=== PATIENT | male | born 1955 | race Caucasian/White ===

== ENCOUNTER 2016-08-11 01:31 | Emergency (ER) | payer BC, OTHER ==
[~2016-08-11] VITALS: Ht 180.3 cm; Wt 57.6 kg
[2016-08-11] VITALS (10 sets, daily range): BP systolic 150–185; BP diastolic 86–117; PULSE 84–112; RESP 14–24; TEMP 97.8–98.5; O2SAT 84–100
[~2016-08-11 01:31] MED LIST: CYCL1TAB29 PO; FERR325T PO; FURO1TAB60 PO; LEVO100T5 PO; LISI10TA3 PO; NEUR600T PO; TRAM50TA PO
--- NOTE | 2016-08-11 02:27 | PD ---
HPI Chief Complaint: Injury Time Seen by Provider: 01:56 Travel History International Travel<30 days: No Contact w/Intl Traveler<30days: No Traveled to known affect area: No History of Present Illness HPI 60-year-old male presents to the emergency department for complaint of 2 hours of left shoulder pain. Patient reportedly has been taking Tylenol and ibuprofen without relief. Patient denies injury. No recent fever. Patient states range of motion of the left arm is limited to less than 90 abduction. No numbness tingling weakness pallor erythema or swelling of the left upper extremity. No prior injury or complaint of left shoulder pain patient has been diagnosed with rotator cuff injury and AC separation of the right shoulder. Patient has history of hypertension COPD hypothyroidism chronic pain syndrome fibromyalgia with narcotic abuse and 33 surgeries. Patient has been in the care of pain management doctor in the past. Patient denies any chest pain or shortness of breath. Patient does smoke cigarettes and has supplemental home oxygen. PFSH Past Medical History Narrative Medical Arthritis COPD tobaccoism hypertension peripheral vascular disease diabetes chronic pain syndrome right shoulder rotator cuff injury right shoulder AC separation cholecystectomy endoscopy, Jessie-en-Y, gastric bypass revision, partial pancreatectomy, partial splenectomy, ventral herniorrhaphy, multiple orthopedic surgeries after fall from 3 stories; nursing notes reviewed Hx Anticoagulant Therapy: No Arthritis: Yes Asthma: No Autoimmune Disease: No Anxiety: No Depression: No Heart Rhythm Problems: No Cancer: No Cardiovascular Problems: Yes (HTN) High Cholesterol: No Chest Pain: No Congestive Heart Failure: No COPD: Yes Diabetes: Yes Diminished Hearing: No Endocrine: Yes Gastrointestinal Disorders: Yes GERD: Yes Genitourinary: No Hiatal Hernia: No Hypertension: Yes Immune Disorder: No Implanted Vascular Access Dvce: Yes Musculoskeletal: Yes Neurologic: No Psychiatric: No Reproductive: No Respiratory: Yes Immunizations Current: Yes Sleep Apnea: No Thyroid Disease: Yes Ulcer: No Past Surgical History Abdominal Surgery: Yes (GASTRIC BYPASS) AICD: No Arteriovenous Shunt: No Cardiac Surgery: No Cholecystectomy: Yes Ear Surgery: No Endocrine Surgery: No Eye Surgery: No Genitourinary Surgery: Yes Gynecologic Surgery: No Insulin Pump: No Joint Replacement: Yes (LEFT KNEE) Neurologic Surgery: No Oral Surgery: No Pacemaker: No Thoracic Surgery: No Other Surgery: Yes (33 SURGERIES) Social History Alcohol Use: No Tobacco Use: Yes (2ppd) Substance Use: No Allergies-Medications (Allergen,Severity, Reaction): Coded Allergies: No Known Allergies (Unverified , 08/11/16) Reported Meds & Prescriptions Reported Meds & Active Scripts Active Clindamycin (Clindamycin HCl) 150 Mg Cap 300 Mg PO Q6H 7 Days Lisinopril 10 Mg Tab 10 Mg PO DAILY Robaxin (Methocarbamol) 750 Mg Tab 750 Mg PO Q6HR Reported Lisinopril 10 Mg Tab 10 Mg PO DAILY Levothyroxine (Levothyroxine Sodium) 100 Mcg Tab 100 Mcg PO DAILY Review of Systems Except as stated in HPI: all other systems reviewed are Neg Physical Exam Narrative GENERAL: Thin disheveled male in no acute distress no respiratory distress SKIN: Warm and dry. HEAD: Normocephalic. EYES: No scleral icterus. No injection or drainage. NECK: Supple, trachea midline. No JVD or lymphadenopathy. CARDIOVASCULAR: Increased Regular rate and rhythm without murmurs, gallops, or rubs. RESPIRATORY: Breath sounds equal bilaterally. No accessory muscle use. GASTROINTESTINAL: Abdomen soft, non-tender, nondistended. MUSCULOSKELETAL: No cyanosis, or edema. Decreased range of motion of the left upper extremity at the shoulder with less than 90 abduction intact internal/ external rotation distally extremity is neurovascular tendon intact no joint deformity. Radial pulses 2+ bilaterally to palpation. BACK: Nontender without obvious deformity. No CVA tenderness. Data Data Last Documented VS Vital Signs Date Time Temp Pulse Resp B/P Pulse Ox O2 Delivery O2 Flow Rate FiO2 08/11/16 07:02 98.5 105 16 154/89 98 Orders Shoulder, Complete (>2vws) (08/11/16 ) Electrocardiogram (08/11/16 ) ^ Saline Lock (08/11/16 02:11) Basic Metabolic Panel (Bmp) (08/11/16 02:11) Complete Blood Count With Diff (08/11/16 02:11) Magnesium (Mg) (08/11/16 02:11) Troponin I (08/11/16 02:11) Lactic Acid (08/11/16 02:11) Blood Culture (08/11/16 02:11) Chest, Single Ap (08/11/16 ) Sodium Chlorid 0.9% 500 Ml Inj (Ns 500 M (08/11/16 03:15) Insulin Human Regular Inj (Novolin R Inj (08/11/16 03:15) Ketorolac Inj (Toradol Inj) (08/11/16 03:15) Urinalysis - C+S If Indicated (08/11/16 03:09) Protein Corrected Calcium(Pcc) (08/11/16 02:25) Ondansetron Inj (Zofran Inj) (08/11/16 04:30) Morphine Inj (Morphine Inj) (08/11/16 04:30) Splint Or Brace Apply/Monitor (08/11/16 04:30) Sling Cradle Arm (08/11/16 ) Ct Abd/Pel W Iv Contrast(Rout) (08/11/16 ) Wound Culture And Gram Stain (08/11/16 05:04) Oral Contrast - Adult (08/11/16 05:07) Diatrizoate Liq ( Gastroview Liq) (08/11/16 05:14) Iohexol 350 Inj (Omnipaque 350 Inj) (08/11/16 06:46) Clindamycin Inj (Cleocin Inj) (08/11/16 07:30) Labs Laboratory Tests Test 08/11/16 08/11/16 02:25 03:40 White Blood Count 12.7 TH/MM3 Red Blood Count 3.54 MIL/MM3 Hemoglobin 10.6 GM/DL Hematocrit 33.3 % Mean Corpuscular Volume 94.2 FL Mean Corpuscular Hemoglobin 30.0 PG Mean Corpuscular Hemoglobin 31.9 % Concent Red Cell Distribution Width 13.2 % Platelet Count 681 TH/MM3 Mean Platelet Volume 7.9 FL Neutrophils (%) (Auto) 72.1 % Lymphocytes (%) (Auto) 16.1 % Monocytes (%) (Auto) 9.5 % Eosinophils (%) (Auto) 1.6 % Basophils (%) (Auto) 0.7 % Neutrophils # (Auto) 9.2 TH/MM3 Lymphocytes # (Auto) 2.0 TH/MM3 Monocytes # (Auto) 1.2 TH/MM3 Eosinophils # (Auto) 0.2 TH/MM3 Basophils # (Auto) 0.1 TH/MM3 CBC Comment DIFF FINAL Differential Comment Sodium Level 136 MEQ/L Potassium Level 4.3 MEQ/L Chloride Level 103 MEQ/L Carbon Dioxide Level 22.7 MEQ/L Anion Gap 10 MEQ/L Blood Urea Nitrogen 27 MG/DL Creatinine 1.00 MG/DL Estimat Glomerular Filtration 76 ML/MIN Rate Random Glucose 390 MG/DL Lactic Acid Level 1.4 mmol/L Calcium Level 8.0 MG/DL Protein Corrected Calcium 8.5 MG/DL Magnesium Level 1.9 MG/DL Troponin I LESS THAN 0.02 NG/ML Total Protein 6.3 GM/DL Urine Color YELLOW Urine Turbidity CLEAR Urine pH 5.5 Urine Specific [place] 1.021 Urine Protein 30 mg/dL Urine Glucose (UA) 1000 OR GREATER mg/dL Urine Ketones NEG mg/dL Urine Occult Blood NEG Urine Nitrite NEG Urine Bilirubin NEG Urine Leukocyte Esterase NEG Urine RBC 0-2 /hpf Urine WBC 0-2 /hpf Urine Squamous Epithelial 0-5 /hpf Cells Urine Bacteria NONE /hpf Microscopic Urinalysis Comment CULT NOT INDICATED MDM Medical Decision Making Medical Screen Exam Complete: Yes Emergency Medical Condition: Yes Medical Record Reviewed: Yes Interpretation(s) EKG: Normal sinus rhythm rate 85 left axis deviation right bundle branch block with left anterior fascicular block no acute ST elevation or injury pattern change noted QS inferiorly age-indeterminate.; this is essentially unchanged from previous study review of medical records. CBC & BMP Diagram 08/11/16 02:25 Last Impressions Shoulder X-Ray 08/11/16 0000 Signed Impressions: Service Date/Time: Thursday, August 11, 2016 02:46 - CONCLUSION: No acute left shoulder abnormality is identified. There are stable findings consistent with calcific tendinosis and osteoarthritis of the acromioclavicular joint. Levar Aguayo MD Chest X-Ray 08/11/16 0000 Signed Impressions: Service Date/Time: Thursday, August 11, 2016 02:20 - CONCLUSION: No acute cardiopulmonary abnormality is identified. Levar Aguayo MD troponin I: less than 0.02, not elevated lactic acid: 1.4, not elevated ua: glucosuria Differential Diagnosis Bursitis rotator cuff injury AC separation lytic lesion atypical chest pain ACS myocardial infarction pneumothorax PE sirs sepsis; no exam findings for septic arthritis Narrative Course Patient presents with complaint of left shoulder pain for 2 hours prior to arrival to the emergency department with no known injury and some decreased range of motion without redness swelling point tenderness bruising or deformity. As such patient will receive x-ray of the left shoulder to evaluate for bony etiology for pain we'll also obtain chest x-ray to evaluate for rib etiology for pain and pneumothorax EKG performed to assess for possible cardiac etiology of pain and as patient meets SIRS criteria by heart rate and respiratory we'll obtain lactic and blood cultures along with basic labs to assess for possible serves/infectious related etiology versus inflammatory changes associated with Musculoskeletal pain. Also in view of patient's history of ongoing tobacco use hypertension dyslipidemia age of 59 while taking EKG. Patient has prior history of right bundle branch block with left anterior fascicular block left axis deviation and prior age-indeterminate inferior infarct. Cardiac enzymes will be obtained. Lab values remarkable for total white cell count 12,700 with mild left shift however there is a normal lactic acid 1.4; patient also identified to have renal insufficiency as well as elevated serum glucose. Patient administered normal saline bolus as well as regular insulin administered subcutaneously patient also given Toradol 30 mg IV for pain management. No obvious source of infection and patient appears nontoxic. Patient denies any shortness of breath or chest pain. Pain is isolated to the left shoulder. Patient has limited range of motion of the left shoulder. EKG reveals no acute injury pattern changed no ST elevation and cardiac enzymes are found to be in normal range. Most likely this is musculoskeletal pain as opposed to primary vascular PE or cardiac ACS etiology. Also no evidence for pneumothorax. Urinalysis also ordered. Patient with continued complaint of left shoulder pain with range of motion; administered zofran 4 mg iv and morphine sulfate 4mg iv; BG rechecked at 1 hour after SQ insulin and decreased to 113; patient given Peanut butter crackers and OJ. @ time of discharge while sling being applied patient now reports that he has had some drainage from a previous peg tube insertion site and overlying prior gastric bypass surgical site that was last used and tube removed 2 years ago. Patient also notes some purulent drainage from the site x 2 days. Patient denies any pain, bleeding redness, fever, nausea or vomiting. Wound dehiscence, abscess, cellulitis, stoma fistula CT abd/pel w contrast ordered and wound c&s obtained. Patient does meet sirs criteria by hr,rr, and wcc @7:[address] abdomen and pelvis with IV and oral contrast read per reading radiologist identifies no obvious fistulous tract from anterior abdominal wall to intra-abdominal cavity or bowel. Patient with multiple surgical clips but no evidence of abdominal wall abscess or induration. Area where abdominal wall showed possible previous peg tube insertion shows some granulation tissue no obvious tract identified. Discussed at 7:35 AM discussed in detail with patient with significant other at bedside general surgery recommendations and exam findings. Offered for patient to be admitted as observation for ongoing monitoring of abdominal wall site and for IV antibiotics and wound care. Patient is adamant that he does not want to be admitted to the hospital states the area has no tenderness has had no pain and he's had no fever or chills. Patient is willing to take antibiotic and is willing to follow-up Gen. surgery but states he will not be admitted to the hospital. In view of Gen. surgery's recommendation for daily cleansing of the site and outpatient follow-up in the surgical office patient will be given outpatient trial but is encouraged to monitor temperature every 4 hours and to return immediately for fever or any change in condition. Sepsis Criteria SIRS Criteria (2 or more): Heart rate over 90, RR > 20 or PaCO2 < 32, WBC > 11608, < 4000 or > 10% bands Criteria Outcome: Meets SIRS criteria Physician Communication Physician Communication case discussed with Gen Surgery DR Hauser will see in the office not admission--- recommends dilute soap cleanse daily Diagnosis Primary Impression: Left shoulder tendinitis Additional Impressions: Hyperglycemia due to type 2 diabetes mellitus Qualified Code: E11.65 - Type 2 diabetes mellitus with hyperglycemia, without long-term current use of insulin Dehydration HTN (hypertension) Qualified Code: I10 - Essential hypertension Medication refill Chronic pain Qualified Code: G89.4 - Chronic pain syndrome Draining cutaneous sinus tract Referrals: General Surgeon 3 days family consumer scientist surgeon Dr Ace Orthopedist call for appointment Pain Management call for appointment Primary Care Physician call for appointment Patient Instructions: General Instructions Additional Instructions: Increase fluid hydration Take [id number] ibuprofen 600 mg as often as every 6-8 hours as needed for pain associated with inflammation May take Robaxin as prescribed as needed for muscle spasm Follow-up with your primary care physician; follow-up with orthopedic surgeon; follow up with pain management physician Apply moist heat to shoulder Wear sling Return to the emergency department for any concerns or change in condition Monitor blood sugars daily Continue your lisinopril as prescribed daily Monitor temperature every 4 hours with thermometer take acetaminophen/Tylenol every 4 hours as needed for fever 100.4F or greater or ibuprofen/Advil/Motrin 400-600 mg as often as every 6-8 hours as needed for fever 100.4F or greater Cleanse wound site daily with dilute warm soapy water and apply dry dressing Follow-up with general surgeon on Sunday or Sunday call office today to schedule follow-up appointment Med/Other Pt SpecificInfo: Prescription(s) given Scripts Clindamycin 150 Mg [id number] Mg PO Q6H 7 Days Ref 0 Prov:Karie Yost MD 08/11/16 Lisinopril 10 Mg Tab10 Mg PO DAILY #30 TAB Ref 0 Prov:Karie Yost MD 08/11/16 Methocarbamol (Robaxin)750 Mg [id number] Mg PO Q6HR #7 TAB Ref 0 Prov:Karie Yost MD 08/11/16 Disposition: 01 DISCHARGE HOME Condition: Stable Karie Yost MD Aug 11, 2016 02:27
[2016-08-11 02:38] LABS: AUTOMATED NEUTROPHIL # 9.2 TH/MM3 (1.8-7.7); BASOPHIL # 0.1 TH/MM3 (0-0.2); BASOPHIL % 0.7 % (0.0-2.0); EOSINOPHIL # 0.2 TH/MM3 (0-0.4); EOSINOPHIL % 1.6 % (0.0-4.0); HEMATOCRIT 33.3 % (39.0-51.0); HEMO FLAGS DIFF FINAL; LYMPH % 16.1 % (9.0-44.0); MEAN CELL VOLUME 94.2 FL (80.0-100.0); MEAN CORPUSCULAR HGB CONC 31.9 % (32.0-36.0); MONO % 9.5 % (0.0-8.0); NEUT % 72.1 % (16.0-70.0); PLATELET COUNT 681 TH/MM3 (150-450); RED BLOOD COUNT 3.54 MIL/MM3 (4.50-5.90); RED CELL DISTRIBUTION WIDTH 13.2 % (11.6-17.2); WHITE BLOOD COUNT 12.7 TH/MM3 (4.0-11.0)
[2016-08-11 02:46] LABS: CHLORIDE 103 MEQ/L (98-107); POTASSIUM 4.3 MEQ/L (3.5-5.1); SODIUM (NA) 136 MEQ/L (136-145)
[2016-08-11 02:49] LABS: ANION GAP 10 MEQ/L (5-15); BICARBONATE 22.7 MEQ/L (21.0-32.0); BLOOD UREA NITROGEN 27 MG/DL (7-18); MAGNESIUM 1.9 MG/DL (1.5-2.5)
[2016-08-11 02:52] LABS: GLOMERULAR FILTRATION RATE 76 ML/MIN (>89)
--- NOTE | 2016-08-11 03:08 | RADHPO ---
EXAM DATE/TIME: 08/11/2016 02:20 [facility] COMPARISON: CHEST SINGLE AP, June 24, 2016, 23:56. INDICATIONS : Patient states chest pain. MEDICAL HISTORY : Hypertension. Chronic obstructive pulmonary disease. Diabetes mellitus type II. GERD, Thyroid dis ease SURGICAL HISTORY : Splenectomy. Cholecystectomy. Gastric bypass. Bilateral knee surgery, partial pancreas removal ENCOUNTER: Initial ACUITY: 1 day PAIN SCORE: 6/10 LOCATION: Bilateral chest FINDINGS: Single frontal view of the chest demonstrates a normal-sized cardiac silhouette. No effusion, consoli dation, or pneumothorax is visualized. Lungs remain hyperinflated. The bones and soft tissues demonst rate no acute abnormality. CONCLUSION: No acute cardiopulmonary abnormality is identified. Levar Aguayo MD on August 11, 2016 at 3:06 Board Certified Radiologist. This report was verified electronically.
--- NOTE | 2016-08-11 03:13 | RADHPO ---
EXAM DATE/TIME: 08/11/2016 02:46 [facility] COMPARISON: SHOULDER LEFT COMPLETE (>2VWS), June 18, 2016, 1:25. INDICATIONS : Patient states left shoulder pain x2 hrs. MEDICAL HISTORY : None. SURGICAL HISTORY : None. ENCOUNTER: Initial ACUITY: 1 day PAIN SCORE: 9/10 LOCATION: Left Shoulder FINDINGS: 5 views of the left shoulder demonstrate no fracture or dislocation. There is mineralization adjacent to the greater tuberosity. The acromioclavicular joint is intact with mild osteoarthritis change. No soft tissue abnormality is identified. Visualized left chest demonstrates no acute finding. CONCLUSION: No acute left shoulder abnormality is identified. There are stable findings consistent with calcific tendinosis and osteoarthritis of the acromioclavicular joint. Levar Aguayo MD on August 11, 2016 at 3:10 Board Certified Radiologist. This report was verified electronically.
[2016-08-11] MEDS ORDERED: SODIUM CHLORID 0.9% 500 ML INJ 500 ML IV ONE (03:15)
[2016-08-11] MEDS ORDERED: KETOROLAC TROMETHAMINE 30 MG/ML (IVP) VIAL IV PUSH ONE (03:15)
[2016-08-11] MEDS ORDERED: INSULIN HUMAN REGULAR 1,000 UNITS/10 ML VIAL SQ ONE (03:15)
[2016-08-11 03:26] LABS: CALCIUM-PROTEIN CORRECTED 8.5 MG/DL (8.5-10.1)
[2016-08-11 03:47] LABS: BLOOD, URINE NEG (NEG); KETONE, URINE NEG (NEG); NITRITE,URINE NEG (NEG); PH, URINE 5.5 (5.0-8.5)
[2016-08-11 03:50] LABS: GLUCOSE,URINE 1000 OR GREATER mg/dL (NEG); URINE COLOR YELLOW (YELLW/STRAW)
[2016-08-11 03:51] LABS: COMMENT (UR) CULT NOT INDICATED; CULTURE IF INDICATED CULT NOT INDICATED; RBC, URINE 0-2 /hpf (0-3); SQUAMOUS EPITHELIAL CELL URINE 0-5 /hpf (0-5); WBC, URINE 0-2 /hpf (0-5)
[2016-08-11] MEDS ORDERED: ONDANSETRON HCL 4 MG/2 ML VIAL IV PUSH ONE (04:30)
[2016-08-11] MEDS ORDERED: LISI10TA3 PO (04:30)
[2016-08-11] MEDS ORDERED: MORPHINE SULFATE 4 MG/ML INJ IV PUSH ONE ×2 (04:30→07:45)
[2016-08-11] MEDS ORDERED: ROBA750T PO (04:30)
[2016-08-11] MEDS ORDERED: DIATRIZOATE MEGLUM/DIATRIZOATE SOD 9 ML CUP ONE (05:14)
[2016-08-11] MEDS ORDERED: IOHEXOL 350 MG/ML 10 ML VIAL (for RAD DIAG) IV ONE (06:46)
--- NOTE | 2016-08-11 06:59 | RADHPO ---
EXAM DATE/TIME: 08/11/2016 06:34 [facility] COMPARISON: CT ABDOMEN & PELVIS W CONTRAST, April 15, 2015, 17:14. INDICATIONS : Drainage prior surgical site for peg tube. IV CONTRAST: 100 cc Omnipaque 350 (iohexol) IV ORAL CONTRAST: Prescribed oral contrast ingested. RADIATION DOSE: 5.51 CTDIvol (mGy) MEDICAL HISTORY : Diabetes mellitus type 2. Chronic obstructive pulmonary disease. Hypertension.GERD. SURGICAL HISTORY : Gastric bypass. Cholecystectomy. ENCOUNTER: Initial ACUITY: 3 days PAIN SCALE: 3/10 LOCATION: Umbilical TECHNIQUE: Volumetric scanning of the abdomen and pelvis was performed. Using automated exposure control and ad justment of the mA and/or kV according to patient size, radiation dose was kept as low as reasonably achievable to obtain optimal diagnostic quality images. FINDINGS: LOWER LUNGS: The visualized lower lungs are clear. LIVER: Homogeneous density without lesion. There is stable mild intra-and extrahepatic bile duct dilatation in this patient post cholecystectomy. There are innumerable clips in the gallbladder fossa region. D istal common bile duct measures approximately 11 mm. SPLEEN: Normal size without lesion. PANCREAS: Within normal limits. KIDNEYS: Normal in size and shape. There is no mass or hydronephrosis. There are 3 low-density lesions in the right kidney measuring between 6 mm and 14 mm. These are stable from the prior study and have imagin g appearance suggesting cysts. There is a stable 5 mm nonobstructing left renal stone. ADRENAL GLANDS: Within normal limits. VASCULAR: There is no aortic aneurysm. There is moderate atherosclerotic disease. BOWEL/MESENTERY: There is circumferential wall thickening of the distal esophagus similar to the prior study. Postsurg ical changes are present at the stomach indicating prior gastric bypass surgery. Bowel is adjacent to the anterior abdominal wall. There are no findings to indicate obstruction. No free air or free flui d is present. ABDOMINAL WALL: There multiple clips on the anterior abdominal wall. No abdominal wall fluid collection is visualized . RETROPERITONEUM: There is no lymphadenopathy. BLADDER: No wall thickening or mass. REPRODUCTIVE: Within normal limits. INGUINAL: There is no lymphadenopathy or hernia. There is fluid within the inguinal canals bilaterally. MUSCULOSKELETAL: There are degenerative changes of the lumbar spine. Right proximal femur hardware is present. CONCLUSION: 1. There are multiple surgical clips on the anterior abdominal wall. There is adjacent bowel. No abdo luis carlos wall fluid collection or abscess is seen. No clear fistula is identified. 2. Nonacute findings include moderate atherosclerotic disease, postsurgical changes indicating prior gastric bypass surgery, stable circumferential wall thickening in the distal esophagus, and stable no nobstructing left renal stone. Levar Aguayo MD on August 11, 2016 at 6:50 Board Certified Radiologist. This report was verified electronically.
[2016-08-11] MEDS ORDERED: CLIN1CAP5 PO (07:27)
[2016-08-11] MEDS ORDERED: CLINDAMYCIN INJ 900 MG in SODIUM CHLORIDE 0.9% INJ 100 ML IV ONE (07:30)
--- NOTE | 2016-08-11 13:42 | EKG ---
Date Performed: 08/11/2016 Time Performed: 02:16:54 PTAGE: 60 years EKG: Sinus rhythm Left axis deviation RBBB with left anterior fascicular block Possible inferior infarct - age undeter mined Abnormal ECG PREVIOUS TRACING : 06/25/2016 15.16 Since previous tracing, no significant change noted DOCTOR: Dariana Fuentes Interpretating Date/Time 08/11/2016 13:35:31
== END 2016-08-11 08:53 | disposition home or self-care (01) ==
LOC: PHED 01:31
DX: M75.80 Other shoulder lesions, unspecified shoulder (principal); E11.65 Type 2 diabetes mellitus with hyperglycemia; E86.0 Dehydration; I10 Essential (primary) hypertension; G89.29 Other chronic pain; B95.61 Methicillin susceptible Staphylococcus aureus infection as the cause of diseases classified elsewhere; F17.210 Nicotine dependence, cigarettes, uncomplicated; R94.31 Abnormal electrocardiogram [ECG] [EKG]; Z76.0 Encounter for issue of repeat prescription
CPT/HCPCS: 71010; 73030; 74177; 80048; 81001; 83605; 83735; 84155; 84484; 85025; 87040; 87070; 93005; 96361; 96365; 96372; 96375; 96376; 99284; J1815; J1885; J2270; J2405; J7040; Q9963; Q9967

== ENCOUNTER 2016-08-27 09:56 | Inpatient (IN) | payer BC, OTHER ==
[2016-08-27] VITALS (8 sets, daily range): BP systolic 116–176; BP diastolic 61–105; PULSE 82–118; RESP 16–20; TEMP 97.9–100.6; O2SAT 95–100
[~2016-08-27] VITALS: Ht 180.3 cm; Wt 57.2 kg
[~2016-08-27 09:56] MED LIST changes: +CLIN1CAP5 PO; -CYCL1TAB29 PO; -FERR325T PO; -FURO1TAB60 PO; -NEUR600T PO; +ROBA750T PO; -TRAM50TA PO
[2016-08-27] MEDS ORDERED: SODIUM CHLOR 0.9% 1000 ML INJ 1,000 ML IV SCH (10:02)
--- NOTE | 2016-08-27 10:05 | PD ---
HPI Chief Complaint: Abdominal Pain Time Seen by Provider: 09:58 Travel History International Travel<30 days: No Contact w/Intl Traveler<30days: No Traveled to known affect area: No History of Present Illness HPI 60-year-old male brought in by ambulance from home for evaluation of abdominal pain. The patient reports mid abdominal pain described as a throbbing, severe, constant, no modifying factors. Symptoms started at around 3:00 AM. He had a normal bowel movement this morning. No nausea or vomiting. No fevers or chills. History of partial gastrectomy in 1983. No other abdominal surgeries. PFSH Past Medical History Hx Anticoagulant Therapy: No Arthritis: Yes Asthma: No Autoimmune Disease: No Anxiety: No Depression: No Heart Rhythm Problems: No Cancer: No Cardiovascular Problems: Yes (HTN) High Cholesterol: No Chest Pain: No Congestive Heart Failure: No COPD: Yes Diabetes: Yes (NO MEDS) Diminished Hearing: No Endocrine: Yes Gastrointestinal Disorders: Yes GERD: Yes Genitourinary: No Hiatal Hernia: No Hypertension: Yes Immune Disorder: No Implanted Vascular Access Dvce: Yes Musculoskeletal: Yes Neurologic: No Psychiatric: No Reproductive: No Respiratory: Yes (COPD) Immunizations Current: Yes Sleep Apnea: No Thyroid Disease: Yes Ulcer: No Past Surgical History Abdominal Surgery: Yes (GASTRIC BYPASS) AICD: No Arteriovenous Shunt: No Cardiac Surgery: No Cholecystectomy: Yes Ear Surgery: No Endocrine Surgery: No Eye Surgery: No Genitourinary Surgery: Yes Gynecologic Surgery: No Insulin Pump: No Joint Replacement: Yes (LEFT KNEE) Neurologic Surgery: No Oral Surgery: No Pacemaker: No Thoracic Surgery: No Other Surgery: Yes (33 SURGERIES) Social History Alcohol Use: No Tobacco Use: Yes (2ppd) Substance Use: No Allergies-Medications (Allergen,Severity, Reaction): Coded Allergies: No Known Allergies (Unverified , 08/11/16) Reported Meds & Prescriptions Reported Meds & Active Scripts Active Clindamycin (Clindamycin HCl) 150 Mg Cap 300 Mg PO Q6H 7 Days Lisinopril 10 Mg Tab 10 Mg PO DAILY Robaxin (Methocarbamol) 750 Mg Tab 750 Mg PO Q6HR Reported Lisinopril 10 Mg Tab 10 Mg PO DAILY Levothyroxine (Levothyroxine Sodium) 100 Mcg Tab 100 Mcg PO DAILY Review of Systems Except as stated in HPI: all other systems reviewed are Neg Physical Exam Narrative GENERAL: Well-developed, thin, comfortable, no acute distress. SKIN: Warm and dry. Midline vertical abdominal incisional scar with small area of ulceration at the superior aspect with dry packing in place, no purulence, no warmth or erythema. HEAD: Atraumatic. Normocephalic. EYES: Pupils equal and round. No scleral icterus. No injection or drainage. ENT: Mucous membranes pink and moist. NECK: Trachea midline. No JVD. CARDIOVASCULAR: Regular rate and rhythm. RESPIRATORY: No accessory muscle use. Clear to auscultation. Breath sounds equal bilaterally. GASTROINTESTINAL: Abdomen soft, nondistended. Moderate diffuse tenderness with rigidity, no rebound. Normal bowel sounds. MUSCULOSKELETAL: No obvious deformities. No clubbing. No cyanosis. No edema. NEUROLOGICAL: Awake and alert. No obvious cranial nerve deficits. Motor grossly within normal limits. Normal speech. PSYCHIATRIC: Appropriate mood and affect; insight and judgment normal. Data Data Last Documented VS Vital Signs Date Time Temp Pulse Resp B/P Pulse Ox O2 Delivery O2 Flow Rate FiO2 08/27/16 12:10 94 16 121/93 97 Room Air 08/27/16 09:58 97.9 Orders Complete Blood Count With Diff (08/27/16 10:02) Comprehensive Metabolic Panel (08/27/16 10:02) Lipase (08/27/16 10:02) Lactic Acid (08/27/16 10:02) Prothrombin Time / Inr (Pt) (08/27/16 10:02) Act Partial Throm Time (Ptt) (08/27/16 10:02) Ct Abd/Pel W Iv Contrast(Rout) (08/27/16 10:02) Iv Access Insert/Monitor (08/27/16 10:02) Ecg Monitoring (08/27/16 10:02) Oximetry (08/27/16 10:02) Morphine Inj (Morphine Inj) (08/27/16 10:15) Ondansetron Inj (Zofran Inj) (08/27/16 10:15) Sodium Chlor 0.9% 1000 Ml Inj (Ns 1000 M (08/27/16 10:02) Sodium Chloride 0.9% Flush (Ns Flush) (08/27/16 10:15) Electrocardiogram (08/27/16 10:02) Ckmb (Isoenzyme) Profile (08/27/16 10:02) Troponin I (08/27/16 10:02) Iohexol 350 Inj (Omnipaque 350 Inj) (08/27/16 11:36) Piperacil-Tazo 3.375 Gm Premix (Zosyn 3. (08/27/16 12:30) Azithromycin Inj (Zithromax Inj) (08/27/16 12:45) Blood Culture (08/27/16 12:31) Diet 1800 Ada Cons Carb (08/27/16 Lunch) Labs Laboratory Tests Test 08/27/16 10:20 White Blood Count 20.6 TH/MM3 Red Blood Count 3.60 MIL/MM3 Hemoglobin 11.0 GM/DL Hematocrit 33.8 % Mean Corpuscular Volume 93.9 FL Mean Corpuscular Hemoglobin 30.6 PG Mean Corpuscular Hemoglobin 32.5 % Concent Red Cell Distribution Width 13.9 % Platelet Count 563 TH/MM3 Mean Platelet Volume 8.3 FL Neutrophils (%) (Auto) 87.3 % Lymphocytes (%) (Auto) 7.3 % Monocytes (%) (Auto) 4.1 % Eosinophils (%) (Auto) 0.3 % Basophils (%) (Auto) 1.0 % Neutrophils # (Auto) 18.0 TH/MM3 Lymphocytes # (Auto) 1.5 TH/MM3 Monocytes # (Auto) 0.8 TH/MM3 Eosinophils # (Auto) 0.1 TH/MM3 Basophils # (Auto) 0.2 TH/MM3 CBC Comment DIFF FINAL Differential Comment Prothrombin Time 10.4 SEC Prothromb Time International 0.9 RATIO Ratio Activated Partial 25.4 SEC Thromboplast Time Sodium Level 138 MEQ/L Potassium Level 4.7 MEQ/L Chloride Level 103 MEQ/L Carbon Dioxide Level 25.7 MEQ/L Anion Gap 9 MEQ/L Blood Urea Nitrogen 23 MG/DL Creatinine 0.98 MG/DL Estimat Glomerular Filtration 78 ML/MIN Rate Random Glucose 352 MG/DL Lactic Acid Level 1.5 mmol/L Calcium Level 8.8 MG/DL Total Bilirubin 0.2 MG/DL Aspartate Amino Transf 7 U/L (AST/SGOT) Alanine Aminotransferase 18 U/L (ALT/SGPT) Alkaline Phosphatase 130 U/L Total Creatine Kinase 22 U/L Troponin I LESS THAN 0.02 NG/ML Total Protein 6.3 GM/DL Albumin 2.4 GM/DL Lipase 363 U/L [facility] Medical Decision Making Medical Screen Exam Complete: Yes Emergency Medical Condition: Yes Medical Record Reviewed: Yes Differential Diagnosis Gastritis, pancreatitis, peptic ulcer disease, hepatobiliary disease, appendicitis, colitis, intra-abdominal infection Narrative Course Initial vital signs show heart rate 108, blood pressure 152/80, pulse ox 99% on room air, oral temp of 97.9F. CBC shows WBCs 20.6, hemoglobin 11, hematocrit 33.8, platelets 563, neutrophils 87%. CMP is remarkable for random glucose 352, otherwise unremarkable. Lipase is 363. Lactic acid is 1.5. Cardiac enzymes are negative. CT abdomen pelvis: CONCLUSION: 1. Soft tissue defect/ ulceration or possible wound dehiscence in the midline anterior abdominal wall in the area of previous hernia repair surgery. No organized drainable fluid collection. No herniation of intra-abdominal contents identified. 2. No other significant interval change. 3. Scarring or atelectasis at the right lung base. Minimal patchy opacity at the left lung base indicating minimal inflammatory change or atelectasis. Patient has history of COPD. His abdominal pain is somewhat improved, however he still is having pain after receiving morphine. His leukocytosis is likely secondary to the opacity in his left lung base. His O2 saturation is 93% on room air. She reports having a cough for the last couple of days that is nonproductive. The patient also states that he has diabetes, however he is not on any medication for it. The patient was started on Zosyn and azithromycin. Blood cultures sent prior to antibiotic administration. Given intractable abdominal pain, psychosis, and pneumonia, the patient be admitted. He meets sepsis criteria. Case discussed with [facility] hospitalist Dr. Fontanez who will admit the patient to his service. Diagnosis Primary Impression: Sepsis Qualified Code: A41.9 - Sepsis, due to unspecified organism Additional Impressions: Pneumonia Qualified Code: J18.1 - Pneumonia of left lower lobe due to infectious organism Intractable abdominal pain Hyperglycemia Admitting Information Admitting Physician Requests: Admit Hossein Gallego MD Aug 27, 2016 10:05
[2016-08-27] MEDS ORDERED: MORPHINE SULFATE 4 MG/ML INJ IV PUSH ONE (10:15)
[2016-08-27] MEDS ORDERED: SODIUM CHLORIDE 0.9% FLUSH 5 ML FLUSH IVF PRN (10:15)
[2016-08-27] MEDS ORDERED: ONDANSETRON HCL 4 MG/2 ML VIAL IVP ONE (10:15)
[2016-08-27 10:50] LABS: CHLORIDE 103 MEQ/L (98-107); POTASSIUM 4.7 MEQ/L (3.5-5.1); SODIUM (NA) 138 MEQ/L (136-145)
[2016-08-27 10:51] LABS: BASOPHIL # 0.2 TH/MM3 (0-0.2); EOSINOPHIL # 0.1 TH/MM3 (0-0.4); EOSINOPHIL % 0.3 % (0.0-4.0); HEMATOCRIT 33.8 % (39.0-51.0); LYMPH % 7.3 % (9.0-44.0); LYMPHOCYTE # 1.5 TH/MM3 (1.0-4.8); MEAN CELL VOLUME 93.9 FL (80.0-100.0); MEAN CORPUSCULAR HEMOGLOBIN 30.6 PG (27.0-34.0); MEAN CORPUSCULAR HGB CONC 32.5 % (32.0-36.0); MONO % 4.1 % (0.0-8.0); NEUT % 87.3 % (16.0-70.0); PLATELET COUNT 563 TH/MM3 (150-450); RED CELL DISTRIBUTION WIDTH 13.9 % (11.6-17.2); WHITE BLOOD COUNT 20.6 TH/MM3 (4.0-11.0)
[2016-08-27 10:52] LABS: HEMO FLAGS DIFF FINAL
[2016-08-27 10:54] LABS: ANION GAP 9 MEQ/L (5-15); BICARBONATE 25.7 MEQ/L (21.0-32.0); BLOOD UREA NITROGEN 23 MG/DL (7-18)
[2016-08-27 10:55] LABS: APTT (PATIENT) 25.4 SEC (24.3-30.1); INTERNATIONAL NORMALIZED RATIO 0.9 RATIO; PROTHROMBIN TIME - PATIENT 10.4 SEC (9.8-11.6)
[2016-08-27 10:56] LABS: ALT (GPT) 18 U/L (12-78); AST (GOT) 7 U/L (15-37)
[2016-08-27 10:57] LABS: GLOMERULAR FILTRATION RATE 78 ML/MIN (>89)
[2016-08-27 10:58] LABS: TOTAL BILIRUBIN ADULT 0.2 MG/DL (0.2-1.0)
[2016-08-27 10:59] LABS: ALKALINE PHOSPHATASE 130 U/L (45-117)
[2016-08-27 11:00] LABS: CREATINE KINASE 22 U/L (39-308)
[2016-08-27] MEDS ORDERED: IOHEXOL 350 MG/ML 10 ML VIAL (for RAD DIAG) IV ONE (11:36)
--- NOTE | 2016-08-27 12:20 | RADHPO ---
EXAM DATE/TIME: 08/27/2016 11:16 [place] COMPARISON: CT ABDOMEN & PELVIS W CONTRAST, August 11, 2016, 6:34. INDICATIONS : Umbilical pain today. IV CONTRAST: 70 cc Omnipaque 350 (iohexol) IV ORAL CONTRAST: No oral contrast ingested. RADIATION DOSE: 7.56 CTDIvol (mGy) MEDICAL HISTORY : Gastroesophageal reflux disease. Hypertension. SURGICAL HISTORY : Gastric bypass. Cholecystectomy. ENCOUNTER: Initial ACUITY: 1 day PAIN SCALE: 10/10 LOCATION: umbilical abdomen TECHNIQUE: Volumetric scanning of the abdomen and pelvis was performed. Using automated exposure control and ad justment of the mA and/or kV according to patient size, radiation dose was kept as low as reasonably achievable to obtain optimal diagnostic quality images. FINDINGS: LOWER LUNGS: Scarring or atelectasis at the right lung base. Minimal patchy opacity at the left lung base indicati ng minimal inflammatory change or atelectasis. LIVER: Status post cholecystectomy. Mild diffuse prominence of the intrahepatic biliary ducts unchanged. No focal masses identified. SPLEEN: Absent. PANCREAS: Within normal limits. KIDNEYS: Left renal calculus and bilateral renal cysts unchanged. No evidence of hydronephrosis. ADRENAL GLANDS: Within normal limits. VASCULAR: There is no aortic aneurysm. BOWEL/MESENTERY: Postsurgical findings of the stomach and proximal small bowel. No evidence of bowel dilatation. No fr ee air or free fluid. Appendix within normal limits. ABDOMINAL WALL: There is an apparent defect in the midline anterior abdominal wall. Multiple metallic tacks are seen in this area. Several tacks are seen in the region of apparent gap. This finding is just superior to the umbilicus. No herniation of intra-abdominal contents identified. RETROPERITONEUM: There is no lymphadenopathy. BLADDER: No wall thickening or mass. REPRODUCTIVE: Within normal limits. INGUINAL: Fluid again seen within the inguinal canals. MUSCULOSKELETAL: Within normal limits for patient age. CONCLUSION: 1. Soft tissue defect/ ulceration or possible wound dehiscence in the midline anterior abdominal wall in the area of previous hernia repair surgery. No organized drainable fluid collection. No herniatio n of intra-abdominal contents identified. 2. No other significant interval change. Ag Lira MD on August 27, 2016 at 12:08 Board Certified Radiologist. This report was verified electronically.
[2016-08-27] MEDS ORDERED: PIPERACIL-TAZO 3.375 GM PREMIX 50 ML IV ONE (12:30)
[2016-08-27] MEDS ORDERED: AZITHROMYCIN INJ 500 MG in SODIUM CHLOR 0.9% 250 ML INJ 250 ML IV ONE (12:45)
[2016-08-27] MEDS ORDERED: MAGNESIUM HYDROXIDE SUSP 30 ML CUP PO PRN (14:30)
[2016-08-27] MEDS ORDERED: SENNOSIDES 8.6 MG TAB PO PRN (14:30)
[2016-08-27] MEDS ORDERED: ACETAMINOPHEN 325 MG TAB PO PRN (14:30)
[2016-08-27] MEDS ORDERED: NALOXONE HCL 0.4 MG/ML AMP IV PRN (14:30)
[2016-08-27] MEDS ORDERED: ONDANSETRON HCL 4 MG/2 ML VIAL IVP PRN (14:30)
[2016-08-27] MEDS ORDERED: GLUCAGON 1 MG/ML VIAL OTHER PRN (14:45)
[2016-08-27] MEDS ORDERED: DEXTROSE 50% IN WATER 50 ML VIAL(D50) IV PUSH PRN (14:45)
[2016-08-27] MEDS: SODIUM CHLOR 0.9% 1000 ML INJ 1,000 ML IV SCH (14:59)
[2016-08-27] MEDS: INSULIN ASPART SUPPLEMENTAL SCALE SQ SCH ×2 (17:42→21:00)
[2016-08-27] MEDS: METHOCARBAMOL 500 MG TAB PO SCH (17:42)
[2016-08-27] MEDS: HEPARIN SODIUM - SQ 10,000 UNITS/ML VIAL SQ SCH (17:43)
--- NOTE | 2016-08-27 18:47 | MH ---
cc: JOHN SAGE MD DATE OF ADMISSION: 08/27/2016 CHIEF COMPLAINT: Abdominal pain, pus coming out of the wound for a week and a half, anterior abdominal wall HISTORY OF PRESENT ILLNESS: This is a 60-year-old male with past medical-surgical history significant for arthritis, hypertension, hypothyroidism, history of COPD, smoker for more than 45 years at three packs of cigarettes a day, history of COPD, history of gastric bypass surgery in 1983, history of left knee replacement who came to the ER at [facility] complaining of abdominal pain which was about 10/10 diffuse and throbbing, severe, constant no modifying factors. The pain started at 03:00 a.m. last night. He had a normal bowel movement this morning. He denies any nausea or vomiting. Denies any constipation. Other than that, he had pus coming of the anterior abdominal wall which was yellowish in color for the last 1-1/2 weeks from the site where he had the gastric bypass surgery done. Other than that, he denies any fever or chills and no other symptom or complaints. PAST MEDICAL AND SURGICAL HISTORY: As dictated above. SOCIAL HISTORY: Smokes three packs a day for more than 45 years and denies any alcohol or drug abuse. Lives at home with mother. 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 FAMILY HISTORY: Nothing significant. ALLERGIES: NO KNOWN DRUG ALLERGIES. MEDICATIONS: 1. Clindamycin 300 milligrams p.o. q. 6 hours. 2. Fosinopril 10 milligrams p.o. daily. 3. Robaxin 750 milligrams p.o. q. 6 hours. 4. Levothyroxine 100 micrograms p.o. daily. REVIEW OF SYSTEMS: His review of systems is positive for abdominal pain and pus coming out of the anterior abdominal wall wound. He is feeling weak and tired. All other review of systems negative. PHYSICAL EXAMINATION: GENERAL: On physical exam, this is a 60-year-old male lying on the bed not in acute distress. VITAL SIGNS: Temperature 97.9, heart rate 87, respirations 16, blood pressure 150/94, 02 saturation 95% on room air. HEAD, EYES, EARS, NOSE, THROAT: Normocephalic and atraumatic. Extraocular muscles intact. Pupils equal, round and reactive to light. Oral mucosa moist. NECK: The neck is supple. No visible thyromegaly or neck mass. Trachea is central. CARDIOVASCULAR: Regular rate and rhythm. RESPIRATORY: Clear to auscultation bilaterally. ABDOMEN: Abdomen soft. Diffusely tender on superficial palpation. Deep palpation was not done. There is pus coming out of one of the wounds from the gastric bypass surgery. Bowel sounds audible. EXTREMITIES: No cyanosis or clubbing. Full range of motion of all extremities. NEUROLOGIC: Awake, alert and oriented times four. No focal deficits. SKIN: Wound on the anterior abdominal wall with pus coming out. PSYCHIATRIC: The patient is cooperative. LABORATORY DATA: CBC is totally unremarkable except for WBC count 20.6 high, hemoglobin 11.0 low, hematocrit 33.8 low, platelet count 563,000 high, neutrophil is 87.3%, lymphs 7.3. BMP totally unremarkable except for BUN 23 high, GFR 78 low, glucose random 352 high, alkaline phosphatase 130 high. Total creatine kinase 22 low. Troponin I is less than 0.02. Total protein 6.3 low, albumin 2.4 low. Lipase 363. PT 10.4, INR 0.9, PTT 25.4. Blood cultures x2 done are negative so far. IMAGING STUDIES: CT abdomen and pelvis was done and shows soft tissue defect, ulceration or possible wound dehiscence in the midline anterior abdominal wall in the area of previous hernia repair surgery. No organized drainable fluid collection, no herniation or intraabdominal contents identified. No significant interval change. ASSESSMENT AND PLAN: 1. This is a 60-year-old male who came to the ER and diagnosed with abdominal pain. Lipase is normal. The exact etiology not known. The patient has pus coming out of the anterior abdominal wall. Will do culture and sensitivity of the pus and Gram stain. The patient is on Zosyn and Zithromax. I will consult the infectious disease doctor and general surgery for further recommendation. 2. History of hypothyroidism. Continue with levothyroxine 100 micrograms p.o. daily. 3. History of hypertension. Continue with lisinopril 10 milligrams p.o. daily. 4. History of smoking. Advised to quit. Nicotine patch. 5. DVT prophylaxis. Heparin 5000 units subcutaneous q. 12-hour. 6. GI prophylaxis Protonix 40 milligrams p.o. daily. We are going to manage the patient on a daily basis and make recommendations on a daily basis. John Sage MD EA/EDGAR /6:25 PM /6:35 PM
[2016-08-27] MEDS ORDERED: PIPERACIL-TAZO 4.5 GM PREMIX 100 ML IV SCH (19:00)
[2016-08-27] MEDS: SODIUM CHLORIDE 0.9% FLUSH 5 ML FLUSH FLUSH SCH (21:00)
[2016-08-27] MEDS: ZOLPIDEM TARTRATE 5 MG TAB PO PRN (22:13)
[2016-08-28] VITALS (7 sets, daily range): BP systolic 131–165; BP diastolic 79–101; PULSE 75–96; RESP 18–20; TEMP 97.5–98.1; O2SAT 95–97
[2016-08-28] MEDS: METHOCARBAMOL 500 MG TAB PO SCH ×4 (01:18→16:55)
[2016-08-28] MEDS: SODIUM CHLOR 0.9% 1000 ML INJ 1,000 ML IV SCH (01:18)
[2016-08-28] MEDS: PIPERACILLIN/TAZ 4.5 GM VIAL 4.5 GM in SODIUM CHLORIDE 0.9% INJ 100 ML IV SCH ×3 (01:18→12:40)
[2016-08-28] MEDS: MORPHINE SULFATE 4 MG/ML INJ IV PRN ×5 (02:53→20:11)
[2016-08-28] MEDS: HEPARIN SODIUM - SQ 10,000 UNITS/ML VIAL SQ SCH ×2 (02:57→16:25)
[2016-08-28] MEDS: INSULIN ASPART SUPPLEMENTAL SCALE SQ SCH ×4 (06:11→20:29)
[2016-08-28 06:45] LABS: AUTOMATED NEUTROPHIL # 12.5 TH/MM3 (1.8-7.7); BASOPHIL % 0.1 % (0.0-2.0); EOSINOPHIL # 0.1 TH/MM3 (0-0.4); EOSINOPHIL % 0.7 % (0.0-4.0); HEMATOCRIT 28.6 % (39.0-51.0); HEMO FLAGS DIFF FINAL; LYMPH % 14.9 % (9.0-44.0); LYMPHOCYTE # 2.4 TH/MM3 (1.0-4.8); MEAN CELL VOLUME 93.4 FL (80.0-100.0); MEAN CORPUSCULAR HEMOGLOBIN 30.4 PG (27.0-34.0); MEAN CORPUSCULAR HGB CONC 32.6 % (32.0-36.0); MONO % 6.1 % (0.0-8.0); NEUT % 78.2 % (16.0-70.0); PLATELET COUNT 544 TH/MM3 (150-450); RED BLOOD COUNT 3.06 MIL/MM3 (4.50-5.90); RED CELL DISTRIBUTION WIDTH 13.1 % (11.6-17.2)
[2016-08-28 07:09] LABS: ALKALINE PHOSPHATASE 106 U/L (45-117); ALT (GPT) 21 U/L (12-78); ANION GAP 9 MEQ/L (5-15); AST (GOT) 26 U/L (15-37); BICARBONATE 24.1 MEQ/L (21.0-32.0); BLOOD UREA NITROGEN 15 MG/DL (7-18); CHLORIDE 108 MEQ/L (98-107); GLOMERULAR FILTRATION RATE 108 ML/MIN (>89); POTASSIUM 3.8 MEQ/L (3.5-5.1); SODIUM (NA) 141 MEQ/L (136-145); TOTAL BILIRUBIN ADULT 0.3 MG/DL (0.2-1.0)
--- NOTE | 2016-08-28 08:34 | HHI.PR ---
Subjective History of Present Illness Patient feel better No Acute issue D/W RN Emelia. WBC Count better. Review of Systems Constitutional Constitutional: Fatigue, Weakness Integumentary Skin: Wounds Skin Remarks Wound with pus anterior abdominal wall. Vitals/Results Intake & Output 08/27/16 08/27/16 08/28/16 15:00 23:00 07:00 Intake Total 1420 ml 240 ml 60 ml Output Total 400 ml 225 ml 525 ml Balance 1020 ml 15 ml -465 ml Intake Oral 120 ml 240 ml 60 ml IV Total 1300 ml Output Urine Total 400 ml 225 ml 525 ml # Voids 1 1 2 # Bowel Movements 0 0 Vital Signs Vital Signs Date Time Temp Pulse Resp B/P Pulse Ox O2 Delivery O2 Flow Rate FiO2 08/28/16 08:00 97.5 87 18 131/83 97 08/28/16 04:00 97.8 80 20 152/101 96 Manual Cuff/Doppler Automatic Cuff 08/28/16 00:00 98.1 90 20 148/98 95 08/27/16 20:00 98.3 82 20 159/99 98 08/27/16 20:00 93 08/27/16 18:00 98.2 85 16 138/90 98 08/27/16 14:56 87 16 150/94 95 Room Air 08/27/16 12:10 94 16 121/93 97 Room Air 08/27/16 11:13 91 16 176/105 98 Room Air 08/27/16 10:31 16 08/27/16 10:04 16 99 Room Air 08/27/16 09:58 97.9 108 18 152/88 99 CBC/BMP: 08/28/16 0540 08/28/16 0540 Lab Results Laboratory Tests Test 08/27/16 08/28/16 10:20 05:40 White Blood Count 20.6 TH/MM3 16.0 TH/MM3 Red Blood Count 3.60 MIL/MM3 3.06 MIL/MM3 Hemoglobin 11.0 GM/DL 9.3 GM/DL Hematocrit 33.8 % 28.6 % Mean Corpuscular Volume 93.9 FL 93.4 FL Mean Corpuscular Hemoglobin 30.6 PG 30.4 PG Mean Corpuscular Hemoglobin 32.5 % 32.6 % Concent Red Cell Distribution Width 13.9 % 13.1 % Platelet Count 563 TH/MM3 544 TH/MM3 Mean Platelet Volume 8.3 FL 8.3 FL Neutrophils (%) (Auto) 87.3 % 78.2 % Lymphocytes (%) (Auto) 7.3 % 14.9 % Monocytes (%) (Auto) 4.1 % 6.1 % Eosinophils (%) (Auto) 0.3 % 0.7 % Basophils (%) (Auto) 1.0 % 0.1 % Neutrophils # (Auto) 18.0 TH/MM3 12.5 TH/MM3 Lymphocytes # (Auto) 1.5 TH/MM3 2.4 TH/MM3 Monocytes # (Auto) 0.8 TH/MM3 1.0 TH/MM3 Eosinophils # (Auto) 0.1 TH/MM3 0.1 TH/MM3 Basophils # (Auto) 0.2 TH/MM3 0.0 TH/MM3 CBC Comment DIFF FINAL DIFF FINAL Differential Comment Prothrombin Time 10.4 SEC Prothromb Time International 0.9 RATIO Ratio Activated Partial 25.4 SEC Thromboplast Time Sodium Level 138 MEQ/L 141 MEQ/L Potassium Level 4.7 MEQ/L 3.8 MEQ/L Chloride Level 103 MEQ/L 108 MEQ/L Carbon Dioxide Level 25.7 MEQ/L 24.1 MEQ/L Anion Gap 9 MEQ/L 9 MEQ/L Blood Urea Nitrogen 23 MG/DL 15 MG/DL Creatinine 0.98 MG/DL 0.74 MG/DL Estimat Glomerular Filtration 78 ML/MIN 108 ML/MIN Rate Random Glucose 352 MG/DL 158 MG/DL Lactic Acid Level 1.5 mmol/L Calcium Level 8.8 MG/DL 8.4 MG/DL Total Bilirubin 0.2 MG/DL 0.3 MG/DL Aspartate Amino Transf 7 U/L 26 U/L (AST/SGOT) Alanine Aminotransferase 18 U/L 21 U/L (ALT/SGPT) Alkaline Phosphatase 130 U/L 106 U/L Total Creatine Kinase 22 U/L Troponin I LESS THAN 0.02 NG/ML Total Protein 6.3 GM/DL 5.3 GM/DL Albumin 2.4 GM/DL 2.0 GM/DL Lipase 363 U/L Microbiology Microbiology 08/27/16 Aerobic Blood Culture, Received Pending 08/27/16 Anaerobic Blood Culture, Received Pending 08/27/16 Aerobic Blood Culture, Received Pending 08/27/16 Anaerobic Blood Culture, Received Pending 08/27/16 Gram Stain, Received Pending 08/27/16 Wound Culture, Received Pending Physical Exam General General Appearance: No Acute Distress, Comfortable Eyes Eye Exam: Pupils Equal, Pupils Reactive, Sclera White, Extraocular Movement Intact Throat Throat Exam: Oral Mucosa [place] & Moist, Oral Pharynx Normal Neck Neck Exam: Neck Supple, Trachea Midline Pulmonary Resp Exam: Clear Bilaterally, Breath Sounds Equal Cardiology CV Exam: Regular, Normal Sinus Rhythm Gastrointestinal/Abdomen GI Exam: Soft, Bowel Sounds Present GI Remarks Wound with pus anterior abdominal wall. mild abdominal tenderness. Musculoskeletal MS Exam: Normal Tone Integumentary Skin Exam: Warm, Dry Skin Remarks Wound with pus anterior abdominal wall. Neurologic Neuro Exam: Alert, Awake, Oriented, Speech Clear, No Focal Deficits Psychiatric Psych Exam: Appropriate Responses VTE Prophylaxis VTE Prophylaxis Meds: Heparin PUD Prophylasis PUD Prophylaxis: Protonix Assessment/Plan Assessment/Plan ASSESSMENT AND PLAN: 1. This is a 60-year-old male who came to the ER and diagnosed with abdominal pain. Lipase is normal. The exact etiology not known. The patient has pus coming out of the anterior abdominal wall. culture and sensitivity of the pus and Gram stain. The patient is on Zosyn and Zithromax. consulted the infectious disease doctor and general surgery for further recommendation. 2. History of hypothyroidism. Continue with levothyroxine 100 micrograms p.o. daily. 3. History of hypertension. Continue with lisinopril 10 milligrams p.o. daily. 4. History of smoking. Advised to quit. Nicotine patch. 5. DVT prophylaxis. Heparin 5000 units subcutaneous q. 12-hour. 6. GI prophylaxis Protonix 40 milligrams p.o. daily. 7. Leukocytosis secondary to wound anterior abdominal wall down trend. Check CBC with diff CMP in AM. We are going to manage the patient on a daily basis and make recommendations on a daily basis. Discussed Condition with: Patient John Etienne MD Aug 28, 2016 08:34
[2016-08-28] MEDS: LEVOTHYROXINE SODIUM 100 MCG TAB PO SCH (08:56)
[2016-08-28] MEDS: SODIUM CHLORIDE 0.9% FLUSH 5 ML FLUSH FLUSH SCH ×2 (08:56→20:11)
[2016-08-28] MEDS: LISINOPRIL 10 MG TAB PO SCH (08:56)
[2016-08-28] MEDS ORDERED: LISINOPRIL 10 MG TAB PO SCH (09:00)
--- NOTE | 2016-08-28 11:47 | PD.CAR.PN ---
CVT Progress Note Subjective/Hospital Course: patient known to me from previous admissions. Crusted wounds of anterir abdominal wall. No drainage. One of these was a gastrostomy in the past. No surgery contemplated. Dress dry as needed wash in shower, soap water. thanks J Objective: Vital Signs Date Time Temp Pulse Resp B/P Pulse Ox O2 Delivery O2 Flow Rate FiO2 08/28/16 08:00 97.5 87 18 131/83 97 08/28/16 07:43 18 08/28/16 04:00 97.8 80 20 152/101 96 Manual Cuff/Doppler Automatic Cuff 08/28/16 00:00 98.1 90 20 148/98 95 08/27/16 20:00 98.3 82 20 159/99 98 08/27/16 20:00 93 08/27/16 18:00 98.2 85 16 138/90 98 08/27/16 14:56 87 16 150/94 95 Room Air 08/27/16 12:10 94 16 121/93 97 Room Air Labs: Laboratory Tests Test 08/28/16 05:40 White Blood Count 16.0 TH/MM3 (4.0-11.0) Red Blood Count 3.06 MIL/MM3 (4.50-5.90) Hemoglobin 9.3 GM/DL (13.0-17.0) Hematocrit 28.6 % (39.0-51.0) Mean Corpuscular Volume 93.4 FL (80.0-100.0) Mean Corpuscular Hemoglobin 30.4 PG (27.0-34.0) Mean Corpuscular Hemoglobin 32.6 % Concent (32.0-36.0) Red Cell Distribution Width 13.1 % (11.6-17.2) Platelet Count 544 TH/MM3 (150-450) Mean Platelet Volume 8.3 FL (7.0-11.0) Neutrophils (%) (Auto) 78.2 % (16.0-70.0) Lymphocytes (%) (Auto) 14.9 % (9.0-44.0) Monocytes (%) (Auto) 6.1 % (0.0-8.0) Eosinophils (%) (Auto) 0.7 % (0.0-4.0) Basophils (%) (Auto) 0.1 % (0.0-2.0) Neutrophils # (Auto) 12.5 TH/MM3 (1.8-7.7) Lymphocytes # (Auto) 2.4 TH/MM3 (1.0-4.8) Monocytes # (Auto) 1.0 TH/MM3 (0-0.9) Eosinophils # (Auto) 0.1 TH/MM3 (0-0.4) Basophils # (Auto) 0.0 TH/MM3 (0-0.2) CBC Comment DIFF FINAL Differential Comment Sodium Level 141 MEQ/L (136-145) Potassium Level 3.8 MEQ/L (3.5-5.1) Chloride Level 108 MEQ/L (98-107) Carbon Dioxide Level 24.1 MEQ/L (21.0-32.0) Anion Gap 9 MEQ/L (5-15) Blood Urea Nitrogen 15 MG/DL (7-18) Creatinine 0.74 MG/DL (0.60-1.30) Estimat Glomerular Filtration 108 ML/MIN Rate (>89) Random Glucose 158 MG/DL (74-106) Calcium Level 8.4 MG/DL (8.5-10.1) Total Bilirubin 0.3 MG/DL (0.2-1.0) Aspartate Amino Transf 26 U/L (15-37) (AST/SGOT) Alanine Aminotransferase 21 U/L (12-78) (ALT/SGPT) Alkaline Phosphatase 106 U/L (45-117) Total Protein 5.3 GM/DL (6.4-8.2) Albumin 2.0 GM/DL (3.4-5.0) Result Diagram: 08/28/16 0540 08/28/16 0540 Claribel Ace MD Aug 28, 2016 11:47
[2016-08-28] MEDS: SODIUM CHLORIDE 0.9% FLUSH 5 ML FLUSH FLUSH PRN (12:42)
[2016-08-28] MEDS ORDERED: AZITHROMYCIN INJ 500 MG in SODIUM CHLOR 0.9% 250 ML INJ 250 ML IV SCH (14:00)
--- NOTE | 2016-08-28 14:41 | EKG ---
Date Performed: 08/27/2016 Time Performed: 10:09:46 PTAGE: 60 years EKG: Sinus rhythm with PAC(s) Left axis deviation Inferior infarct - age undetermined Tall R V1/V2 probably reflect th e infarct Septal ST-T changes may be due to myocardial ischemia Abnormal ECG PREVIOUS TRACING : 08/11/2016 02.16 DOCTOR: Armando Conner Interpretating Date/Time 08/28/2016 14:35:30
--- NOTE | 2016-08-28 16:00 | PD.ID.CON ---
History of Present Illness Service ID Consult Requested By Reason for Consult Evaluation of superficial old surgical site related infection. Primary Care Physician No Primary Care Physician Diagnoses: History of Present Illness is a 60 y/o CM with PMHx of arthritis, hypertension, hypothyroidism, history of COPD, smoker for more than 45 years at three packs of cigarettes a day, COPD, gastric bypass surgery in 1983, left knee replacement who came to the ER at [facility] complaining of abdominal pain which was about 10/ 10 diffuse and throbbing, severe, constant no modifying factors. He reports midline opening with minimal purulence at the site. He reports to me that he has arthritis of left shoulder and that is the main complaint right now. Otherwise he feels he can go home and voices no abdominal pain. He denies seeing a PCP or any doctors for the last few decades since his surgery. He would like to be provided a PCP referral. He has been evaluated from surgical standpoint and the recommendations were to clean wound, no surgery and no antibiotics. I philipp Vigil Surgery. He denies any nausea or vomiting. Denies any constipation. ID consulted for evaluation and Mment of superficial old surgical site infection. It appears this was scabbed and he possibly could have picked on it. Review of Systems ROS Limitations: Poor Historian Constitutional: DENIES: Diaphoretic episodes, Fatigue, Fever, Weight gain, Weight loss, Chills, Dizziness, Change in appetite, Night Sweats Except as stated in HPI: all other systems reviewed are Neg Past Family Social History Allergies: Coded Allergies: No Known Allergies (Unverified , 08/11/16) Past Medical History arthritis, hypertension, hypothyroidism, history of COPD, smoker for more than 45 years at three packs of cigarettes a day, history of COPD, Past Surgical History history of gastric bypass surgery in 1983, history of left knee replacement Reported Medications Reported Meds & Active Scripts Active Clindamycin (Clindamycin HCl) 150 Mg Cap 300 Mg PO Q6H 7 Days Lisinopril 10 Mg Tab 10 Mg PO DAILY Robaxin (Methocarbamol) 750 Mg Tab 750 Mg PO Q6HR Reported Lisinopril 10 Mg Tab 10 Mg PO DAILY Levothyroxine (Levothyroxine Sodium) 100 Mcg Tab 100 Mcg PO DAILY Active Ordered Medications Current Medications Medications (Trade) Dose Ordered Sig/Eric Route Start Time Stop Time Status Last Admin (NS Flush) 2 ml UNSCH PRN IVF 08/27/16 10:15 08/27/16 13:19 (NS Flush) 2 ml UNSCH PRN FLUSH 08/27/16 14:30 08/28/16 12:42 (NS Flush) 2 ml BID FLUSH 08/27/16 21:00 08/28/16 08:56 (Tylenol) 650 mg Q4H PRN PO 08/27/16 14:30 (Zofran Inj) 4 mg Q6H PRN IVP 08/27/16 14:30 08/27/16 22:13 (Milk Of Magnesia Liq) 30 ml Q12H PRN PO 08/27/16 14:30 (Senokot) 17.2 mg Q12H PRN PO 08/27/16 14:30 (Heparin Inj) 5,000 units Q12H SQ 08/27/16 16:00 08/28/16 02:57 (Narcan Inj) 0.4 mg UNSCH PRN IV 08/27/16 14:30 (D50w (Vial) Inj) 25 ml UNSCH PRN IV PUSH 08/27/16 14:45 (Glucagon Inj) 1 mg UNSCH PRN OTHER 08/27/16 14:45 (Synthroid) 100 mcg DAILY PO 08/28/16 09:00 08/28/16 08:56 (Prinivil) 10 mg DAILY PO 08/28/16 09:00 08/28/16 08:56 (Robaxin) 750 mg Q6HR PO 08/27/16 18:00 08/28/16 12:39 (Morphine Inj) 2 mg Q4H PRN IV 08/27/16 18:15 08/28/16 12:41 (Ambien) 5 mg HS PRN PO 08/27/16 22:15 08/27/16 22:13 (Bactrim 400-80 Mg) 1 tab Q12HR PO 08/28/16 21:00 UNV Family History reviewed and NC to current problems. Social History Smokes three packs a day for more than 45 years and denies any alcohol or drug abuse. Lives at home with mother. 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 Physical Exam Vital Signs Vital Signs Date Time Temp Pulse Resp B/P Pulse Ox O2 Delivery O2 Flow Rate FiO2 08/28/16 12:46 18 08/28/16 12:00 98.1 87 18 138/79 96 08/28/16 08:00 97.5 87 18 131/83 97 08/28/16 06:45 75 08/28/16 04:00 97.8 80 20 152/101 96 Manual Cuff/Doppler Automatic Cuff 08/28/16 00:00 98.1 90 20 148/98 95 08/27/16 20:00 98.3 82 20 159/99 98 08/27/16 20:00 93 08/27/16 18:00 98.2 85 16 138/90 98 Physical Exam GENERAL: This is a well-nourished, well-developed patient, in no apparent distress. SKIN: No rashes, ecchymoses or lesions. Cool and dry. HEAD: Atraumatic. Normocephalic. No temporal or scalp tenderness. EYES: Pupils equal round and reactive. Extraocular motions intact. No scleral icterus. No injection or drainage. ENT: Nose without bleeding, purulent drainage or septal hematoma. Throat without erythema, tonsillar hypertrophy or exudate. Uvula midline. Airway patent. NECK: Trachea midline. No JVD or lymphadenopathy. Supple, nontender, no meningeal signs. CARDIOVASCULAR: Regular rate and rhythm without murmurs, gallops, or rubs. RESPIRATORY: Clear to auscultation. Breath sounds equal bilaterally. No wheezes , rales, or rhonchi. GASTROINTESTINAL: Abdomen soft, non-tender, nondistended. No hepato-splenomegaly , or palpable masses. No guarding. MUSCULOSKELETAL: Extremities without clubbing, cyanosis, or edema. No joint tenderness, effusion, or edema noted. No calf tenderness. Negative Homans sign bilaterally. NEUROLOGICAL: Awake and alert. Cranial nerves II through XII intact. Motor and sensory grossly within normal limits. Five out of 5 muscle strength in all muscle groups. Normal speech. Laboratory Laboratory Tests Test 08/28/16 05:40 White Blood Count 16.0 Red Blood Count 3.06 Hemoglobin 9.3 Hematocrit 28.6 Mean Corpuscular Volume 93.4 Mean Corpuscular Hemoglobin 30.4 Mean Corpuscular Hemoglobin 32.6 Concent Red Cell Distribution Width 13.1 Platelet Count 544 Mean Platelet Volume 8.3 Neutrophils (%) (Auto) 78.2 Lymphocytes (%) (Auto) 14.9 Monocytes (%) (Auto) 6.1 Eosinophils (%) (Auto) 0.7 Basophils (%) (Auto) 0.1 Neutrophils # (Auto) 12.5 Lymphocytes # (Auto) 2.4 Monocytes # (Auto) 1.0 Eosinophils # (Auto) 0.1 Basophils # (Auto) 0.0 CBC Comment DIFF FINAL Differential Comment Sodium Level 141 Potassium Level 3.8 Chloride Level 108 Carbon Dioxide Level 24.1 Anion Gap 9 Blood Urea Nitrogen 15 Creatinine 0.74 Estimat Glomerular Filtration 108 Rate Random Glucose 158 Calcium Level 8.4 Total Bilirubin 0.3 Aspartate Amino Transf 26 (AST/SGOT) Alanine Aminotransferase 21 (ALT/SGPT) Alkaline Phosphatase 106 Total Protein 5.3 Albumin 2.0 Date/Time Procedure Status Source Growth 08/27/16 18:30 Gram Stain - Final Resulted Wound Abdomen 08/27/16 18:30 Wound Culture - Preliminary Resulted Staphylococcus Species 08/27/16 12:50 Aerobic Blood Culture - Preliminary Resulted Blood Peripheral NO GROWTH IN 1 DAY 08/27/16 12:50 Anaerobic Blood Culture - Preliminary Resulted Blood Peripheral NO GROWTH IN 1 DAY Result Diagram: 08/28/16 0540 08/28/16 0540 Imaging Last Impressions Abdomen/Pelvis CT 08/27/16 1002 Signed Impressions: Service Date/Time: Saturday, August 27, 2016 11:16 - CONCLUSION: 1. Soft tissue defect/ ulceration or possible wound dehiscence in the midline anterior abdominal wall in the area of previous hernia repair surgery. No organized drainable fluid collection. No herniation of intra-abdominal contents identified. 2. No other significant interval change. Ag Lira MD Assessment and Plan Assessment and Plan Superficial skin infection at prior surgical site(surgery in 1983 with no interim drainage issues) with no abscess on CT Dw : no abscess or need for drainage. COPD stable. DM uncontrolled. Recs: DC Zosyn IV DC Azithro IV Start oral bactrim regular strength 1 po bid for 7 days. Local wound care. Patient needs a PCP to avoid inpatient admissions. If does not heal referral to surgery as outpatient. Follow cultures. If bactrim susceptible ok to DC on above regimen. If bactrim resistant or side effects overnight please call Dr.Reba Abdalla who starts [place] call in am. Will sign off please call back if any change in clinical condition or as per statement above. Adalgisa Roland MD Aug 28, 2016 16:00
[2016-08-28] MEDS: ZOLPIDEM TARTRATE 5 MG TAB PO PRN (20:13)
[2016-08-28] MEDS: SULFAMETHOXAZOLE-TRIMETHOPRIM 400-80 MG TAB PO SCH (20:29)
[2016-08-29] VITALS (8 sets, daily range): BP systolic 130–182; BP diastolic 78–97; PULSE 76–87; RESP 18–20; TEMP 97.1–98.9; O2SAT 92–96
[2016-08-29] MEDS: METHOCARBAMOL 500 MG TAB PO SCH ×4 (00:33→17:39)
[2016-08-29] MEDS: MORPHINE SULFATE 4 MG/ML INJ IV PRN ×5 (00:34→20:21)
[2016-08-29] MEDS: HEPARIN SODIUM - SQ 10,000 UNITS/ML VIAL SQ SCH ×2 (04:29→15:29)
[2016-08-29] MEDS: INSULIN ASPART SUPPLEMENTAL SCALE SQ SCH ×4 (06:13→20:19)
[2016-08-29 07:04] LABS: AUTOMATED NEUTROPHIL # 13.3 TH/MM3 (1.8-7.7); BASOPHIL # 0.1 TH/MM3 (0-0.2); BASOPHIL % 0.7 % (0.0-2.0); EOSINOPHIL # 0.2 TH/MM3 (0-0.4); EOSINOPHIL % 1.2 % (0.0-4.0); HEMATOCRIT 27.3 % (39.0-51.0); LYMPHOCYTE # 2.6 TH/MM3 (1.0-4.8); MEAN CELL VOLUME 93.9 FL (80.0-100.0); MEAN CORPUSCULAR HEMOGLOBIN 30.5 PG (27.0-34.0); MEAN CORPUSCULAR HGB CONC 32.5 % (32.0-36.0); MONO % 5.5 % (0.0-8.0); NEUT % 77.6 % (16.0-70.0); PLATELET COUNT 496 TH/MM3 (150-450); RED BLOOD COUNT 2.91 MIL/MM3 (4.50-5.90); RED CELL DISTRIBUTION WIDTH 13.9 % (11.6-17.2); WHITE BLOOD COUNT 17.1 TH/MM3 (4.0-11.0)
[2016-08-29 07:06] LABS: CHLORIDE 106 MEQ/L (98-107); POTASSIUM 3.7 MEQ/L (3.5-5.1); SODIUM (NA) 140 MEQ/L (136-145)
[2016-08-29 07:10] LABS: ANION GAP 10 MEQ/L (5-15); BICARBONATE 24.2 MEQ/L (21.0-32.0); BLOOD UREA NITROGEN 16 MG/DL (7-18)
[2016-08-29 07:13] LABS: ALT (GPT) 17 U/L (12-78); AST (GOT) 12 U/L (15-37); GLOMERULAR FILTRATION RATE 108 ML/MIN (>89)
[2016-08-29 07:14] LABS: TOTAL BILIRUBIN ADULT 0.3 MG/DL (0.2-1.0)
[2016-08-29 07:15] LABS: ALKALINE PHOSPHATASE 94 U/L (45-117)
[2016-08-29 07:18] LABS: HEMO FLAGS DIFF FINAL
[2016-08-29] MEDS: LEVOTHYROXINE SODIUM 100 MCG TAB PO SCH (08:03)
[2016-08-29] MEDS: SODIUM CHLORIDE 0.9% FLUSH 5 ML FLUSH FLUSH SCH ×2 (08:04→20:24)
[2016-08-29] MEDS: LORazepam 0.5 MG TAB PO PRN ×3 (08:04→17:39)
[2016-08-29] MEDS: LISINOPRIL 10 MG TAB PO SCH (08:04)
--- NOTE | 2016-08-29 08:14 | HHI.PR ---
Subjective History of Present Illness Patient feel better No Acute issue D/W ANDREA Kapoor. WBC Count better. Review of Systems Constitutional Constitutional: Fatigue, Weakness Integumentary Skin: Wounds Skin Remarks Wound anterior abdominal wall. Vitals/Results Intake & Output 08/28/16 08/28/16 08/29/16 15:00 23:00 07:00 Intake Total 990 ml 400 ml Output Total 875 ml 450 ml Balance 115 ml 400 ml -450 ml Intake Oral 990 ml 400 ml Output Urine Total 875 ml 450 ml # Bowel Movements 0 0 Vital Signs Vital Signs Date Time Temp Pulse Resp B/P Pulse Ox O2 Delivery O2 Flow Rate FiO2 08/29/16 04:00 98.1 76 20 175/97 92 08/29/16 00:00 97.1 85 18 180/102 96 138/79 08/28/16 20:00 97.7 83 18 160/92 96 08/28/16 20:00 82 08/28/16 16:30 18 08/28/16 16:00 97.6 96 20 165/89 96 08/28/16 12:00 98.1 87 18 138/79 96 CBC/BMP: 08/29/16 0550 08/29/16 0550 Lab Results Laboratory Tests Test 08/29/16 05:50 White Blood Count 17.1 TH/MM3 Red Blood Count 2.91 MIL/MM3 Hemoglobin 8.9 GM/DL Hematocrit 27.3 % Mean Corpuscular Volume 93.9 FL Mean Corpuscular Hemoglobin 30.5 PG Mean Corpuscular Hemoglobin 32.5 % Concent Red Cell Distribution Width 13.9 % Platelet Count 496 TH/MM3 Mean Platelet Volume 8.2 FL Neutrophils (%) (Auto) 77.6 % Lymphocytes (%) (Auto) 15.0 % Monocytes (%) (Auto) 5.5 % Eosinophils (%) (Auto) 1.2 % Basophils (%) (Auto) 0.7 % Neutrophils # (Auto) 13.3 TH/MM3 Lymphocytes # (Auto) 2.6 TH/MM3 Monocytes # (Auto) 0.9 TH/MM3 Eosinophils # (Auto) 0.2 TH/MM3 Basophils # (Auto) 0.1 TH/MM3 CBC Comment DIFF FINAL Differential Comment Sodium Level 140 MEQ/L Potassium Level 3.7 MEQ/L Chloride Level 106 MEQ/L Carbon Dioxide Level 24.2 MEQ/L Anion Gap 10 MEQ/L Blood Urea Nitrogen 16 MG/DL Creatinine 0.74 MG/DL Estimat Glomerular Filtration 108 ML/MIN Rate Random Glucose 152 MG/DL Calcium Level 8.3 MG/DL Total Bilirubin 0.3 MG/DL Aspartate Amino Transf 12 U/L (AST/SGOT) Alanine Aminotransferase 17 U/L (ALT/SGPT) Alkaline Phosphatase 94 U/L Total Protein 5.0 GM/DL Albumin 1.9 GM/DL Physical Exam General General Appearance: No Acute Distress, Comfortable Eyes Eye Exam: Pupils Equal, Pupils Reactive, Sclera White, Extraocular Movement Intact Throat Throat Exam: Oral Mucosa [place] & Moist, Oral Pharynx Normal Neck Neck Exam: Neck Supple, Trachea Midline Pulmonary Resp Exam: Clear Bilaterally, Breath Sounds Equal Cardiology CV Exam: Regular, Normal Sinus Rhythm Gastrointestinal/Abdomen GI Exam: Soft, Bowel Sounds Present GI Remarks Wound with pus anterior abdominal wall. mild abdominal tenderness. Musculoskeletal MS Exam: Normal Tone Integumentary Skin Exam: Warm, Dry Skin Remarks Wound anterior abdominal wall. Neurologic Neuro Exam: Alert, Awake, Oriented, Speech Clear, No Focal Deficits Psychiatric Psych Exam: Appropriate Responses VTE Prophylaxis VTE Prophylaxis Meds: Heparin PUD Prophylasis PUD Prophylaxis: Protonix Assessment/Plan Assessment/Plan ASSESSMENT AND PLAN: 1. This is a 60-year-old male who came to the ER and diagnosed with abdominal pain. Lipase is normal. The exact etiology not known. The patient has pus coming out of the anterior abdominal wall. culture and sensitivity of the pus and Gram stain... shows MSSA..On Bactrim sensitive to Bactrim. infectious disease input noted doctor and general surgery for further recommendation. 2. History of hypothyroidism. Continue with levothyroxine 100 micrograms p.o. daily. 3. History of hypertension. Continue with lisinopril 10 milligrams p.o. daily. 4. History of smoking. Advised to quit. Nicotine patch. 5. DVT prophylaxis. Heparin 5000 units subcutaneous q. 12-hour. 6. GI prophylaxis Protonix 40 milligrams p.o. daily. 7. Leukocytosis secondary to wound anterior abdominal wall down trend. Check CBC with diff CMP in AM. We are going to manage the patient on a daily basis and make recommendations on a daily basis. Discussed Condition with: Patient John Etienne MD Aug 29, 2016 08:14
--- NOTE | 2016-08-29 08:16 | PQ ---
Physician Query Response Document PATIENT: JOSUE QUINTANILLA : 1955 ADMIT DATE: 08/27/2016 1:06 PM DISCH DATE: RESPONDING PROVIDER #: EAhmed QUERY TEXT: Sepsis Query Based on your medical judgement, can you further clarify the folowiin. Sepsis (SIRS due to an infection) 2. Sepsis with Organ Dysfunction 3. A localized Infection only 4. Another condition - please specify 5. Unable to determine - please explain. Depending on your selection above, please indicate one of the below if applicable: - Sepsis was present on Admission - Sepsis developed after admission The patient's Clinical Indicators include: WBC 20.6 , HR 108 CT scan Scarring or atelectasis at the right lung base. Minimal patchy opacity at the left lung base indicati ng minimal inflammatory change or atelectasis Soft tissue defect / ulceration or possible wound dehiscence in the midline anterior abdominal wall i n the area of previous hernia repair pus coming out of the anterior abdominal wall. culture and sensitivity of the pus and Gram stain. Zosyn and Zithromax. Query created by: Karol Gomez on 08/28/2016 11:10 AM RESPONSE TEXT: Sepsis due to infection. Electronically signed by: John Etienne MD 08/29/2016 8:12 AM
[2016-08-29] MEDS: SULFAMETHOXAZOLE-TRIMETHOPRIM 400-80 MG TAB PO SCH ×2 (10:17→20:19)
[2016-08-30] VITALS (7 sets, daily range): BP systolic 108–183; BP diastolic 68–100; PULSE 78–112; RESP 18–21; TEMP 97–97.7; O2SAT 94–98
[2016-08-30] MEDS: SODIUM CHLORIDE 0.9% FLUSH 5 ML FLUSH FLUSH PRN ×3 (00:52→21:29)
[2016-08-30] MEDS: MORPHINE SULFATE 4 MG/ML INJ IV PRN ×5 (00:53→15:57)
[2016-08-30] MEDS: METHOCARBAMOL 500 MG TAB PO SCH ×5 (00:54→23:44)
[2016-08-30] MEDS: HEPARIN SODIUM - SQ 10,000 UNITS/ML VIAL SQ SCH ×2 (05:04→15:57)
[2016-08-30 05:32] LABS: CHLORIDE 106 MEQ/L (98-107); POTASSIUM 4.2 MEQ/L (3.5-5.1); SODIUM (NA) 140 MEQ/L (136-145)
[2016-08-30 05:36] LABS: ANION GAP 8 MEQ/L (5-15); BICARBONATE 26.1 MEQ/L (21.0-32.0); BLOOD UREA NITROGEN 14 MG/DL (7-18)
[2016-08-30 05:39] LABS: ALT (GPT) 22 U/L (12-78); AST (GOT) 12 U/L (15-37); GLOMERULAR FILTRATION RATE 86 ML/MIN (>89)
[2016-08-30 05:41] LABS: TOTAL BILIRUBIN ADULT 0.3 MG/DL (0.2-1.0)
[2016-08-30 05:42] LABS: ALKALINE PHOSPHATASE 105 U/L (45-117)
[2016-08-30 05:50] LABS: AUTOMATED NEUTROPHIL # 11.7 TH/MM3 (1.8-7.7); BASOPHIL % 0.3 % (0.0-2.0); EOSINOPHIL # 0.2 TH/MM3 (0-0.4); EOSINOPHIL % 1.2 % (0.0-4.0); LYMPH % 17.3 % (9.0-44.0); LYMPHOCYTE # 2.7 TH/MM3 (1.0-4.8); MEAN CELL VOLUME 93.4 FL (80.0-100.0); MEAN CORPUSCULAR HEMOGLOBIN 29.9 PG (27.0-34.0); MONO % 6.7 % (0.0-8.0); NEUT % 74.5 % (16.0-70.0); PLATELET COUNT 586 TH/MM3 (150-450); RED BLOOD COUNT 3.32 MIL/MM3 (4.50-5.90); RED CELL DISTRIBUTION WIDTH 13.3 % (11.6-17.2); WHITE BLOOD COUNT 15.6 TH/MM3 (4.0-11.0)
[2016-08-30] MEDS: INSULIN ASPART SUPPLEMENTAL SCALE SQ SCH ×4 (06:13→20:42)
[2016-08-30 06:15] LABS: HEMO FLAGS AUTO DIFF
[2016-08-30 07:26] LABS: SCAN/DIFF AUTO DIFF CONFIRMED
[2016-08-30] MEDS: SODIUM CHLORIDE 0.9% FLUSH 5 ML FLUSH FLUSH SCH ×2 (08:09→20:37)
--- NOTE | 2016-08-30 08:18 | HHI.PR ---
Subjective History of Present Illness Patient feel better No Acute issue D/W RN Adrianna . WBC Count better. Review of Systems Constitutional Constitutional: Fatigue, Weakness Integumentary Skin: Wounds Skin Remarks Wound with pus anterior abdominal wall. Vitals/Results Intake & Output 08/29/16 08/29/16 08/30/16 15:00 23:00 07:00 Intake Total 400 ml 0 ml 0 ml Output Total 400 ml 150 ml 550 ml Balance 0 ml -150 ml -550 ml Intake Oral 400 ml IV Total 0 ml 0 ml Output Urine Total 400 ml 150 ml 550 ml Vital Signs Vital Signs Date Time Temp Pulse Resp B/P Pulse Ox O2 Delivery O2 Flow Rate FiO2 08/30/16 04:00 97.1 98 18 131/83 96 08/30/16 00:00 97.7 99 18 134/86 98 08/29/16 20:01 86 08/29/16 20:00 98.1 86 18 130/90 95 08/29/16 16:00 98.0 87 20 164/94 94 08/29/16 15:41 18 08/29/16 12:00 98.9 83 18 182/91 93 CBC/BMP: 08/30/16 0510 08/30/16 0510 Lab Results Laboratory Tests Test 08/30/16 05:10 White Blood Count 15.6 TH/MM3 Red Blood Count 3.32 MIL/MM3 Hemoglobin 9.9 GM/DL Hematocrit 31.0 % Mean Corpuscular Volume 93.4 FL Mean Corpuscular Hemoglobin 29.9 PG Mean Corpuscular Hemoglobin 32.0 % Concent Red Cell Distribution Width 13.3 % Platelet Count 586 TH/MM3 Mean Platelet Volume 8.1 FL Neutrophils (%) (Auto) 74.5 % Lymphocytes (%) (Auto) 17.3 % Monocytes (%) (Auto) 6.7 % Eosinophils (%) (Auto) 1.2 % Basophils (%) (Auto) 0.3 % Neutrophils # (Auto) 11.7 TH/MM3 Lymphocytes # (Auto) 2.7 TH/MM3 Monocytes # (Auto) 1.0 TH/MM3 Eosinophils # (Auto) 0.2 TH/MM3 Basophils # (Auto) 0.0 TH/MM3 CBC Comment AUTO DIFF Differential Comment AUTO DIFF CONFIRMED Sodium Level 140 MEQ/L Potassium Level 4.2 MEQ/L Chloride Level 106 MEQ/L Carbon Dioxide Level 26.1 MEQ/L Anion Gap 8 MEQ/L Blood Urea Nitrogen 14 MG/DL Creatinine 0.90 MG/DL Estimat Glomerular Filtration 86 ML/MIN Rate Random Glucose 197 MG/DL Calcium Level 8.5 MG/DL Total Bilirubin 0.3 MG/DL Aspartate Amino Transf 12 U/L (AST/SGOT) Alanine Aminotransferase 22 U/L (ALT/SGPT) Alkaline Phosphatase 105 U/L Total Protein 5.8 GM/DL Albumin 2.2 GM/DL Physical Exam General General Appearance: No Acute Distress, Comfortable Eyes Eye Exam: Pupils Equal, Pupils Reactive, Sclera White, Extraocular Movement Intact Throat Throat Exam: Oral Mucosa [place] & Moist, Oral Pharynx Normal Neck Neck Exam: Neck Supple, Trachea Midline Pulmonary Resp Exam: Clear Bilaterally, Breath Sounds Equal Cardiology CV Exam: Regular, Normal Sinus Rhythm Gastrointestinal/Abdomen GI Exam: Soft, Bowel Sounds Present GI Remarks Wound with pus anterior abdominal wall. mild abdominal tenderness. Musculoskeletal MS Exam: Normal Tone Integumentary Skin Exam: Warm, Dry Skin Remarks Wound with pus anterior abdominal wall. Neurologic Neuro Exam: Alert, Awake, Oriented, Speech Clear, No Focal Deficits Psychiatric Psych Exam: Appropriate Responses VTE Prophylaxis VTE Prophylaxis Meds: Heparin PUD Prophylasis PUD Prophylaxis: Protonix Assessment/Plan Assessment/Plan ASSESSMENT AND PLAN: 1. This is a 60-year-old male who came to the ER and diagnosed with abdominal pain. Lipase is normal. The exact etiology not known. The patient has pus coming out of the anterior abdominal wall. culture and sensitivity of the pus and Gram stain... shows MSSA..On Bactrim sensitive to Bactrim. infectious disease input noted doctor and general surgery for further recommendation. 2. History of hypothyroidism. Continue with levothyroxine 100 micrograms p.o. daily. 3. History of hypertension. Continue with lisinopril 10 milligrams p.o. daily. 4. History of smoking. Advised to quit. Nicotine patch. 5. DVT prophylaxis. Heparin 5000 units subcutaneous q. 12-hour. 6. GI prophylaxis Protonix 40 milligrams p.o. daily. 7. Leukocytosis secondary to wound anterior abdominal wall down trend. Check CBC with diff CMP in AM. We are going to manage the patient on a daily basis and make recommendations on a daily basis. DC Plan tomorrow. Discussed Condition with: Patient John Etienne MD Aug 30, 2016 08:18
[2016-08-30] MEDS ORDERED: TEMAZEPAM 15 MG CAP PO PRN (08:45)
[2016-08-30] MEDS: LISINOPRIL 10 MG TAB PO SCH (09:22)
[2016-08-30] MEDS: LEVOTHYROXINE SODIUM 100 MCG TAB PO SCH (09:22)
[2016-08-30] MEDS ORDERED: MORPHINE SULFATE 4 MG/ML INJ IV PRN (09:27)
[2016-08-30] MEDS: SULFAMETHOXAZOLE-TRIMETHOPRIM 400-80 MG TAB PO SCH ×2 (09:38→20:36)
[2016-08-30] MEDS: METOPROLOL TARTRATE 25 MG TAB PO SCH ×2 (13:07→20:36)
[2016-08-30] MEDS ORDERED: cloNIDine HCL 0.1 MG TAB PO PRN (17:00)
[2016-08-30] MEDS: HYDROmorphone HCL PF 1 MG/ML VIAL IV PRN ×2 (17:23→21:29)
[2016-08-30] MEDS ORDERED: PERC5TAB12 PO (18:14)
[2016-08-30] MEDS ORDERED: REST15CA PO (18:14)
[2016-08-30] MEDS ORDERED: METO25TA3 PO (18:14)
[2016-08-30] MEDS ORDERED: LORA-392 PO (18:14)
[2016-08-30] MEDS ORDERED: BACT400T PO (18:14)
[2016-08-30] MEDS: LORazepam 0.5 MG TAB PO PRN (20:42)
[2016-08-31] VITALS: BP 183/99; PULSE 79; RESP 18; TEMP 98.4; O2SAT 94
[2016-08-31] MEDS: HYDROmorphone HCL PF 1 MG/ML VIAL IV PRN ×3 (01:29→09:56)
[2016-08-31] MEDS: SODIUM CHLORIDE 0.9% FLUSH 5 ML FLUSH FLUSH PRN ×2 (01:30→05:39)
[2016-08-31 04:00] VITALS: BP 163/98; PULSE 71; RESP 16; TEMP 98.5; O2SAT 93
[2016-08-31] MEDS: HEPARIN SODIUM - SQ 10,000 UNITS/ML VIAL SQ SCH (04:06)
[2016-08-31] MEDS: METHOCARBAMOL 500 MG TAB PO SCH (05:39)
[2016-08-31] MEDS: INSULIN ASPART SUPPLEMENTAL SCALE SQ SCH (06:14)
[2016-08-31 06:40] LABS: AUTOMATED NEUTROPHIL # 12.8 TH/MM3 (1.8-7.7); BASOPHIL # 0.3 TH/MM3 (0-0.2); BASOPHIL % 1.6 % (0.0-2.0); EOSINOPHIL # 0.1 TH/MM3 (0-0.4); EOSINOPHIL % 0.9 % (0.0-4.0); HEMATOCRIT 28.7 % (39.0-51.0); LYMPH % 13.3 % (9.0-44.0); LYMPHOCYTE # 2.2 TH/MM3 (1.0-4.8); MEAN CELL VOLUME 92.6 FL (80.0-100.0); MEAN CORPUSCULAR HEMOGLOBIN 30.6 PG (27.0-34.0); MEAN CORPUSCULAR HGB CONC 33.1 % (32.0-36.0); MONO % 7.4 % (0.0-8.0); NEUT % 76.8 % (16.0-70.0); PLATELET COUNT 548 TH/MM3 (150-450); RED CELL DISTRIBUTION WIDTH 12.9 % (11.6-17.2); WHITE BLOOD COUNT 16.6 TH/MM3 (4.0-11.0)
[2016-08-31 06:55] LABS: CHLORIDE 105 MEQ/L (98-107); POTASSIUM 4.2 MEQ/L (3.5-5.1); SODIUM (NA) 139 MEQ/L (136-145)
[2016-08-31 07:06] LABS: ANION GAP 9 MEQ/L (5-15); BICARBONATE 24.8 MEQ/L (21.0-32.0); BLOOD UREA NITROGEN 13 MG/DL (7-18)
[2016-08-31 07:09] LABS: ALT (GPT) 16 U/L (12-78); AST (GOT) 8 U/L (15-37); GLOMERULAR FILTRATION RATE 111 ML/MIN (>89)
[2016-08-31 07:10] LABS: TOTAL BILIRUBIN ADULT 0.3 MG/DL (0.2-1.0)
[2016-08-31 07:12] LABS: ALKALINE PHOSPHATASE 88 U/L (45-117)
[2016-08-31 07:15] LABS: HEMO FLAGS DIFF FINAL
[2016-08-31 08:00] VITALS: BP 119/78; PULSE 80; PULSE 82; RESP 19; TEMP 97.6; O2SAT 95
--- NOTE | 2016-08-31 08:12 | HHI.PR ---
Subjective History of Present Illness Patient feel better No Acute issue D/W RN Adrianna . WBC Count better. ok to dc home today. Review of Systems Constitutional Constitutional: Fatigue, Weakness Integumentary Skin: Wounds Skin Remarks Wound anterior abdominal wall. Vitals/Results Intake & Output 08/30/16 08/30/16 08/31/16 15:00 23:00 07:00 Intake Total 800 ml 480 ml 240 ml Output Total 500 ml 500 ml Balance 800 ml -20 ml -260 ml Intake Oral 800 ml 480 ml 240 ml Output Urine Total 500 ml 500 ml # Voids 4 2 # Bowel Movements 1 0 0 Vital Signs Vital Signs Date Time Temp Pulse Resp B/P Pulse Ox O2 Delivery O2 Flow Rate FiO2 08/31/16 04:00 98.5 71 16 163/98 93 08/31/16 00:00 98.4 79 18 183/99 94 08/30/16 20:00 78 08/30/16 20:00 97.7 87 18 183/96 94 08/30/16 16:00 97.7 85 20 140/82 95 08/30/16 12:00 97.0 88 20 170/100 96 CBC/BMP: 08/31/16 0612 08/31/16 0612 Lab Results Laboratory Tests Test 08/31/16 06:12 White Blood Count 16.6 TH/MM3 Red Blood Count 3.10 MIL/MM3 Hemoglobin 9.5 GM/DL Hematocrit 28.7 % Mean Corpuscular Volume 92.6 FL Mean Corpuscular Hemoglobin 30.6 PG Mean Corpuscular Hemoglobin 33.1 % Concent Red Cell Distribution Width 12.9 % Platelet Count 548 TH/MM3 Mean Platelet Volume 8.2 FL Neutrophils (%) (Auto) 76.8 % Lymphocytes (%) (Auto) 13.3 % Monocytes (%) (Auto) 7.4 % Eosinophils (%) (Auto) 0.9 % Basophils (%) (Auto) 1.6 % Neutrophils # (Auto) 12.8 TH/MM3 Lymphocytes # (Auto) 2.2 TH/MM3 Monocytes # (Auto) 1.2 TH/MM3 Eosinophils # (Auto) 0.1 TH/MM3 Basophils # (Auto) 0.3 TH/MM3 CBC Comment DIFF FINAL Differential Comment Sodium Level 139 MEQ/L Potassium Level 4.2 MEQ/L Chloride Level 105 MEQ/L Carbon Dioxide Level 24.8 MEQ/L Anion Gap 9 MEQ/L Blood Urea Nitrogen 13 MG/DL Creatinine 0.72 MG/DL Estimat Glomerular Filtration 111 ML/MIN Rate Random Glucose 197 MG/DL Calcium Level 8.0 MG/DL Total Bilirubin 0.3 MG/DL Aspartate Amino Transf 8 U/L (AST/SGOT) Alanine Aminotransferase 16 U/L (ALT/SGPT) Alkaline Phosphatase 88 U/L Total Protein 5.7 GM/DL Albumin 2.0 GM/DL Physical Exam General General Appearance: No Acute Distress, Comfortable Eyes Eye Exam: Pupils Equal, Pupils Reactive, Sclera White, Extraocular Movement Intact Throat Throat Exam: Oral Mucosa [place]ck & Moist, Oral Pharynx Normal Neck Neck Exam: Neck Supple, Trachea Midline Pulmonary Resp Exam: Clear Bilaterally, Breath Sounds Equal Cardiology CV Exam: Regular, Normal Sinus Rhythm Gastrointestinal/Abdomen GI Exam: Soft, Bowel Sounds Present GI Remarks Wound with pus anterior abdominal wall. mild abdominal tenderness. Musculoskeletal MS Exam: Normal Tone Integumentary Skin Exam: Warm, Dry Skin Remarks Wound anterior abdominal wall. Neurologic Neuro Exam: Alert, Awake, Oriented, Speech Clear, No Focal Deficits Psychiatric Psych Exam: Appropriate Responses VTE Prophylaxis VTE Prophylaxis Meds: Heparin PUD Prophylasis PUD Prophylaxis: Protonix Assessment/Plan Assessment/Plan ASSESSMENT AND PLAN: 1. This is a 60-year-old male who came to the ER and diagnosed with abdominal pain. Lipase is normal. The exact etiology not known. The patient has pus coming out of the anterior abdominal wall. culture and sensitivity of the pus and Gram stain... shows MSSA..On Bactrim sensitive to Bactrim. infectious disease input noted doctor and general surgery for further recommendation. 2. History of hypothyroidism. Continue with levothyroxine 100 micrograms p.o. daily. 3. History of hypertension. Continue with lisinopril 10 milligrams p.o. daily. 4. History of smoking. Advised to quit. Nicotine patch. 5. DVT prophylaxis. Heparin 5000 units subcutaneous q. 12-hour. 6. GI prophylaxis Protonix 40 milligrams p.o. daily. 7. Leukocytosis secondary to wound anterior abdominal wall down trend. ok to DC home today. f/u with PCP/ General surgery and ID 1 Week. Discussed Condition with: Patient John Etienne MD Aug 31, 2016 08:12
[2016-08-31] MEDS: LEVOTHYROXINE SODIUM 100 MCG TAB PO SCH (09:55)
[2016-08-31] MEDS: METOPROLOL TARTRATE 25 MG TAB PO SCH (09:56)
[2016-08-31] MEDS: SULFAMETHOXAZOLE-TRIMETHOPRIM 400-80 MG TAB PO SCH (09:56)
[2016-08-31] MEDS: LISINOPRIL 10 MG TAB PO SCH (09:56)
[2016-08-31] MEDS: SODIUM CHLORIDE 0.9% FLUSH 5 ML FLUSH FLUSH SCH (09:56)
--- NOTE | 2016-09-04 07:13 | MD ---
cc: JOHN SAGE MD ADMISSION DATE: 08/27/2016 DISCHARGE DATE: 08/31/2016 DISPOSITION Okay to discharge the patient home. CONDITION AT THE TIME OF DISCHARGE Satisfactory. ACTIVITY As tolerated. DIET Cardiac diet. ALLERGIES No known drug allergies. DISCHARGE MEDICATIONS 1. Lorazepam 0.5 mg p.o. q.8 hours p.r.n. anxiety. 2. Metoprolol 25 mg twice a day. 3. Oxycodone. 4. Acetaminophen 5/325 p.o. q.6 hours. 5. Bactrim DS p.o. q.12 hours. 6. Temazepam 15 mg p.o. at bedtime. 7. Clindamycin 300 mg p.o. q.6 hours. 8. Levothyroxine 100 mcg p.o. daily. 9. Lisinopril 10 mg p.o. daily. 10. Methocarbamol 750 mg p.o. q.6 hours. FOLLOWUP The patient was advised to follow up with PCP, General Surgery and Infectious Disease in one week. ADMITTING DIAGNOSIS 1. Abdominal pain: Lipase was normal. Pus was coming out from the anterior abdominal wall, cultures sent of the pus, gross MSSA sensitive to Bactrim. The patient was on Bactrim. 2. History of hypothyroidism. 3. History of hypertension. 4. History of smoking: Advised to quit. 5. Leukocytosis secondary to anterior abdominal wall wound/pus-producing wound. HOSPITAL COURSE This is a 60-year-old male who came to the ER with abdominal pain diagnosed with anterior abdominal wall wound. The patient was given empiric antibiotic. The patient's wound culture came back positive for MSSA sensitive to Bactrim. The patient was given Bactrim. CT of the abdomen and pelvis was done and showed soft tissue defect/infection or possible wound dehiscence in the midline anterior abdominal wall in the area of previous hernia repair surgery. No organized drainable fluid collection, no hernia or herniation of intraabdominal content identified. No other significant interval changes. The patient remained stable during the hospital stay. The patient had leukocytosis which was improved during the hospital stay. The patient was discharged in satisfactory condition. Further details in the medical record. John Sage MD EA/COLIN Cardozo: 09/02/2016/6:34 AM /7:08 AM
== END 2016-08-31 10:45 | disposition home or self-care (01) | DRG 862 ==
LOC: PHED 09:56 → PHEDA 13:06 → PH3A 16:24
PROVIDERS: ADMIT Specialist; ATTEND Specialist
DX: T81.4XXA Infection following a procedure, initial encounter (principal); A41.9 Sepsis, unspecified organism; E11.65 Type 2 diabetes mellitus with hyperglycemia; I10 Essential (primary) hypertension; J44.9 Chronic obstructive pulmonary disease, unspecified; F17.210 Nicotine dependence, cigarettes, uncomplicated; Z98.84 Bariatric surgery status; Z96.652 Presence of left artificial knee joint; K21.9 Gastro-esophageal reflux disease without esophagitis; M19.90 Unspecified osteoarthritis, unspecified site; E03.9 Hypothyroidism, unspecified; Y83.8 Other surgical procedures as the cause of abnormal reaction of the patient, or of later complication, without mention of misadventure at the time of the procedure; A49.01 Methicillin susceptible Staphylococcus aureus infection, unspecified site
CPT/HCPCS: 74177; 80053; 82550; 82948; 83605; 83690; 84484; 85025; 85610; 85730; 86403; 87040; 87070; 87147; 87186; 87205; 93005; 96361; 96374; 96375; J0456; J1170; J1644; J1815; J2270; J2405; J2543; J7030; J7050; Q9967

== ENCOUNTER 2016-09-12 11:40 | Inpatient (IN) | payer BC, OTHER ==
[~2016-09-12] VITALS: Ht 180.3 cm; Wt 63.1 kg
[2016-09-12] VITALS (12 sets, daily range): BP systolic 85–104; BP diastolic 46–63; PULSE 56–76; RESP 16–21; TEMP 97.7–98.5; O2SAT 94–100
[~2016-09-12 11:40] MED LIST changes: +BACT400T PO; +LORA-392 PO; +METO25TA3 PO; +PERC5TAB12 PO; +REST15CA PO
[2016-09-12] MEDS ORDERED: SODIUM CHLOR 0.9% 1000 ML INJ 1,000 ML IV ONE ×3 (11:57→19:15)
[2016-09-12] MEDS ORDERED: PANTOPRAZOLE INJ 80 MG in SODIUM CHLORIDE 0.9% INJ 35 ML IV ONE (12:00)
[2016-09-12 12:31] LABS: AUTOMATED NEUTROPHIL # 11.3 TH/MM3 (1.8-7.7); BASOPHIL % 0.3 % (0.0-2.0); EOSINOPHIL % 0.2 % (0.0-4.0); LYMPH % 14.1 % (9.0-44.0); MEAN CELL VOLUME 93.8 FL (80.0-100.0); MEAN CORPUSCULAR HEMOGLOBIN 31.8 PG (27.0-34.0); MEAN CORPUSCULAR HGB CONC 33.8 % (32.0-36.0); MONO % 5.6 % (0.0-8.0); NEUT % 79.8 % (16.0-70.0); PLATELET COUNT 483 TH/MM3 (150-450); RED BLOOD COUNT 2.21 MIL/MM3 (4.50-5.90); RED CELL DISTRIBUTION WIDTH 14.4 % (11.6-17.2); WHITE BLOOD COUNT 14.1 TH/MM3 (4.0-11.0)
--- NOTE | 2016-09-12 12:35 | RADRPT ---
EXAM DATE/TIME: 09/12/2016 12:03 [facility] COMPARISON: CHEST SINGLE AP, August 11, 2016, 2:20. INDICATIONS : Palpitations. Weakness. MEDICAL HISTORY : Gastroesophageal reflux disease. Hypertension SURGICAL HISTORY : Gastric bypass. Cholecystectomy. ENCOUNTER: Initial ACUITY: 1 day PAIN SCORE: 0/10 LOCATION: Bilateral chest FINDINGS: A single view of the chest demonstrates the lungs to be symmetrically aerated without evidence of mas s, infiltrate or effusion. The cardiomediastinal contours are unremarkable. Osseous structures are intact. CONCLUSION: No acute disease. Jose Preciado MD on September 12, 2016 at 12:33 Board Certified Radiologist. This report was verified electronically.
[2016-09-12 12:36] LABS: HEMO FLAGS DIFF FINAL
[2016-09-12 12:42] LABS: APTT (PATIENT) 24.7 SEC (24.3-30.1); HEMATOCRIT 20.8 % (39.0-51.0)
[2016-09-12 12:53] LABS: ALT (GPT) 21 U/L (12-78); ANION GAP 14 MEQ/L (5-15); AST (GOT) 15 U/L (15-37); BICARBONATE 15.2 MEQ/L (21.0-32.0); BLOOD UREA NITROGEN 70 MG/DL (7-18); CHLORIDE 107 MEQ/L (98-107); GLOMERULAR FILTRATION RATE 25 ML/MIN (>89); POTASSIUM 5.8 MEQ/L (3.5-5.1); SODIUM (NA) 136 MEQ/L (136-145)
[2016-09-12] MEDS ORDERED: SODIUM CHLOR 0.9% 250 ML INJ 250 ML IV ONE (13:00)
[2016-09-12 13:04] LABS: ALKALINE PHOSPHATASE 80 U/L (45-117); TOTAL BILIRUBIN ADULT 0.1 MG/DL (0.2-1.0)
[2016-09-12 13:10] LABS: CREATINE KINASE 53 U/L (39-308)
--- NOTE | 2016-09-12 13:20 | PD ---
HPI Chief Complaint: Fall Time Seen by Provider: 11:57 Travel History International Travel<30 days: No Contact w/Intl Traveler<30days: No Traveled to known affect area: No History of Present Illness HPI 60 y/o male presents with multiple falls from feeling weak. He states he hit his head today and complains of a headache. He also notes abdominal pain which he's had for a while. He states he has a hole in his abdomen that he follows with the specialist for. He states that he doesn't know what it is. He denies other specific complaints. He fell from standing. This occurred prior to arrival. Patient is a poor historian but denies any specific bleeding. PFSH Past Medical History Hx Anticoagulant Therapy: No Arthritis: Yes Asthma: No Autoimmune Disease: No Anxiety: No Depression: No Heart Rhythm Problems: No Cancer: No Cardiovascular Problems: Yes (HTN) High Cholesterol: No Chest Pain: No Congestive Heart Failure: No COPD: Yes Diabetes: Yes Diminished Hearing: No Endocrine: Yes Gastrointestinal Disorders: Yes GERD: Yes Genitourinary: No Hiatal Hernia: No Hypertension: Yes Immune Disorder: No Implanted Vascular Access Dvce: Yes Musculoskeletal: Yes Neurologic: No Psychiatric: No Reproductive: No Respiratory: Yes (COPD) Immunizations Current: Yes Sleep Apnea: No Thyroid Disease: Yes Ulcer: No Past Surgical History Abdominal Surgery: Yes (GASTRIC BYPASS) AICD: No Arteriovenous Shunt: No Cardiac Surgery: No Cholecystectomy: Yes Ear Surgery: No Endocrine Surgery: No Eye Surgery: No Genitourinary Surgery: Yes Gynecologic Surgery: No Insulin Pump: No Joint Replacement: Yes (LEFT KNEE) Neurologic Surgery: No Oral Surgery: No Pacemaker: No Thoracic Surgery: No Other Surgery: Yes (33 SURGERIES) Social History Alcohol Use: No Tobacco Use: Yes (2ppd) Substance Use: No Allergies-Medications (Allergen,Severity, Reaction): Coded Allergies: No Known Allergies (Unverified , 08/11/16) Reported Meds & Prescriptions Reported Meds & Active Scripts Active Percocet (Oxycodone-Acetaminophen) 5-325 mg Tab 1 Tab PO Q6H PRN Restoril (Temazepam) 15 Mg Cap 15 Mg PO HS PRN Metoprolol Tartrate 25 Mg Tab 25 Mg PO BID Reported Lisinopril 10 Mg Tab 10 Mg PO DAILY Levothyroxine (Levothyroxine Sodium) 100 Mcg Tab 100 Mcg PO DAILY Review of Systems Except as stated in HPI: all other systems reviewed are Neg Physical Exam Narrative GENERAL: Well-nourished, well-developed patient. Pale SKIN: Warm and dry. HEAD: Normocephalic EYES: No injection or drainage. ENT: No nasal drainage noted. NECK: Supple, trachea midline. Nontender in midline CARDIOVASCULAR: Regular rate and rhythm RESPIRATORY: Breath sounds equal bilaterally. No accessory muscle use. GASTROINTESTINAL: Abdomen soft, diffusely tender, nondistended. Question enterocutaneous fistula near umbilicus, visualization of metal coil through wound noted NEUROLOGICAL: Awake and alert. Moves all extremities. Normal speech. Data Data Last Documented VS Vital Signs Date Time Temp Pulse Resp B/P Pulse Ox O2 Delivery O2 Flow Rate FiO2 09/12/16 11:45 97.7 68 16 95/46 97 09/12/16 11:45 Room Air Orders Electrocardiogram (09/12/16 ) Complete Blood Count With Diff (09/12/16 11:57) Comprehensive Metabolic Panel (09/12/16 11:57) Prothrombin Time / Inr (Pt) (09/12/16 11:57) Act Partial Throm Time (Ptt) (09/12/16 11:57) Lactic Acid Sepsis Protocol (09/12/16 11:57) Magnesium (Mg) (09/12/16 11:57) Phosphorus (Po4) (09/12/16 11:57) Ckmb (Isoenzyme) Profile (09/12/16 11:57) Troponin I (09/12/16 11:57) Urinalysis - C+S If Indicated (09/12/16 11:57) Blood Culture (09/12/16 11:57) Chest, Single Ap (09/12/16 11:57) Ecg Monitoring (09/12/16 11:57) Iv Access Insert/Monitor (09/12/16 11:57) Oximetry (09/12/16 11:57) Ct Brain W/O Iv Contrast(Rout) (09/12/16 11:57) Sodium Chlor 0.9% 1000 Ml Inj (Ns 1000 M (09/12/16 11:57) Type And Screen (09/12/16 11:57) Pantoprazole Inj (Protonix Inj) (09/12/16 12:00) Red Blood Cells (Rbc) (09/12/16 12:46) Blood Product Administration .UPON TRANSFUSION (09/12/16 12:46) Sodium Chlor 0.9% 250 Ml Inj (Ns 250 Ml (09/12/16 13:00) Sodium Chlor 0.9% 1000 Ml Inj (Ns 1000 M (09/12/16 13:15) Urinary Catheter Insert/Apply (09/12/16 13:03) Ct Abd/Pel W/O Iv Contrast (09/12/16 11:57) Piperacil-Tazo 3.375 Gm Premix (Zosyn 3. (09/12/16 14:15) Sodium Bicarbonate 8.4% Inj (Sodium Bica (09/12/16 14:30) Sodium Chlor 0.45%... W/Sodium Bicarbona (09/12/16 14:30) Consult Nephrology (09/12/16 ) Pantoprazole Inj (Protonix Inj) (09/12/16 14:30) Admit Order (Ed Use Only) (09/12/16 14:32) Physician Name Changes (09/12/16 ) Labs Laboratory Tests Test 09/12/16 09/12/16 09/12/16 11:55 12:10 12:49 White Blood Count 14.1 TH/MM3 Red Blood Count 2.21 MIL/MM3 Hemoglobin 7.0 GM/DL Hematocrit 20.8 % Mean Corpuscular Volume 93.8 FL Mean Corpuscular Hemoglobin 31.8 PG Mean Corpuscular Hemoglobin 33.8 % Concent Red Cell Distribution Width 14.4 % Platelet Count 483 TH/MM3 Mean Platelet Volume 7.6 FL Neutrophils (%) (Auto) 79.8 % Lymphocytes (%) (Auto) 14.1 % Monocytes (%) (Auto) 5.6 % Eosinophils (%) (Auto) 0.2 % Basophils (%) (Auto) 0.3 % Neutrophils # (Auto) 11.3 TH/MM3 Lymphocytes # (Auto) 2.0 TH/MM3 Monocytes # (Auto) 0.8 TH/MM3 Eosinophils # (Auto) 0.0 TH/MM3 Basophils # (Auto) 0.0 TH/MM3 CBC Comment DIFF FINAL Differential Comment Prothrombin Time 11.0 SEC Prothromb Time International 1.0 RATIO Ratio Activated Partial 24.7 SEC Thromboplast Time Sodium Level 136 MEQ/L Potassium Level 5.8 MEQ/L Chloride Level 107 MEQ/L Carbon Dioxide Level 15.2 MEQ/L Anion Gap 14 MEQ/L Blood Urea Nitrogen 70 MG/DL Creatinine 2.63 MG/DL Estimat Glomerular Filtration 25 ML/MIN Rate Random Glucose 195 MG/DL Calcium Level 8.0 MG/DL Phosphorus Level 4.5 MG/DL Magnesium Level 2.0 MG/DL Total Bilirubin 0.1 MG/DL Aspartate Amino Transf 15 U/L (AST/SGOT) Alanine Aminotransferase 21 U/L (ALT/SGPT) Alkaline Phosphatase 80 U/L Total Creatine Kinase 53 U/L Troponin I LESS THAN 0.02 NG/ML Total Protein 6.1 GM/DL Albumin 2.6 GM/DL Blood Type O POSITIVE Antibody Screen NEGATIVE Lactic Acid Level 1.7 mmol/L Crossmatch Leukocyte-Reduced Red Blood Cells Blood Bank Comment MDM Medical Decision Making Medical Screen Exam Complete: Yes Emergency Medical Condition: Yes Medical Record Reviewed: Yes (past history confirmed) Interpretation(s) CBC & BMP Diagram 09/12/16 11:55 Last [address] 09/12/16 1157 Signed Impressions: Service Date/Time: Monday, September 12, 2016 13:23 - CONCLUSION: Stable evaluation of the brain without evidence of acute infarct, hemorrhage, mass or edema. Enrique Mullins MD Chest X-Ray 09/12/16 115 Signed Impressions: Service Date/Time: Monday, September 12, 2016 12:03 - CONCLUSION: No acute disease. Jose Preciado MD Abdomen/Pelvis CT 09/12/16 1157 Signed Impressions: Service Date/Time: Monday, September 12, 2016 13:22 - CONCLUSION: 1. No acute finding is identified within the abdomen or pelvis. 2. Nonacute findings include severe atherosclerotic disease, 5 mm nonobstructing left renal stone, and small hiatal hernia. Levar Aguayo MD Differential Diagnosis Anemia, renal failure, abscess, fistula, UTI, pneumonia Narrative Course Will check blood work, urinalysis, chest x-ray, CT scan abdominal pelvis and dose with IV fluids and reevaluate Hemoglobin came back critically low will transfuse and monitor. CT without emergent process. Patient has elevated white count. Will dose with Zosyn to cover for possible intra-abdominal process. He will need to be admitted to the hospital for IV fluid hydration and monitoring of his hemoglobin. Review of records show he had history of large ulcer on EGD so he will also be placed on Protonix drip. Critical Care Narrative Aggregate critical care time was 40 minutes. Time to perform other separately billable procedures was not included in the critical care time. My time did not include minutes spent treating any other patients simultaneously or on activities that did not directly contribute to the patient's treatment. The services I provided to this patient were to treat and/or prevent clinically significant deterioration that could result in: Septic shock, hemorrhagic shock, hypovolemic shock I provided critical care services requiring my management, as noted below: Chart data review, documentation time, medication orders and management, vital sign assessments/reviewing monitor data, ordering and reviewing lab tests, ordering and interpreting/reviewing x-rays and diagnostic studies, care of the patient and discussion of the patient with the admitting physicians. Physician Communication Physician Communication dr longo requests one amp of bicarb then 1/2 ns with amp of bicarb at [address] saleh agrees to admit Diagnosis Primary Impression: Acute renal failure Qualified Code: N17.9 - Acute renal failure, unspecified acute renal failure type Additional Impressions: Anemia Qualified Code: D64.9 - Anemia, unspecified type Hyperkalemia Abdominal pain Qualified Code: R10.9 - Abdominal pain, unspecified location Acidosis Hypotension Qualified Code: I95.9 - Hypotension, unspecified hypotension type Admitting Information Admitting Physician Requests: Admit Ana Lilia Magdaleno MD Sep 12, 2016 13:20
--- NOTE | 2016-09-12 13:43 | RADRPT ---
EXAM DATE/TIME: 09/12/2016 13:23 [facility] COMPARISON: CT BRAIN W/O CONTRAST, June 19, 2016, 20:07. INDICATIONS : Hypotension. Frequent falls. General weakness. RADIATION DOSE: 56.35 CTDIvol (mGy) MEDICAL HISTORY : Diabetes mellitus type 2. Cardiovascular disease Chronic obstructive pulmonary disease.Hypertension. SURGICAL HISTORY : Gastric bypass. Cholecystectomy. ENCOUNTER: Initial ACUITY: 1 day PAIN SCALE: 4/10 LOCATION: cranial TECHNIQUE: Multiple contiguous axial images were obtained of the head. Using automated exposure control and adj ustment of the mA and/or kV according to patient size, radiation dose was kept as low as reasonably a chievable to obtain optimal diagnostic quality images. FINDINGS: The cisterns, subarachnoid space and ventricles are stable. There are no altered regions of density to indicate the presence of an acute infarct or hemorrhage. There is no evidence of mass effect or edema. There are no extra-axial abnormalities. CONCLUSION: Stable evaluation of the brain without evidence of acute infarct, hemorrhage, mass or edema. Enrique Mullins MD on September 12, 2016 at 13:40 Board Certified Radiologist. This report was verified electronically.
--- NOTE | 2016-09-12 13:59 | RADRPT ---
EXAM DATE/TIME: 09/12/2016 13:22 [facility] COMPARISON: CT ABDOMEN & PELVIS W/O CONTRAST, June 04, 2016, 19:08. INDICATIONS : Abdominal pain. ORAL CONTRAST: No oral contrast ingested. RADIATION DOSE: 9.96 CTDIvol (mGy) MEDICAL HISTORY : Diabetes mellitus type 2. Cardiovascular disease Chronic obstructive pulmonary disease.Hypertension. SURGICAL HISTORY : Gastric bypass. Cholecystectomy. ENCOUNTER: Initial ACUITY: 1 day PAIN SCALE: 5/10 LOCATION: Abdomen. TECHNIQUE: Volumetric scanning of the abdomen and pelvis was performed. Using automated exposure control and ad justment of the mA and/or kV according to patient size, radiation dose was kept as low as reasonably achievable to obtain optimal diagnostic quality images. FINDINGS: LOWER LUNGS: The visualized lower lungs are clear. LIVER: Homogeneous density without lesion. There is no dilation of the biliary tree. There are multiple cl ips in the gallbladder fossa related to prior cholecystectomy. SPLEEN: Surgically absent. PANCREAS: Visualized portions demonstrate no abnormality. Pancreatic tail may be absent. KIDNEYS: Normal in size and shape. There is no mass or hydronephrosis. There is a 5 x 4 mm nonobstructing sto ne in the left mid collecting system. ADRENAL GLANDS: Within normal limits. VASCULAR: There is no aortic aneurysm. There is severe atherosclerotic disease. BOWEL/MESENTERY: There has been prior gastric surgery characteristic of gastric bypass. A small hiatal hernia is prese nt. Area of anastomosis in the left upper quadrant demonstrates no abnormality but is distended with air. Distal small bowel and colon demonstrate no acute finding. There is no free air or free fluid. ABDOMINAL WALL: There is mesh along the anterior abdominal wall. RETROPERITONEUM: There is no lymphadenopathy. BLADDER: No wall thickening or mass. REPRODUCTIVE: Within normal limits. INGUINAL: There is no lymphadenopathy or hernia. MUSCULOSKELETAL: There are degenerative changes throughout the lumbar spine. Hardware is present in the right proximal femur. CONCLUSION: 1. No acute finding is identified within the abdomen or pelvis. 2. Nonacute findings include severe atherosclerotic disease, 5 mm nonobstructing left renal stone, an d small hiatal hernia. Levar Aguayo MD on September 12, 2016 at 13:48 Board Certified Radiologist. This report was verified electronically.
[2016-09-12] MEDS ORDERED: PIPERACIL-TAZO 3.375 GM PREMIX 50 ML IV ONE (14:15)
[2016-09-12] MEDS ORDERED: SODIUM BICARBONATE 8.4% INJ 50 MEQ/50 ML SYR IV PUSH ONE (14:30)
[2016-09-12 15:33] LABS: BACTERIA, URINE RARE /hpf; BLOOD, URINE NEG (NEG); GLUCOSE,URINE NEG (NEG); KETONE, URINE NEG (NEG); MUCUS URINE FEW /lpf (OCC); NITRITE,URINE NEG (NEG); URINE COLOR YELLOW (YELLW/STRAW)
[2016-09-12 15:36] LABS: COMMENT (UR) CATH-CULTURE IND; CULTURE IF INDICATED CATH CULTURE IND
[2016-09-12] MEDS ORDERED: SODIUM CHLORIDE 0.9% FLUSH 5 ML FLUSH FLUSH PRN (15:45)
[2016-09-12] MEDS ORDERED: ONDANSETRON HCL 4 MG/2 ML VIAL IVP PRN (15:45)
[2016-09-12] MEDS ORDERED: NALOXONE HCL 0.4 MG/ML AMP IV PRN (15:45)
--- NOTE | 2016-09-12 15:51 | HP.UPD ---
H&P Update Note There is a 60-year-old male with a history of gastric bypass over 20 years ago. He has had some small area of a draining wound in the middle of his abdomen along the line of his bypass scar for a number of months. He had a recent admission FOR sepsis and pneumonia . He came into the emergency department at [facility] today with a fall, he hit the back of his head, he was found to have a systolic in the 70s with hemoglobin of 7 and creatinine of 2.6 in addition to being in metabolic acidosis. He's been interpreted for transfusion, nephrology and GI evaluation. He was seen by the undersigned at the emergency department room C 28. He looks malnourished. Full history and physical to follow Placido Alcantar MD Sep 12, 2016 15:48
[2016-09-12] MEDS ORDERED: HEPARIN SODIUM - SQ 10,000 UNITS/ML VIAL SQ SCH (16:00)
[2016-09-12] MEDS: SODIUM BICARBONATE 8.4% INJ 50 MEQ in SODIUM CHLOR 0.45% 1000 ML INJ 1,000 ML IV SCH (16:14)
[2016-09-12] MEDS: oxyCODONE/ACETAMINOPHEN 5 MG/325 MG TAB PO PRN ×2 (16:24→22:24)
--- NOTE | 2016-09-12 16:55 | PD.CONS ---
HPI History of Present Illness This is a 60 year old male who came to the emergency room for frequent falls since yesterday. He is not having any dizziness or shortness of breath. He reports that he just keeps "falling out of nowhere." He came to the emergency room and was found to have severe anemia with a hemoglobin of 7.0/20.8. The patient reports that he is been having abdominal pain for the past month. He describes this as a constant sharp pain in his mid abdomen with no radiation. It is aggravated by food intake. He denies any associated fevers, chills, nausea, vomiting, heartburn, constipation, diarrhea, melena, or hematochezia. He does report that his appetite has been decreased and he is lost about 20-30 pounds within the past 3-4 months. He recently saw his primary care physician and was given antibiotics for suspected "stomach infection" and oxycodone. He reports that the pain pills are helping him with his abdominal pain. He denies the use of any alcohol. He denies any blood thinners or NSAID use. He has a remote history of peptic ulcer disease. Of note he also has a history of gastric bypass. He previously was evaluated with EGD/colonoscopy (04/21/15) revealed normal esophagus, residual stomach after gastrectomy with very large ulcer on his taking over the entire and anastomosis. Biopsy was done. Malignancy cannot rule out, multiple ulcers in the duodenum, biopsy was done, and the colon there was some stool but no abnormality was seen. Pathology revealed small bowel with intestinal eyes glandular mucosa with marketed acute inflammation and features of ulceration, stomach biopsy with intestinal eyes glandular mucosa with active chronic inflammation and features of ulceration. No Helicobacter pylori-like organisms are present. He was also seen by our service in June 2016 for anemia, but refused GI workup at that time. He initially refused any GI workup for many, but after being assured that he would be asleep for the EGD and colonoscopy he was then agreeable. PFSH Past Medical History PUD Hypertension COPD Diabetes Chronic back pain Hypothyroidism. Peripheral edema Anemia PVD Tobacco abuse Chronic narcotic use Past Surgical History Gastric bypass Partial pancreatectomy and splenectomy Multiple surgeries related to gastric bypass. Cholecystectomy EGD/Colonoscopy Coded Allergies: No Known Allergies (Unverified , 08/11/16) Medications Allergies Coded Allergies Type Severity Reaction Last Updated Verified No Known Allergies 08/11/16 No Active Scripts Medications Dose Route/Sig Days Date Category Percocet (Oxycodone-Acetaminophen) 5-325 mg Tab 1 Tab PO Q6H PRN 08/30/16 Rx Restoril (Temazepam) 15 Mg Cap 15 Mg PO HS PRN 08/30/16 Rx Metoprolol Tartrate 25 Mg Tab 25 Mg PO BID 08/30/16 Rx Lisinopril 10 Mg Tab 10 Mg PO DAILY 06/12/16 Reported Levothyroxine (Levothyroxine Sodium) 100 Mcg Tab 100 Mcg PO DAILY 06/12/16 Reported Family History Denies family hx of esophageal, gastric, or colorectal cancer. Social History 2 PPD he reports x 45 years. No ETOH or illicit drug use. Review of Systems Constitutional: COMPLAINS OF: Fatigue, Weight loss, Change in appetite, DENIES : Diaphoretic episodes, Fever, Chills, Dizziness Ears, nose, mouth, throat: DENIES: Vertigo Respiratory: DENIES: Cough Cardiovascular: DENIES: Chest pain Gastrointestinal: COMPLAINS OF: Abdominal pain, Anorexia, DENIES: Black stools , Bloody stools, Constipation, Diarrhea, Nausea, Vomiting, Swelling of Abdomen, Heartburn, Hematemesis Musculoskeletal: COMPLAINS OF: Back pain, DENIES: Joint pain Integumentary: DENIES: Abnormal pigmentation, Rash, Jaundice Hematologic/lymphatic: DENIES: Bruising Neurologic: DENIES: Headache Psychiatric: DENIES: Confusion GI Exam Vitals I&O Vital Signs Date Time Temp Pulse Resp B/P Pulse Ox O2 Delivery O2 Flow Rate FiO2 09/12/16 16:30 69 18 88/53 98 Room Air 09/12/16 15:30 97.8 68 18 104/53 97 Room Air 09/12/16 15:15 97.7 72 20 104/46 97 Room Air 09/12/16 14:30 71 18 86/52 98 Room Air 09/12/16 13:30 67 16 86/63 99 Room Air 09/12/16 12:30 60 20 90/50 99 Room Air 09/12/16 11:45 97.7 68 16 95/46 97 09/12/16 11:45 97.7 68 16 95/46 97 Room Air 09/12/16 11:45 97.7 68 16 95/46 100 09/12/16 11:45 97 Room Air Imaging Last Impressions Head CT [id number]/12/[id number] Signed Impressions: Service Date/Time: Monday, September 12, 2016 13:23 - CONCLUSION: Stable evaluation of the brain without evidence of acute infarct, hemorrhage, mass or edema. Enrique Mullins MD Chest X-Ray [id number]/12/[id number] Signed Impressions: Service Date/Time: Monday, September 12, 2016 12:03 - CONCLUSION: No acute disease. Jose Preciado MD Abdomen/Pelvis CT [id number]/12/[id number] Signed Impressions: Service Date/Time: Monday, September 12, 2016 13:22 - CONCLUSION: 1. No acute finding is identified within the abdomen or pelvis. 2. Nonacute findings include severe atherosclerotic disease, 5 mm nonobstructing left renal stone, and small hiatal hernia. Levar Aguayo MD Laboratory Test 09/12/16 09/12/16 09/12/16 09/12/16 11:55 12:10 12:49 15:00 White Blood Count 14.1 TH/MM3 Red Blood Count 2.21 MIL/MM3 Hemoglobin 7.0 GM/DL Hematocrit 20.8 % Mean Corpuscular Volume 93.8 FL Mean Corpuscular Hemoglobin 31.8 PG Mean Corpuscular Hemoglobin 33.8 % Concent Red Cell Distribution Width 14.4 % Platelet Count 483 TH/MM3 Mean Platelet Volume 7.6 FL Neutrophils (%) (Auto) 79.8 % Lymphocytes (%) (Auto) 14.1 % Monocytes (%) (Auto) 5.6 % Eosinophils (%) (Auto) 0.2 % Basophils (%) (Auto) 0.3 % Neutrophils # (Auto) 11.3 TH/MM3 Lymphocytes # (Auto) 2.0 TH/MM3 Monocytes # (Auto) 0.8 TH/MM3 Eosinophils # (Auto) 0.0 TH/MM3 Basophils # (Auto) 0.0 TH/MM3 CBC Comment DIFF FINAL Differential Comment Prothrombin Time 11.0 SEC Prothromb Time International 1.0 RATIO Ratio Activated Partial 24.7 SEC Thromboplast Time Sodium Level 136 MEQ/L Potassium Level 5.8 MEQ/L Chloride Level 107 MEQ/L Carbon Dioxide Level 15.2 MEQ/L Anion Gap 14 MEQ/L Blood Urea Nitrogen 70 MG/DL Creatinine 2.63 MG/DL Estimat Glomerular Filtration 25 ML/MIN Rate Random Glucose 195 MG/DL Calcium Level 8.0 MG/DL Phosphorus Level 4.5 MG/DL Magnesium Level 2.0 MG/DL Total Bilirubin 0.1 MG/DL Aspartate Amino Transf 15 U/L (AST/SGOT) Alanine Aminotransferase 21 U/L (ALT/SGPT) Alkaline Phosphatase 80 U/L Total Creatine Kinase 53 U/L Troponin I LESS THAN 0.02 NG/ML Total Protein 6.1 GM/DL Albumin 2.6 GM/DL Blood Type O POSITIVE Antibody Screen NEGATIVE Lactic Acid Level 1.7 mmol/L Crossmatch Leukocyte-Reduced Red Blood Cells Blood Bank Comment Urine Color YELLOW Urine Turbidity CLEAR Urine pH 5.0 Urine Specific [place] 1.016 Urine Protein NEG mg/dL Urine Glucose (UA) NEG mg/dL Urine Ketones NEG mg/dL Urine Occult Blood NEG Urine Nitrite NEG Urine Bilirubin NEG Urine Urobilinogen LESS THAN 2.0 MG/DL Urine Leukocyte Esterase NEG Urine RBC LESS THAN 1 /hpf Urine WBC 2 /hpf Urine Bacteria RARE /hpf Urine Mucus FEW /lpf Microscopic Urinalysis Comment CATH-CULTURE IND Date/Time Procedure Status Source Growth 09/12/16 15:00 Urine Culture Received Urine Catheterized Urine Pending 09/12/16 12:10 Aerobic Blood Culture Received Blood Peripheral Pending 09/12/16 12:10 Anaerobic Blood Culture Received Blood Peripheral Pending Physical Examination HEENT: Normocephalic; atraumatic; no jaundice. CHEST: CTA, diminished CARDIAC: RRR ABDOMEN: Soft, nondistended, nontender; no hepatosplenomegaly; bowel sounds are present in all four quadrants. EXTREMITIES: No clubbing, cyanosis, or edema. SKIN: Normal; no rash; no jaundice. 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 Assessment and Plan Plan ASSESSMENT: - Anemia, normocytic. Pt was brought to the ER for frequent falls since yesterday without dizziness/sob and noted to have anemia with HH of 7.0/20.8. + abdominal pain for the past month- constant sharp pain in his mid abdomen with no radiation, aggravated by food intake. He denies any associated fevers, chills, nausea, vomiting, heartburn, constipation, diarrhea, melena, or hematochezia. + Anorexia with 20-30 lb weight loss over 3-4 months. Last EGD/colonoscopy (04/21/15) revealed normal esophagus, residual stomach after gastrectomy with very large ulcer on his taking over the entire and anastomosis. Biopsy was done. Malignancy cannot rule out, multiple ulcers in the duodenum, biopsy was done, and the colon there was some stool but no abnormality was seen. Pathology revealed small bowel with intestinal glandular mucosa with marketed acute inflammation and features of ulceration , stomach biopsy with intestinal eyes glandular mucosa with active chronic inflammation and features of ulceration. No Helicobacter pylori- like organisms are present. He was also seen by our service in June 2016 for anemia, but refused GI workup at that time. He initially refused any GI workup for many, but after being assured that he would be asleep for the EGD and colonoscopy he was then agreeable. Hx PUD. 7.0/20.8. - Abdominal pain. Abdomen/Pelvis CT (09/12/16)----> 1. No acute finding is identified within the abdomen or pelvis. 2. Nonacute findings include severe atherosclerotic disease, 5 mm nonobstructing left renal stone, and small hiatal hernia. Constant sharp mid abdominal pain x 1 month, improved with pain meds. CT was without contrast, so unable to ask for radiology to reconstruct to evaluate vasculature system. - Anorexia, Wt. Loss. CT as above. - JUSTINE with hyperkalemia. Creat. 2.63, K+ 5.8. - Leukocytosis. WBC 14.1. Denies any diarrhea/blood in stool. No colitis on imaging. Of note does have severe atherosclerotic disease. - Hx PUD. - COPD, HTN, DM, Chronic back pain, Hypothyroidism, PVD, per primary PLAN: - Plan for egd/colonoscopy in am - Obtain consents - Clear liquids - NPO after MN - Hold heparin after MN - Golytely prep - Protonix Gtt - Agree with transfusion - Monitor HH - Transfuse as necessary - CBC, BMP in am - Supportive care - Further recommendations to follow based on results of above - PT seen and examined by Dr. Villela and myself and this note is written on his behalf Iman Thompson Sep 12, 2016 16:55
[2016-09-12] MEDS ORDERED: PEG (High)/E-LYTE SOLN 4000 ML BTL PO ONE (17:00)
[2016-09-12] MEDS ORDERED: SODIUM POLYSTYRENE SULFONATE SUSP 15 GM/60 ML CUP PO ONE (18:30)
[2016-09-12] MEDS: PANTOPRAZOLE INJ 80 MG in SODIUM CHLORIDE 0.9% INJ 100 ML IV SCH ×2 (19:03→22:23)
--- NOTE | 2016-09-12 19:57 | MB ---
cc: BONILLA ELLIS MD DATE OF CONSULTATION 09/12/2016 REASON FOR CONSULTATION Elevated BUN and creatinine and hyperkalemia. HISTORY OF PRESENT ILLNESS This is a 60-year-old male with a past medical history of hypertension, diabetes mellitus, chronic obstructive pulmonary disease, history of gastric bypass surgery in the past. He came to the hospital with complaint of multiple falls and generalized weakness. I was called to see the patient because of high potassium and elevated BUN and creatinine. His creatinine on admission was found to be 2.6 and the BUN was 70 with a potassium of 5.8. Previously past creatinine of 0.7. This was about 10 days ago. He denies any previous history of renal disease, but looking back it seems like he had acute kidney injury in June. His creatinine went up to 2.1 and also in May he had creatinine of 2.6, but he was not seen by any dry curer in the hospital and seems like his kidney function improved. The patient has been feeling weak and tired for the last three or four days before he came to the hospital and not been eating well since Sunday which is four or five days ago. He has been feeling weak and had multiple falls. He denies any apparent bleeding. There is no nausea or vomiting. No history of diarrhea or blood in the stool. No history of melena. No dysuria, hematuria. He did not notice any decrease in the urine output. Denies taking any nonsteroidal anti-inflammatory drugs. PAST MEDICAL HISTORY 1. Hypertension. 2. Chronic obstructive pulmonary disease. 3. Diabetes mellitus. 4. History of gastric bypass surgery. 5. Osteoarthritis. PAST SURGICAL HISTORY 1. Gastric bypass surgery. 2. Left knee replacement. 3. Cholecystectomy. REVIEW OF SYSTEMS The patient has generalized weakness, feeling tired. Denies any history of fever. No sore throat. No headache, dizziness or blurring of vision. He has been feeling weak and tired. Has decreased appetite, not eating well for four or five days. No nausea or vomiting. No abdominal pain. No history of diarrhea. No melena or blood in the stool. No dysuria, hematuria or difficulty passing urine. Denies taking any nonsteroidal anti-inflammatory drugs. SOCIAL HISTORY The patient lives with his mother. He has history of smoking about two packs per day. There is no history of heavy alcoholism. FAMILY HISTORY Noncontributory. ALLERGIES NO KNOWN DRUG ALLERGIES. MEDICATIONS Currently he is on: 1. IV fluid with sodium bicarbonate at 100 ml hour. 2. Lopressor 25 mg b.i.d. 3. Synthroid 100 micrograms once a day. 4. Pantoprazole infusion. 5. Percocet as needed. 6. Zofran as needed. PHYSICAL EXAMINATION GENERAL: The patient is awake, alert. He is not in acute distress. VITAL SIGNS: His last blood pressure is 88/53. His blood pressure has been on the lower side and the lowest recorded is 86/52. Temperature is 97.8. Oxygen saturation on room air is 97-98%. HEENT: Pupils equally reactive to light. Nonicteric sclerae. Conjunctivae pale. NECK: Supple. JVD is not elevated. LUNGS: The patient has bilateral decreased air entry with occasional wheezing. HEART: S1-S2. Regular rhythm. ABDOMEN: Distended. Soft. Lax. There is a scar of gastric bypass in the midline. There is a small opening close to the umbilicus. Not very sure if it is a fistula but there is no discharge seen. EXTREMITIES: He has no edema in the legs. LABORATORY DATA Investigation, WBC count is 14.1, hemoglobin 7.0, platelet count of 483, neutrophils 79.8%. Sodium 136, potassium 5.8, chloride 107, bicarb 15.2, BUN 70, creatinine 2.6, glucose 195, calcium 8.07. Total bilirubin 0.1. AST, ALT normal. Troponin I less than 0.02. Total protein is 6.1 with albumin of 2.6. INR 1.0. Urinalysis showing that there is no proteinuria. Blood culture and urine culture pending. IMAGING STUDIES The patient had a CT scan of the abdomen and pelvis done without IV contrast and it shows that he has no acute findings. The kidneys are reported as normal in size. There is no mass or hydronephrosis. A 5 x 4 mm nonobstructing stone in the left mid collecting system. Chest x-ray was done which shows that he has no acute disease, lung putnam clear. CT scan of the brain was done which also shows no acute infarction or hemorrhage or mass. ASSESSMENT AND PLAN 1. Acute kidney injury. 2. Metabolic acidosis and hyperkalemia. 3. Hypotension with dehydration. 4. Severe anemia. 5. Diabetes mellitus. 6. History of hypertension. The patient has significant anemia and he also has acute kidney injury with hyperkalemia. The etiology of acute kidney injury is most likely because of hypotension and ATN with a possibility of dehydration and prerenal azotemia. I agree with giving IV fluid, he is getting IV fluid with sodium bicarbonate. I will give him one dose of Kayexalate. Check the urine sodium and osmolality. Avoid any nephrotoxins and follow the urine output and the BUN and creatinine. Thank you for the consultation. We will follow the patient while he is in the hospital. Further recommendation will be given in the due course. MD NESTOR Hancock/JUNE /6:13 PM /7:45 PM
--- NOTE | 2016-09-12 20:17 | HHI.HP ---
HPI Service [facility] Primary Care Physician Unknown Admission Diagnosis anemia, renal failure Diagnoses: Travel History International Travel<30 Days: No Contact w/Intl Traveler <30 Da: No Traveled to Known Affected Are: No History of Present Illness This is a 60-year-old male who was seen by the undersigned today at the emergency department at [facility] room C 28. The patient was brought into the emergency department after having a fall at home. He hit the back of his head. No reported loss of consciousness. No injuries otherwise. He has a chronic ongoing discharging small area above his umbilicus. No fever chills or diaphoresis. The patient was found with a low blood pressure, hemoglobin of 7 and a creatinine of 2.6. Also he was found with metabolic acidosis. He has been falling several times over the last few weeks. He says he feels no warning before falling. He does feel that his legs give way. No pain in his legs. He has complained of midabdominal pain without radiation. It is worse with eating. He lost 20-30 pounds last month or so and he is having poor appetite. The patient has had problems with anemia before and he has refused GI workup Past Family Social History Past Medical History PUD Hypertension COPD Diabetes Chronic back pain Hypothyroidism. Peripheral edema Anemia PVD Tobacco abuse Chronic narcotic use Past Surgical History Gastric bypass Partial pancreatectomy and splenectomy Multiple surgeries related to gastric bypass. Cholecystectomy EGD/Colonoscopy Reported Medications Reported Meds & Active Scripts Active Percocet (Oxycodone-Acetaminophen) 5-325 mg Tab 1 Tab PO Q6H PRN Restoril (Temazepam) 15 Mg Cap 15 Mg PO HS PRN Metoprolol Tartrate 25 Mg Tab 25 Mg PO BID Reported Lisinopril 10 Mg Tab 10 Mg PO DAILY Levothyroxine (Levothyroxine Sodium) 100 Mcg Tab 100 Mcg PO DAILY Allergies: Coded Allergies: No Known Allergies (Unverified , 08/11/16) Family History Reviewed but noncontributory Social History Smokes 2 packs a day for the last 45 years. No excessive alcohol or illicit use Physical Exam Vital Signs Vital Signs Date Time Temp Pulse Resp B/P Pulse Ox O2 Delivery O2 Flow Rate FiO2 09/12/16 18:30 56 20 85/53 99 Room Air 09/12/16 17:30 65 20 88/50 99 Room Air 09/12/16 16:30 69 18 88/53 98 Room Air 09/12/16 15:30 97.8 68 18 104/53 97 Room Air 09/12/16 15:15 97.7 72 20 104/46 97 Room Air 09/12/16 14:30 71 18 86/52 98 Room Air 09/12/16 13:30 67 16 86/63 99 Room Air 09/12/16 12:30 60 20 90/50 99 Room Air 09/12/16 11:45 97.7 68 16 95/46 97 09/12/16 11:45 97.7 68 16 95/46 97 Room Air 09/12/16 11:45 97.7 68 16 95/46 100 09/12/16 11:45 97 Room Air Physical Exam GENERAL: This is a pleasant, very pale, poorly nourished, well-developed patient , in no apparent distress. SKIN: No rashes, ecchymoses or lesions. Cool and dry. HEAD: Atraumatic. Normocephalic. No temporal or scalp tenderness. EYES: Pupils equal round and reactive. Extraocular motions intact. No scleral icterus. No injection or drainage. ENT: Nose without bleeding, purulent drainage or septal hematoma. Throat without erythema, tonsillar hypertrophy or exudate. Uvula midline. Airway patent. NECK: Trachea midline. No JVD or lymphadenopathy. Supple, nontender, no meningeal signs. CARDIOVASCULAR: Regular rate and rhythm without murmurs, gallops, or rubs. RESPIRATORY: Clear to auscultation. Breath sounds equal bilaterally. No wheezes , rales, or rhonchi. GASTROINTESTINAL: Abdomen soft, non-tender, nondistended. He has a small area crusty dry discharge just above his umbilicus. MUSCULOSKELETAL: Significant wasting, no cyanosis no clubbing no edema NEUROLOGICAL: Awake and alert. Cranial nerves II through XII intact. Normal speech. Laboratory Laboratory Tests Test 09/12/16 09/12/16 09/12/16 09/12/16 11:55 12:10 12:49 15:00 White Blood Count 14.1 Red Blood Count 2.21 Hemoglobin 7.0 Hematocrit 20.8 Mean Corpuscular Volume 93.8 Mean Corpuscular Hemoglobin 31.8 Mean Corpuscular Hemoglobin 33.8 Concent Red Cell Distribution Width 14.4 Platelet Count 483 Mean Platelet Volume 7.6 Neutrophils (%) (Auto) 79.8 Lymphocytes (%) (Auto) 14.1 Monocytes (%) (Auto) 5.6 Eosinophils (%) (Auto) 0.2 Basophils (%) (Auto) 0.3 Neutrophils # (Auto) 11.3 Lymphocytes # (Auto) 2.0 Monocytes # (Auto) 0.8 Eosinophils # (Auto) 0.0 Basophils # (Auto) 0.0 CBC Comment DIFF FINAL Differential Comment Prothrombin Time 11.0 Prothromb Time International 1.0 Ratio Activated Partial 24.7 Thromboplast Time Sodium Level 136 Potassium Level 5.8 Chloride Level 107 Carbon Dioxide Level 15.2 Anion Gap 14 Blood Urea Nitrogen 70 Creatinine 2.63 Estimat Glomerular Filtration 25 Rate Random Glucose 195 Calcium Level 8.0 Phosphorus Level 4.5 Magnesium Level 2.0 Total Bilirubin 0.1 Aspartate Amino Transf 15 (AST/SGOT) Alanine Aminotransferase 21 (ALT/SGPT) Alkaline Phosphatase 80 Total Creatine Kinase 53 Troponin I LESS THAN 0.02 Total Protein 6.1 Albumin 2.6 Blood Type O POSITIVE Antibody Screen NEGATIVE Lactic Acid Level 1.7 Crossmatch Leukocyte-Reduced Red Blood Cells Blood Bank Comment Urine Color YELLOW Urine Turbidity CLEAR Urine pH 5.0 Urine Specific [place] 1.016 Urine Protein NEG Urine Glucose (UA) NEG Urine Ketones NEG Urine Occult Blood NEG Urine Nitrite NEG Urine Bilirubin NEG Urine Urobilinogen LESS THAN 2.0 Urine Leukocyte Esterase NEG Urine RBC LESS THAN 1 Urine WBC 2 Urine Bacteria RARE Urine Mucus FEW Microscopic Urinalysis Comment CATH-CULTURE IND Date/Time Procedure Status Source Growth 09/12/16 15:00 Urine Culture Received Urine Catheterized Urine Pending 09/12/16 12:10 Aerobic Blood Culture Received Blood Peripheral Pending 09/12/16 12:10 Anaerobic Blood Culture Received Blood Peripheral Pending Result Diagram: 09/12/16 1155 09/12/16 1155 Imaging Last Impressions Head CT 09/12/16 1157 Signed Impressions: Service Date/Time: Monday, September 12, 2016 13:23 - CONCLUSION: Stable evaluation of the brain without evidence of acute infarct, hemorrhage, mass or edema. Enrique Mullins MD Chest X-Ray 09/12/16 1157 Signed Impressions: Service Date/Time: Monday, September 12, 2016 12:03 - CONCLUSION: No acute disease. Jose Preciado MD Abdomen/Pelvis CT 09/12/16 1157 Signed Impressions: Service Date/Time: Monday, September 12, 2016 13:22 - CONCLUSION: 1. No acute finding is identified within the abdomen or pelvis. 2. Nonacute findings include severe atherosclerotic disease, 5 mm nonobstructing left renal stone, and small hiatal hernia. Levar Aguayo MD Assessment and Plan Assessment and Plan Assessment Acute kidney injury Hyperkalemia Metabolic acidosis Recurrent falls severe anemia hypotension Abdominal pain of unclear etiology Weight loss Poor appetite Draining area in the middle of his abdomen Tobacco abuse Management Transfuse 1 unit blood IV fluids Follow renal indices Follow potassium level Consult nephrology GI consult He has already been seen by GI and he is due to have Panendoscopy tomorrow Orthostatics Check orthostatics Iron level TIBC Ferritin B 12 B 1 B 6 Vitamin B 12 Phosphate levels Renal ultrasound Physical therapy evaluations DVT prophylaxis Discussed with emergency physician Discussed with nurse Discussed with patient 45 minutes spent Physician Certification 2 Midnight Certification Type: Admission for Inpatient Services Order for Inpatient Services The services are ordered in accordance with Medicare regulations or non- Medicare payer requirements, as applicable. In the case of services not specified as inpatient-only, they are appropriately provided as inpatient services in accordance with the 2-midnight benchmark. Estimated LOS (days): 3 days is the estimated time the patient will need to remain in the hospital, assuming treatment plan goals are met and no additional complications. Post-Hospital Plan: Not yet determined Placido Alcantar MD Sep 12, 2016 20:17
[2016-09-12] MEDS: METOPROLOL TARTRATE 25 MG TAB PO SCH (21:00)
[2016-09-12] MEDS: SODIUM CHLORIDE 0.9% FLUSH 5 ML FLUSH FLUSH SCH (21:39)
[2016-09-12] MEDS: SODIUM CHLOR 0.45% 1000 ML INJ 1,000 ML IV SCH (21:39)
[2016-09-12] MEDS ORDERED: CHLORHEXIDINE GLUCONATE 2 % 1 PACK (2 CLOTHS)(extra cloths) TOP PRN (22:00)
[2016-09-12] MEDS: TEMAZEPAM 15 MG CAP PO PRN (22:23)
[2016-09-13] VITALS (12 sets, daily range): BP systolic 99–155; BP diastolic 55–74; PULSE 65–84; RESP 11–37; TEMP 97.5–98.7; O2SAT 93–100
[2016-09-13] MEDS: SODIUM BICARBONATE 8.4% INJ 50 MEQ in SODIUM CHLOR 0.45% 1000 ML INJ 1,000 ML IV SCH ×3 (00:07→20:54)
[2016-09-13] MEDS: CHLORHEXIDINE GLUCONATE 2 % 1 PACK (2 CLOTHS)(taper/protocol) TOP SCH (04:00)
[2016-09-13 04:36] LABS: AUTOMATED NEUTROPHIL # 8.1 TH/MM3 (1.8-7.7); BASOPHIL # 0.1 TH/MM3 (0-0.2); BASOPHIL % 0.7 % (0.0-2.0); EOSINOPHIL # 0.2 TH/MM3 (0-0.4); EOSINOPHIL % 1.5 % (0.0-4.0); HEMATOCRIT 28.4 % (39.0-51.0); HEMO FLAGS DIFF FINAL; LYMPH % 26.2 % (9.0-44.0); LYMPHOCYTE # 3.3 TH/MM3 (1.0-4.8); MEAN CELL VOLUME 86.6 FL (80.0-100.0); MEAN CORPUSCULAR HEMOGLOBIN 29.5 PG (27.0-34.0); MEAN CORPUSCULAR HGB CONC 34.1 % (32.0-36.0); MONO % 6.5 % (0.0-8.0); NEUT % 65.1 % (16.0-70.0); PLATELET COUNT 348 TH/MM3 (150-450); RED BLOOD COUNT 3.28 MIL/MM3 (4.50-5.90); RED CELL DISTRIBUTION WIDTH 16.6 % (11.6-17.2); WHITE BLOOD COUNT 12.4 TH/MM3 (4.0-11.0)
[2016-09-13] MEDS: LEVOTHYROXINE SODIUM 100 MCG TAB PO SCH (04:40)
[2016-09-13] MEDS: SODIUM CHLOR 0.45% 1000 ML INJ 1,000 ML IV SCH ×2 (04:40→18:22)
[2016-09-13] MEDS: oxyCODONE/ACETAMINOPHEN 5 MG/325 MG TAB PO PRN ×4 (04:44→23:41)
[2016-09-13 05:10] LABS: BICARBONATE 19.4 MEQ/L (21.0-32.0); POTASSIUM 4.1 MEQ/L (3.5-5.1)
[2016-09-13] MEDS: METOPROLOL TARTRATE 25 MG TAB PO SCH ×3 (08:15→20:55)
[2016-09-13] MEDS: SODIUM CHLORIDE 0.9% FLUSH 5 ML FLUSH FLUSH SCH ×2 (08:15→20:54)
--- NOTE | 2016-09-13 10:04 | HHI.PR ---
Subjective Subjective Remarks diffuse abd. pain no cp no sob no n/v making urine going for egd, cscope today no acute changes overnight Review of Systems Constitutional Constitutional Remarks 12 point ROS completed, unreliable Vitals/Results Intake & Output 09/12/16 09/12/16 09/13/16 15:00 23:00 07:00 Intake Total 1167 ml 1268 ml Output Total 1000 ml 225 ml Balance 167 ml 1043 ml Intake Oral 480 ml IV Total 687 ml 1268 ml Output Urine Total 250 ml 225 ml Stool Total 750 ml # Bowel Movements 10 Vital Signs Vital Signs Date Time Temp Pulse Resp B/P Pulse Ox O2 Delivery O2 Flow Rate FiO2 09/13/16 06:00 72 09/13/16 04:00 76 09/13/16 04:00 97.5 76 12 155/65 96 09/13/16 02:00 66 09/13/16 01:30 97.5 66 11 131/62 100 09/13/16 00:20 97.5 66 16 122/74 93 09/13/16 00:10 97.5 67 106/63 09/13/16 00:00 98.5 67 37 106/63 93 09/13/16 00:00 67 09/12/16 22:10 98.5 69 97/55 09/12/16 22:00 69 09/12/16 20:40 97.9 76 21 94/52 94 09/12/16 18:30 56 20 85/53 99 Room Air 09/12/16 17:30 65 20 88/50 99 Room Air 09/12/16 16:30 69 18 88/53 98 Room Air 09/12/16 15:30 97.8 68 18 104/53 97 Room Air 09/12/16 15:15 97.7 72 20 104/46 97 Room Air 09/12/16 14:30 71 18 86/52 98 Room Air 09/12/16 13:30 67 16 86/63 99 Room Air 09/12/16 12:30 60 20 90/50 99 Room Air 09/12/16 11:45 97.7 68 16 95/46 97 09/12/16 11:45 97.7 68 16 95/46 97 Room Air 09/12/16 11:45 97.7 68 16 95/46 100 09/12/16 11:45 97 Room Air CBC/BMP: 09/13/16 0359 09/13/16 0359 Lab Results Laboratory Tests Test 09/12/16 09/12/16 09/12/16 09/12/16 11:55 12:10 12:49 15:00 White Blood Count 14.1 TH/MM3 Red Blood Count 2.21 MIL/MM3 Hemoglobin 7.0 GM/DL Hematocrit 20.8 % Mean Corpuscular Volume 93.8 FL Mean Corpuscular Hemoglobin 31.8 PG Mean Corpuscular Hemoglobin 33.8 % Concent Red Cell Distribution Width 14.4 % Platelet Count 483 TH/MM3 Mean Platelet Volume 7.6 FL Neutrophils (%) (Auto) 79.8 % Lymphocytes (%) (Auto) 14.1 % Monocytes (%) (Auto) 5.6 % Eosinophils (%) (Auto) 0.2 % Basophils (%) (Auto) 0.3 % Neutrophils # (Auto) 11.3 TH/MM3 Lymphocytes # (Auto) 2.0 TH/MM3 Monocytes # (Auto) 0.8 TH/MM3 Eosinophils # (Auto) 0.0 TH/MM3 Basophils # (Auto) 0.0 TH/MM3 CBC Comment DIFF FINAL Differential Comment Prothrombin Time 11.0 SEC Prothromb Time International 1.0 RATIO Ratio Activated Partial 24.7 SEC Thromboplast Time Sodium Level 136 MEQ/L Potassium Level 5.8 MEQ/L Chloride Level 107 MEQ/L Carbon Dioxide Level 15.2 MEQ/L Anion Gap 14 MEQ/L Blood Urea Nitrogen 70 MG/DL Creatinine 2.63 MG/DL Estimat Glomerular Filtration 25 ML/MIN Rate Random Glucose 195 MG/DL Calcium Level 8.0 MG/DL Phosphorus Level 4.5 MG/DL Magnesium Level 2.0 MG/DL Total Bilirubin 0.1 MG/DL Aspartate Amino Transf 15 U/L (AST/SGOT) Alanine Aminotransferase 21 U/L (ALT/SGPT) Alkaline Phosphatase 80 U/L Total Creatine Kinase 53 U/L Troponin I LESS THAN 0.02 NG/ML Total Protein 6.1 GM/DL Albumin 2.6 GM/DL Blood Type O POSITIVE Antibody Screen NEGATIVE Lactic Acid Level 1.7 mmol/L Crossmatch Leukocyte-Reduced Red Blood Cells Blood Bank Comment Urine Color YELLOW Urine Turbidity CLEAR Urine pH 5.0 Urine Specific [place] 1.016 Urine Protein NEG mg/dL Urine Glucose (UA) NEG mg/dL Urine Ketones NEG mg/dL Urine Occult Blood NEG Urine Nitrite NEG Urine Bilirubin NEG Urine Urobilinogen LESS THAN 2.0 MG/DL Urine Leukocyte Esterase NEG Urine RBC LESS THAN 1 /hpf Urine WBC 2 /hpf Urine Bacteria RARE /hpf Urine Mucus FEW /lpf Microscopic Urinalysis Comment CATH-CULTURE IND Urine Osmolality 409 MOSM/KG Urine Random Sodium 51 MEQ/L Test 09/12/16 09/12/16 09/13/16 21:05 21:25 03:59 Nasal Screen MRSA (PCR) NEGATIVE Total Creatine Kinase 55 U/L 68 U/L Troponin I 0.16 NG/ML 0.10 NG/ML White Blood Count 12.4 TH/MM3 Red Blood Count 3.28 MIL/MM3 Hemoglobin 9.7 GM/DL Hematocrit 28.4 % Mean Corpuscular Volume 86.6 FL Mean Corpuscular Hemoglobin 29.5 PG Mean Corpuscular Hemoglobin 34.1 % Concent Red Cell Distribution Width 16.6 % Platelet Count 348 TH/MM3 Mean Platelet Volume 7.5 FL Neutrophils (%) (Auto) 65.1 % Lymphocytes (%) (Auto) 26.2 % Monocytes (%) (Auto) 6.5 % Eosinophils (%) (Auto) 1.5 % Basophils (%) (Auto) 0.7 % Neutrophils # (Auto) 8.1 TH/MM3 Lymphocytes # (Auto) 3.3 TH/MM3 Monocytes # (Auto) 0.8 TH/MM3 Eosinophils # (Auto) 0.2 TH/MM3 Basophils # (Auto) 0.1 TH/MM3 CBC Comment DIFF FINAL Differential Comment Sodium Level 141 MEQ/L Potassium Level 4.1 MEQ/L Chloride Level 110 MEQ/L Carbon Dioxide Level 19.4 MEQ/L Anion Gap 12 MEQ/L Blood Urea Nitrogen 53 MG/DL Creatinine 1.74 MG/DL Estimat Glomerular Filtration 40 ML/MIN Rate Random Glucose 82 MG/DL Calcium Level 7.8 MG/DL Phosphorus Level 3.5 MG/DL Iron Level 164 MCG/DL Vitamin B12 Level 298 PG/ML Microbiology Microbiology 09/12/16 Aerobic Blood Culture, Received Pending 09/12/16 Anaerobic Blood Culture, Received Pending 09/12/16 Aerobic Blood Culture, Received Pending 09/12/16 Anaerobic Blood Culture, Received Pending 09/12/16 Urine Culture, Received Pending Physical Exam General General Appearance: No Acute Distress, Pale, Malnourished Eyes Eye Exam: Pupils Equal, Pupils Reactive Ears & Nose Ears & Nose Exam: Nasal Mucosa Babbie Throat Throat Exam: Oral Mucosa Babbie & Moist Neck Neck Exam: Neck Supple, Trachea Midline Pulmonary Resp Exam: Breath Sounds Equal, Decreased Bases Cardiology CV Exam: Regular Gastrointestinal/Abdomen GI Exam: Soft, Bowel Sounds Present, Non-Distended, Bowel Sounds Hypoactive GI Remarks diffuse tenderness draining area above umbilicus Musculoskeletal MS Exam: Joints Intact, Atrophy Integumentary Skin Exam: Warm, Dry Extremeties Extremities Exam: No Edema, Pedal Pulses Palpable Neurologic Neuro Exam: Alert, Awake, Oriented, Speech Clear, Moving All Extremities, No Focal Deficits Psychiatric Psych Exam: Appropriate Responses VTE Prophylaxis VTE Prophylaxis Device: SCDs PUD Prophylasis PUD Prophylaxis: Protonix Assessment/Plan Assessment/Plan Acute kidney injury Hyperkalemia Metabolic acidosis Recurrent falls severe anemia hypotension Abdominal pain of unclear etiology Weight loss Poor appetite Draining area in the middle of his abdomen Tobacco abuse Malnourished Management S/P PRBC tx HH 9.7/28.4 continue PPI gtt Appreciate GI input, going for C scope and EGD today, f/u results iron studies in progress renal function improving continue with sodium bicarb gtt acidosis improving making urine K back to normal appreciate nephro input renal US pending BP improving, up to 150s continue with IVF malnourished, hx gastric bypass Enc PO intake after GI procedures DVT prophylaxis PPI gtt for GI prophylaxis labs in am f/u results after GI procedures. Discussed with Dr. Alcantar Discussed with nurse Discussed with patient This patient was seen by myself and Dr. Alcantar, this note is written on his behalf. Maribeth Ashley Sep 13, 2016 10:04
[2016-09-13] MEDS ORDERED: PROPOFOL 200 MG/20 ML AMP IV ONE (10:25)
[2016-09-13] MEDS: PANTOPRAZOLE INJ 80 MG in SODIUM CHLORIDE 0.9% INJ 100 ML IV SCH ×2 (10:30→20:54)
--- NOTE | 2016-09-13 11:14 | HHI.GIFU ---
Subjective Remarks feels ok, no new complains, no SOB, HGB better with transfusion Objective Vitals I&O Vital Signs Date Time Temp Pulse Resp B/P Pulse Ox O2 Delivery O2 Flow Rate FiO2 09/13/16 08:00 98.0 66 18 148/72 95 09/13/16 08:00 66 09/13/16 06:00 72 09/13/16 04:00 76 09/13/16 04:00 97.5 76 12 155/65 96 09/13/16 02:00 66 09/13/16 01:30 97.5 66 11 131/62 100 09/13/16 00:20 97.5 66 16 122/74 93 09/13/16 00:10 97.5 67 106/63 09/13/16 00:00 98.5 67 37 106/63 93 09/13/16 00:00 67 09/12/16 22:10 98.5 69 97/55 09/12/16 22:00 69 09/12/16 20:40 97.9 76 21 94/52 94 09/12/16 18:30 56 20 85/53 99 Room Air 09/12/16 17:30 65 20 88/50 99 Room Air 09/12/16 16:30 69 18 88/53 98 Room Air 09/12/16 15:30 97.8 68 18 104/53 97 Room Air 09/12/16 15:15 97.7 72 20 104/46 97 Room Air 09/12/16 14:30 71 18 86/52 98 Room Air 09/12/16 13:30 67 16 86/63 99 Room Air 09/12/16 12:30 60 20 90/50 99 Room Air 09/12/16 11:45 97.7 68 16 95/46 97 09/12/16 11:45 97.7 68 16 95/46 97 Room Air 09/12/16 11:45 97.7 68 16 95/46 100 09/12/16 11:45 97 Room Air I/O 09/12/16 09/12/16 09/12/16 09/13/16 09/13/16 09/13/16 07:00 15:00 23:00 07:00 15:00 23:00 Intake Total 1167 ml 1268 ml Output Total 1000 ml 225 ml Balance 167 ml 1043 ml Intake Oral 480 ml IV Total 687 ml 1268 ml Output Urine Total 250 ml 225 ml Stool Total 750 ml # Bowel Movements 10 Laboratory Laboratory Tests Test 09/12/16 09/12/16 09/12/16 09/12/16 11:55 12:10 12:49 15:00 White Blood Count 14.1 Red Blood Count 2.21 Hemoglobin 7.0 Hematocrit 20.8 Mean Corpuscular Volume 93.8 Mean Corpuscular Hemoglobin 31.8 Mean Corpuscular Hemoglobin 33.8 Concent Red Cell Distribution Width 14.4 Platelet Count 483 Mean Platelet Volume 7.6 Neutrophils (%) (Auto) 79.8 Lymphocytes (%) (Auto) 14.1 Monocytes (%) (Auto) 5.6 Eosinophils (%) (Auto) 0.2 Basophils (%) (Auto) 0.3 Neutrophils # (Auto) 11.3 Lymphocytes # (Auto) 2.0 Monocytes # (Auto) 0.8 Eosinophils # (Auto) 0.0 Basophils # (Auto) 0.0 CBC Comment DIFF FINAL Differential Comment Prothrombin Time 11.0 Prothromb Time International 1.0 Ratio Activated Partial 24.7 Thromboplast Time Sodium Level 136 Potassium Level 5.8 Chloride Level 107 Carbon Dioxide Level 15.2 Anion Gap 14 Blood Urea Nitrogen 70 Creatinine 2.63 Estimat Glomerular Filtration 25 Rate Random Glucose 195 Calcium Level 8.0 Phosphorus Level 4.5 Magnesium Level 2.0 Total Bilirubin 0.1 Aspartate Amino Transf 15 (AST/SGOT) Alanine Aminotransferase 21 (ALT/SGPT) Alkaline Phosphatase 80 Total Creatine Kinase 53 Troponin I LESS THAN 0.02 Total Protein 6.1 Albumin 2.6 Blood Type O POSITIVE Antibody Screen NEGATIVE Lactic Acid Level 1.7 Crossmatch Leukocyte-Reduced Red Blood Cells Blood Bank Comment Urine Color YELLOW Urine Turbidity CLEAR Urine pH 5.0 Urine Specific Phelps 1.016 Urine Protein NEG Urine Glucose (UA) NEG Urine Ketones NEG Urine Occult Blood NEG Urine Nitrite NEG Urine Bilirubin NEG Urine Urobilinogen LESS THAN 2.0 Urine Leukocyte Esterase NEG Urine RBC LESS THAN 1 Urine WBC 2 Urine Bacteria RARE Urine Mucus FEW Microscopic Urinalysis Comment CATH-CULTURE IND Urine Osmolality 409 Urine Random Sodium 51 Test 09/12/16 09/12/16 09/13/16 21:05 21:25 03:59 Nasal Screen MRSA (PCR) NEGATIVE Total Creatine Kinase 55 68 Troponin I 0.16 0.10 White Blood Count 12.4 Red Blood Count 3.28 Hemoglobin 9.7 Hematocrit 28.4 Mean Corpuscular Volume 86.6 Mean Corpuscular Hemoglobin 29.5 Mean Corpuscular Hemoglobin 34.1 Concent Red Cell Distribution Width 16.6 Platelet Count 348 Mean Platelet Volume 7.5 Neutrophils (%) (Auto) 65.1 Lymphocytes (%) (Auto) 26.2 Monocytes (%) (Auto) 6.5 Eosinophils (%) (Auto) 1.5 Basophils (%) (Auto) 0.7 Neutrophils # (Auto) 8.1 Lymphocytes # (Auto) 3.3 Monocytes # (Auto) 0.8 Eosinophils # (Auto) 0.2 Basophils # (Auto) 0.1 CBC Comment DIFF FINAL Differential Comment Sodium Level 141 Potassium Level 4.1 Chloride Level 110 Carbon Dioxide Level 19.4 Anion Gap 12 Blood Urea Nitrogen 53 Creatinine 1.74 Estimat Glomerular Filtration 40 Rate Random Glucose 82 Calcium Level 7.8 Phosphorus Level 3.5 Iron Level 164 Vitamin B12 Level 298 Date/Time Procedure Status Source Growth 09/12/16 15:00 Urine Culture Received Urine Catheterized Urine Pending 09/12/16 12:10 Aerobic Blood Culture Received Blood Peripheral Pending 09/12/16 12:10 Anaerobic Blood Culture Received Blood Peripheral Pending Physical Exam HEENT: Pupils round and reactive to light; normocephalic; atraumatic; no jaundice. Throat is clear. NECK: Neck is supple, no JVD, no lymphadenopathy. CHEST: Chest is clear to auscultation and percussion. CARDIAC: Regular rate and rhythm with no murmur gallop or rubs. ABDOMEN: Soft, nondistended, nontender; no hepatosplenomegaly; bowel sounds are present in all four quadrants. surgical scar EXTREMITIES: No clubbing, cyanosis, or edema. SKIN: Normal; no rash; no jaundice. 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 Assessment and Plan Plan ASSESSMENT: - Anemia, normocytic. Pt was brought to the ER for frequent falls since yesterday without dizziness/sob and noted to have anemia with HH of 7.0/20.8. + abdominal pain for the past month- constant sharp pain in his mid abdomen with no radiation, aggravated by food intake. He denies any associated fevers, chills, nausea, vomiting, heartburn, constipation, diarrhea, melena, or hematochezia. + Anorexia with 20-30 lb weight loss over 3-4 months. Last EGD/colonoscopy (04/21/15) revealed normal esophagus, residual stomach after gastrectomy with very large ulcer on his taking over the entire and anastomosis. Biopsy was done. Malignancy cannot rule out, multiple ulcers in the duodenum, biopsy was done, and the colon there was some stool but no abnormality was seen. Pathology revealed small bowel with intestinal glandular mucosa with marketed acute inflammation and features of ulceration , stomach biopsy with intestinal eyes glandular mucosa with active chronic inflammation and features of ulceration. No Helicobacter pylori- like organisms are present. He was also seen by our service in June 2016 for anemia, but refused GI workup at that time. He initially refused any GI workup for many, but after being assured that he would be asleep for the EGD and colonoscopy he was then agreeable. Hx PUD. 7.0/20.8. - Abdominal pain. Abdomen/Pelvis CT (09/12/16)----> 1. No acute finding is identified within the abdomen or pelvis. 2. Nonacute findings include severe atherosclerotic disease, 5 mm nonobstructing left renal stone, and small hiatal hernia. Constant sharp mid abdominal pain x 1 month, improved with pain meds. CT was without contrast, so unable to ask for radiology to reconstruct to evaluate vasculature system. - Anorexia, Wt. Loss. CT as above. - JUSTINE with hyperkalemia. Creat. 2.63, K+ 5.8. - Leukocytosis. WBC 14.1. Denies any diarrhea/blood in stool. No colitis on imaging. Of note does have severe atherosclerotic disease. - Hx PUD. - COPD, HTN, DM, Chronic back pain, Hypothyroidism, PVD, per primary 2--17 doing better HGB stable, EGD showed large , Bx done to R/O malignancy, anatomy C/W gastric bypass, colonoscopy poor prep (had colonoscopy 2 years ago) PLAN: -await Bx, consult oncology if there is malignancy - Clear liquids - Hold heparin - Protonix Gtt - Monitor HH - Transfuse as necessary - CBC, in am - Supportive care - EGD in 2 months as outpatient Tomi Villela MD Sep 13, 2016 11:14
[2016-09-13] MEDS ORDERED: DO NOT ADM ANY ANTICOAGULANT DRUGS XX PRN (12:00)
--- NOTE | 2016-09-13 15:54 | RADRPT ---
EXAM DATE/TIME: 09/13/2016 13:31 [facility] COMPARISON: CT ABDOMEN & PELVIS W CONTRAST, August 27, 2016, 11:16. CT ABDOMEN & PELVIS W/O CONTRAST, September, 13:22. INDICATIONS : Increased Bun and Creatine. MEDICAL HISTORY : Hypertension. Cardiovascular disease Chronic obstructive pulmonary disease. Diabetic. SURGICAL HISTORY : Cholecystectomy. Gastric bypass. ENCOUNTER: Subsequent ACUITY: 1 day PAIN SCORE: 5/10 LOCATION: Bilateral flank MEASUREMENTS: RIGHT KIDNEY: 11.7 x 5.6 x 5.1 cm LEFT KIDNEY: 10.4 x 5.7 x 6.1 cm FINDINGS: RIGHT KIDNEY: There is a 13 mm right upper pole cyst. Several cysts are seen on prior CTs. No solid lesion demonstr ated. No hydronephrosis. LEFT KIDNEY: 7 mm mid zone stone again noted. No hydronephrosis. BLADDER: Urinary bladder is nondistended and grossly unremarkable. CONCLUSION: 1. No evidence of acute obstructive uropathy. No significant parenchymal abnormalities are demonstrat ed. 2. Small, benign-appearing right upper pole cyst. 3. Nonobstructing 7 mm left renal stone. Levar Gerardo MD on September 13, 2016 at 15:50 Board Certified Radiologist. This report was verified electronically.
--- NOTE | 2016-09-13 16:18 | HHI.NPPN ---
Subjective General Problems: Anemia, Mebatolic Acidosis Renal Failure: Acute History of Present Illness 1-year-old male with a past medical history of hypertension, diabetes mellitus, chronic obstructive pulmonary disease, history of gastric bypass surgery in the past. He came to the hospital with complaint of multiple falls and generalized weakness. I was called to see the patient because of high potassium and elevated BUN and creatinine. His creatinine on admission was found to be 2.6 and the BUN was 70 with a potassium of 5.8. Previously past creatinine of 0.7. Additional Remarks Patient is alert, seen after EGD, abd. pain is better, no SOB. Review of Systems General Constitutional: Fatigue Gastrointestinal Gastrointestinal: Abdominal Pain, Nausea & Vomiting Objective Data Data 09/12/16 09/13/16 19:00 07:00 Intake Total 2435 ml Output Total 1225 ml Balance 1210 ml Intake Oral 480 ml IV Total 1955 ml Output Urine Total 475 ml Stool Total 750 ml # Bowel Movements 10 Vital Signs Date Time Temp Pulse Resp B/P Pulse Ox O2 Delivery O2 Flow Rate FiO2 09/13/16 12:00 65 09/13/16 12:00 98.2 65 15 123/65 98 09/13/16 11:20 97.5 60 12 117/71 100 09/13/16 11:15 61 12 113/72 100 09/13/16 11:02 97.5 60 12 89/54 99 Nasal Cannula 4 09/13/16 08:00 98.0 66 18 148/72 95 09/13/16 08:00 66 09/13/16 06:00 72 09/13/16 04:00 76 09/13/16 04:00 97.5 76 12 155/65 96 09/13/16 02:00 66 09/13/16 01:30 97.5 66 11 131/62 100 09/13/16 00:20 97.5 66 16 122/74 93 09/13/16 00:10 97.5 67 106/63 09/13/16 00:00 98.5 67 37 106/63 93 09/13/16 00:00 67 09/12/16 22:10 98.5 69 97/55 09/12/16 22:00 69 09/12/16 20:40 97.9 76 21 94/52 94 09/12/16 18:30 56 20 85/53 99 Room Air 09/12/16 17:30 65 20 88/50 99 Room Air 09/12/16 16:30 69 18 88/53 98 Room Air -: 09/13/16 0359 09/13/16 0359 Physical Exam General Appearance: No Acute Distress, Comfortable, Pale, Malnourished Eyes Eye Exam: Pupils Equal, Pupils Reactive Ears & Nose Ears & Nose Exam: Nasal Mucosa Br[place]on Throat Throat Exam: Oral Mucosa [place] & Moist Neck Neck Exam: Neck Supple, Trachea Midline Pulmonary Resp Exam: Breath Sounds Equal, Decreased Bases Cardiology CV Exam: Regular Gastrointestinal/Abdomen GI Exam: Soft, Bowel Sounds Present, Non-Distended, Bowel Sounds Hypoactive Musculoskeletal MS Exam: Joints Intact Integumentary Skin Exam: Warm, Dry Extremeties Extremities Exam: No Edema Neurologic Neuro Exam: Alert, Awake, Oriented, Speech Clear Psychiatric Psych Exam: Appropriate Responses VTE Prophylaxis Device: SCDs PUD Prophylasis PUD Prophylaxis: Protonix Assessment/Plan Assessment Summary: JUSTINE/Acute Renal Failure Electrolyte Assessment: Hyperkalemia, Metabolic Acidosis Problem List: (1) Acute blood loss anemia (2) DM (diabetes mellitus) (3) Leukocytosis (4) HTN (hypertension) (5) Anemia (6) Hyperkalemia (7) Acidosis (8) Acute renal failure Plan Patient has normal urine Na. and now the Creatinine is better. Urine out put is good. Most likely has ATN and pre renal. Renal U/S noted. K is normal and acidosis better. EGD results noted. Continue IVF and follow urine out put and BMP. Problem Qualifiers (1) Anemia: Qualified Code: D64.9 - Anemia, unspecified type (2) Acute renal failure: Qualified Code: N17.9 - Acute renal failure, unspecified acute renal failure type Thong Saldana MD Sep 13, 2016 16:18
--- NOTE | 2016-09-13 18:51 | EKG ---
Date Performed: 09/12/2016 Time Performed: 12:02:36 PTAGE: 60 years EKG: Sinus rhythm WITH FIRST DEGREE AV BLOCK POSSIBLE RIGHT VENTRICULAR CONDUCTION DELAY INFERIOR MYOCARDIAL INFARCTIO N ABNORMAL ECG PREVIOUS TRACING : 08/27/2016 10.09 DOCTOR: Armando Conner Interpretating Date/Time 09/13/2016 18:45:08
[2016-09-13] MEDS: TEMAZEPAM 15 MG CAP PO PRN (20:53)
[2016-09-14] VITALS (7 sets, daily range): BP systolic 102–181; BP diastolic 59–89; PULSE 68–101; RESP 16–20; TEMP 97.8–98.7; O2SAT 94–99
[2016-09-14] MEDS: CHLORHEXIDINE GLUCONATE 2 % 1 PACK (2 CLOTHS)(taper/protocol) TOP SCH (04:00)
[2016-09-14] MEDS: LEVOTHYROXINE SODIUM 100 MCG TAB PO SCH (06:00)
[2016-09-14] MEDS: oxyCODONE/ACETAMINOPHEN 5 MG/325 MG TAB PO PRN ×3 (06:00→19:28)
[2016-09-14] MEDS: PANTOPRAZOLE INJ 80 MG in SODIUM CHLORIDE 0.9% INJ 100 ML IV SCH ×2 (06:01→13:28)
[2016-09-14 06:59] LABS: HEMATOCRIT 27.2 % (39.0-51.0); MEAN CELL VOLUME 86.7 FL (80.0-100.0); MEAN CORPUSCULAR HEMOGLOBIN 29.8 PG (27.0-34.0); MEAN CORPUSCULAR HGB CONC 34.4 % (32.0-36.0); PLATELET COUNT 364 TH/MM3 (150-450); RED BLOOD COUNT 3.13 MIL/MM3 (4.50-5.90); RED CELL DISTRIBUTION WIDTH 16.9 % (11.6-17.2); REVIEW FLAG FINAL; WHITE BLOOD COUNT 9.6 TH/MM3 (4.0-11.0)
[2016-09-14] MEDS: SODIUM CHLOR 0.45% 1000 ML INJ 1,000 ML IV SCH ×2 (07:42→22:02)
[2016-09-14 07:47] LABS: BICARBONATE 21.5 MEQ/L (21.0-32.0); MAGNESIUM 1.4 MG/DL (1.5-2.5); POTASSIUM 3.5 MEQ/L (3.5-5.1)
[2016-09-14] MEDS: SODIUM BICARBONATE 8.4% INJ 50 MEQ in SODIUM CHLOR 0.45% 1000 ML INJ 1,000 ML IV SCH (08:30)
[2016-09-14] MEDS: SODIUM CHLORIDE 0.9% FLUSH 5 ML FLUSH FLUSH SCH ×2 (08:43→21:00)
[2016-09-14] MEDS: METOPROLOL TARTRATE 25 MG TAB PO SCH ×2 (08:44→22:00)
--- NOTE | 2016-09-14 11:19 | MR ---
cc: OSIEL GARCIA M.D. DATE 09/13/2016 DATE OF [address] Alcantar PROCEDURE Upper gastrointestinal endoscopy with biopsy and colonoscopy. INDICATION A 60-year-old gentleman with severe anemia. The patient had colonoscopy two years ago. Apparently he was told this was normal. The patient also has history of gastric bypass 20 years ago. PROCEDURE After informing the patient about the procedure and complication, consent was signed. The patient was placed on his left lateral decubitus, adequate sedation was achieved by propofol. The scope was placed in the mouth and advanced under video guidance to the stomach. There was a very large deep ulcer very frail in the anastomotic area. Biopsy was done, possible malignancy cannot be excluded. Next, the scope was advanced to the small bowel and looks normal anatomy for post gastrectomy. The scope drawn back without immediate complication. After that, rectal exam was performed. The scope was placed in the rectum, advanced under video guidance to the cecum which was doing fine by the ileocecal valve and appendiceal orifice. The scope drawn back gradually. There was significant amount of stool obscuring the vision of normal mucosal. The mucosa looks normal. I did not see any large mass, but there was significant stool that may obscure the vision of lesions. FINDINGS 1. Esophagus normal 2. Stomach large ulcerated area in the anastomotic area could be a malignancy, biopsy was done. 3. Duodenum normal 4. Normal anatomy for partial gastrectomy. 5. The colon was suboptimal prep. No large lesion was seen. RECOMMENDATIONS 1. Follow-up biopsy. 2. Clear liquid 3. Repeat EGD in two months. 4. Protonix 40 mg daily 5. Repeat colonoscopy as an outpatient. 6. If the biopsy shows a malignancy, we will have to consult oncology and general surgery. MD ARETHA Tierney/MALIKA /11:00 AM /11:13 AM
--- NOTE | 2016-09-14 15:10 | HHI.GIFU ---
Subjective Remarks Resting in bed. No n/v. Hungry, wants diet advanced. No bleeding. (Iman Thompson) Objective Vitals I&O Vital Signs Date Time Temp Pulse Resp B/P Pulse Ox O2 Delivery O2 Flow Rate FiO2 09/14/16 12:00 97.8 74 20 151/75 97 09/14/16 08:11 101 09/14/16 08:00 98.6 89 20 157/83 95 09/14/16 04:00 98.0 68 16 141/68 95 09/14/16 00:00 98.0 75 16 102/59 95 09/13/16 20:00 98.2 84 16 109/55 100 09/13/16 18:39 18 09/13/16 18:30 98.7 69 19 131/72 100 09/13/16 16:00 98.4 74 12 99/58 100 09/13/16 16:00 74 I/O 09/13/16 09/13/16 09/13/16 09/14/16 09/14/16 09/14/16 07:00 15:00 23:00 07:00 15:00 23:00 Intake Total 1268 ml 1236 ml 0 ml Output Total 225 ml 800 ml 350 ml Balance 1043 ml 436 ml -350 ml Intake Oral 120 ml 0 ml IV Total 1268 ml 1116 ml Output Urine Total 225 ml 800 ml 350 ml # Bowel Movements 10 2 Laboratory Laboratory Tests Test 09/14/16 06:18 White Blood Count 9.6 Red Blood Count 3.13 Hemoglobin 9.3 Hematocrit 27.2 Mean Corpuscular Volume 86.7 Mean Corpuscular Hemoglobin 29.8 Mean Corpuscular Hemoglobin 34.4 Concent Red Cell Distribution Width 16.9 Platelet Count 364 Mean Platelet Volume 7.0 Sodium Level 144 Potassium Level 3.5 Chloride Level 113 Carbon Dioxide Level 21.5 Anion Gap 10 Blood Urea Nitrogen 21 Creatinine 0.80 Estimat Glomerular Filtration 98 Rate Random Glucose 88 Calcium Level 7.8 Magnesium Level 1.4 Date/Time Procedure Status Source Growth 09/12/16 15:00 Urine Culture - Final Complete Urine Catheterized Urine NO GROWTH IN 48 HOURS. 09/12/16 12:10 Aerobic Blood Culture - Preliminary Resulted Blood Peripheral NO GROWTH IN 2 DAYS 09/12/16 12:10 Anaerobic Blood Culture - Preliminary Resulted Blood Peripheral NO GROWTH IN 2 DAYS Imaging Last Impressions Renal Ultrasound 09/13/16 0000 Signed Impressions: Service Date/Time: Tuesday, September 13, 2016 13:31 - CONCLUSION: 1. No evidence of acute obstructive uropathy. No significant parenchymal abnormalities are demonstrated. 2. Small, benign-appearing right upper pole cyst. 3. Nonobstructing 7 mm left renal stone. Levar Gerardo MD Head CT 09/12/16 1157 Signed Impressions: Service Date/Time: Monday, September 12, 2016 13:23 - CONCLUSION: Stable evaluation of the brain without evidence of acute infarct, hemorrhage, mass or edema. Enrique Mullins MD Chest X-Ray [id number]/12/[id number] Signed Impressions: Service Date/Time: Monday, September 12, 2016 12:03 - CONCLUSION: No acute disease. Jose Preciado MD Abdomen/Pelvis CT 09/12/16 115 Signed Impressions: Service Date/Time: Monday, September 12, 2016 13:22 - CONCLUSION: 1. No acute finding is identified within the abdomen or pelvis. 2. Nonacute findings include severe atherosclerotic disease, 5 mm nonobstructing left renal stone, and small hiatal hernia. Levar Aguayo MD Physical Exam HEENT: Normocephalic; atraumatic; no jaundice. CHEST: Chest is clear to auscultation and percussion. CARDIAC: RRR ABDOMEN: Soft, nondistended, nontender; no hepatosplenomegaly; bowel sounds are present in all four quadrants. surgical scar EXTREMITIES: No clubbing, cyanosis, or edema. SKIN: Normal; no rash; no jaundice. 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 (Iman Thompson [facility]) Assessment and Plan Plan ASSESSMENT: - Anemia, normocytic. Pt was brought to the ER for frequent falls since yesterday without dizziness/sob and noted to have anemia with HH of 7.0/20.8. + abdominal pain for the past month- constant sharp pain in his mid abdomen with no radiation, aggravated by food intake. He denies any associated fevers, chills, nausea, vomiting, heartburn, constipation, diarrhea, melena, or hematochezia. + Anorexia with 20-30 lb weight loss over 3-4 months. Last EGD/colonoscopy (04/21/15) revealed normal esophagus, residual stomach after gastrectomy with very large ulcer on his taking over the entire and anastomosis. Biopsy was done. Malignancy cannot rule out, multiple ulcers in the duodenum, biopsy was done, and the colon there was some stool but no abnormality was seen. Pathology revealed small bowel with intestinal glandular mucosa with marketed acute inflammation and features of ulceration , stomach biopsy with intestinal eyes glandular mucosa with active chronic inflammation and features of ulceration. No Helicobacter pylori- like organisms are present. Hx PUD. S/P EGD/Colonoscopy (09/13/16)-----> Esophagus normal, stomach large ulcerated area in the anastomotic area could be a malignancy, biopsy was done, duodenal normal, normal anatomy for partial gastrectomy. The colon was suboptimal prep. No large lesion seen. Pathology pending. .2. - Abdominal pain. Abdomen/Pelvis CT (09/12/16)----> 1. No acute finding is identified within the abdomen or pelvis. 2. Nonacute findings include severe atherosclerotic disease, 5 mm nonobstructing left renal stone, and small hiatal hernia. Constant sharp mid abdominal pain x 1 month, improved with pain meds. CT was without contrast, so unable to ask for radiology to reconstruct to evaluate vasculature system. - Anorexia, Wt. Loss. CT as above. - JUSTINE with hyperkalemia. IMPROVED - Leukocytosis. WBC 9.6. Denies any diarrhea/blood in stool. No colitis on imaging. Of note does have severe atherosclerotic disease. - Hx PUD. - COPD, HTN, DM, Chronic back pain, Hypothyroidism, PVD, per primary PLAN: - JUANIS - Await pathology - Protonix Gtt - Monitor HH - Transfuse as necessary - CBC, in am - EGD in 2 months as outpatient - If pathology comes back with malignancy, will need to consult oncology and general surgery. - Supportive care - Further recommendations to follow based on results of above - Pt seen and examined by Dr. Villela and myself and this note is written on his behalf. (Iman Thompson) Physician Comments patient was seen and examined, agree with above note, (Tomi Villela MD) Iman Thompson Sep 14, 2016 15:10 Tomi Villela MD Sep 14, 2016 18:13 Iman Thompson Sep 14, 2016 15:10 Tomi Villela MD Sep 14, 2016 18:13
--- NOTE | 2016-09-14 15:25 | HHI.PR ---
Subjective Subjective Remarks Awake Alert Appetite fair, color pale Resting in bed, sitting up No acute pain Review of Systems Constitutional Constitutional Remarks 10 point ROS done, generalized weakness, taking by mouth fluids better, appetite slowly increasing. Other systems unremarkable GI/Abdomen GI/Abdomen Remarks Increased by mouth intake and appetite improving Psychiatric Psychiatric: Normal Mood Vitals/Results Intake & Output 09/13/16 09/13/16 09/14/16 15:00 23:00 07:00 Intake Total 1236 ml 0 ml Output Total 800 ml 350 ml Balance 436 ml -350 ml Intake Oral 120 ml 0 ml IV Total 1116 ml Output Urine Total 800 ml 350 ml # Bowel Movements 2 Vital Signs Vital Signs Date Time Temp Pulse Resp B/P Pulse Ox O2 Delivery O2 Flow Rate FiO2 09/14/16 12:00 97.8 74 20 151/75 97 09/14/16 08:11 101 09/14/16 08:00 98.6 89 20 157/83 95 09/14/16 04:00 98.0 68 16 141/68 95 09/14/16 00:00 98.0 75 16 102/59 95 09/13/16 20:00 98.2 84 16 109/55 100 09/13/16 18:39 18 09/13/16 18:30 98.7 69 19 131/72 100 09/13/16 16:00 98.4 74 12 99/58 100 09/13/16 16:00 74 CBC/BMP: 09/14/16 0618 09/14/16 0618 Lab Results Laboratory Tests Test 09/14/16 06:18 White Blood Count 9.6 TH/MM3 Red Blood Count 3.13 MIL/MM3 Hemoglobin 9.3 GM/DL Hematocrit 27.2 % Mean Corpuscular Volume 86.7 FL Mean Corpuscular Hemoglobin 29.8 PG Mean Corpuscular Hemoglobin 34.4 % Concent Red Cell Distribution Width 16.9 % Platelet Count 364 TH/MM3 Mean Platelet Volume 7.0 FL Sodium Level 144 MEQ/L Potassium Level 3.5 MEQ/L Chloride Level 113 MEQ/L Carbon Dioxide Level 21.5 MEQ/L Anion Gap 10 MEQ/L Blood Urea Nitrogen 21 MG/DL Creatinine 0.80 MG/DL Estimat Glomerular Filtration 98 ML/MIN Rate Random Glucose 88 MG/DL Calcium Level 7.8 MG/DL Magnesium Level 1.4 MG/DL Imaging Remarks Last Impressions Renal Ultrasound 09/13/16 0000 Signed Impressions: Service Date/Time: Tuesday, September 13, 2016 13:31 - CONCLUSION: 1. No evidence of acute obstructive uropathy. No significant parenchymal abnormalities are demonstrated. 2. Small, benign-appearing right upper pole cyst. 3. Nonobstructing 7 mm left renal stone. Levar Gerardo MD Head CT 09/12/16 1157 Signed Impressions: Service Date/Time: Monday, September 12, 2016 13:23 - CONCLUSION: Stable evaluation of the brain without evidence of acute infarct, hemorrhage, mass or edema. Enrique Mullins MD Chest X-Ray 09/12/161156 Signed Impressions: Service Date/Time: Monday, September 12, 2016 12:03 - CONCLUSION: No acute disease. Jose Preciado MD Abdomen/Pelvis CT 09/12/16 115 Signed Impressions: Service Date/Time: Monday, September 12, 2016 13:22 - CONCLUSION: 1. No acute finding is identified within the abdomen or pelvis. 2. Nonacute findings include severe atherosclerotic disease, 5 mm nonobstructing left renal stone, and small hiatal hernia. Levar Aguayo MD Physical Exam General General Appearance: No Acute Distress, Comfortable, Pale, Malnourished Eyes Eye Exam: Pupils Equal, Pupils Reactive Ears & Nose Ears & Nose Exam: Nasal Mucosa [place] Throat Throat Exam: Oral Mucosa [place] & Moist Neck Neck Exam: Neck Supple, Trachea Midline Pulmonary Resp Exam: Breath Sounds Equal, Decreased Bases Cardiology CV Exam: Regular Gastrointestinal/Abdomen GI Exam: Soft, Bowel Sounds Present, Non-Distended, Bowel Sounds Hypoactive Musculoskeletal MS Exam: Joints Intact, Atrophy (chronic muscular) Integumentary Skin Exam: Warm, Dry Extremeties Extremities Exam: No Edema Neurologic Neuro Exam: Alert, Awake, Oriented, Speech Clear Psychiatric Psych Exam: Appropriate Responses VTE Prophylaxis VTE Prophylaxis Device: SCDs PUD Prophylasis PUD Prophylaxis: Protonix Assessment/Plan Assessment/Plan Acute kidney injury Hyperkalemia Metabolic acidosis Recurrent falls severe anemia hypotension Abdominal pain of unclear etiology Weight loss Poor appetite Draining area in the middle of his abdomen Tobacco abuse Malnourished continue PPI gtt, Appreciate GI input, going for C scope and EGD today, f/u results iron studies in progress Hemoglobin stable at 9.3 Patient feeling stronger with much more stamina now. Encouraged safety when up out of bed BP improving, stable with systolic in the 150s. Improved with gentle hydration. DC IV fluid acute kidney injury is most likely because of hypotension and ATN with a possibility of dehydration and prerenal azotemia. improving, bicarb drip. Encourage by mouth intake, caloric and protein intake since he has a history of gastric bypass. Monitor labs, stabilizing Voiding without difficulty. Monitor I&O DVT prophylaxis PPI gtt for GI prophylaxis Labs vital signs reviewed, discharge planning soon. Discussed with Dr. Alcantar, patient seen on his behalf Discussed with patient Leyla Dominguez Sep 14, 2016 15:25
--- NOTE | 2016-09-14 20:45 | HHI.NPPN ---
Subjective General Problems: Anemia, Mebatolic Acidosis Renal Failure: Acute History of Present Illness 1-year-old male with a past medical history of hypertension, diabetes mellitus, chronic obstructive pulmonary disease, history of gastric bypass surgery in the past. He came to the hospital with complaint of multiple falls and generalized weakness. I was called to see the patient because of high potassium and elevated BUN and creatinine. His creatinine on admission was found to be 2.6 and the BUN was 70 with a potassium of 5.8. Previously past creatinine of 0.7. Additional Remarks Patient is alert, feeling better, no SOB. Review of Systems General Constitutional: Fatigue Gastrointestinal Gastrointestinal: Abdominal Pain, Nausea & Vomiting Objective Data Data 09/13/16 09/14/16 19:00 07:00 Intake Total 1236 ml 0 ml Output Total 800 ml 350 ml Balance 436 ml -350 ml Intake Oral 120 ml 0 ml IV Total 1116 ml Output Urine Total 800 ml 350 ml # Bowel Movements 2 Vital Signs Date Time Temp Pulse Resp B/P Pulse Ox O2 Delivery O2 Flow Rate FiO2 09/14/16 16:00 98.7 84 18 181/89 99 09/14/16 12:00 97.8 74 20 151/75 97 09/14/16 08:11 101 09/14/16 08:00 98.6 89 20 157/83 95 09/14/16 04:00 98.0 68 16 141/68 95 09/14/16 00:00 98.0 75 16 102/59 95 -: 09/14/16 0618 09/14/16 0618 Physical Exam General Appearance: No Acute Distress, Comfortable, Pale, Malnourished Eyes Eye Exam: Pupils Equal, Pupils Reactive Ears & Nose Ears & Nose Exam: Nasal Mucosa [place] Throat Throat Exam: Oral Mucosa [place] & Moist Neck Neck Exam: Neck Supple, Trachea Midline Pulmonary Resp Exam: Breath Sounds Equal, Decreased Bases Cardiology CV Exam: Regular Gastrointestinal/Abdomen GI Exam: Soft, Bowel Sounds Present, Non-Distended, Bowel Sounds Hypoactive Musculoskeletal MS Exam: Joints Intact, Atrophy (chronic muscular) Integumentary Skin Exam: Warm, Dry Extremeties Extremities Exam: No Edema Neurologic Neuro Exam: Alert, Awake, Oriented, Speech Clear Psychiatric Psych Exam: Appropriate Responses VTE Prophylaxis Device: SCDs PUD Prophylasis PUD Prophylaxis: Protonix Assessment/Plan Assessment Summary: JUSTINE/Acute Renal Failure Electrolyte Assessment: Hyperkalemia, Metabolic Acidosis Problem List: (1) Acute blood loss anemia (2) DM (diabetes mellitus) (3) Leukocytosis (4) HTN (hypertension) (5) Anemia (6) Hyperkalemia (7) Acidosis (8) Acute renal failure Plan Patient has normal urine Na. and now the Creatinine is better. Urine out put is good. Most likely has ATN and pre renal. Renal U/S noted. Creatinine now normalized. I will sign off from Nephrology. Problem Qualifiers (1) Anemia: Qualified Code: D64.9 - Anemia, unspecified type (2) Acute renal failure: Qualified Code: N17.9 - Acute renal failure, unspecified acute renal failure type Thong Saldana MD Sep 14, 2016 20:45 Thong Saldana MD Sep 14, 2016 20:45
[2016-09-14] MEDS: MAGNESIUM SULFATE 1 GM PREMIX 100 ML IV SCH ×2 (22:01→23:49)
[2016-09-14] MEDS: TEMAZEPAM 15 MG CAP PO PRN (22:44)
[2016-09-15] VITALS (7 sets, daily range): BP systolic 114–184; BP diastolic 56–89; PULSE 61–86; RESP 18–20; TEMP 97.9–98.9; O2SAT 94–97
[2016-09-15] MEDS: SODIUM BICARBONATE 8.4% INJ 50 MEQ in SODIUM CHLOR 0.45% 1000 ML INJ 1,000 ML IV SCH (01:53)
[2016-09-15] MEDS: PANTOPRAZOLE INJ 80 MG in SODIUM CHLORIDE 0.9% INJ 100 ML IV SCH ×2 (01:53→11:17)
[2016-09-15] MEDS: oxyCODONE/ACETAMINOPHEN 5 MG/325 MG TAB PO PRN ×3 (01:54→16:05)
[2016-09-15] MEDS: MAGNESIUM SULFATE 1 GM PREMIX 100 ML IV SCH (04:32)
[2016-09-15] MEDS: CHLORHEXIDINE GLUCONATE 2 % 1 PACK (2 CLOTHS)(taper/protocol) TOP SCH (04:33)
[2016-09-15] MEDS: LEVOTHYROXINE SODIUM 100 MCG TAB PO SCH (05:21)
[2016-09-15 07:54] LABS: AUTOMATED NEUTROPHIL # 6.6 TH/MM3 (1.8-7.7); BASOPHIL # 0.1 TH/MM3 (0-0.2); BASOPHIL % 0.6 % (0.0-2.0); EOSINOPHIL # 0.3 TH/MM3 (0-0.4); EOSINOPHIL % 3.3 % (0.0-4.0); HEMATOCRIT 26.5 % (39.0-51.0); HEMO FLAGS DIFF FINAL; LYMPH % 21.6 % (9.0-44.0); LYMPHOCYTE # 2.2 TH/MM3 (1.0-4.8); MEAN CELL VOLUME 87.1 FL (80.0-100.0); MEAN CORPUSCULAR HEMOGLOBIN 29.6 PG (27.0-34.0); MONO % 10.8 % (0.0-8.0); NEUT % 63.7 % (16.0-70.0); PLATELET COUNT 394 TH/MM3 (150-450); RED BLOOD COUNT 3.05 MIL/MM3 (4.50-5.90); RED CELL DISTRIBUTION WIDTH 16.7 % (11.6-17.2); WHITE BLOOD COUNT 10.3 TH/MM3 (4.0-11.0)
[2016-09-15] MEDS: METOPROLOL TARTRATE 25 MG TAB PO SCH ×2 (08:14→20:48)
[2016-09-15 08:16] LABS: BICARBONATE 22.5 MEQ/L (21.0-32.0); MAGNESIUM 2.1 MG/DL (1.5-2.5); POTASSIUM 3.8 MEQ/L (3.5-5.1)
[2016-09-15] MEDS: SODIUM CHLORIDE 0.9% FLUSH 5 ML FLUSH FLUSH SCH ×2 (08:16→20:50)
[2016-09-15] MEDS: SODIUM CHLOR 0.45% 1000 ML INJ 1,000 ML IV SCH ×2 (08:16→23:17)
--- NOTE | 2016-09-15 10:46 | HHI.PR ---
Subjective Subjective Remarks Awake Alert Appetite fair, color pale Resting in bed, sitting up No acute pain (Leyla Dominguez) Review of Systems Constitutional Constitutional Remarks 10 point ROS done, generalized weakness, taking by mouth fluids better, appetite improved Other systems unremarkable (Leyla Dominguez) GI/Abdomen GI/Abdomen Remarks Increased by mouth intake and appetite improving (Leyla Dominguez) Integumentary Skin: Wounds Skin Remarks umbilicus and mid abd. serous drainage, slow heal, (Leyla Dominguez) Psychiatric Psychiatric: Normal Mood (Leyla Dominguez) Vitals/Results Intake & Output 09/14/16 09/14/16 09/15/16 15:00 23:00 07:00 Intake Total 960 ml 480 ml 3942 ml Output Total 325 ml 200 ml Balance 635 ml 280 ml 3942 ml Intake Oral 960 ml 480 ml IV Total 3942 ml Output Urine Total 325 ml 200 ml # Bowel Movements 2 0 Vital Signs Vital Signs Date Time Temp Pulse Resp B/P Pulse Ox O2 Delivery O2 Flow Rate FiO2 09/15/16 08:00 98.6 69 18 180/84 96 09/15/16 04:00 98.0 73 18 139/83 96 09/15/16 03:01 16 09/15/16 02:55 67 09/15/16 00:00 97.9 86 18 114/56 97 09/14/16 20:00 98.2 74 16 155/79 94 09/14/16 16:00 98.7 84 18 181/89 99 09/14/16 12:00 97.8 74 20 151/75 97 (Leyla Dominguez) CBC/BMP: 09/15/16 0648 09/15/16 0648 Lab Results Laboratory Tests Test 09/15/16 06:48 White Blood Count 10.3 TH/MM3 Red Blood Count 3.05 MIL/MM3 Hemoglobin 9.0 GM/DL Hematocrit 26.5 % Mean Corpuscular Volume 87.1 FL Mean Corpuscular Hemoglobin 29.6 PG Mean Corpuscular Hemoglobin 34.0 % Concent Red Cell Distribution Width 16.7 % Platelet Count 394 TH/MM3 Mean Platelet Volume 7.4 FL Neutrophils (%) (Auto) 63.7 % Lymphocytes (%) (Auto) 21.6 % Monocytes (%) (Auto) 10.8 % Eosinophils (%) (Auto) 3.3 % Basophils (%) (Auto) 0.6 % Neutrophils # (Auto) 6.6 TH/MM3 Lymphocytes # (Auto) 2.2 TH/MM3 Monocytes # (Auto) 1.1 TH/MM3 Eosinophils # (Auto) 0.3 TH/MM3 Basophils # (Auto) 0.1 TH/MM3 CBC Comment DIFF FINAL Differential Comment Sodium Level 141 MEQ/L Potassium Level 3.8 MEQ/L Chloride Level 110 MEQ/L Carbon Dioxide Level 22.5 MEQ/L Anion Gap 9 MEQ/L Blood Urea Nitrogen 16 MG/DL Creatinine 0.87 MG/DL Estimat Glomerular Filtration 89 ML/MIN Rate Random Glucose 132 MG/DL Calcium Level 7.7 MG/DL Magnesium Level 2.1 MG/DL Pathology Remarks Laboratory Tests Test 09/12/16 09/12/16 09/12/16 09/13/16 11:55 15:00 21:25 03:59 White Blood Count 14.1 TH/MM3 12.4 TH/MM3 (4.0-11.0) (4.0-11.0) Red Blood Count 2.21 MIL/MM3 3.28 MIL/MM3 (4.50-5.90) (4.50-5.90) Hemoglobin 7.0 GM/DL 9.7 GM/DL (13.0-17.0) (13.0-17.0) Hematocrit 20.8 % 28.4 % (39.0-51.0) (39.0-51.0) Platelet Count 483 TH/MM3 (150-450) Neutrophils (%) (Auto) 79.8 % (16.0-70.0) Neutrophils # (Auto) 11.3 TH/MM3 8.1 TH/MM3 (1.8-7.7) (1.8-7.7) Potassium Level 5.8 MEQ/L (3.5-5.1) Carbon Dioxide Level 15.2 MEQ/L 19.4 MEQ/L (21.0-32.0) (21.0-32.0) Blood Urea Nitrogen 70 MG/DL (7-18) 53 MG/DL (7-18) Creatinine 2.63 MG/DL 1.74 MG/DL (0.60-1.30) (0.60-1.30) Estimat Glomerular Filtration 25 ML/MIN (>89) 40 ML/MIN (>89) Rate Random Glucose 195 MG/DL (74-106) Calcium Level 8.0 MG/DL 7.8 MG/DL (8.5-10.1) (8.5-10.1) Total Bilirubin 0.1 MG/DL (0.2-1.0) Troponin I LESS THAN 0.02 0.16 NG/ML 0.10 NG/ML NG/ML (0.02-0.05) (0.02-0.05) (0.02-0.05) Total Protein 6.1 GM/DL (6.4-8.2) Albumin 2.6 GM/DL (3.4-5.0) Urine Bacteria RARE /hpf (NONE) Urine Mucus FEW /lpf (OCC) Chloride Level 110 MEQ/L (98-107) Test 09/14/16 09/15/16 06:18 06:48 Red Blood Count 3.13 MIL/MM3 3.05 MIL/MM3 (4.50-5.90) (4.50-5.90) Hemoglobin 9.3 GM/DL 9.0 GM/DL (13.0-17.0) (13.0-17.0) Hematocrit 27.2 % 26.5 % (39.0-51.0) (39.0-51.0) Chloride Level 113 MEQ/L 110 MEQ/L (98-107) (98-107) Blood Urea Nitrogen 21 MG/DL (7-18) Calcium Level 7.8 MG/DL 7.7 MG/DL (8.5-10.1) (8.5-10.1) Magnesium Level 1.4 MG/DL (1.5-2.5) Monocytes (%) (Auto) 10.8 % (0.0-8.0) Monocytes # (Auto) 1.1 TH/MM3 (0-0.9) Random Glucose 132 MG/DL (74-106) Imaging Remarks Last Impressions Renal Ultrasound 09/13/16 0000 Signed Impressions: Service Date/Time: Tuesday, September 13, 2016 13:31 - CONCLUSION: 1. No evidence of acute obstructive uropathy. No significant parenchymal abnormalities are demonstrated. 2. Small, benign-appearing right upper pole cyst. 3. Nonobstructing 7 mm left renal stone. Levar Gerardo MD Head CT 09/12/161156 Signed Impressions: Service Date/Time: Monday, September 12, 2016 13:23 - CONCLUSION: Stable evaluation of the brain without evidence of acute infarct, hemorrhage, mass or edema. Enrique Mullins MD Chest X-Ray 09/12/161156 Signed Impressions: Service Date/Time: Monday, September 12, 2016 12:03 - CONCLUSION: No acute disease. Jose Preciado MD Abdomen/Pelvis CT 09/12/161156 Signed Impressions: Service Date/Time: Monday, September 12, 2016 13:22 - CONCLUSION: 1. No acute finding is identified within the abdomen or pelvis. 2. Nonacute findings include severe atherosclerotic disease, 5 mm nonobstructing left renal stone, and small hiatal hernia. Levar Aguayo MD Current Medications Active Medications Clonidine 0.1 mg 0.1 mg Q6H PRN PO; Start 09/14/16 at 17:15 Magnesium Sulfate/ Dextrose (Magnesium Sulfate 1 Gm Premix) 100 ml @ 100 mls/ hr Q4HR IV Last administered on 09/15/16t 04:32; Admin Dose 100 MLS/HR; Start at 20:00; Stop 09/15/16 at 05:00; Status DC (Leyla DominguezP) Physical Exam General General Appearance: No Acute Distress, Comfortable, Pale, Malnourished (Leyla Dominguez. [employer]CR[employer] TECHNICIAN) Eyes Eye Exam: Pupils Equal, Pupils Reactive (Leyla Dominguez M. [employer] TECHNICIAN) Ears & Nose Ears & Nose Exam: Nasal Mucosa [place] (Leyla Dominguez M. [employer] TECHNICIAN) Throat Throat Exam: Oral Mucosa [place] & Moist (Leyla Dominguez M. [employer] W[employer] TECHNICIAN) Neck Neck Exam: Neck Supple, Trachea Midline (Leyla Dominguez M. [employer] TECHNICIAN) Pulmonary Resp Exam: Breath Sounds Equal, Decreased Bases (Leyla Dominguez M. [employer] TECHNICIAN) Cardiology CV Exam: Regular (Leyla Dominguez. [employer]E W[employer] TECHNICIAN) Gastrointestinal/Abdomen GI Exam: Soft, Bowel Sounds Present, Non-Distended, Bowel Sounds Hypoactive ( [place]Leyla M. [employer] W[employer] TECHNICIAN) Musculoskeletal MS Exam: Joints Intact, Atrophy (chronic muscular) (AngelicaLeyla M. [employer] TECHNICIAN) Integumentary Skin Exam: Warm, Dry ([place] M. [employer]CR[employer] WALL TECHNICIAN) Extremeties Extremities Exam: No Edema ([place] M. [employer]ED CONCR[employer]E WALL TECHNICIAN) Neurologic Neuro Exam: Alert, Awake, Oriented, Speech Clear ([place] M. [employer] WALL TECHNICIAN) Psychiatric Psych Exam: Appropriate Responses ([place] M. [employer] CONCR[employer] WALL TECHNICIAN) VTE Prophylaxis VTE Prophylaxis Device: SCDs (AngelicaLeyla M. [employer] W[employer] TECHNICIAN) PUD Prophylasis PUD Prophylaxis: Protonix (AngelicaLeyla M. [employer] W[employer] TECHNICIAN) Assessment/Plan Assessment/Plan Acute kidney injury Hyperkalemia , resolved Metabolic acidosis, resolved, Recurrent falls , severe anemia, stablized hypotension, resolved. Abdominal pain of unclear etiology Weight loss Poor appetite, resolved, improving Draining area in the middle of his abdomen, benign , improved. Tobacco abuse Malnourished biopsy results back from GI, benign ; ulcerated/gastric/ intestine. Patient discussed with GI last pm. Appreciate GI input, going for C scope and EGD today, f/u results iron studies in progress Hemoglobin stable at 9.3 Patient feeling stronger with much more stamina now. Encouraged safety when up out of bed acute kidney injury, resolved today. Labs reviewed Encourage by mouth intake, caloric and protein intake since he has a history of gastric bypass. Monitor labs, hgb 9.[address], normal range today, 10.3 Voiding without difficulty. Monitor I&O, taking PO fluids well DVT prophylaxis PPI gtt for GI prophylaxis Labs vital signs reviewed, discharge planning probable today. Discussed with Dr. Alcantar, patient seen on his behalf Discussed with patient (Leyla Dominguez MMarlyn [employer]ED CONCR[employer]E WALL TECHNICIAN) Assessment/Plan seen and examined by myself,Dr Alcantar , on 09/15/16 Patient feels much better He wants to go home Discharged when arrangements are made Discussed with mid-level practitioner The exam, history, and the medical decision-making described in the above note were completed with the assistance of the mid-level provider. I reviewed the findings presented. I attest that I had a [id number] encounter with the patient on the same day, and personally performed and documented my assessment and findings in the medical record (Placido Alcantar MD) Leyla Dominguez Sep 15, 2016 10:46 Placido Alcantar MD Sep 16, 2016 14:07
[2016-09-15] MEDS: cloNIDine HCL 0.1 MG TAB PO PRN (11:17)
--- NOTE | 2016-09-15 16:14 | HHI.GIFU ---
Subjective Remarks Resting in bed. States he wants to go home. Denies any bleeding, nausea, vomiting. Tolerating diet. (Iman Thompson) Objective Vitals I&O Vital Signs Date Time Temp Pulse Resp B/P Pulse Ox O2 Delivery O2 Flow Rate FiO2 09/15/16 12:00 98.3 61 20 184/89 97 09/15/16 08:00 98.6 69 18 180/84 96 09/15/16 04:00 98.0 73 18 139/83 96 09/15/16 03:01 16 09/15/16 02:55 67 09/15/16 00:00 97.9 86 18 114/56 97 09/14/16 20:00 98.2 74 16 155/79 94 I/O 09/14/16 09/14/16 09/14/16 09/15/16 09/15/16 09/15/16 07:00 15:00 23:00 07:00 15:00 23:00 Intake Total 0 ml 960 ml 480 ml 3942 ml Output Total 350 ml 325 ml 200 ml Balance -350 ml 635 ml 280 ml 3942 ml Intake Oral 0 ml 960 ml 480 ml IV Total 3942 ml Output Urine Total 350 ml 325 ml 200 ml # Bowel Movements 2 0 Laboratory Laboratory Tests Test 09/15/16 06:48 White Blood Count 10.3 Red Blood Count 3.05 Hemoglobin 9.0 Hematocrit 26.5 Mean Corpuscular Volume 87.1 Mean Corpuscular Hemoglobin 29.6 Mean Corpuscular Hemoglobin 34.0 Concent Red Cell Distribution Width 16.7 Platelet Count 394 Mean Platelet Volume 7.4 Neutrophils (%) (Auto) 63.7 Lymphocytes (%) (Auto) 21.6 Monocytes (%) (Auto) 10.8 Eosinophils (%) (Auto) 3.3 Basophils (%) (Auto) 0.6 Neutrophils # (Auto) 6.6 Lymphocytes # (Auto) 2.2 Monocytes # (Auto) 1.1 Eosinophils # (Auto) 0.3 Basophils # (Auto) 0.1 CBC Comment DIFF FINAL Differential Comment Sodium Level 141 Potassium Level 3.8 Chloride Level 110 Carbon Dioxide Level 22.5 Anion Gap 9 Blood Urea Nitrogen 16 Creatinine 0.87 Estimat Glomerular Filtration 89 Rate Random Glucose 132 Calcium Level 7.7 Magnesium Level 2.1 Date/Time Procedure Status Source Growth 09/12/16 15:00 Urine Culture - Final Complete Urine Catheterized Urine NO GROWTH IN 48 HOURS. 09/12/16 12:10 Aerobic Blood Culture - Preliminary Resulted Blood Peripheral NO GROWTH IN 3 DAYS 09/12/16 12:10 Anaerobic Blood Culture - Preliminary Resulted Blood Peripheral NO GROWTH IN 3 DAYS Imaging Last Impressions Renal Ultrasound 09/13/16 0000 Signed Impressions: Service Date/Time: Tuesday, September 13, 2016 13:31 - CONCLUSION: 1. No evidence of acute obstructive uropathy. No significant parenchymal abnormalities are demonstrated. 2. Small, benign-appearing right upper pole cyst. 3. Nonobstructing 7 mm left renal stone. Levar Gerardo MD Head CT 09/12/16 115 Signed Impressions: Service Date/Time: Monday, September 12, 2016 13:23 - CONCLUSION: Stable evaluation of the brain without evidence of acute infarct, hemorrhage, mass or edema. Enrique Mullins MD Chest X-Ray 09/12/161156 Signed Impressions: Service Date/Time: Monday, September 12, 2016 12:03 - CONCLUSION: No acute disease. Jose Preciado MD Abdomen/Pelvis CT 09/12/16 115 Signed Impressions: Service Date/Time: Monday, September 12, 2016 13:22 - CONCLUSION: 1. No acute finding is identified within the abdomen or pelvis. 2. Nonacute findings include severe atherosclerotic disease, 5 mm nonobstructing left renal stone, and small hiatal hernia. Levar Aguayo MD Physical Exam HEENT: Normocephalic; atraumatic; no jaundice. CHEST: Chest is clear to auscultation and percussion. CARDIAC: RRR ABDOMEN: Soft, nondistended, nontender; no hepatosplenomegaly; bowel sounds are present in all four quadrants. surgical scar EXTREMITIES: No clubbing, cyanosis, or edema. SKIN: Normal; no rash; no jaundice. RN UTILIZATION MANAGEMENT UM: No focal deficits; alert and oriented times three. (Iman Thompson) Assessment and Plan Plan ASSESSMENT: - Anemia, normocytic. Pt was brought to the ER for frequent falls since yesterday without dizziness/sob and noted to have anemia with HH of 7.0/20.8. + abdominal pain for the past month- constant sharp pain in his mid abdomen with no radiation, aggravated by food intake. He denies any associated fevers, chills, nausea, vomiting, heartburn, constipation, diarrhea, melena, or hematochezia. + Anorexia with 20-30 lb weight loss over 3-4 months. Last EGD/colonoscopy (04/21/15) revealed normal esophagus, residual stomach after gastrectomy with very large ulcer on his taking over the entire and anastomosis. Biopsy was done. Malignancy cannot rule out, multiple ulcers in the duodenum, biopsy was done, and the colon there was some stool but no abnormality was seen. Pathology revealed small bowel with intestinal glandular mucosa with marketed acute inflammation and features of ulceration , stomach biopsy with intestinal eyes glandular mucosa with active chronic inflammation and features of ulceration. No Helicobacter pylori- like organisms are present. Hx PUD. S/P EGD/Colonoscopy (09/13/16)-----> Esophagus normal, stomach large ulcerated area in the anastomotic area could be a malignancy, biopsy was done, duodenal normal, normal anatomy for partial gastrectomy. The colon was suboptimal prep. No large lesion seen. Pathology benign focally ulcerated and necrotic gastric and intestinal mucosal tissue and exudate containing numerous bacteria and fungal hyphal and pseudohyphal forms suggestive of danielle species as demonstrated by the elizabeth stain. The presence of fungi and bacteria within hte necrotic tissue may represent that of saprophytic involvement and does not necessarily implicate an infectious etiology of the ulceration and necrosis. Will add flagyl, diflucan. Cont. PPI. Will need repeat EGD in 2 weeks. - Abdominal pain. Abdomen/Pelvis CT (09/12/16)----> 1. No acute finding is identified within the abdomen or pelvis. 2. Nonacute findings include severe atherosclerotic disease, 5 mm nonobstructing left renal stone, and small hiatal hernia. Constant sharp mid abdominal pain x 1 month, improved with pain meds. CT was without contrast, so unable to ask for radiology to reconstruct to evaluate vasculature system. - Anorexia, Wt. Loss. CT as above. - JUSTINE with hyperkalemia. IMPROVED - Leukocytosis. Denies any diarrhea/blood in stool. No colitis on imaging. Of note does have severe atherosclerotic disease. - Hx PUD. - COPD, HTN, DM, Chronic back pain, Hypothyroidism, PVD, per primary PLAN: - JUANIS - Flagyl 500mg po q8h x 7 days - Diflucan 200mg po daily x 14 days - Protonix 40mg po BID - EGD in 2 weeks - If tolerates diet and oral antibiotics, then okay to d/c home- patient hoping to be discharged. However, will need EGD in 2 weeks as outpatient. D/W patient importance of follow up. Verbalizes understanding. - FU one week - Pt seen and examined by Dr. Alvarado and myself and this note is written on his behalf. (Iman Thompson) Physician Comments Seen and examined with SANDRA, no active bleeding. Doing well, with no bleeding. Started on antibiotics. Monitor labs. (Liliya Alvarado MD) Iman Thompson Sep 15, 2016 16:14 Liliya Alvarado MD Sep 16, 2016 13:00
[2016-09-15] MEDS: metroNIDAZOLE 500 MG TAB PO SCH (20:47)
[2016-09-15] MEDS: PANTOPRAZOLE SOD 40 MG DELAYED RELEASE TAB PO SCH (20:47)
[2016-09-15] MEDS: TEMAZEPAM 15 MG CAP PO PRN (20:48)
[2016-09-16 00:19] VITALS: BP 130/76; PULSE 57; RESP 20; TEMP 98.7; O2SAT 97
[2016-09-16 01:39] VITALS: PULSE 81
[2016-09-16] MEDS: SODIUM BICARBONATE 8.4% INJ 50 MEQ in SODIUM CHLOR 0.45% 1000 ML INJ 1,000 ML IV SCH (02:20)
[2016-09-16] MEDS: oxyCODONE/ACETAMINOPHEN 5 MG/325 MG TAB PO PRN ×2 (03:36→09:45)
[2016-09-16 04:00] VITALS: BP 161/82; PULSE 61; RESP 20; TEMP 98.1; O2SAT 98
[2016-09-16] MEDS: CHLORHEXIDINE GLUCONATE 2 % 1 PACK (2 CLOTHS)(taper/protocol) TOP SCH (04:00)
[2016-09-16] MEDS: LEVOTHYROXINE SODIUM 100 MCG TAB PO SCH (05:23)
[2016-09-16] MEDS: metroNIDAZOLE 500 MG TAB PO SCH ×2 (05:23→13:27)
[2016-09-16 08:00] VITALS: BP 172/91; PULSE 61; RESP 18; TEMP 98.1; O2SAT 96
[2016-09-16] MEDS: SODIUM CHLORIDE 0.9% FLUSH 5 ML FLUSH FLUSH SCH (09:00)
[2016-09-16] MEDS ORDERED: FLUCONAZOLE 200 MG TAB PO SCH (09:00)
[2016-09-16] MEDS: METOPROLOL TARTRATE 25 MG TAB PO SCH (09:45)
[2016-09-16] MEDS: cloNIDine HCL 0.1 MG TAB PO PRN (09:45)
[2016-09-16] MEDS: PANTOPRAZOLE SOD 40 MG DELAYED RELEASE TAB PO SCH (09:45)
--- NOTE | 2016-09-16 10:59 | HHI.GIFU ---
GI Follow-up Note Consult Follow-up Subjective: Patient laying in bed comfortably, no new complaints wants to eat barbecue Objective: PHYSICAL EXAMINATION: Vitals signs stable No fever HEENT: Pupils round and reactive to light; normocephalic; atraumatic; no jaundice. Throat is clear. NECK: Neck is supple, no JVD, no lymphadenopathy. CHEST: Chest is clear to auscultation and percussion. CARDIAC: Regular rate and rhythm with no murmur gallop or rubs. ABDOMEN: Soft, nondistended, nontender; no hepatosplenomegaly; bowel sounds are present in all four quadrants. EXTREMITIES: No clubbing, cyanosis, or edema. SKIN: Normal; no rash; no jaundice. [employer]: No focal deficits; alert and oriented times three. Available Data (labs, X- Rays, Procedues) : Vital Signs Date Time Temp Pulse Resp B/P Pulse Ox O2 Delivery O2 Flow Rate FiO2 09/16/16 08:00 98.1 61 18 172/91 96 09/16/16 04:30 16 09/16/16 04:00 98.1 61 20 161/82 98 Last Impressions Renal Ultrasound 09/13/16 0000 Signed Impressions: Service Date/Time: Tuesday, September 13, 2016 13:31 - CONCLUSION: 1. No evidence of acute obstructive uropathy. No significant parenchymal abnormalities are demonstrated. 2. Small, benign-appearing right upper pole cyst. 3. Nonobstructing 7 mm left renal stone. Levar Gerardo MD Head CT 09/12/16 115 Signed Impressions: Service Date/Time: Monday, September 12, 2016 13:23 - CONCLUSION: Stable evaluation of the brain without evidence of acute infarct, hemorrhage, mass or edema. Enrique Mullins MD Chest X-Ray 09/12/161156 Signed Impressions: Service Date/Time: Monday, September 12, 2016 12:03 - CONCLUSION: No acute disease. Jose Preciado MD Abdomen/Pelvis CT 09/12/161156 Signed Impressions: Service Date/Time: Monday, September 12, 2016 13:22 - CONCLUSION: 1. No acute finding is identified within the abdomen or pelvis. 2. Nonacute findings include severe atherosclerotic disease, 5 mm nonobstructing left renal stone, and small hiatal hernia. Levar Aguayo MD Laboratory Tests Test 09/15/16 06:48 White Blood Count 10.3 TH/MM3 Red Blood Count 3.05 MIL/MM3 Hemoglobin 9.0 GM/DL Hematocrit 26.5 % Mean Corpuscular Volume 87.1 FL Mean Corpuscular Hemoglobin 29.6 PG Mean Corpuscular Hemoglobin 34.0 % Concent Red Cell Distribution Width 16.7 % Platelet Count 394 TH/MM3 Mean Platelet Volume 7.4 FL Neutrophils (%) (Auto) 63.7 % Lymphocytes (%) (Auto) 21.6 % Monocytes (%) (Auto) 10.8 % Eosinophils (%) (Auto) 3.3 % Basophils (%) (Auto) 0.6 % Neutrophils # (Auto) 6.6 TH/MM3 Lymphocytes # (Auto) 2.2 TH/MM3 Monocytes # (Auto) 1.1 TH/MM3 Eosinophils # (Auto) 0.3 TH/MM3 Basophils # (Auto) 0.1 TH/MM3 CBC Comment DIFF FINAL Differential Comment Sodium Level 141 MEQ/L Potassium Level 3.8 MEQ/L Chloride Level 110 MEQ/L Carbon Dioxide Level 22.5 MEQ/L Anion Gap 9 MEQ/L Blood Urea Nitrogen 16 MG/DL Creatinine 0.87 MG/DL Estimat Glomerular Filtration 89 ML/MIN Rate Random Glucose 132 MG/DL Calcium Level 7.7 MG/DL Magnesium Level 2.1 MG/DL Allergies Coded Allergies Type Severity Reaction Last Updated Verified No Known Allergies 08/11/16 No Active Scripts Medications Dose Route/Sig Days Date Category Percocet (Oxycodone-Acetaminophen) 5-325 mg Tab 1 Tab PO Q6H PRN 08/30/16 Rx Restoril (Temazepam) 15 Mg Cap 15 Mg PO HS PRN 08/30/16 Rx Metoprolol Tartrate 25 Mg Tab 25 Mg PO BID 08/30/16 Rx Lisinopril 10 Mg Tab 10 Mg PO DAILY 06/12/16 Reported Levothyroxine (Levothyroxine Sodium) 100 Mcg Tab 100 Mcg PO DAILY 06/12/16 Reported ASSESSMENT/PLAN: Seen and examined, doing well, wants to eat barbecue and go home. Gi fu in 02 weeks upon dc. Will sign off,Continue antibiotics as ordered. Thank you It was a pleasure seeing Carlito Baltazar. Thank you for this consult. Entered by: Liliya Quintanilla MD Sep 16, 2016 10:59
--- NOTE | 2016-09-16 11:57 | HHI.PR ---
Subjective Subjective Remarks Awake Alert Appetite fair, color pale Resting in bed, sitting up No acute pain family in (Leyla Dominguez) Review of Systems Constitutional Constitutional Remarks 10 point ROS done, generalized weakness, taking by mouth fluids better, appetite improved Other systems unremarkable (Leyla Dominguez) GI/Abdomen GI/Abdomen Remarks Increased by mouth intake and appetite improving (Leyla Dominguez) Integumentary Skin: Wounds Skin Remarks umbilicus and mid abd. serous drainage, slow heal, (Leyla Dominguez) Psychiatric Psychiatric: Normal Mood (Leyla Dominguez) Vitals/Results Intake & Output 09/15/16 09/15/16 09/16/16 15:00 23:00 07:00 Intake Total 960 ml 470 ml 0 ml Output Total 250 ml 425 ml 650 ml Balance 710 ml 45 ml -650 ml Intake Oral 960 ml 470 ml 0 ml Output Urine Total 250 ml 425 ml 650 ml # Bowel Movements 0 Vital Signs Vital Signs Date Time Temp Pulse Resp B/P Pulse Ox O2 Delivery O2 Flow Rate FiO2 09/16/16 08:00 98.1 61 18 172/91 96 09/16/16 04:30 16 09/16/16 04:00 98.1 61 20 161/82 98 09/16/16 01:39 81 09/16/16 00:19 98.7 57 20 130/76 97 09/15/16 20:00 98.9 83 20 161/87 94 09/15/16 16:00 98.4 66 18 165/84 97 09/15/16 12:00 98.3 61 20 184/89 97 (Leyla Dominguez) CBC/BMP: 09/15/16 0648 09/15/16 0648 Physical Exam General General Appearance: No Acute Distress, Comfortable, Pale, Malnourished (Leyla Dominguez) Eyes Eye Exam: Pupils Equal, Pupils Reactive (Leyla Dominguez) Ears & Nose Ears & Nose Exam: Nasal Mucosa [place] (Leyla Dominguez) Throat Throat Exam: Oral Mucosa [place] & Moist (Leyla Dominguez) Neck Neck Exam: Neck Supple, Trachea Midline (AngelicaLeyla M. ABSTRACT WRITER) Pulmonary Resp Exam: Breath Sounds Equal, Decreased Bases (AngelicaLeyla M. ABSTRACT WRITER) Cardiology CV Exam: Regular (DruryMariselaLeyla M. ABSTRACT WRITER) Gastrointestinal/Abdomen GI Exam: Soft, Bowel Sounds Present, Non-Distended, Bowel Sounds Hypoactive ( DruryLeyla M. ABSTRACT WRITER) Musculoskeletal MS Exam: Joints Intact, Atrophy (chronic muscular) (Drury,Susan M. ABSTRACT WRITER) Integumentary Skin Exam: Warm, Dry (DruryMariselaLeyla M. ABSTRACT WRITER) Extremeties Extremities Exam: No Edema (AngelicaMariselaLeyla M. ABSTRACT WRITER) Neurologic Neuro Exam: Alert, Awake, Oriented, Speech Clear (Drury,Leyla M. ABSTRACT WRITER) Psychiatric Psych Exam: Appropriate Responses (Angelica,Leyla M. ABSTRACT WRITER) VTE Prophylaxis VTE Prophylaxis Device: SCDs (DruryLeyla M. ABSTRACT WRITER) PUD Prophylasis PUD Prophylaxis: Protonix (AngelicaLeyla M. ABSTRACT WRITER) Assessment/Plan Assessment/Plan Acute kidney injury Hyperkalemia , resolved Metabolic acidosis, resolved, Recurrent falls , severe anemia, stablized hypotension, resolved. Abdominal pain of unclear etiology Weight loss Poor appetite, resolved, improving Draining area in the middle of his abdomen, benign , improved. Tobacco abuse Malnourished biopsy results back from GI, benign ; ulcerated/gastric/ intestine. Patient discussed with GI last pm. Appreciate GI input, going for C scope and EGD today, f/u results iron studies in progress Hemoglobin stable Patient feeling stronger with much more stamina now. Encouraged safety when up out of bed acute kidney injury, resolved Labs reviewed Encourage by mouth intake, caloric and protein intake since he has a history of gastric bypass. Monitor labs, hgb stable. WBC ct, normal range Voiding without difficulty. Monitor I&O, taking PO fluids well DVT prophylaxis PPI gtt for GI prophylaxis discharge today. Patient seen per Dr. Spear yesterday p.m. total patient he could discharged today pending a good night. Medical management Patient is stable for discharge. We'll discuss with Dr. Mccullough Discussed with Dr. Mccullough, patient seen on her behalf Discussed with patient (Leyla Dominguez) Assessment/Plan 60yr old male seen and examined today. Doing better. No abd pain/NVD. Ok to dc per GI. Dc home on oral abx: fluconazole/flagyl. Follow-up with GI in 1-2 weeks. Follow-up with pcp in 1 week. (Sharona Mccullough MD) Leyla Dominguez Sep 16, 2016 11:57 Sharona Mccullough MD Sep 16, 2016 15:11
[2016-09-16] MEDS: SODIUM CHLOR 0.45% 1000 ML INJ 1,000 ML IV SCH (13:02)
[2016-09-16] MEDS ORDERED: DIFL200T PO (13:05)
[2016-09-16] MEDS ORDERED: PANT40TA3 PO (13:05)
[2016-09-16] MEDS ORDERED: METR-1 PO (13:05)
[2016-09-16] MEDS ORDERED: OXYC1TAB63 PO (13:13)
[2016-09-19 17:53] LABS: VITAMIN B6 2.9 ng/mL (2.1-21.7)
--- NOTE | 2016-11-06 16:35 | HHI.DS ---
Discharge Summary Admission Date Sep 12, 2016 at 14:33 Discharge Date: Sep 16, 2016 Admitting Diagnosis anemia, renal failure (1) Hyperkalemia Diagnosis: Principal (2) Acidosis Diagnosis: Principal (3) Tobacco abuse Diagnosis: Secondary (4) JUSTINE (acute kidney injury) Diagnosis: Principal (5) Fall Diagnosis: Secondary (6) Hypotension Diagnosis: Principal (7) Abdominal pain Diagnosis: Principal Procedures EGD WITH BIOPSY/COLONOSCOPY ON 09/13/16. Brief History This is a 60-year-old male who was seen by the undersigned today at the emergency department at [facility] room C 28. The patient was brought into the emergency department after having a fall at home. He hit the back of his head. No reported loss of consciousness. No injuries otherwise. He has a chronic ongoing discharging small area above his umbilicus. No fever chills or diaphoresis. The patient was found with a low blood pressure, hemoglobin of 7 and a creatinine of 2.6. Also he was found with metabolic acidosis. He has been falling several times over the last few weeks. He says he feels no warning before falling. He does feel that his legs give way. No pain in his legs. He has complained of midabdominal pain without radiation. It is worse with eating. He lost 20-30 pounds last month or so and he is having poor appetite. The patient has had problems with anemia before and he has refused GI workup.At this visit patient agreed for GI work-up so GI consult was requested. Patient had EGd/colonoscopy on 09/13/16. He was monitored closely during hospital stay. Significant Findings 1. Esophagus normal 2. Stomach large ulcerated area in the anastomotic area could be a malignancy, biopsy was done. 3. Duodenum normal 4. Normal anatomy for partial gastrectomy. 5. The colon was suboptimal prep. No large lesion was seen. Pt Condition on Discharge: Stable Discharge Disposition: Discharge Home Discharge Instructions DIET: Follow Instructions for: As Tolerated, No Restrictions Activities you can perform: Regular-No Restrictions Sharona Mccullough MD November 06, 2016 16:35
--- NOTE | 2016-11-08 07:44 | MD ---
ADMISSION DATE: 09/12/2016 DISCHARGE DATE: 09/16/2016 ADMITTING DIAGNOSES 1. Acute renal failure. 2. Anemia. 3. Hyperkalemia. 4. Abdominal pain. 5. Acidosis. 6. Hypertension. DISCHARGE DIAGNOSES 1. Acute renal failure. 2. Hyperkalemia. 3. Metabolic acidosis. 4. Severe anemia. 5. Hypotension. 6. Frequent falls. 7. Abdominal pain. 8. Weight loss. 9. Poor appetite. 10. Tobacco abuse. 11. Malnourished. ADMITTING PHYSICIAN MD Katharine DISCHARGING PHYSICIAN Dr. Sharona Mccullough CONSULTS REQUESTED GI consult with Dr. Alvarado. Renal consult with Dr. Saldana. PROCEDURE PERFORMED Head CT on 09/25/2016 showed stable evaluation of the brain without evidence of acute infarct. Chest x-ray on 09/12/2016 shows no acute disease. CT of the abdomen and pelvis on 09/25/2016 shows no acute finding within the abdomen or pelvis. Nonacute findings include severe atherosclerotic disease, 5-mm nonobstructing left renal stone and small hiatal hernia. Renal ultrasound on 10/03/2016 shows no evidence of acute obstructive uropathy, no significant parenchymal abnormalities are demonstrated. Small benign-appearing right upper pole cyst. Nonobstructing 7-mm left renal stone. EGD and colonoscopy on 09/13/2016 shows normal esophagus. Stomach - Large ulcerated area in the anastomotic area; could be a malignancy. Biopsy was done. Duodenum normal. Normal anatomy for partial gastrectomy. The colon with suboptimal prep. No large lesion was seen. HISTORY OF PRESENT HOSPITAL COURSE The patient is a 60-year-old white male who presented to the ER with multiple falls from feeling weak on 09/12/2016. He states he hit his head prior to arrival and complained of a headache. He was also complaining of abdominal pain. Vital signs at the time of presentation showed blood pressure was 95/46, pulse ox was 97, pulse was 68, temperature 97.7, respirations are 26. CBC done showed WBC of 14.1, hemoglobin was 7, hematocrit 21.8, platelets were 483,000. BUN 70, creatinine 2.63. Lactic acid level was 1.7. Potassium was 5.8, chloride was 107, bicarb was 15.2. CT head did now show any acute hemorrhage or infarct. Chest x-ray with no acute disease. Abdominal and pelvic CT showed 5-mm nonobstructing left renal stone and small hiatal hernia and non-acute findings include severe atherosclerotic disease. The patient was started on Zosyn and IV fluids, was given 1 amp of bicarb and started with half normal saline at 100 cc/hour. GI consult and renal consult were both requested. The patient underwent EGD and colonoscopy on 09/13/2016 which showed a large ulcerated area in the anastomotic area of the stomach. The patient was given 2 units of packed red blood cells so the hemoglobin improved to 9.7. Iron studies were also requested. With hydration, his renal function started improving as well as the acidosis was improving. Potassium on 09/13/2016 was 4.1. PPI prophylaxis was provided with Protonix, DVT prophylaxis with SCDs. The patient's condition started improving slowly. The stomach biopsy showed benign focally ulcerated and necrotic gastric and intestinal mucosal tissue and exudate containing numerous bacteria and fungal hyphal and pseudohyphal forms suggestive of danielle species. The presence of fungi and bacteria within the necrotic tissue may represent that of saprophytic involvement and does not necessarily implicate an infectious etiology of the ulceration and necrosis. On 09/16/2016 the patient's temperature was 98.1, pulse was 61, blood pressure was 130/76, pulse ox was 96%. His WBC was 10.3, H&H was 9.0 and 26.5. His potassium was normal at 3.8. His bicarb was 22.5, BUN 16, creatinine 0.87. The patient was tolerating his diet. As the patient's condition was stable and he had clinically improved, after discussing with the renal and GI, the patient was discharged to home in a stable condition. DISCHARGE DISPOSITION Home. DISCHARGE CONDITION Stable. DISCHARGE MEDICATIONS 1. Metoprolol tartrate 25 mg p.o. b.i.d. 2. Fluconazole 100 mg p.o. daily for 7 days. 3. Metronidazole 500 mg p.o. t.i.d. for 7 days. DISCHARGE INSTRUCTIONS 1. Follow up with primary care physician in one week. 2. Follow up with [employer] in two weeks. Spent more than 48minutes on the discharge summary. Sharona Mccullough MD [facility]
== END 2016-09-16 15:09 | disposition home or self-care (01) | DRG 383 ==
LOC: NEPC 11:40 → NEDA 14:33 → NEDH 18:18 → HIME 20:40 → N04B 09-13 18:08
PROVIDERS: ADMIT Specialist; ATTEND Specialist
PROC: 30253N1 (ICD-10-PCS; 2016-09-13)
PROC: 0DB68ZX Excision of Stomach, Via Natural or Artificial Opening Endoscopic, Diagnostic (ICD-10-PCS; principal; 2016-09-13 10:10)
PROC: 0DJD8ZZ Inspection of Lower Intestinal Tract, Via Natural or Artificial Opening Endoscopic (ICD-10-PCS; 2016-09-13 10:10)
DX: K25.9 Gastric ulcer, unspecified as acute or chronic, without hemorrhage or perforation (principal); N17.0 Acute kidney failure with tubular necrosis; I95.9 Hypotension, unspecified; E87.2 Acidosis; E46 Unspecified protein-calorie malnutrition; D62 Acute posthemorrhagic anemia; E87.5 Hyperkalemia; E86.0 Dehydration; D72.829 Elevated white blood cell count, unspecified; E03.9 Hypothyroidism, unspecified; E11.9 Type 2 diabetes mellitus without complications; I73.9 Peripheral vascular disease, unspecified; Z98.84 Bariatric surgery status; G89.29 Other chronic pain; I10 Essential (primary) hypertension; J44.9 Chronic obstructive pulmonary disease, unspecified; K21.9 Gastro-esophageal reflux disease without esophagitis; K44.9 Diaphragmatic hernia without obstruction or gangrene; N20.0 Calculus of kidney; R29.6 Repeated falls; F17.210 Nicotine dependence, cigarettes, uncomplicated; W18.30XA Fall on same level, unspecified, initial encounter; Z87.11 Personal history of peptic ulcer disease; Z90.3 Acquired absence of stomach [part of]; Z79.891 Long term (current) use of opiate analgesic; Z90.81 Acquired absence of spleen; Z96.652 Presence of left artificial knee joint; Y92.9 Unspecified place or not applicable
CPT/HCPCS: 36430; 70450; 71010; 74176; 76775; 80048; 80053; 81001; 82550; 82607; 82652; 83540; 83605; 83735; 83935; 84100; 84207; 84300; 84425; 84484; 85025; 85027; 85610; 85730; 86850; 86900; 86901; 86920; 87040; 87086; 87641; 88305; 93005; 96365; C9113; J1644; J2405; J2543; J3475; J7030; J7050; P9016

== ENCOUNTER 2016-09-29 11:41 | Inpatient (IN) | payer BC ==
[2016-09-29] VITALS (23 sets, daily range): BP systolic 137–226; BP diastolic 74–123; PULSE 63–103; RESP 18–20; TEMP 97.9; O2SAT 95–100
[~2016-09-29] VITALS: Ht 180.3 cm; Wt 55.1 kg
[~2016-09-29 11:41] MED LIST changes: -BACT400T PO; -CLIN1CAP5 PO; +DIFL200T PO; -LORA-392 PO; +METR-1 PO; +OXYC1TAB63 PO; +PANT40TA3 PO; -PERC5TAB12 PO; -REST15CA PO; -ROBA750T PO
--- NOTE | 2016-09-29 11:58 | PD ---
HPI Chief Complaint: Chest Pain Time Seen by Provider: 11:44 Travel History International Travel<30 days: No Contact w/Intl Traveler<30days: No Traveled to known affect area: No History of Present Illness HPI This is a 60-year-old male who has a history of COPD on 5 L of oxygen, as well as recent admission to the hospital for acute kidney injury and chronic debility who presents to the emergency department with one hour of sternal chest pain described as a sharp pain, moderate severity, constant, that started after he was coughing. He says he has not been sick recently. He says his COPD is at its baseline and he has a chronic cough. He says the pain does go to was left arm. He said he has had a stress test several years ago. He has no history of heart disease. PFSH Past Medical History Hx Anticoagulant Therapy: No Arthritis: Yes Asthma: No Autoimmune Disease: No Anxiety: No Depression: No Heart Rhythm Problems: No Cancer: No Cardiovascular Problems: Yes (HTN) High Cholesterol: No Chest Pain: No Congestive Heart Failure: No COPD: Yes Diabetes: Yes Diminished Hearing: No Endocrine: Yes Gastrointestinal Disorders: Yes GERD: Yes Genitourinary: No Hiatal Hernia: No Hypertension: Yes Immune Disorder: No Implanted Vascular Access Dvce: Yes Musculoskeletal: Yes Neurologic: No Psychiatric: No Reproductive: No Respiratory: Yes (COPD) Immunizations Current: Yes Sleep Apnea: No Thyroid Disease: Yes Ulcer: No Past Surgical History Abdominal Surgery: Yes (GASTRIC BYPASS) AICD: No Arteriovenous Shunt: No Cardiac Surgery: No Cholecystectomy: Yes Ear Surgery: No Endocrine Surgery: No Eye Surgery: No Genitourinary Surgery: Yes Gynecologic Surgery: No Insulin Pump: No Joint Replacement: Yes (LEFT KNEE) Neurologic Surgery: No Oral Surgery: No Pacemaker: No Thoracic Surgery: No Other Surgery: Yes (33 SURGERIES) Social History Alcohol Use: No Tobacco Use: Yes (2ppd) Substance Use: No Allergies-Medications (Allergen,Severity, Reaction): Coded Allergies: No Known Allergies (Unverified , 08/11/16) Reported Meds & Prescriptions Reported Meds & Active Scripts Active Metoprolol Tartrate 25 Mg Tab 25 Mg PO BID Reported Levothyroxine (Levothyroxine Sodium) 100 Mcg Tab 100 Mcg PO DAILY Review of Systems Except as stated in HPI: all other systems reviewed are Neg Physical Exam Narrative GENERAL: Thin and frail male, appears older than stated age SKIN: Dry with skin tenting HEAD: Atraumatic. Normocephalic. EYES: Pupils equal and round. No injection or drainage. ENT: Dry mucous membranes NECK: Trachea midline. CARDIOVASCULAR: Regular rate and rhythm. No murmur appreciated. RESPIRATORY: Diffuse expiratory wheezing, poor air movement, no tachypnea or accessory muscle use, speaking full sentences GASTROINTESTINAL: Abdomen soft, non-tender, nondistended. Abnormal appearing scar in the mid abdomen MUSCULOSKELETAL: No obvious deformities. NEUROLOGICAL: Awake and alert. No obvious cranial nerve deficits. Moving all extremities. PSYCHIATRIC: Appropriate mood and affect; insight and judgment normal. Data Data Last Documented VS Vital Signs Date Time Temp Pulse Resp B/P Pulse Ox O2 Delivery O2 Flow Rate FiO2 09/29/16 14:02 70 192/117 99 5 09/29/16 13:52 Nasal Cannula 09/29/16 13:43 18 09/29/16 13:16 97.9 Orders Electrocardiogram (09/29/16 ) Complete Blood Count With Diff (09/29/16 11:49) Comprehensive Metabolic Panel (09/29/16 11:49) Magnesium (Mg) (09/29/16 11:49) Prothrombin Time / Inr (Pt) (09/29/16 11:49) Act Partial Throm Time (Ptt) (09/29/16 11:49) Troponin I (09/29/16 11:49) Chest, Single Ap (09/29/16 11:49) Ecg Monitoring (09/29/16 11:49) Bilateral Bp Monitoring (09/29/16 11:49) Iv Access Insert/Monitor (09/29/16 11:49) Oximetry (09/29/16 11:49) Oxygen Administration (09/29/16 11:49) Sodium Chloride 0.9% Flush (Ns Flush) (09/29/16 12:00) Morphine Inj (Morphine Inj) (09/29/16 12:00) Nitroglycerin 2% Oint (Nitroglycerin 2% (09/29/16 12:15) Nitroglycerin-Dextrose Inj (Nitroglyceri (09/29/16 13:00) Enalaprilat Inj (Vasotec Inj) (09/29/16 14:00) Levofloxacin 750 Mg Premix Inj (Levaquin (09/29/16 14:00) Ct Brain W/O Iv Contrast(Rout) (09/29/16 ) Admit Order (Ed Use Only) (09/29/16 14:01) Labs Laboratory Tests Test 09/29/16 11:55 White Blood Count 8.6 TH/MM3 Red Blood Count 3.48 MIL/MM3 Hemoglobin 10.4 GM/DL Hematocrit 30.8 % Mean Corpuscular Volume 88.6 FL Mean Corpuscular Hemoglobin 29.8 PG Mean Corpuscular Hemoglobin 33.7 % Concent Red Cell Distribution Width 17.3 % Platelet Count 522 TH/MM3 Mean Platelet Volume 7.8 FL Neutrophils (%) (Auto) 63.2 % Lymphocytes (%) (Auto) 23.2 % Monocytes (%) (Auto) 11.5 % Eosinophils (%) (Auto) 1.9 % Basophils (%) (Auto) 0.2 % Neutrophils # (Auto) 5.5 TH/MM3 Lymphocytes # (Auto) 2.0 TH/MM3 Monocytes # (Auto) 1.0 TH/MM3 Eosinophils # (Auto) 0.2 TH/MM3 Basophils # (Auto) 0.0 TH/MM3 CBC Comment DIFF FINAL Differential Comment Prothrombin Time 10.9 SEC Prothromb Time International 1.0 RATIO Ratio Activated Partial 25.4 SEC Thromboplast Time Sodium Level 141 MEQ/L Potassium Level 4.3 MEQ/L Chloride Level 109 MEQ/L Carbon Dioxide Level 25.5 MEQ/L Anion Gap 7 MEQ/L Blood Urea Nitrogen 16 MG/DL Creatinine 0.92 MG/DL Estimat Glomerular Filtration 84 ML/MIN Rate Random Glucose 160 MG/DL Calcium Level 8.9 MG/DL Magnesium Level 1.4 MG/DL Total Bilirubin 0.3 MG/DL Aspartate Amino Transf 27 U/L (AST/SGOT) Alanine Aminotransferase 26 U/L (ALT/SGPT) Alkaline Phosphatase 76 U/L Troponin I LESS THAN 0.02 NG/ML Total Protein 6.5 GM/DL Albumin 2.9 GM/DL MDM Medical Decision Making Medical Screen Exam Complete: Yes Emergency Medical Condition: Yes Medical Record Reviewed: Yes (patient was recently admitted to the hospital in the setting of general debility and acute kidney injury. ) Interpretation(s) EKG: Normal sinus rhythm, right bundle branch block, no ST changes No leukocytosis Anemia Thrombocytosis Electrolytes are reassuring Troponin is normal Chest x-ray: Developing right infrahilar airspace process Differential Diagnosis Myocardial infarction, hypertensive urgency, hypertensive emergency, pneumothorax, pneumonia Narrative Course This is a 60-year-old male who presents to the emergency department with left- sided chest pain started 1 hour prior to arrival. He was markedly hypertensive on arrival in the emergency department he was placed on a monitor and an IV was established. He was given nitro paste and then subsequently placed on a nitroglycerin infusion. He was given a dose of hydralazine and a dose of Vasotec. Ultimately he did reach a map reduction of 15%. He started to complain of a headache. CT of the head was obtained which was reassuring. Labs are all reassuring with a normal troponin. Patient will be admitted for hypertensive urgency. Critical Care Narrative Aggregate critical care time was 45 minutes. Time to perform other separately billable procedures was not included in the critical care time. My time did not include minutes spent treating any other patients simultaneously or on activities that did not directly contribute to the patient's treatment. The services I provided to this patient were to treat and/or prevent clinically significant deterioration that could result in: Disability, I provided critical care services requiring my management, as noted below: Chart data review, documentation time, medication orders and management, vital sign assessments/reviewing monitor data, ordering and reviewing lab tests, ordering and interpreting/reviewing x-rays and diagnostic studies, care of the patient and discussion of the patient with the admitting physicians. Physician Communication Physician Communication Discussed with Dr. Lerma Diagnosis Primary Impression: Hypertensive urgency Admitting Information Admitting Physician Requests: Admit Charlene Carrizales MD Sep 29, 2016 11:58
[2016-09-29] MEDS ORDERED: SODIUM CHLORIDE 0.9% FLUSH 10 ML FLUSH IVF PRN (12:00)
[2016-09-29] MEDS ORDERED: MORPHINE SULFATE 4 MG/ML INJ IV PUSH ONE (12:00)
[2016-09-29 12:10] LABS: AUTOMATED NEUTROPHIL # 5.5 TH/MM3 (1.8-7.7); BASOPHIL % 0.2 % (0.0-2.0); EOSINOPHIL # 0.2 TH/MM3 (0-0.4); EOSINOPHIL % 1.9 % (0.0-4.0); HEMATOCRIT 30.8 % (39.0-51.0); HEMO FLAGS DIFF FINAL; LYMPH % 23.2 % (9.0-44.0); MEAN CELL VOLUME 88.6 FL (80.0-100.0); MEAN CORPUSCULAR HEMOGLOBIN 29.8 PG (27.0-34.0); MEAN CORPUSCULAR HGB CONC 33.7 % (32.0-36.0); MONO % 11.5 % (0.0-8.0); NEUT % 63.2 % (16.0-70.0); PLATELET COUNT 522 TH/MM3 (150-450); RED BLOOD COUNT 3.48 MIL/MM3 (4.50-5.90); RED CELL DISTRIBUTION WIDTH 17.3 % (11.6-17.2); WHITE BLOOD COUNT 8.6 TH/MM3 (4.0-11.0)
[2016-09-29] MEDS ORDERED: NITROGLYCERIN 2% OINT 1 GM PACKET TOPICAL ONE (12:15)
[2016-09-29 12:19] LABS: APTT (PATIENT) 25.4 SEC (24.3-30.1); PROTHROMBIN TIME - PATIENT 10.9 SEC (9.8-11.6)
[2016-09-29 12:33] LABS: ANION GAP 7 MEQ/L (5-15); AST (GOT) 27 U/L (15-37); BICARBONATE 25.5 MEQ/L (21.0-32.0); BLOOD UREA NITROGEN 16 MG/DL (7-18); CHLORIDE 109 MEQ/L (98-107); GLOMERULAR FILTRATION RATE 84 ML/MIN (>89); MAGNESIUM 1.4 MG/DL (1.5-2.5); POTASSIUM 4.3 MEQ/L (3.5-5.1); SODIUM (NA) 141 MEQ/L (136-145)
[2016-09-29 12:38] LABS: ALKALINE PHOSPHATASE 76 U/L (45-117); ALT (GPT) 26 U/L (12-78); TOTAL BILIRUBIN ADULT 0.3 MG/DL (0.2-1.0)
[2016-09-29] MEDS ORDERED: NITROGLYCERIN-DEXTROSE INJ 250 ML IV ONE (13:00)
--- NOTE | 2016-09-29 13:09 | RADRPT ---
EXAM DATE/TIME: 09/29/2016 11:57 [facility] COMPARISON: CHEST SINGLE AP, September 12, 2016, 12:03. INDICATIONS : Short of breath, chest pain. MEDICAL HISTORY : Chronic obstructive pulmonary disease. SURGICAL HISTORY : None. ENCOUNTER: Initial ACUITY: 1 day PAIN SCORE: 8/10 LOCATION: Bilateral chest FINDINGS: A single view of the chest demonstrates lungs to be symmetrically aerated. There is a developing airs pace process inferior to the right hilum. Lungs are otherwise clear. Heart size is normal. Right shou lder is "high riding" suggesting a chronic rotator cuff injury. Osseous structures are otherwise inta ct. CONCLUSION: 1. Developing right infrahilar airspace process. 2. Stable hyperinflation of both lungs. 3. Possible chronic rotator cuff injury on the right. Rigoberto Pitts MD on September 29, 2016 at 13:05 Board Certified Radiologist. This report was verified electronically.
[2016-09-29] MEDS ORDERED: LEVOFLOXACIN 750 MG PREMIX INJ 150 ML IV ONE (14:00)
[2016-09-29] MEDS ORDERED: ENALAPRILAT 2.5 MG/2 ML VIAL IV PUSH ONE (14:00)
[2016-09-29] MEDS ORDERED: ACETAMINOPHEN 325 MG TAB PO ONE (14:45)
[2016-09-29] MEDS ORDERED: hydrALAZINE HCL 20 MG/ML VIAL IV PUSH ONE (15:00)
[2016-09-29] MEDS ORDERED: SODIUM CHLORIDE 0.9% FLUSH 10 ML FLUSH IV FLUSH PRN (15:30)
--- NOTE | 2016-09-29 16:19 | RADRPT ---
EXAM DATE/TIME: 09/29/2016 16:03 [facility] COMPARISON: CT BRAIN W/O CONTRAST, September 12, 2016, 13:23. INDICATIONS : Headache and latered mental status. RADIATION DOSE: 40.01 CTDIvol (mGy) MEDICAL HISTORY : Hypertension. Chronic obstructive pulmonary disease. Diabetes mellitus type 2. SURGICAL HISTORY : None. ENCOUNTER: Initial ACUITY: 1 day PAIN SCALE: 6/10 LOCATION: cranial TECHNIQUE: Multiple contiguous axial images were obtained of the head. Using automated exposure control and adj ustment of the mA and/or kV according to patient size, radiation dose was kept as low as reasonably a chievable to obtain optimal diagnostic quality images. FINDINGS: CEREBRUM: The ventricles are normal for age. No evidence of midline shift, mass lesion, hemorrhage or acute in farction. No extra-axial fluid collections are seen. POSTERIOR FOSSA: The cerebellum and brainstem are intact. The 4th ventricle is midline. The cerebellopontine angle i s unremarkable. EXTRACRANIAL: The visualized portion of the orbits is intact. SKULL: The calvaria is intact. No evidence of skull fracture. CONCLUSION: 1. No acute intracranial abnormality. Lester Allen MD on September 29, 2016 at 16:16 Board Certified Radiologist. This report was verified electronically.
[2016-09-29 18:29] LABS: CREATINE KINASE 55 U/L (39-308)
--- NOTE | 2016-09-29 18:30 | HHI.HP ---
HPI Service [facility] Hospitalists Primary Care Physician Chad Etienne MD Admission Diagnosis hypertensive emergency Diagnoses: Chief Complaint: abdominal pain/chest pain Travel History International Travel<30 Days: No Contact w/Intl Traveler <30 Da: No Traveled to Known Affected Are: No History of Present Illness Is is a 60-year-old male with past medical history significant for gastric bypass surgery, COPD on home O2 at 5 L nasal cannula who presents to [facility] complaining of abdominal pain which started earlier today. As per medical records, the patient was recently discharged from this institution on 09/16/16 and treated for debility, weight loss, acute kidney injury and chronic abdominal pain for which at the time the patient was evaluated by GI and had a CT of the abdomen which did not find any clear source for the pain. She now presents with severe abdominal pain, midepigastric, nonradiating which she has had chronically for quite some time. Also associated chest pain, described as aching on the midsternum, nonradiating. Denies cough, shortness of breath, nausea, vomiting. The patient was seen in emergency department and noted to have a very elevated systolic blood pressure in the range of the 200s systolic. Patient was started on nitroglycerin drip which has improved somewhat the blood pressure. The patient denies dizziness, fevers, chills, cough, diarrhea. Review of Systems Aspirate history of present illness, other systems reviewed by me and negative Past Family Social History Past Medical History 1. Peptic ulcer disease. 2. Hypertension. 3. COPD 4. Diabetes. 5. Chronic back pain. 6. Hypothyroidism. 7. Peripheral edema. 8. Anemia. 9. Peripheral vascular disease. 10. Tobacco abuse. 11. Chronic narcotic use. Past Surgical History 1. Gastric bypass and exam 2. Partial pancreatectomy and splenectomy. 3. Multiple surgeries related to gastric bypass. 4. Cholecystectomy 5. EGD/colonoscopy Reported Medications Metoprolol Tartrate 25 Mg Tab 25 Mg PO BID Levothyroxine (Levothyroxine Sodium) 100 Mcg Tab 100 Mcg PO DAILY Allergies: Coded Allergies: No Known Allergies (Unverified , 08/11/16) Active Ordered Medications Current Medications Medications (Trade) Dose Ordered Sig/Eric Route Start Time Stop Time Status Last Admin (NS Flush) 2 ml UNSCH PRN IVF 09/29/16 12:00 (NS Flush) 2 ml UNSCH PRN IV FLUSH 09/29/16 15:30 (NS Flush) 2 ml BID IV FLUSH 09/29/16 21:00 (Apresoline Inj) 10 mg Q6H PRN IV 09/29/16 16:00 (Synthroid) 100 mcg DAILY@06 PO 09/30/16 06:00 Family History Patient states his father of a heart attack. Denies history of cancer. Social History Patient smokes currently 2 packs per day. Denies alcohol or drug use. The patient is but has no children. Physical Exam Vital Signs Vital Signs Date Time Temp Pulse Resp B/P Pulse Ox O2 Delivery O2 Flow Rate FiO2 09/29/16 18:07 100 151/100 100 Room Air 09/29/16 17:41 93 153/103 99 Room Air 09/29/16 17:31 103 171/96 98 Room Air 09/29/16 16:43 96 162/102 98 Room Air 09/29/16 16:16 95 178/109 98 Room Air 09/29/16 15:42 87 182/119 98 Nasal Cannula 5 09/29/16 15:32 88 186/114 99 Nasal Cannula 5 09/29/16 15:12 72 208/121 100 Nasal Cannula 5 09/29/16 15:02 69 185/115 100 Nasal Cannula 5 09/29/16 14:52 73 201/123 100 Nasal Cannula 5 09/29/16 14:33 73 200/122 100 5 09/29/16 14:22 71 203/115 100 5 09/29/16 14:12 69 208/121 100 5 09/29/16 14:02 70 192/117 99 5 09/29/16 13:52 66 197/117 99 Nasal Cannula 5 09/29/16 13:43 63 18 226/117 09/29/16 13:16 97.9 67 217/107 09/29/16 11:59 69 20 194/111 99 Nasal Cannula 5 196/123 09/29/16 11:54 98 Nasal Cannula 5 09/29/16 11:54 66 20 194/111 99 Nasal Cannula 5 09/29/16 11:48 65 20 215/110 99 Physical Exam GENERAL: This is a very thin and cachectic male, not in acute distress. SKIN: No rashes, ecchymoses or lesions. Cool and dry. HEAD: Atraumatic. Normocephalic. No temporal or scalp tenderness. EYES: Pupils equal round and reactive. Extraocular motions intact. No scleral icterus. No injection or drainage. ENT: Nose without bleeding, purulent drainage or septal hematoma. Throat without erythema, tonsillar hypertrophy or exudate. Uvula midline. Airway patent. NECK: Trachea midline. No JVD or lymphadenopathy. Supple, nontender, no meningeal signs. CARDIOVASCULAR: Regular rate and rhythm without murmurs, gallops, or rubs. RESPIRATORY: Clear to auscultation. Breath sounds equal bilaterally. No wheezes , rales, or rhonchi. GASTROINTESTINAL: Abdomen soft, diffusely tender to palpation, nondistended. There is an area of small opening along the midline just above the umbilicus which has some discharge which looks purulent. MUSCULOSKELETAL: Extremities without clubbing, cyanosis, or edema. No joint tenderness, effusion, or edema noted. No calf tenderness. Negative Homans sign bilaterally. NEUROLOGICAL: Awake and alert. Cranial nerves II through XII intact. Motor and sensory grossly within normal limits. Five out of 5 muscle strength in all muscle groups. Normal speech. Laboratory Laboratory Tests Test 09/29/16 09/29/16 11:55 17:39 White Blood Count 8.6 Red Blood Count 3.48 Hemoglobin 10.4 Hematocrit 30.8 Mean Corpuscular Volume 88.6 Mean Corpuscular Hemoglobin 29.8 Mean Corpuscular Hemoglobin 33.7 Concent Red Cell Distribution Width 17.3 Platelet Count 522 Mean Platelet Volume 7.8 Neutrophils (%) (Auto) 63.2 Lymphocytes (%) (Auto) 23.2 Monocytes (%) (Auto) 11.5 Eosinophils (%) (Auto) 1.9 Basophils (%) (Auto) 0.2 Neutrophils # (Auto) 5.5 Lymphocytes # (Auto) 2.0 Monocytes # (Auto) 1.0 Eosinophils # (Auto) 0.2 Basophils # (Auto) 0.0 CBC Comment DIFF FINAL Differential Comment Prothrombin Time 10.9 Prothromb Time International 1.0 Ratio Activated Partial 25.4 Thromboplast Time Sodium Level 141 Potassium Level 4.3 Chloride Level 109 Carbon Dioxide Level 25.5 Anion Gap 7 Blood Urea Nitrogen 16 Creatinine 0.92 Estimat Glomerular Filtration 84 Rate Random Glucose 160 Calcium Level 8.9 Magnesium Level 1.4 Total Bilirubin 0.3 Aspartate Amino Transf 27 (AST/SGOT) Alanine Aminotransferase 26 (ALT/SGPT) Alkaline Phosphatase 76 Troponin I LESS THAN 0.02 LESS THAN 0.02 Total Protein 6.5 Albumin 2.9 Total Creatine Kinase 55 Result Diagram: 09/29/16 1155 09/29/16 1155 Imaging Last Impressions Chest X-Ray 09/29/16 1149 Signed Impressions: Service Date/Time: Thursday, September 29, 2016 11:57 - CONCLUSION: 1. Developing right infrahilar airspace process. 2. Stable hyperinflation of both lungs. 3. Possible chronic rotator cuff injury on the right. Rigoberto Pitts MD Head CT 09/29/16 0000 Signed Impressions: Service Date/Time: Thursday, September 29, 2016 16:03 - CONCLUSION: 1. No acute intracranial abnormality. Lester Allen MD Assessment and Plan Problem List: (1) Hypertensive urgency ICD Code: I16.0 Status: Acute (2) Chest pain ICD Code: R07.9 Status: Acute (3) Abdominal pain ICD Code: R10.9 Status: Chronic (4) Open abdominal wall wound ICD Code: S31.109A Status: Acute (5) Anemia ICD Code: D64.9 Status: Acute (6) DM (diabetes mellitus) ICD Code: E11.9 Status: Acute (7) Moderate protein-calorie malnutrition ICD Code: E44.0 Status: Acute (8) Weight loss ICD Code: R63.4 Status: Acute Assessment and Plan 60 year-old male who presents to [facility] complaining of chronic abdominal pain which had intensified in the past few days. Patient also complains of increased discharge from an anterior abdominal wound. Patient states today he had sudden onset chest pain. Found to have very elevated blood pressure and started on nitroglycerin drip with emergency department physician. Admit the patient to the [facility] Monitor on telemetry EKG on admission and reviewed by me shows sinus rhythm at 62 bpm, right bundle branch block, left anterior vesicular block, however no ST-T changes suggestive of active ischemia. Continue IV nitroglycerin drip for now, titrated to off. I will start the patient on oral Coreg and lisinopril for BP control. The anterior cardiac enzymes and serial EKGs. Initial troponin negative. We'll consult general surgery for evaluation of the open anterior abdominal wound and drainage observed. We'll place on necessary with insulin NovoLog and monitor Accu-Cheks for diabetes. Last hemoglobin A1c obtained on June 2016 and 64. We'll check iron studies and stool guaiac. Moderate protein calorie malnutrition. Obtain CT chest for abnormality observed on chest x-ray and given the fact that the patient is a heavy smoker. Obtain CT abdomen and pelvis to assess for drainage and abdominal pain rule out collection. Advises smoking cessation. Will place on nicotine patch. We'll consult dietitian for weight loss and moderate protein, malnutrition with an albumin of 2.1. We'll order physical therapy consultation. Discussed Condition With Patient, ED physician. Physician Certification 2 Midnight Certification Type: Admission for Inpatient Services Order for Inpatient Services The services are ordered in accordance with Medicare regulations or non- Medicare payer requirements, as applicable. In the case of services not specified as inpatient-only, they are appropriately provided as inpatient services in accordance with the 2-midnight benchmark. Estimated LOS (days): 2 days is the estimated time the patient will need to remain in the hospital, assuming treatment plan goals are met and no additional complications. Post-Hospital Plan: Not yet determined Problem Qualifiers (1) Anemia: Qualified Code: D64.9 - Anemia, unspecified type (2) DM (diabetes mellitus): Qualified Code: E11.8 - Type 2 diabetes mellitus with complication, without long-term current use of insulin Pierce Lin MD Sep 29, 2016 18:29
[2016-09-29 19:05] LABS: HDL CHOLESTEROL 55.4 MG/DL (40.0-60.0)
[2016-09-29] MEDS ORDERED: DEXTROSE 50% IN WATER 50 ML VIAL(D50) IV PUSH PRN (19:30)
[2016-09-29] MEDS ORDERED: GLUCAGON 1 MG/ML VIAL OTHER PRN (19:30)
[2016-09-29] MEDS: LISINOPRIL 20 MG TAB PO SCH (19:43)
[2016-09-29] MEDS ORDERED: DIATRIZOATE MEGLUM/DIATRIZOATE SOD 9 ML CUP PO ONE (19:45)
[2016-09-29] MEDS ORDERED: oxyCODONE/ACETAMINOPHEN 5 MG/325 MG TAB PO PRN (20:15)
[2016-09-29] MEDS ORDERED: LABETALOL HCL 100 MG/20 ML VIAL IV PUSH PRN (20:15)
[2016-09-29] MEDS ORDERED: MORPHINE SULFATE 4 MG/ML INJ IV PUSH PRN (20:15)
[2016-09-29 20:42] LABS: TRANSFERRIN IRON PROFILE 232 MG/DL (200-360)
[2016-09-29] MEDS ORDERED: IOHEXOL 350 MG/ML 10 ML VIAL (for RAD DIAG) IV ONE (20:44)
[2016-09-29] MEDS: SODIUM CHLORIDE 0.9% FLUSH 10 ML FLUSH IV FLUSH SCH (20:55)
[2016-09-29] MEDS: oxyCODONE/ACETAMINOPHEN 5 MG/325 MG TAB PO PRN (20:55)
[2016-09-29] MEDS: INSULIN ASPART SUPPLEMENTAL SCALE SQ SCH (21:03)
[2016-09-29] MEDS: CARVEDILOL 3.125 MG TAB PO SCH (21:03)
--- NOTE | 2016-09-29 21:03 | RADRPT ---
EXAM DATE/TIME: 09/29/2016 20:35 [facility] COMPARISON: CHEST SINGLE AP, September 29, 2016, 11:57. INDICATIONS : Abnormal chest x-ray; possible mass. IV CONTRAST: 96 cc Omnipaque 350 (iohexol) IV ; Cumulative dose for multiple exams. ORAL CONTRAST: Partial prescribed oral contrast ingested. RADIATION DOSE: 5.1 CTDIvol (mGy) ; Combined studies - Thorax/Abdomen/Pelvis MEDICAL HISTORY : Hypertension. Chronic obstructive pulmonary disease. Gastroesophageal reflux disease.Diabetes SURGICAL HISTORY : Gastric bypass. Cholecystectomy.right hip surgery ENCOUNTER: Initial ACUITY: 1 day PAIN SCALE: 3/10 LOCATION: abdomen TECHNIQUE: Volumetric scanning of the abdomen and pelvis was performed. Using automated exposure control and ad justment of the mA and/or kV according to patient size, radiation dose was kept as low as reasonably achievable to obtain optimal diagnostic quality images. FINDINGS: LOWER LUNGS: There is minimal scarring or atelectasis in the posterior right lung base. LIVER: Homogeneous density without lesion. There is no dilation of the biliary tree. Gallbladder surgically absent.. SPLEEN: Not seen. PANCREAS: Within normal limits. KIDNEYS: Tiny cysts arising from the posterior upper pole cortex of the right kidney. Small nonobstructing sto ne in the lower pole posterior collecting system of the left kidney. ADRENAL GLANDS: Within normal limits. VASCULAR: There is no aortic aneurysm. BOWEL/MESENTERY: Previous gastric surgery. No abnormal dilatation of bowel. No definite wall thickening or inflammator y change. ABDOMINAL WALL: Previous ventral mesh repair RETROPERITONEUM: There is no lymphadenopathy. BLADDER: No wall thickening or mass. REPRODUCTIVE: Within normal limits. INGUINAL: There is no lymphadenopathy or hernia. MUSCULOSKELETAL: Previous pinning of the right hip. Degenerative changes in the spine. CONCLUSION: No acute CT findings in the abdomen or pelvis. Levar Rayo MD on September 29, 2016 at 20:53 Board Certified Radiologist. This report was verified electronically.
--- NOTE | 2016-09-29 21:06 | RADRPT ---
EXAM DATE/TIME: 09/29/2016 20:36 [facility] COMPARISON: No previous studies available for comparison. INDICATIONS : Abnormal chest x-ray; patient complains of chest pain. IV CONTRAST: 96 cc Omnipaque 350 (iohexol) IV ; Cumulative dose for multiple exams. RADIATION DOSE: 5.1 CTDIvol (mGy) ; Combined studies - Thorax/Abdomen/Pelvis MEDICAL HISTORY : Hypertension. Chronic obstructive pulmonary disease. Gastroesophageal reflux disease.Diabetes SURGICAL HISTORY : Gastric bypass. Cholecystectomy.Right hip surgery ENCOUNTER: Initial ACUITY: 1 day PAIN SCALE: 6/10 LOCATION: chest TECHNIQUE: Volumetric scanning of the chest was performed. Using automated exposure control and adjustment of t he mA and/or kV according to patient size, radiation dose was kept as low as reasonably achievable to obtain optimal diagnostic quality images. FINDINGS: LUNGS: Minimal pleuroparenchymal scarring in the posterior right lung base. No suspicious masses or nodules. No evidence of consolidative infiltrate. PLEURA: Smooth posterior pleural thickening on the right at the midlung level with some patchy calcification present. This has a chronic benign appearance. MEDIASTINUM: The heart and great vessels demonstrate no acute abnormality. There is no mediastinal or hilar lymph adenopathy. AXILLAE: Within normal limits. No lymphadenopathy. SKELETAL: Within normal limits for patient age. MISCELLANEOUS: The visualized upper abdominal organs demonstrate no acute abnormality. CONCLUSION: Chronic benign appearing pleural thickening on the right and minimal right base lung scarring. Levar Rayo MD on September 29, 2016 at 21:02 Board Certified Radiologist. This report was verified electronically.
[2016-09-30] VITALS (11 sets, daily range): BP systolic 142–192; BP diastolic 72–93; PULSE 68–105; RESP 15–20; TEMP 98.5–98.7; O2SAT 90–99
[2016-09-30] MEDS: LEVOTHYROXINE SODIUM 100 MCG TAB PO SCH (05:39)
[2016-09-30] MEDS: oxyCODONE/ACETAMINOPHEN 5 MG/325 MG TAB PO PRN ×2 (05:40→19:25)
[2016-09-30 05:45] LABS: BLOOD, URINE NEG (NEG); COMMENT (UR) CULT NOT INDICATED; GLUCOSE,URINE NEG (NEG); KETONE, URINE NEG (NEG); NITRITE,URINE NEG (NEG); PH, URINE 5.5 (5.0-8.5); URINE COLOR YELLOW (YELLW/STRAW)
[2016-09-30 05:59] LABS: AUTOMATED NEUTROPHIL # 4.3 TH/MM3 (1.8-7.7); BASOPHIL # 0.1 TH/MM3 (0-0.2); BASOPHIL % 1.2 % (0.0-2.0); EOSINOPHIL # 0.2 TH/MM3 (0-0.4); EOSINOPHIL % 2.3 % (0.0-4.0); HEMATOCRIT 28.7 % (39.0-51.0); HEMO FLAGS DIFF FINAL; LYMPH % 30.4 % (9.0-44.0); LYMPHOCYTE # 2.6 TH/MM3 (1.0-4.8); MEAN CORPUSCULAR HEMOGLOBIN 29.3 PG (27.0-34.0); MEAN CORPUSCULAR HGB CONC 32.9 % (32.0-36.0); MONO % 16.4 % (0.0-8.0); NEUT % 49.7 % (16.0-70.0); PLATELET COUNT 420 TH/MM3 (150-450); RED BLOOD COUNT 3.23 MIL/MM3 (4.50-5.90); RED CELL DISTRIBUTION WIDTH 16.8 % (11.6-17.2); WHITE BLOOD COUNT 8.7 TH/MM3 (4.0-11.0)
[2016-09-30 06:37] LABS: BICARBONATE 21.6 MEQ/L (21.0-32.0)
[2016-09-30] MEDS: INSULIN ASPART SUPPLEMENTAL SCALE SQ SCH ×4 (07:00→20:53)
[2016-09-30] MEDS: LISINOPRIL 20 MG TAB PO SCH (08:19)
[2016-09-30] MEDS: CARVEDILOL 3.125 MG TAB PO SCH ×2 (08:19→20:50)
[2016-09-30] MEDS: SODIUM CHLORIDE 0.9% FLUSH 10 ML FLUSH IV FLUSH SCH ×2 (08:19→20:50)
--- NOTE | 2016-09-30 10:54 | EKG ---
Date Performed: 09/29/2016 Time Performed: 11:53:28 PTAGE: 60 years EKG: Sinus rhythm RIGHT BUNDLE BRANCH BLOCK LEFT ANTERIOR FASCICULAR BLOCK ABNORMAL ECG PREVIOUS TRACING : 09/12/2016 12.02 DOCTOR: Myles Pat Interpretating Date/Time 09/30/2016 10:52:31
[2016-09-30] MEDS: hydrALAZINE HCL 20 MG/ML VIAL IV PRN ×2 (13:00→20:50)
--- NOTE | 2016-09-30 16:03 | HHI.PR ---
Subjective History of Present Illness Patient feel better have high BP D/W RN Omar Estes at bed side. Review of Systems Constitutional Constitutional: Fatigue, Weakness Vitals/Results Vital Signs Vital Signs Date Time Temp Pulse Resp B/P Pulse Ox O2 Delivery O2 Flow Rate FiO2 09/30/16 13:09 104 147/72 98 09/30/16 13:01 98.5 99 15 192/93 99 172/81 09/30/16 12:00 68 15 169/86 98 Nasal Cannula 2 09/30/16 10:00 72 16 163/89 96 Nasal Cannula 2 09/30/16 08:00 91 18 169/85 96 Nasal Cannula 2 09/30/16 07:00 86 17 159/80 95 Room Air 09/30/16 06:55 16 09/30/16 04:00 72 18 165/84 95 Room Air 09/30/16 02:00 78 18 152/84 96 Room Air 09/30/16 00:00 68 18 142/81 97 Room Air 09/29/16 23:00 70 18 141/78 95 Room Air 09/29/16 22:00 84 18 137/80 97 Room Air 09/29/16 21:39 82 18 137/74 95 Room Air 09/29/16 18:07 100 151/100 100 Room Air 09/29/16 17:41 93 153/103 99 Room Air 09/29/16 17:31 103 171/96 98 Room Air 09/29/16 16:43 96 162/102 98 Room Air 09/29/16 16:16 95 178/109 98 Room Air CBC/BMP: 09/30/16 0430 09/30/16 0450 Lab Results Laboratory Tests Test 09/29/16 09/29/16 09/30/16 09/30/16 17:39 21:50 04:30 04:50 Iron Level 30 MCG/DL Total Iron Binding Capacity 325 MCG/DL Percent Iron Saturation 9.2 % Total Creatine Kinase 55 U/L 45 U/L Troponin I LESS THAN 0.02 0.02 NG/ML NG/ML White Blood Count 8.7 TH/MM3 Red Blood Count 3.23 MIL/MM3 Hemoglobin 9.4 GM/DL Hematocrit 28.7 % Mean Corpuscular Volume 89.0 FL Mean Corpuscular Hemoglobin 29.3 PG Mean Corpuscular Hemoglobin 32.9 % Concent Red Cell Distribution Width 16.8 % Platelet Count 420 TH/MM3 Mean Platelet Volume 7.8 FL Neutrophils (%) (Auto) 49.7 % Lymphocytes (%) (Auto) 30.4 % Monocytes (%) (Auto) 16.4 % Eosinophils (%) (Auto) 2.3 % Basophils (%) (Auto) 1.2 % Neutrophils # (Auto) 4.3 TH/MM3 Lymphocytes # (Auto) 2.6 TH/MM3 Monocytes # (Auto) 1.4 TH/MM3 Eosinophils # (Auto) 0.2 TH/MM3 Basophils # (Auto) 0.1 TH/MM3 CBC Comment DIFF FINAL Differential Comment Sodium Level 140 MEQ/L Potassium Level 4.0 MEQ/L Chloride Level 108 MEQ/L Carbon Dioxide Level 21.6 MEQ/L Anion Gap 10 MEQ/L Blood Urea Nitrogen 19 MG/DL Creatinine 0.99 MG/DL Estimat Glomerular Filtration 77 ML/MIN Rate Random Glucose 101 MG/DL Calcium Level 8.5 MG/DL Ferritin 43 NG/ML Test 09/30/16 05:10 Urine Color YELLOW Urine Turbidity HAZY Urine pH 5.5 Urine Specific [place] 1.050 Urine Protein 30 mg/dL Urine Glucose (UA) NEG mg/dL Urine Ketones NEG mg/dL Urine Occult Blood NEG Urine Nitrite NEG Urine Bilirubin NEG Urine Urobilinogen LESS THAN 2.0 MG/DL Urine Leukocyte Esterase NEG Urine RBC LESS THAN 1 /hpf Urine WBC LESS THAN 1 /hpf Microscopic Urinalysis Comment CULT NOT INDICATED Physical Exam General General Appearance: No Acute Distress, Comfortable Eyes Eye Exam: Pupils Equal, Pupils Reactive, Sclera White, Extraocular Movement Intact Throat Throat Exam: Oral Mucosa [place] & Moist, Oral Pharynx Normal Neck Neck Exam: Neck Supple, Trachea Midline Pulmonary Resp Exam: Clear Bilaterally, Breath Sounds Equal Cardiology CV Exam: Regular, Normal Sinus Rhythm Gastrointestinal/Abdomen GI Exam: Soft, Non-Tender, Bowel Sounds Present Musculoskeletal MS Exam: Normal Tone Integumentary Skin Exam: Warm, Dry Neurologic Neuro Exam: Alert, Awake, Oriented, Speech Clear, Moving All Extremities, No Focal Deficits Psychiatric Psych Exam: Appropriate Responses VTE Prophylaxis VTE Prophylaxis Meds: Heparin PUD Prophylasis PUD Prophylaxis: Protonix Assessment/Plan Problem List: (1) Hypertensive urgency (2) Chest pain (3) Abdominal pain (4) Open abdominal wall wound (5) Anemia (6) DM (diabetes mellitus) (7) Moderate protein-calorie malnutrition (8) Weight loss Assessment/Plan Assessment and Plan (1) Hypertensive urgency (2) Chest pain (3) Abdominal pain (4) Open abdominal wall wound (5) Anemia (6) DM (diabetes mellitus) (7) Moderate protein-calorie malnutrition (8) Weight loss Assessment and Plan 60 year-old male who presents to [facility] [place] complaining of chronic abdominal pain which had intensified in the past few days. Patient also complains of increased discharge from an anterior abdominal wound. Patient states today he had sudden onset chest pain. Found to have very elevated blood pressure and started on nitroglycerin drip with emergency department physician. Monitor on telemetry EKG on admission and reviewed by me shows sinus rhythm at 62 bpm, right bundle branch block, left anterior vesicular block, however no ST-T changes suggestive of active ischemia. patient on oral Coreg and lisinopril for BP control. The anterior cardiac enzymes and serial EKGs. Initial troponin negative. consulted general surgery for evaluation of the open anterior abdominal wound and drainage observed. on insulin NovoLog and monitor Accu-Cheks for diabetes. Last hemoglobin A1c obtained on June 2016 and 64. check iron studies and stool guaiac. Moderate protein calorie malnutrition. Checked CT chest for abnormality observed on chest x-ray and given the fact that the patient is a heavy smoker. Checked CT abdomen and pelvis to assess for drainage and abdominal pain rule out collection. Advises smoking cessation. Will place on nicotine patch. We'll consult dietitian for weight loss and moderate protein, malnutrition with an albumin of 2.1. physical therapy Discussed Condition with: Patient Problem Qualifiers (1) Anemia: Qualified Code: D64.9 - Anemia, unspecified type (2) DM (diabetes mellitus): Qualified Code: E11.8 - Type 2 diabetes mellitus with complication, without long-term current use of insulin John Etienne MD Sep 30, 2016 16:03 John Etienne MD Sep 30, 2016 16:03
--- NOTE | 2016-09-30 17:55 | MB ---
cc: JUAN TORRES MD DATE OF CONSULTATION 09/30/2016 REASON FOR CONSULTATION Open abdominal drainage. HISTORY OF PRESENT ILLNESS The patient is a 60-year-old male with multiple medical issues, complex multiple surgical past history. The patient presented actually to the emergency department due to hypertensive crisis. The patient was noted to have some chest pain and extremely elevated systolic pressure in the 200s. He has since been put on nitroglycerine drip and has had some improvement from this. Surgery was consulted due to evidence of open gastric wound. On my exam discussion with the patient, he is noted to have a previous history of gastric bypass approximately 5 years ago for which he has had also multiple subsequent surgeries. The gastric bypass was an open gastric bypass. The patient was noted to have gastric ulcers requiring some GI resection. The patient is somewhat of a poor historian, does not recall the specifics of these procedures. The patient also had partial pancreatectomy, splenectomy, laparoscopic cholecystectomy and endoscopies. He has had hernia repair. He has noted the hernia repair was approximately 1 year ago, for which it was done laparoscopically with mesh and tacking placement. The patient states he did have evidence of infection. Upon further probing and questioning, there was a possible negative pressure VAC used in order to control infection. This has subsequently been treated and removed. The patient denies any significant complaints of his abdomen. He states he has had this chronic wound opening but really has not caused him any significant fevers or troubles or significant pain. On my physical exam he has two areas, an epigastric area about 1 cm, evidence of old VAC sponge appears to be in place, that is very small. Also anteriorly around the umbilical area was noted to be to a 2.0 x 2.0 x 1.5 cm deep drainage with expose mesh and exposed mental surgical tack. Upon gentle probing it does not have evidence to penetrate intraperitoneal. The patient further denies recent fevers, chills, nausea, vomiting. From a gastric bypass standpoint he has never states taking his bariatric vitamins. He has not followed up with bariatric surgeon in some time now. His surgery was in [facility]. He was initially 365 pounds and currently a 138 pounds. The patient noted to be on 22 different medications previously and is only taking a blood pressure meds and psychiatric med at this time. The patient is also noted to be a chronic, heavy, smoker greater than 40 years, smokes two packs a day. PAST MEDICAL HISTORY 1. Hypertension. 2. Peptic ulcer disease. 3. Chronic obstructive pulmonary disease. 4. Diabetes. 5. Chronic back pain. 6. Hypothyroidism. 7. Peripheral edema. 8. Anemia. 9. Peripheral vascular disease. 10. Chronic narcotic use. PAST SURGICAL HISTORY 1. Gastric bypass and multiple revisions and resection of gastric ulcers. 2. Partial pancreatectomy. 3. Splenectomy. 4. Cholecystectomy. 5. Laparoscopic ventral hernia repair with mesh. MEDICATIONS See EMR. ALLERGIES NO KNOWN DRUG ALLERGIES. FAMILY HISTORY Father heart attack. Mother healthy. SOCIAL HISTORY Smokes two packs a day for 40 years. Denies EtOH or IVDA. REVIEW OF SYSTEMS GENERAL: Hypertension. Denies headaches. HEENT: Denies eye pain, ear pain. NECK: Denies swelling or pain. CARDIOVASCULAR: Complained of severe hypertension. Denies palpitations. Complained of chest pain. RESPIRATORY: Denies cough or wheeze. GASTROINTESTINAL: Complains of mild abdominal pain and drainage wound. MUSCULOSKELETAL: No evidence of clubbing or cyanosis. He denies arthralgia. NEUROLOGIC: Previous psych history. Awake, alert. GENITOURINARY: Denies dysuria, hematuria. ENDOCRINE: History of diabetes. Denies polyuria, polydipsia. PHYSICAL EXAMINATION GENERAL: The patient no acute distress. VITAL SIGNS: Current Vital signs temperature 97.9. Blood pressure 163/89, pulse 72, respirations 16, saturation is 96% on 2 meters. HEENT: PERRLA, EOMI. Pupils equal, round, reactive. NECK: Supple. Trachea midline. CHEST: Bilateral expansion, clear. HEART: S1-S2 regular rhythm. ABDOMEN: Soft. Mild diffuse tenderness. No rebound or guarding. Evidence of healed surgical scars with the exception of proximal 1 cm epigastric area with appearance of likely VAC sponge in place, small. Distal periumbilical noted be to 2.0 x 2.0 x 1.5 cm that is chronic drainage, evidence of exposed mesh with tack. No evidence of cellulitis, erythema. EXTREMITIES: Warm, well-perfused. No edema. VASCULAR: 2+ pulses all extremities. NEUROLOGIC: GCS of 15, alert and oriented times four. Moving all extremities. INTEGUMENT: Dry. Flaky. PSYCHIATRIC: Good insight. Good judgment. LABORATORY AND DIAGNOSTIC DATA WBC 8.7, hemoglobin 9.4, hematocrit 28.7, platelets 420. Sodium 148, potassium 4, chloride 108, BUN 19, creatinine 0.99, calcium 8.5. Coagulation INR 1. IMAGING CT reviewed by myself, no acute obstruction or pathological process noted. The anterior abdominal wall mesh, no evidence of abscess cavity, multiple radiopaque surgical packs noted. ASSESSMENT The patient is 60, complex medical / surgical history, history of gastric bypass, multiple surgeries, history of laparoscopic mesh placement with concern for history of wound infection with chronic draining sinus wound. PLAN After full clinical, radiologic and laboratory workup, the patient with the above issue. The patient does currently have a chronic tract sinus draining wound. This wound does not appear to be completely intraperitoneal. It appears likely the result of foreign body, synthetic mesh, that is in place with tackers. At this point recommend continued medical therapy. Recommend to stop smoking due to contributes to poor wound healing. Further the patient may warrant extraction of foreign body synthetic mesh, however, this was discussed with the patient in detail, but this would not be an easy task. Mesh is likely to be the nidus of infection but probably intimately adhered and very scarred in. The patient appeared to have significant amount of adhesions with small bowel in very close proximity. Therefore again would not be an easy task, however, wound would likely be difficult to heal potentially with leaving mesh in place. At this point recommend possible antibiotics if any leukocytosis or cellulitis or fevers. Would recommend obtaining previous operative reports to further evaluate the patient's surgical abdomen. We will continue to follow and address the situation. MD ELLIOTT Amaral/JUNE /10:13 AM /5:17 PM
[2016-09-30] MEDS ORDERED: METOPROLOL TARTRATE 25 MG TAB PO SCH (21:00)
[2016-09-30] MEDS: ZOLPIDEM TARTRATE 5 MG TAB PO PRN (23:05)
[2016-10-01] VITALS (8 sets, daily range): BP systolic 148–198; BP diastolic 70–91; PULSE 72–126; RESP 18–22; TEMP 97.7–99.2; O2SAT 90–97
[2016-10-01] MEDS: oxyCODONE/ACETAMINOPHEN 5 MG/325 MG TAB PO PRN ×3 (04:37→21:48)
[2016-10-01] MEDS: hydrALAZINE HCL 20 MG/ML VIAL IV PRN (04:38)
[2016-10-01 05:13] LABS: AUTOMATED NEUTROPHIL # 5.6 TH/MM3 (1.8-7.7); BASOPHIL # 0.1 TH/MM3 (0-0.2); BASOPHIL % 1.2 % (0.0-2.0); EOSINOPHIL # 0.2 TH/MM3 (0-0.4); EOSINOPHIL % 2.5 % (0.0-4.0); HEMATOCRIT 28.4 % (39.0-51.0); HEMO FLAGS DIFF FINAL; LYMPH % 20.8 % (9.0-44.0); LYMPHOCYTE # 1.9 TH/MM3 (1.0-4.8); MEAN CELL VOLUME 87.2 FL (80.0-100.0); MEAN CORPUSCULAR HEMOGLOBIN 29.6 PG (27.0-34.0); MEAN CORPUSCULAR HGB CONC 33.9 % (32.0-36.0); MONO % 15.2 % (0.0-8.0); NEUT % 60.3 % (16.0-70.0); PLATELET COUNT 454 TH/MM3 (150-450); RED BLOOD COUNT 3.26 MIL/MM3 (4.50-5.90); RED CELL DISTRIBUTION WIDTH 17.3 % (11.6-17.2); WHITE BLOOD COUNT 9.3 TH/MM3 (4.0-11.0)
[2016-10-01 05:23] LABS: ALKALINE PHOSPHATASE 69 U/L (45-117); ALT (GPT) 20 U/L (12-78); ANION GAP 8 MEQ/L (5-15); AST (GOT) 14 U/L (15-37); BICARBONATE 24.8 MEQ/L (21.0-32.0); BLOOD UREA NITROGEN 19 MG/DL (7-18); CHLORIDE 109 MEQ/L (98-107); GLOMERULAR FILTRATION RATE 80 ML/MIN (>89); POTASSIUM 3.6 MEQ/L (3.5-5.1); SODIUM (NA) 142 MEQ/L (136-145); TOTAL BILIRUBIN ADULT 0.3 MG/DL (0.2-1.0)
[2016-10-01] MEDS: LEVOTHYROXINE SODIUM 100 MCG TAB PO SCH (05:41)
[2016-10-01] MEDS: INSULIN ASPART SUPPLEMENTAL SCALE SQ SCH ×4 (05:43→20:34)
[2016-10-01] MEDS: CARVEDILOL 3.125 MG TAB PO SCH ×2 (10:03→21:48)
[2016-10-01] MEDS: SODIUM CHLORIDE 0.9% FLUSH 10 ML FLUSH IV FLUSH SCH ×2 (10:03→21:00)
[2016-10-01] MEDS: LISINOPRIL 20 MG TAB PO SCH (10:03)
[2016-10-01] MEDS: ONDANSETRON HCL 4 MG/2 ML VIAL IV PUSH PRN ×2 (12:33→21:49)
[2016-10-01] MEDS: ZOLPIDEM TARTRATE 5 MG TAB PO PRN (21:48)
[2016-10-02] VITALS (9 sets, daily range): BP systolic 129–170; BP diastolic 64–90; PULSE 71–89; RESP 18–19; TEMP 98.3–99.8; O2SAT 92–94
[2016-10-02] MEDS: LEVOTHYROXINE SODIUM 100 MCG TAB PO SCH (04:42)
[2016-10-02] MEDS: oxyCODONE/ACETAMINOPHEN 5 MG/325 MG TAB PO PRN ×3 (04:42→22:22)
[2016-10-02] MEDS: INSULIN ASPART SUPPLEMENTAL SCALE SQ SCH ×4 (05:54→21:31)
--- NOTE | 2016-10-02 08:16 | HHI.PR ---
Subjective History of Present Illness Patient feel better have drainage from anterion abdominal waal on Bactrim and clindamycin surgery input noted.. Review of Systems Constitutional Constitutional: Fatigue, Weakness Integumentary Skin Remarks wound and pus drainage from anterior abdominal wall. Vitals/Results Intake & Output 10/01/16 10/01/16 10/02/16 15:00 23:00 07:00 Intake Total 480 ml 482 ml 240 ml Output Total 400 ml 200 ml 200 ml Balance 80 ml 282 ml 40 ml Intake Oral 480 ml 480 ml 240 ml IV Total 2 ml Output Urine Total 400 ml 200 ml 200 ml # Bowel Movements 0 1 Vital Signs Vital Signs Date Time Temp Pulse Resp B/P Pulse Ox O2 Delivery O2 Flow Rate FiO2 10/02/16 04:00 98.9 73 18 158/83 94 10/02/16 00:00 99.8 78 18 157/79 93 10/01/16 21:38 126 10/01/16 21:38 Nasal Cannula 2.00 10/01/16 20:00 97.7 72 20 163/91 94 10/01/16 20:00 88 10/01/16 16:00 2.00 10/01/16 16:00 99.2 79 18 148/70 91 10/01/16 12:00 2.00 10/01/16 12:00 98.9 96 18 157/72 90 10/01/16 10:00 72 CBC/BMP: 10/01/16 0447 10/01/16 0447 Physical Exam General General Appearance: No Acute Distress, Comfortable Eyes Eye Exam: Pupils Equal, Pupils Reactive, Sclera White, Extraocular Movement Intact Throat Throat Exam: Oral Mucosa [place] & Moist, Oral Pharynx Normal Neck Neck Exam: Neck Supple, Trachea Midline Pulmonary Resp Exam: Clear Bilaterally, Breath Sounds Equal Cardiology CV Exam: Regular, Normal Sinus Rhythm Gastrointestinal/Abdomen GI Exam: Soft, Non-Tender, Bowel Sounds Present Musculoskeletal MS Exam: Normal Tone Integumentary Skin Exam: Warm, Dry Neurologic Neuro Exam: Alert, Awake, Oriented, Speech Clear, Moving All Extremities, No Focal Deficits Psychiatric Psych Exam: Appropriate Responses VTE Prophylaxis VTE Prophylaxis Meds: Heparin PUD Prophylasis PUD Prophylaxis: Protonix Assessment/Plan Problem List: (1) Hypertensive urgency (2) Chest pain (3) Abdominal pain (4) Open abdominal wall wound (5) Anemia (6) DM (diabetes mellitus) (7) Moderate protein-calorie malnutrition (8) Weight loss Assessment/Plan Assessment and Plan (1) Hypertensive urgency (2) Chest pain (3) Abdominal pain (4) Open abdominal wall wound (5) Anemia (6) DM (diabetes mellitus) (7) Moderate protein-calorie malnutrition (8) Weight loss Assessment and Plan 60 year-old male who presents to [facility] complaining of chronic abdominal pain which had intensified in the past few days. Patient also complains of increased discharge from an anterior abdominal wound. Monitor on telemetry EKG on admission and reviewed by me shows sinus rhythm at 62 bpm, right bundle branch block, left anterior vesicular block, however no ST-T changes suggestive of active ischemia. The anterior cardiac enzymes and serial EKGs. Initial troponin negative. general surgery evaluation of the open anterior abdominal wound and drainage noted. on insulin NovoLog and monitor Accu-Cheks for diabetes. check iron studies and stool guaiac. Moderate protein calorie malnutrition. Checked CT chest for abnormality observed on chest x-ray and given the fact that the patient is a heavy smoker. Checked CT abdomen and pelvis to assess for drainage and abdominal pain rule out collection. Advises smoking cessation. Will place on nicotine patch. We'll consult dietitian for weight loss and moderate protein, malnutrition with an albumin of 2.1. physical therapy Discussed Condition with: Patient Problem Qualifiers (1) Anemia: Qualified Code: D64.9 - Anemia, unspecified type (2) DM (diabetes mellitus): Qualified Code: E11.8 - Type 2 diabetes mellitus with complication, without long-term current use of insulin John Etienne MD Oct 02, 2016 08:16
--- NOTE | 2016-10-02 08:16 | HHI.PR ---
Subjective History of Present Illness Patient SEEN ON 10/01/16 Patient feel better have BP better.. Review of Systems Constitutional Constitutional: Fatigue, Weakness Vitals/Results Intake & Output 10/01/16 10/01/16 10/02/16 15:00 23:00 07:00 Intake Total 480 ml 482 ml 240 ml Output Total 400 ml 200 ml 200 ml Balance 80 ml 282 ml 40 ml Intake Oral 480 ml 480 ml 240 ml IV Total 2 ml Output Urine Total 400 ml 200 ml 200 ml # Bowel Movements 0 1 Vital Signs Vital Signs Date Time Temp Pulse Resp B/P Pulse Ox O2 Delivery O2 Flow Rate FiO2 10/02/16 04:00 98.9 73 18 158/83 94 10/02/16 00:00 99.8 78 18 157/79 93 10/01/16 21:38 126 10/01/16 21:38 Nasal Cannula 2.00 10/01/16 20:00 97.7 72 20 163/91 94 10/01/16 20:00 88 10/01/16 16:00 2.00 10/01/16 16:00 99.2 79 18 148/70 91 10/01/16 12:00 2.00 10/01/16 12:00 98.9 96 18 157/72 90 10/01/16 10:00 72 CBC/BMP: 10/01/16 0447 10/01/16 0447 Physical Exam General General Appearance: No Acute Distress, Comfortable Eyes Eye Exam: Pupils Equal, Pupils Reactive, Sclera White, Extraocular Movement Intact Throat Throat Exam: Oral Mucosa [place] & Moist Neck Neck Exam: Neck Supple, Trachea Midline Pulmonary Resp Exam: Clear Bilaterally, Breath Sounds Equal Cardiology CV Exam: Regular, Normal Sinus Rhythm Gastrointestinal/Abdomen GI Exam: Soft, Non-Tender, Bowel Sounds Present Musculoskeletal MS Exam: Normal Tone Integumentary Skin Exam: Warm, Dry Neurologic Neuro Exam: Alert, Awake, Oriented, Speech Clear, Moving All Extremities, No Focal Deficits Psychiatric Psych Exam: Appropriate Responses VTE Prophylaxis VTE Prophylaxis Meds: Heparin PUD Prophylasis PUD Prophylaxis: Protonix Assessment/Plan Problem List: (1) Hypertensive urgency (2) Chest pain (3) Abdominal pain (4) Open abdominal wall wound (5) Anemia (6) DM (diabetes mellitus) (7) Moderate protein-calorie malnutrition (8) Weight loss Assessment/Plan Assessment and Plan (1) Hypertensive urgency (2) Chest pain (3) Abdominal pain (4) Open abdominal wall wound (5) Anemia (6) DM (diabetes mellitus) (7) Moderate protein-calorie malnutrition (8) Weight loss Assessment and Plan 60 year-old male who presents to [facility] complaining of chronic abdominal pain which had intensified in the past few days. Patient also complains of increased discharge from an anterior abdominal wound. Patient states today he had sudden onset chest pain. Found to have very elevated blood pressure and started on nitroglycerin drip with emergency department physician. Monitor on telemetry EKG on admission and reviewed by me shows sinus rhythm at 62 bpm, right bundle branch block, left anterior vesicular block, however no ST-T changes suggestive of active ischemia. The anterior cardiac enzymes and serial EKGs. Initial troponin negative. consulted general surgery for evaluation of the open anterior abdominal wound and drainage observed. on insulin NovoLog and monitor Accu-Cheks for diabetes. Last hemoglobin A1c obtained on June 2016 check iron studies and stool guaiac. Moderate protein calorie malnutrition. Checked CT chest for abnormality observed on chest x-ray and given the fact that the patient is a heavy smoker. Checked CT abdomen and pelvis to assess for drainage and abdominal pain rule out collection. Advises smoking cessation. Will place on nicotine patch. We'll consult dietitian for weight loss and moderate protein, malnutrition with an albumin of 2.1. physical therapy Discussed Condition with: Patient Problem Qualifiers (1) Anemia: Qualified Code: D64.9 - Anemia, unspecified type (2) DM (diabetes mellitus): Qualified Code: E11.8 - Type 2 diabetes mellitus with complication, without long-term current use of insulin John Etienne MD Oct 02, 2016 08:16 John Etienne MD Oct 02, 2016 08:16
[2016-10-02] MEDS: CARVEDILOL 3.125 MG TAB PO SCH ×2 (08:38→21:30)
[2016-10-02] MEDS: SODIUM CHLORIDE 0.9% FLUSH 10 ML FLUSH IV FLUSH SCH ×2 (08:38→21:00)
[2016-10-02] MEDS: LISINOPRIL 20 MG TAB PO SCH (08:38)
[2016-10-02] MEDS: SULFAMETHOXAZOLE-TRIMETHOPRIM DS 800-160 MG TAB PO SCH (13:52)
[2016-10-02] MEDS: CLINDAMYCIN 150 MG CAP PO SCH ×2 (13:52→21:30)
--- NOTE | 2016-10-02 15:50 | HHI.PR ---
Subjective Subjective Notes Not concerned with wound since it has been there for so long Asking to go home Objective Vitals/I&O Vital Signs Date Time Temp Pulse Resp B/P Pulse Ox O2 Delivery O2 Flow Rate FiO2 10/02/16 14:03 158/90 10/02/16 13:40 71 10/02/16 12:15 98.8 18 94 10/02/16 09:02 Room Air 10/01/16 21:38 2.00 Cardiovascular: Regular Lungs: Clear Abdomen: Other (soft; non tender; proximal epigastric opening with wound vav material in; smaller distal umbilical open wound currently without drainage ) Extremities: No edema A/P Assessment and Plan 60 year old male with chronic non healing abdominal wounds -Suggest local wound care for open wounds -Non operative treatment at this point -Follow up with Dr. Dumont in 2-3 weeks for evaluation of debridement in the future once more medically stable Attending Statement denies pain or fevers patient seen and discussed with patient at bedside local wound care follow up as out pt Attestation The exam, history, and the medical decision-making described in the above note were completed with the assistance of the mid-level provider. I reviewed and agree with the findings presented. I attest that I had a [id number] encounter with the patient on the same day, and personally performed and documented my assessment and findings in the medical record. Xiao Hernandez Oct 02, 2016 15:50 Ankush Dumont MD Oct 21, 2016 14:42
[2016-10-03 00:24] VITALS: BP 157/74; PULSE 77; RESP 19; TEMP 98.3; O2SAT 93
[2016-10-03] MEDS: CLINDAMYCIN 150 MG CAP PO SCH ×3 (01:00→14:42)
[2016-10-03] MEDS: SULFAMETHOXAZOLE-TRIMETHOPRIM DS 800-160 MG TAB PO SCH ×2 (01:00→14:42)
[2016-10-03 04:37] VITALS: BP 167/74; PULSE 68; RESP 19; TEMP 98.8; O2SAT 93
[2016-10-03] MEDS: LEVOTHYROXINE SODIUM 100 MCG TAB PO SCH (06:11)
[2016-10-03] MEDS: oxyCODONE/ACETAMINOPHEN 5 MG/325 MG TAB PO PRN ×2 (06:11→14:43)
[2016-10-03] MEDS: INSULIN ASPART SUPPLEMENTAL SCALE SQ SCH ×3 (06:12→17:06)
[2016-10-03 08:04] VITALS: BP 157/76; PULSE 82; RESP 19; TEMP 98.5; O2SAT 94
--- NOTE | 2016-10-03 08:27 | HHI.PR ---
Subjective History of Present Illness Patient feel better have drainage from anterion abdominal waal on Bactrim and clindamycin surgery input noted.. ok to DC home today. Review of Systems Constitutional Constitutional: Fatigue, Weakness Integumentary Skin Remarks wound and pus drainage from anterior abdominal wall. Vitals/Results Intake & Output 10/02/16 10/02/16 10/03/16 15:00 23:00 07:00 Intake Total 480 ml Output Total 400 ml 100 ml 300 ml Balance 80 ml -100 ml -300 ml Intake Oral 480 ml Output Urine Total 400 ml 100 ml 300 ml # Bowel Movements 1 Vital Signs Vital Signs Date Time Temp Pulse Resp B/P Pulse Ox O2 Delivery O2 Flow Rate FiO2 10/03/16 08:04 98.5 82 19 157/76 94 10/03/16 06:51 16 10/03/16 04:37 98.8 68 19 167/74 93 10/03/16 00:24 98.3 77 19 157/74 93 10/02/16 21:30 Room Air 10/02/16 20:46 98.3 77 19 162/64 94 10/02/16 20:15 73 10/02/16 16:17 99.0 89 19 129/73 92 10/02/16 14:03 158/90 10/02/16 13:40 71 10/02/16 12:15 98.8 72 18 170/84 94 10/02/16 09:02 Room Air 10/02/16 08:36 98.9 74 18 142/74 92 CBC/BMP: 10/01/16 0447 10/01/16 0447 Physical Exam General General Appearance: No Acute Distress, Comfortable Eyes Eye Exam: Pupils Equal, Pupils Reactive, Sclera White, Extraocular Movement Intact Throat Throat Exam: Oral Mucosa [place] & Moist, Oral Pharynx Normal Neck Neck Exam: Neck Supple, Trachea Midline Pulmonary Resp Exam: Clear Bilaterally, Breath Sounds Equal Cardiology CV Exam: Regular, Normal Sinus Rhythm Gastrointestinal/Abdomen GI Exam: Soft, Non-Tender, Bowel Sounds Present Musculoskeletal MS Exam: Normal Tone Integumentary Skin Exam: Warm, Dry Neurologic Neuro Exam: Alert, Awake, Oriented, Speech Clear, Moving All Extremities, No Focal Deficits Psychiatric Psych Exam: Appropriate Responses VTE Prophylaxis VTE Prophylaxis Meds: Heparin PUD Prophylasis PUD Prophylaxis: Protonix Assessment/Plan Problem List: (1) Hypertensive urgency (2) Chest pain (3) Abdominal pain (4) Open abdominal wall wound (5) Anemia (6) DM (diabetes mellitus) (7) Moderate protein-calorie malnutrition (8) Weight loss Assessment/Plan Assessment and Plan (1) Hypertensive urgency (2) Chest pain (3) Abdominal pain (4) Open abdominal wall wound (5) Anemia (6) DM (diabetes mellitus) (7) Moderate protein-calorie malnutrition (8) Weight loss Assessment and Plan 60 year-old male who presents to [facility] complaining of chronic abdominal pain which had intensified in the past few days. Patient also complains of increased discharge from an anterior abdominal wound. Monitor on telemetry EKG on admission and reviewed by me shows sinus rhythm at 62 bpm, right bundle branch block, left anterior vesicular block, however no ST-T changes suggestive of active ischemia. The anterior cardiac enzymes and serial EKGs. Initial troponin negative. general surgery evaluation of the open anterior abdominal wound and drainage noted. on insulin NovoLog and monitor Accu-Cheks for diabetes. check iron studies and stool guaiac. Moderate protein calorie malnutrition. Checked CT chest for abnormality observed on chest x-ray and given the fact that the patient is a heavy smoker. Checked CT abdomen and pelvis to assess for drainage and abdominal pain rule out collection. Advises smoking cessation. Will place on nicotine patch. We'll consult dietitian for weight loss and moderate protein, malnutrition with an albumin of 2.1. physical therapy ok to DC home today. f/u with PCP/ Surgery 1 week. Discussed Condition with: Patient Problem Qualifiers (1) Anemia: Qualified Code: D64.9 - Anemia, unspecified type (2) DM (diabetes mellitus): Qualified Code: E11.8 - Type 2 diabetes mellitus with complication, without long-term current use of insulin John Etienne MD Oct 03, 2016 08:27
[2016-10-03] MEDS: SODIUM CHLORIDE 0.9% FLUSH 10 ML FLUSH IV FLUSH SCH (08:54)
[2016-10-03] MEDS: LISINOPRIL 20 MG TAB PO SCH (08:55)
[2016-10-03] MEDS: CARVEDILOL 3.125 MG TAB PO SCH (08:55)
--- NOTE | 2016-10-03 09:36 | HHI.FF ---
Face to Face Verification Diagnosis: (1) Open abdominal wall wound Home Health Nursing Order: Wound care and dressing changes Instructions: 0.25% Dakin soaked gauze in open (superior) abdominal wound---change daily; may shower between dressing changes I have seen patient Carlito Baltazar on 10/03/16. My clinical findings support the need for the requested home health care services because: Limited ability to care for self High risk of falls I certify that my clinical findings support that this patient is homebound because: Unsteady gait/balance Xiao Hernandez Oct 03, 2016 09:35
[2016-10-03] MEDS ORDERED: SODIUM HYPOCHLORITE 0.25% 500 ML BTL TOPICAL SCH (09:45)
[2016-10-03 11:42] VITALS: BP 167/79; PULSE 63; RESP 16; TEMP 98.9; O2SAT 93
[2016-10-03 12:08] VITALS: BP 159/77; PULSE 64; RESP 18; TEMP 98.7; O2SAT 94
[2016-10-03 15:09] VITALS: BP 165/79; PULSE 67; RESP 18; TEMP 98.5; O2SAT 94
[2016-10-03] MEDS ORDERED: LISI-515 PO (18:56)
[2016-10-03] MEDS ORDERED: CARV3.125 PO (18:56)
[2016-10-03] MEDS ORDERED: CLIN150 PO (18:56)
[2016-10-03] MEDS ORDERED: BACT800T5 PO (18:56)
--- NOTE | 2016-10-15 18:35 | MD ---
cc: JOHN SAGE MD ADMISSION DATE: 09/29/2016 DISCHARGE DATE: 10/03/2016 Okay to discharge patient home. Condition at the time of discharge satisfactory. Activity as tolerated. Diet, cardiac diet. ALLERGIES NO KNOWN DRUG ALLERGIES. DISCHARGE MEDICATIONS 1. Coreg 3.125 mg p.o. q.12h. 2. Clindamycin 300 mg p.o. q.6-hour. 3. Lisinopril 20 mg p.o. daily. 4. Metoprolol 25 mg p.o. b.i.d. The patient advised to follow with PCP and general surgery in one week. ADMISSION DIAGNOSIS Hypertensive urgency. DISCHARGE DIAGNOSES 1. Hypertensive urgency improved. 2. Chest pain, resolved. 3. Abdominal wound. Surgery seeing the patient and needs to follow up with surgery and have procedure done to remove the mesh. 4. Anemia. 5. Diabetes mellitus. 6. Moderate protein calorie malnutrition. 7. . HOSPITAL COURSE This is a 60-year-old male admitted with hypertensive urgency. The patient was given blood pressure medicine. The patient remained stable. The patient was seen by general surgery for anterior abdominal wall wound. The patient remained stable. No acute event happened. The patient's CT abdomen shows no acute finding in the abdominal pelvis. The patient's CT brain does not show anything acute. CT chest done shows chronic benign appearing pleural thickening on the right and minimal right base lung scarring. Chest x-ray was done shows developing right infrahilar air space process. Stable hyperinflation of both lungs. Possible chronic rotator cuff injury of the right. The patient discharged in satisfactory condition. The patient had anemia with hemoglobin of 9.6, glucose of 160. The patient's total protein 6.0 low; albumin 2.6 low. Troponin I less than 0.02 x2. Urinalysis done shows protein 30 high, specific gravity 1.050. PT 10.9, INR 1.0, APTT 25.4. Please see the further details in the medical record. John Sage MD EA/JUNE /1:39 PM /6:19 PM
== END 2016-10-03 20:55 | disposition home or self-care (01) | DRG 305 ==
LOC: NEPC 11:41 → NEDA 14:03 → NEDH 17:05 → N04B 09-30 12:25
PROVIDERS: ADMIT Family Medicine; ATTEND Family Medicine
DX: I16.0 Hypertensive urgency (principal); N17.9 Acute kidney failure, unspecified; E44.0 Moderate protein-calorie malnutrition; Z99.81 Dependence on supplemental oxygen; J44.9 Chronic obstructive pulmonary disease, unspecified; T81.31XD Disruption of external operation (surgical) wound, not elsewhere classified, subsequent encounter; I10 Essential (primary) hypertension; K21.9 Gastro-esophageal reflux disease without esophagitis; E07.9 Disorder of thyroid, unspecified; D64.9 Anemia, unspecified; R51 Headache; G89.29 Other chronic pain; M54.9 Dorsalgia, unspecified; E03.9 Hypothyroidism, unspecified; Z98.84 Bariatric surgery status; I73.9 Peripheral vascular disease, unspecified; Z79.891 Long term (current) use of opiate analgesic; F17.210 Nicotine dependence, cigarettes, uncomplicated; Z87.11 Personal history of peptic ulcer disease; Z79.4 Long term (current) use of insulin
CPT/HCPCS: 70450; 71010; 71260; 74177; 80048; 80053; 80061; 81001; 82550; 82728; 82948; 83540; 83550; 83735; 84244; 84484; 85025; 85610; 85730; 93005; 96365; 96375; J0360; J1815; J1956; J2270; J2405; Q9963; Q9967

== ENCOUNTER 2016-10-07 23:55 | Inpatient (IN) | payer BC, OTHER ==
[~2016-10-07] VITALS: Ht 180.3 cm; Wt 56.0 kg
[~2016-10-07 23:55] MED LIST changes: +BACT800T5 PO; +CARV3.125 PO; +CLIN150 PO; -DIFL200T PO; +LISI-515 PO; -LISI10TA3 PO; -METR-1 PO; -OXYC1TAB63 PO; -PANT40TA3 PO
[2016-10-08] VITALS (13 sets, daily range): BP systolic 131–164; BP diastolic 61–91; PULSE 58–82; RESP 15–20; TEMP 97.4–98.6; O2SAT 94–100
[2016-10-08] MEDS ORDERED: SODIUM CHLORIDE 0.9% FLUSH 10 ML FLUSH IVF PRN ×2 (00:30→04:30)
[2016-10-08] MEDS ORDERED: TEMA7.5C PO (01:07)
[2016-10-08] MEDS ORDERED: PERC10TA27 PO (01:07)
[2016-10-08 01:12] LABS: CHLORIDE 106 MEQ/L (98-107); SODIUM (NA) 139 MEQ/L (136-145)
[2016-10-08 01:15] LABS: ANION GAP 10 MEQ/L (5-15); BICARBONATE 23.3 MEQ/L (21.0-32.0); MAGNESIUM 2.1 MG/DL (1.5-2.5)
[2016-10-08 01:16] LABS: BLOOD UREA NITROGEN 29 MG/DL (7-18)
[2016-10-08 01:18] LABS: ALT (GPT) 19 U/L (12-78)
[2016-10-08 01:19] LABS: AST (GOT) 25 U/L (15-37); GLOMERULAR FILTRATION RATE 52 ML/MIN (>89)
[2016-10-08 01:20] LABS: TOTAL BILIRUBIN ADULT 0.2 MG/DL (0.2-1.0)
[2016-10-08 01:21] LABS: ALKALINE PHOSPHATASE 98 U/L (45-117)
[2016-10-08 01:27] LABS: AUTOMATED NEUTROPHIL # 5.7 TH/MM3 (1.8-7.7); BASOPHIL # 0.2 TH/MM3 (0-0.2); BASOPHIL % 1.8 % (0.0-2.0); EOSINOPHIL # 0.4 TH/MM3 (0-0.4); EOSINOPHIL % 4.1 % (0.0-4.0); HEMATOCRIT 31.5 % (39.0-51.0); LYMPH % 23.9 % (9.0-44.0); LYMPHOCYTE # 2.4 TH/MM3 (1.0-4.8); MEAN CELL VOLUME 88.8 FL (80.0-100.0); MEAN CORPUSCULAR HEMOGLOBIN 28.7 PG (27.0-34.0); MEAN CORPUSCULAR HGB CONC 32.3 % (32.0-36.0); NEUT % 59.2 % (16.0-70.0); PLATELET COUNT 453 TH/MM3 (150-450); RED BLOOD COUNT 3.54 MIL/MM3 (4.50-5.90); RED CELL DISTRIBUTION WIDTH 17.3 % (11.6-17.2); WHITE BLOOD COUNT 9.8 TH/MM3 (4.0-11.0)
[2016-10-08 01:28] LABS: POTASSIUM 5.3 MEQ/L (3.5-5.1)
[2016-10-08 01:29] LABS: HEMO FLAGS DIFF FINAL
--- NOTE | 2016-10-08 01:33 | RADHPO ---
EXAM DATE/TIME: 10/08/2016 01:08 [place] COMPARISON: CT THORAX W CONTRAST, September 29, 2016, 20:36. CHEST SINGLE AP, September 29, 2016, 11:57. INDICATIONS : Shortness of breath and general weakness. MEDICAL HISTORY : Hypertension. Chronic obstructive pulmonary disease. Gastroesophageal reflux disease. Diabetes SURGICAL HISTORY : Gastric bypass. Cholecystectomy.Right hip surgery ENCOUNTER: Initial ACUITY: 1 day PAIN SCORE: 3/10 LOCATION: Bilateral chest FINDINGS: Portable AP view of the chest demonstrates a normal-sized cardiac silhouette. No effusion, consolidat ion, or pneumothorax is visualized. The bones and soft tissues demonstrate no acute abnormality. The inferior right hemithorax is not fully visualized. CONCLUSION: No acute cardiopulmonary abnormality is identified given the technique. Levar Aguayo MD on October 08, 2016 at 1:30 Board Certified Radiologist. This report was verified electronically.
[2016-10-08 02:29] LABS: BLOOD, URINE NEG (NEG); GLUCOSE,URINE NEG (NEG); KETONE, URINE NEG (NEG); NITRITE,URINE NEG (NEG); PH, URINE 5.5 (5.0-8.5)
[2016-10-08 02:56] LABS: METHOD OF COLLECTION VOIDED
[2016-10-08 02:57] LABS: COMMENT (UR) CULT NOT INDICATED; CULTURE IF INDICATED CULT NOT INDICATED; MUCUS URINE RARE /lpf (OCC); RBC, URINE 0-3 /hpf (0-3); SQUAMOUS EPITHELIAL CELL URINE 0-5 /hpf (0-5); URINE COLOR YELLOW (YELLW/STRAW)
[2016-10-08] MEDS ORDERED: SODIUM CHLORID 0.9% 500 ML INJ 500 ML IV ONE (03:15)
--- NOTE | 2016-10-08 03:47 | PD ---
HPI Chief Complaint: General Weakness Time Seen by Provider: 00:33 Travel History International Travel<30 days: No Contact w/Intl Traveler<30days: No Traveled to known affect area: No History of Present Illness HPI 60-year-old male presents to the emergency department by EMS transportation from home because EMS reports that they have had to respond to his house at least 7 times this month for issues with generalized weakness and recurrent falls. Because of this today when they responded to his home because he had fallen and he was having generalized weakness and could not get up on his own and they decided to force him to come to the emergency room for evaluation. Patient has multiple medical issues and multiple strokes complaints but here only states that he's had ongoing generalized weakness and his primary care provider is aware of this and has arranged for him to start physical therapy on Sunday. Patient uses a walker to get around at home. Patient denies any change in dietary intake or activity. Patient denies any change in medications. Past history is significant for hypertension peptic ulcer disease COPD diabetes chronic back pain hypothyroidism anemia peripheral vascular disease chronic narcotic use and previous gastric bypass with multiple revisions resection of gastric ulcers and complications associated with previous surgery including partial pancreatectomy splenectomy cholecystectomy and ventral hernia repair with mesh. Patient was recently hospitalized recently for accelerated/hypertensive crisis. Patient required management with nitroglycerin infusion patient is also noted to have evidence of an open gastric wound with herniorrhaphy repair of ventral hernia as recently as 2016 laparoscopically with mesh and tacking placement apparently at the time of the herniorrhaphy he did have a wound infection and required a wound fact and is dull with chronic wound issues of the abdominal wall. With his last admission general surgery was consult to and recommended antibiotic therapy and patient was reportedly discharged with prescription for oral antibiotic clindamycin and Bactrim. Patient here does not report any complaint of fever or chills. Patient's had no nausea or vomiting. Patient reports he has his chronic abdominal pain but does not report any issues with his recently managed wound infection. Patient was considered to not be a good surgical candidate and it was felt that perhaps the complexity of the surgery would not yield a good outcome. Patient reports that he lives with at home with his mother however yesterday she was admitted to the hospital for chest pain center today he was home alone and she normally assist him with his medications and with getting around the house. Patient denies any head injury with fall today no loss of consciousness no neck pain no new back pain and new chest pain no new abdominal pain no new pelvis pain and no new extremity injury or weakness. Patient reports since being home from the hospital his strength is not as good as it had been and that again is why he is scheduled to have home physical therapy beginning on Sunday. PFSH Past Medical History Hx Anticoagulant Therapy: No Arthritis: Yes Asthma: No Autoimmune Disease: No Anxiety: No Depression: No Heart Rhythm Problems: No Cancer: No Cardiovascular Problems: Yes (HTN) High Cholesterol: No Chest Pain: No Congestive Heart Failure: No COPD: Yes Diabetes: Yes Patient Takes Glucophage: No Diminished Hearing: No Endocrine: Yes Gastrointestinal Disorders: Yes GERD: Yes Genitourinary: No Hiatal Hernia: No Hypertension: Yes Immune Disorder: No Implanted Vascular Access Dvce: Yes Musculoskeletal: Yes Neurologic: No Psychiatric: No Reproductive: No Respiratory: Yes (COPD) Immunizations Current: Yes Sleep Apnea: No Thyroid Disease: Yes Ulcer: No Tetanus Vaccination: < 5 Years Influenza Vaccination: Yes Past Surgical History Abdominal Surgery: Yes (GASTRIC BYPASS) AICD: No Arteriovenous Shunt: No Cardiac Surgery: No Cholecystectomy: Yes Ear Surgery: No Endocrine Surgery: No Eye Surgery: No Genitourinary Surgery: Yes Gynecologic Surgery: No Insulin Pump: No Joint Replacement: Yes (LEFT KNEE) Neurologic Surgery: No Oral Surgery: No Pacemaker: No Thoracic Surgery: No Other Surgery: Yes (33 SURGERIES) Social History Alcohol Use: No Tobacco Use: Yes (2ppd) Substance Use: No Allergies-Medications (Allergen,Severity, Reaction): Coded Allergies: No Known Allergies (Unverified , 10/08/16) Reported Meds & Prescriptions Reported Meds & Active Scripts Active Lisinopril 20 Mg Tab 20 Mg PO DAILY Cleocin (Clindamycin HCl) 150 Mg Cap 300 Mg PO Q6H Coreg (Carvedilol) 3.125 Mg Tab 3.125 Mg PO Q12HR Metoprolol Tartrate 25 Mg Tab 25 Mg PO BID Reported Percocet (Oxycodone-Acetaminophen) 10-325 mg Tab 1 Tab PO Q4H PRN Temazepam 7.5 Mg Cap 7.5 Mg PO HS PRN Review of Systems Except as stated in HPI: all other systems reviewed are Neg General / Constitutional: No: Fever, Chills HENT: No: Congestion Cardiovascular: No: Chest Pain or Discomfort Respiratory: No: Shortness of Breath Gastrointestinal: Positive: Abdominal Pain (chronic-mild), No: Nausea, Vomiting Genitourinary: No: Decreased Urinary Output, Flank Pain Musculoskeletal: No: Myalgias, Arthralgias Skin: No Rash Neurologic: Positive: Weakness Psychiatric: Positive: Anxiety Hematologic/Lymphatic: No: Lymph Node Enlargement Physical Exam Narrative GENERAL: Well-developed thin male in no acute distress no respiratory distress SKIN: Warm and dry. HEAD: Normocephalic. EYES: No scleral icterus. No injection or drainage. NECK: Supple, trachea midline. No JVD or lymphadenopathy. CARDIOVASCULAR: Regular rate and rhythm without murmurs, gallops, or rubs. RESPIRATORY: Breath sounds equal bilaterally. No accessory muscle use. GASTROINTESTINAL: Abdomen soft, non-tender, evidence of healing wound sites to the midline abdomen with no purulent drainage scant serous drainage noted at the periumbilical site no redness no induration nontender to palpation patient reports "that's always there", nondistended. MUSCULOSKELETAL: No cyanosis, or edema. BACK: Nontender without obvious deformity. No CVA tenderness. Data Data Last Documented VS Vital Signs Date Time Temp Pulse Resp B/P Pulse Ox O2 Delivery O2 Flow Rate FiO2 10/08/16 03:34 66 18 158/83 100 Nasal Cannula 3 10/08/16 00:05 97.6 Orders Electrocardiogram (10/08/16 00:28) Complete Blood Count With Diff (10/08/16 00:28) Comprehensive Metabolic Panel (10/08/16 00:28) Magnesium (Mg) (10/08/16 00:28) Troponin I (10/08/16 00:28) Urinalysis - C+S If Indicated (10/08/16 00:28) Chest, Single Ap (10/08/16 00:28) Ecg Monitoring (10/08/16 00:28) Iv Access Insert/Monitor (10/08/16 00:28) Oximetry (10/08/16 00:28) Sodium Chloride 0.9% Flush (Ns Flush) (10/08/16 00:30) Sodium Chlorid 0.9% 500 Ml Inj (Ns 500 M (10/08/16 03:15) Potassium, Serum (K) (10/08/16 03:43) Admit Order (Ed Use Only) (10/08/16 ) ^ Saline Lock (10/08/16 04:24) Resp Oxygen Erickson C Titrat 1-4 L (10/08/16 ) ^ Notify Dr: Other (10/08/16 04:24) Sodium Chloride 0.9% Flush (Ns Flush) (10/08/16 09:00) Sodium Chloride 0.9% Flush (Ns Flush) (10/08/16 04:30) Labs Laboratory Tests Test 10/08/16 10/08/16 10/08/16 00:50 02:20 04:00 White Blood Count 9.8 TH/MM3 Red Blood Count 3.54 MIL/MM3 Hemoglobin 10.2 GM/DL Hematocrit 31.5 % Mean Corpuscular Volume 88.8 FL Mean Corpuscular Hemoglobin 28.7 PG Mean Corpuscular Hemoglobin 32.3 % Concent Red Cell Distribution Width 17.3 % Platelet Count 453 TH/MM3 Mean Platelet Volume 8.5 FL Neutrophils (%) (Auto) 59.2 % Lymphocytes (%) (Auto) 23.9 % Monocytes (%) (Auto) 11.0 % Eosinophils (%) (Auto) 4.1 % Basophils (%) (Auto) 1.8 % Neutrophils # (Auto) 5.7 TH/MM3 Lymphocytes # (Auto) 2.4 TH/MM3 Monocytes # (Auto) 1.1 TH/MM3 Eosinophils # (Auto) 0.4 TH/MM3 Basophils # (Auto) 0.2 TH/MM3 CBC Comment DIFF FINAL Differential Comment Sodium Level 139 MEQ/L Potassium Level 5.3 MEQ/L 4.1 MEQ/L Chloride Level 106 MEQ/L Carbon Dioxide Level 23.3 MEQ/L Anion Gap 10 MEQ/L Blood Urea Nitrogen 29 MG/DL Creatinine 1.40 MG/DL Estimat Glomerular Filtration 52 ML/MIN Rate Random Glucose 96 MG/DL Calcium Level 8.7 MG/DL Magnesium Level 2.1 MG/DL Total Bilirubin 0.2 MG/DL Aspartate Amino Transf 25 U/L (AST/SGOT) Alanine Aminotransferase 19 U/L (ALT/SGPT) Alkaline Phosphatase 98 U/L Troponin I LESS THAN 0.02 NG/ML Total Protein 6.9 GM/DL Albumin 3.2 GM/DL Urine Collection Type VOIDED Urine Color YELLOW Urine Turbidity CLEAR Urine pH 5.5 Urine Specific [place] 1.016 Urine Protein TRACE mg/dL Urine Glucose (UA) NEG mg/dL Urine Ketones NEG mg/dL Urine Occult Blood NEG Urine Nitrite NEG Urine Bilirubin NEG Urine Leukocyte Esterase NEG Urine RBC 0-3 /hpf Urine Squamous Epithelial 0-5 /hpf Cells Urine Mucus RARE /lpf Microscopic Urinalysis Comment CULT NOT INDICATED MDM Medical Decision Making Medical Screen Exam Complete: Yes Emergency Medical Condition: Yes Medical Record Reviewed: Yes Interpretation(s) EKG: sinus rhythm rate 61 left axis deviation right bundle branch block pattern with left anterior fascicular block this is essentially unchanged from prior studies no acute ST elevation or injury pattern change noted cxr: No acute disease process Vital Signs Date Time Temp Pulse Resp B/P Pulse Ox O2 Delivery O2 Flow Rate FiO2 10/08/16 03:34 66 18 158/83 100 Nasal Cannula 3 10/08/16 02:25 60 18 100 Nasal Cannula 3 10/08/16 02:25 60 18 158/83 100 Nasal Cannula 3 10/08/16 01:18 58 18 153/77 100 Nasal Cannula 3 10/08/16 00:40 18 100 Nasal Cannula 3 10/08/16 00:15 62 18 100 Nasal Cannula 3 10/08/16 00:05 97.6 62 18 131/61 100 10/08/16 00:00 89 Nasal Cannula 3 Troponin I: less than 0.02, not elevated UA: Grossly within normal range Differential Diagnosis Generalized weakness, electrolyte disturbance, weight loss, chronic pain syndrome, polypharmacy, failure to thrive, arrhythmia, ACS Narrative Course IV access obtained specimens collected and sent for resulting EKG performed Patient identified to have hemolyzed potassium and increased renal insufficiency therefore patient given IV fluid bolus for hydration and also repeat specimen collection for potassium. Patient with an attempted trial to ambulate with walker assistance in the emergency department but after short distance becomes very fatigued and reports that he feels that the fuse going to fall. The distance of walking as within less than days of his apartment where he reportedly is having frequent falls due to generalized weakness. At this time patient will be admitted for inability to care for himself and high risk for recurrent fall. [facility] as he was just discharged from the service 10/03/16. Patient unable to care for himself case was discussed with Dr. Martinez who requests patient to be admitted to Dr. Etienne as an observation. Physician Communication Physician Communication call placed to service discussed with Dr Martinez --admit to Dr Etienne Diagnosis Primary Impression: Generalized weakness Additional Impression: Renal insufficiency Admitting Information Admitting Physician Requests: Observation Karie Yost MD Oct 08, 2016 03:47
[2016-10-08] MEDS ORDERED: ACETAMINOPHEN 325 MG TAB PO PRN (04:30)
[2016-10-08] MEDS ORDERED: ONDANSETRON HCL 4 MG/2 ML VIAL IVP PRN (04:30)
[2016-10-08] MEDS ORDERED: NALOXONE HCL 0.4 MG/ML AMP IV PRN (04:30)
[2016-10-08] MEDS ORDERED: SODIUM CHLORIDE 0.9% FLUSH 10 ML FLUSH IV FLUSH PRN (04:30)
[2016-10-08] MEDS: HEPARIN SODIUM - SQ 10,000 UNITS/ML VIAL SQ SCH ×2 (05:10→17:52)
[2016-10-08] MEDS: CLINDAMYCIN 150 MG CAP PO SCH ×4 (05:10→20:55)
[2016-10-08] MEDS: SODIUM CHLOR 0.9% 1000 ML INJ 1,000 ML IV SCH ×2 (05:10→09:01)
[2016-10-08] MEDS: oxyCODONE/ACETAMINOPHEN 10 MG/325 MG TAB PO PRN ×3 (05:16→20:56)
[2016-10-08] MEDS ORDERED: SODIUM CHLORIDE 0.9% FLUSH 10 ML FLUSH IV FLUSH SCH (09:00)
[2016-10-08] MEDS: CARVEDILOL 3.125 MG TAB PO SCH ×2 (09:32→20:59)
[2016-10-08] MEDS: SODIUM CHLORIDE 0.9% FLUSH 10 ML FLUSH IV FLUSH SCH ×2 (09:33→22:36)
[2016-10-08] MEDS ORDERED: METOPROLOL TARTRATE 25 MG TAB PO SCH (12:30)
[2016-10-08] MEDS: LISINOPRIL 20 MG TAB PO SCH (13:09)
[2016-10-08] MEDS: DOXYCYCLINE HYCLATE 100 MG TAB PO SCH ×2 (13:10→20:55)
--- NOTE | 2016-10-08 16:36 | MH ---
cc: JOHN SAGE MD DATE OF ADMISSION 10/08/2016 CHIEF COMPLAINT Generalized weakness. HISTORY OF PRESENT ILLNESS This is a 60-year-old male with past medical-surgical history significant for hypertension, arthritis, history of COPD, diabetes, gastroesophageal reflux disease, hypothyroidism, history of cholecystectomy, gastric bypass surgery, left knee surgery who came to the ER at [facility] brought by EMS transportation from home because the EMS reported that they have had to respond to the house at least seven time this month for issues with a generalized weakness and recurrent falls. Because of this today when they responded to his home because he had fallen and was having generalized weakness and could not get up on his own, they decided to force him to come to the emergency room for evaluation. The patient has multiple medical issues as dictated above. He has a history of strokes and has ongoing generalized weakness. Primary care which is id, aware of the situation and advised the patient physical therapy and will be started on Sunday. He usually uses a walker to get around the home. He denies any change in the dietary intake or activity. No change in the medication. He has chronic lower back pain, anemia, peripheral vascular disease, chronic narcotic use, previous gastric bypass surgery with multiple revisions, resection of gastric ulcer. The patient had a partial pancreatectomy, splenectomy, cholecystectomy and ventral hernia repair with mesh. The patient was recently hospitalized from 09/30 to 10/03 for accelerated hypertension crises and also has an anterior abdominal wall open wound in the anterior abdominal wall. Surgery has evaluated the patient and wants him to come after discharge for surgical intervention in the sinuses of the anterior abdominal wall wound area. Other than that the patient is not a very good historian. The patient lives at home with his mother. She was admitted to the hospital, the chest pain center yesterday who gives him medication and helps him getting around. Other than that, nothing significant. PAST MEDICAL AND SURGICAL HISTORY As dictated above. SOCIAL HISTORY Denies drinking. He is a smoker, two packs a day. Denies any drug abuse. Lives at home with mother. FAMILY HISTORY Nothing significant. ALLERGIES NO KNOWN DRUG ALLERGIES. MEDICATIONS Include: 1. Lisinopril 20 milligrams p.o. daily. 2. Clindamycin 300 mg p.o. q.6 h. 3. Coreg, 3.125 milligrams p.o. q.12h. 4. Doxycycline 100 mg p.o. twice a day. 5. Metoprolol 25 mg twice a day. 6. Percocet 10/325 q.6h p.r.n. 7. Temazepam 7.5 milligrams p.o. as needed for insomnia. REVIEW OF SYSTEMS Positive for generalized weakness. PHYSICAL EXAMINATION GENERAL: This is a 60-year-old male laying on the bed not in acute distress. VITAL SIGNS: Temperature 97.6, heart rate 78, respiration 19, blood pressure 148/86, O2 saturation 99% 2 liters nasal cannula. HEENT: Normocephalic, EOMI. PERRL. Oral mucosa moist. NECK: Supple. No visible thyromegaly or neck mass. Trachea central. CARDIOVASCULAR: Regular rate and rhythm. LUNGS: Respirations clear to auscultation bilaterally. ABDOMEN: Soft. Had a dry wound on the anterior abdominal wall. Mild tenderness. Bowel sounds audible. EXTREMITIES: No cyanosis or clubbing. Full range of motion of all extremities. NEUROLOGIC: Awake, alert, oriented x4. No focal deficits. SKIN: Warm and dry. Shows anterior abdominal wall with dry wound. PSYCHIATRIC: The patient is cooperative. LABORATORY DATA Include CBC is totally unremarkable except for RBC count 3.54, hemoglobin 10.2, hematocrit 31.5, RDW 17.3, platelet count 453. Monos 11.0 high, eosinophils 4.1 high. BMP totally unremarkable except for potassium was 5.3 now it is 4.1. BUN 29, creatinine 1.40. Troponin I less than 0.02. Total protein 6.9, albumin 3.2. Urine examination is normal. IMAGING Chest x-ray was done shows no acute cardiopulmonary abnormality identified given the technique. ASSESSMENT/PLAN This is a 60-year male who came to the ER diagnosed with: 1. Generalized weakness. Multifactorial. The patient needs physical therapy evaluation and treatment. The patient needs to be [facility] after his anterior abdominal wound. The patient is stated on clindamycin and doxycycline. 2. History of hypertension. Continue home medication. We will monitor blood pressure. 3. History of insomnia. We will monitor. 4. History of COPD. 5. History of smoking. Advised to quit. 6. History of gastroesophageal reflux disease. Protonix 40 mg p.o. daily. 7. History of gastric bypass surgery. 8. Cholecystectomy. 9. And left knee surgery. 10. DVT prophylaxis. Heparin 5000 units subcutaneous twice a day. 11. Gastrointestinal prophylaxis. Protonix 40 mg p.o. daily. We are going to manage the patient on a daily basis and make recommendations on a daily basis. John Sage MD EA/JUNE /12:22 PM /3:57 PM
[2016-10-08] MEDS: TEMAZEPAM 7.5 MG CAP PO PRN (20:55)
[2016-10-09] VITALS (8 sets, daily range): BP systolic 148–185; BP diastolic 83–108; PULSE 81–95; RESP 18–20; TEMP 96.9–99.3; O2SAT 93–99
[2016-10-09] MEDS: CLINDAMYCIN 150 MG CAP PO SCH ×4 (03:44→21:35)
[2016-10-09] MEDS: SODIUM CHLOR 0.9% 1000 ML INJ 1,000 ML IV SCH ×3 (03:44→21:36)
[2016-10-09] MEDS: HEPARIN SODIUM - SQ 10,000 UNITS/ML VIAL SQ SCH ×2 (03:45→17:19)
[2016-10-09] MEDS: oxyCODONE/ACETAMINOPHEN 10 MG/325 MG TAB PO PRN ×5 (03:45→23:37)
[2016-10-09 07:34] LABS: AUTOMATED NEUTROPHIL # 5.2 TH/MM3 (1.8-7.7); BASOPHIL # 0.1 TH/MM3 (0-0.2); EOSINOPHIL # 0.3 TH/MM3 (0-0.4); EOSINOPHIL % 3.8 % (0.0-4.0); HEMATOCRIT 28.8 % (39.0-51.0); LYMPH % 22.6 % (9.0-44.0); LYMPHOCYTE # 1.9 TH/MM3 (1.0-4.8); MEAN CELL VOLUME 88.1 FL (80.0-100.0); MEAN CORPUSCULAR HEMOGLOBIN 28.4 PG (27.0-34.0); MEAN CORPUSCULAR HGB CONC 32.3 % (32.0-36.0); MONO % 12.9 % (0.0-8.0); NEUT % 59.7 % (16.0-70.0); PLATELET COUNT 455 TH/MM3 (150-450); RED BLOOD COUNT 3.27 MIL/MM3 (4.50-5.90); RED CELL DISTRIBUTION WIDTH 16.7 % (11.6-17.2); WHITE BLOOD COUNT 8.6 TH/MM3 (4.0-11.0)
[2016-10-09 07:37] LABS: HEMO FLAGS AUTO DIFF
[2016-10-09 07:47] LABS: ALKALINE PHOSPHATASE 74 U/L (45-117); ALT (GPT) 14 U/L (12-78); ANION GAP 10 MEQ/L (5-15); AST (GOT) 13 U/L (15-37); BICARBONATE 19.7 MEQ/L (21.0-32.0); BLOOD UREA NITROGEN 17 MG/DL (7-18); CHLORIDE 115 MEQ/L (98-107); GLOMERULAR FILTRATION RATE 85 ML/MIN (>89); POTASSIUM 4.3 MEQ/L (3.5-5.1); SODIUM (NA) 145 MEQ/L (136-145); TOTAL BILIRUBIN ADULT 0.3 MG/DL (0.2-1.0)
--- NOTE | 2016-10-09 08:05 | HHI.PR ---
Subjective History of Present Illness Patient have confusion off and on check CT Brain and metabolic work up and consult neurology...d/w ANDREA Frances. Review of Systems Constitutional Constitutional: Fatigue, Weakness GI/Abdomen GI/Abdomen Remarks Anterior abdominal wall wound. Integumentary Skin Remarks Anterior abdominal wall wound. Vitals/Results Intake & Output 10/08/16 10/08/16 10/09/16 15:00 23:00 07:00 Intake Total 120 ml 1285 ml Output Total 800 ml 525 ml 700 ml Balance -800 ml -405 ml 585 ml Intake Oral 120 ml 60 ml IV Total 1225 ml Output Urine Total 800 ml 525 ml 700 ml # Voids 2 1 # Bowel Movements 2 0 Vital Signs Vital Signs Date Time Temp Pulse Resp B/P Pulse Ox O2 Delivery O2 Flow Rate FiO2 10/09/16 05:31 99.3 85 18 153/83 93 10/09/16 00:00 98.7 81 20 178/96 93 10/08/16 22:35 20 10/08/16 21:27 98 21 10/08/16 20:00 98.6 82 20 164/91 98 10/08/16 16:00 97.6 70 18 140/76 98 10/08/16 12:00 97.4 62 18 136/85 100 10/08/16 08:42 97.6 78 19 148/86 94 CBC/BMP: 10/09/16 0515 10/09/16 0515 Lab Results Laboratory Tests Test 10/09/16 05:15 White Blood Count 8.6 TH/MM3 Red Blood Count 3.27 MIL/MM3 Hemoglobin 9.3 GM/DL Hematocrit 28.8 % Mean Corpuscular Volume 88.1 FL Mean Corpuscular Hemoglobin 28.4 PG Mean Corpuscular Hemoglobin 32.3 % Concent Red Cell Distribution Width 16.7 % Platelet Count 455 TH/MM3 Mean Platelet Volume 8.5 FL Neutrophils (%) (Auto) 59.7 % Lymphocytes (%) (Auto) 22.6 % Monocytes (%) (Auto) 12.9 % Eosinophils (%) (Auto) 3.8 % Basophils (%) (Auto) 1.0 % Neutrophils # (Auto) 5.2 TH/MM3 Lymphocytes # (Auto) 1.9 TH/MM3 Monocytes # (Auto) 1.1 TH/MM3 Eosinophils # (Auto) 0.3 TH/MM3 Basophils # (Auto) 0.1 TH/MM3 CBC Comment AUTO DIFF Sodium Level 145 MEQ/L Potassium Level 4.3 MEQ/L Chloride Level 115 MEQ/L Carbon Dioxide Level 19.7 MEQ/L Anion Gap 10 MEQ/L Blood Urea Nitrogen 17 MG/DL Creatinine 0.91 MG/DL Estimat Glomerular Filtration 85 ML/MIN Rate Random Glucose 109 MG/DL Calcium Level 8.6 MG/DL Total Bilirubin 0.3 MG/DL Aspartate Amino Transf 13 U/L (AST/SGOT) Alanine Aminotransferase 14 U/L (ALT/SGPT) Alkaline Phosphatase 74 U/L Total Protein 5.8 GM/DL Albumin 2.6 GM/DL Physical Exam General General Appearance: No Acute Distress, Comfortable Eyes Eye Exam: Pupils Equal, Pupils Reactive, Sclera White, Extraocular Movement Intact Throat Throat Exam: Oral Mucosa [place] & Moist, Oral Pharynx Normal Neck Neck Exam: Neck Supple, Trachea Midline Pulmonary Resp Exam: Clear Bilaterally, Breath Sounds Equal, No Distress Cardiology CV Exam: Regular, Normal Sinus Rhythm Gastrointestinal/Abdomen GI Exam: Soft, Bowel Sounds Present GI Remarks Anterior abdominal wall wound. Integumentary Skin Exam: Warm, Dry Skin Remarks Anterior abdominal wall wound dry. Extremeties Extremities Exam: No Edema Neurologic Neuro Exam: Alert, Awake, Speech Clear, Moving All Extremities VTE Prophylaxis VTE Prophylaxis Meds: Heparin PUD Prophylasis PUD Prophylaxis: Protonix Assessment/Plan Assessment/Plan ASSESSMENT/PLAN This is a 60-year male who came to the ER diagnosed with: 1. Generalized weakness. Multifactorial. The patient getting physical therapy treatment. The patient needs to be transferred to care home care facility, anterior abdominal wall wound. The patient is on clindamycin and doxycycline. 2. History of hypertension. Continue home medication. We will monitor blood pressure. 3. History of insomnia. We will monitor. 4. History of COPD. 5. History of smoking. Advised to quit. 6. History of gastroesophageal reflux disease. Protonix 40 mg p.o. daily. 7. History of gastric bypass surgery. 8. Cholecystectomy. 9. And left knee surgery. 10. DVT prophylaxis. Heparin 5000 units subcutaneous twice a day. 11. Gastrointestinal prophylaxis. Protonix 40 mg p.o. daily. 12. Confusion off and on check CT Brain and metabolic work up and consult neurology. Check CBC with diff CMP in AM. We are going to manage the patient on a daily basis and make recommendations on a daily basis. Discussed Condition with: Patient John Etienne MD Oct 09, 2016 08:05
[2016-10-09 08:10] LABS: SCAN/DIFF AUTO DIFF CONFIRMED
[2016-10-09] MEDS: LISINOPRIL 20 MG TAB PO SCH ×2 (08:10→21:35)
[2016-10-09] MEDS: CARVEDILOL 3.125 MG TAB PO SCH (08:10)
[2016-10-09] MEDS: DOXYCYCLINE HYCLATE 100 MG TAB PO SCH ×2 (08:10→21:34)
[2016-10-09] MEDS: SODIUM CHLORIDE 0.9% FLUSH 10 ML FLUSH IV FLUSH SCH ×2 (08:11→21:37)
--- NOTE | 2016-10-09 09:16 | RADHPO ---
EXAM DATE/TIME: 10/09/2016 09:03 [facility] COMPARISON: CT BRAIN W/O CONTRAST, September 29, 2016, 16:03. INDICATIONS : Generalized weakness. Altered mental status. RADIATION DOSE: 57.58 CTDIvol (mGy) MEDICAL HISTORY : Hypertension. Chronic obstructive pulmonary disease. Gastroesophageal reflux di sease.Diabetes. SURGICAL HISTORY : Gastric bypass. Cholecystectomy.Orthopedic surgery. ENCOUNTER: Initial ACUITY: 2 days PAIN SCALE: 0/10 LOCATION: cranial TECHNIQUE: Multiple contiguous axial images were obtained of the head. Using automated exposure control and adjustment of the mA and/or kV according to patient size, radiation dose was kept as low as reasonably achievable to obtain optimal diagnostic quality images. FINDINGS: CEREBRUM: The ventricles are normal for age. No evidence of midline shift, mass lesion, hemorrha ge or acute infarction. No extra-axial fluid collections are seen. POSTERIOR FOSSA: The cerebellum and brainstem are intact. The 4th ventricle is midline. The cer ebellopontine angle is unremarkable. EXTRACRANIAL: The visualized portion of the orbits is intact. SKULL: The calvaria is intact. No evidence of skull fracture. CONCLUSION: Negative for acute process. Jeferson Allen MD FACR on October 09, 2016 at 9:14 Board Certified Radiologist. This report was verified electronically.
--- NOTE | 2016-10-09 11:25 | EKG ---
Date Performed: 10/08/2016 Time Performed: 00:04:24 PTAGE: 60 years EKG: Sinus rhythm . Left axis deviation RBBB with left anterior fascicular block Abnormal ECG PREVIOUS TRACING : 09/29/2016 11.53 DOCTOR: Armando Conner Interpretating Date/Time 10/09/2016 11:23:03
[2016-10-09 12:44] LABS: MAGNESIUM 1.8 MG/DL (1.5-2.5)
[2016-10-09 16:50] LABS: THYROXINE (T4) 9.6 MCG/DL (4.5-12.1)
[2016-10-09 17:28] LABS: FREE T4 1.45 NG/DL (0.76-1.46)
[2016-10-09 19:43] LABS: C. DIFF EPI 027 PRESUMPTIVE NEGATIVE (NEGATIVE); C. DIFF TOXIN PCR NEGATIVE (NEGATIVE)
[2016-10-09] MEDS: CARVEDILOL 12.5 MG TAB PO SCH (21:34)
[2016-10-09] MEDS: TEMAZEPAM 7.5 MG CAP PO PRN (21:35)
[2016-10-09] MEDS ORDERED: DEXTROSE 50% IN WATER 50 ML VIAL(D50) IV PUSH PRN (22:30)
[2016-10-09] MEDS ORDERED: GLUCAGON 1 MG/ML VIAL OTHER PRN (22:30)
[2016-10-09] MEDS ORDERED: LOW DOSE INSULIN NOVOLOG SUPPLEMENTAL SCALE SQ SCH (23:00)
[2016-10-10] VITALS: BP 158/91; PULSE 91; RESP 16; TEMP 98.6
[2016-10-10 01:13] LABS: BLOOD, URINE NEG (NEG); GLUCOSE,URINE 100 mg/dL (NEG); KETONE, URINE NEG (NEG); NITRITE,URINE NEG (NEG); PH, URINE 5.5 (5.0-8.5)
[2016-10-10 01:18] LABS: URINE COLOR YELLOW (YELLW/STRAW)
[2016-10-10 01:19] LABS: MUCUS URINE OCC /lpf (OCC)
[2016-10-10 01:20] LABS: COMMENT (UR) CULT NOT INDICATED; CULTURE IF INDICATED CULT NOT INDICATED; SQUAMOUS EPITHELIAL CELL URINE 0-5 /hpf (0-5); WBC, URINE 0-2 /hpf (0-5)
[2016-10-10 04:00] VITALS: BP 168/92; PULSE 75; RESP 16; TEMP 98.2; O2SAT 96
[2016-10-10] MEDS: HEPARIN SODIUM - SQ 10,000 UNITS/ML VIAL SQ SCH ×2 (05:14→16:42)
[2016-10-10] MEDS: oxyCODONE/ACETAMINOPHEN 10 MG/325 MG TAB PO PRN ×4 (05:15→20:22)
[2016-10-10] MEDS: cloNIDine HCL 0.1 MG TAB PO PRN ×2 (05:15→20:21)
[2016-10-10] MEDS: CLINDAMYCIN 150 MG CAP PO SCH ×4 (05:15→21:09)
[2016-10-10] MEDS: SODIUM CHLOR 0.9% 1000 ML INJ 1,000 ML IV SCH ×2 (06:18→16:30)
[2016-10-10] MEDS: LOW DOSE INSULIN NOVOLOG SUPPLEMENTAL SCALE SQ SCH ×4 (06:19→21:00)
[2016-10-10] MEDS ORDERED: LOW DOSE INSULIN NOVOLOG SUPPLEMENTAL SCALE SQ SCH (07:00)
--- NOTE | 2016-10-10 07:04 | MB ---
cc: ANTHONY ERICKSON M.D. DATE OF CONSULTATION 10/09/2016 REASON FOR CONSULTATION He is 60-year-old seen in neurological consultation because of confusion. HISTORY OF PRESENT ILLNESS The patient reportedly lives at home with his mother and she was hospitalized and he seemed to be unable to care for himself. He is noted to have generalized weakness. History of diabetes, hypertension, COPD, arthritis and gastric bypass surgery. It appears that in the past few months he has been evaluated by EMS on seven occasions for generalized weakness and falls. He had another fall and subsequently was brought to the hospital. There is some questionable history of stroke. He uses a walker at home. There is a history of a low back pain and I am uncertain about how much painkiller medication he takes. Apparently uses narcotic medications regularly. PAST MEDICAL HISTORY The patient does not provide a very clean, detailed history. MEDICATIONS The list of medications were - 1. Lisinopril. 2. Clindamycin. 3. Coreg. 4. Doxycycline. 5. Percocet. 6. Temazepam. 7. Metoprolol. PHYSICAL EXAMINATION GENERAL: The exam shows the patient to be reasonably alert, oriented and he was pleasant, cooperative. Had lost bowel movement control in bed just before I came in and he says he just did not have the strength to get out of bed, etc. He appears malnourished, cachectic. NEUROLOGIC: Nothing obviously focal. His reflexes were probably absent throughout and plantar responses flexor. Ocular movements and visual [place] full. Pupils about same size, reactive. No facial weakness. No obvious language dysfunction. ASSESSMENT 1. Severe generalized weakness, probably multifactorial. 2. History of gastric bypass surgery. 3. Arthritis. 4. Chronic back pain and use of narcotic medications. PLAN 1. Neurologic-everett a CT brain was completed and negative for any acute process. I will see if an MRI brain can be done for completeness. 2. B12 level is 388, folate normal. TSH, which I had requested earlier, was low, before normal. I am going to check B1 level as well. His CPK was 58 and I will check sed rate. 3. Continue the medical care. 4. I will follow him as needed. 5. Neurologic followup might be as outpatient if the data discussed is unremarkable. Thank you for asking us to assist in his care. MD WILL Jose/COLIN /6:07 PM /6:49 AM
[2016-10-10 07:20] LABS: AUTOMATED NEUTROPHIL # 4.7 TH/MM3 (1.8-7.7); BASOPHIL # 0.1 TH/MM3 (0-0.2); CHLORIDE 115 MEQ/L (98-107); EOSINOPHIL # 0.3 TH/MM3 (0-0.4); EOSINOPHIL % 3.2 % (0.0-4.0); HEMATOCRIT 26.4 % (39.0-51.0); HEMO FLAGS DIFF FINAL; LYMPH % 25.3 % (9.0-44.0); LYMPHOCYTE # 2.2 TH/MM3 (1.0-4.8); MEAN CELL VOLUME 89.9 FL (80.0-100.0); MEAN CORPUSCULAR HGB CONC 33.4 % (32.0-36.0); NEUT % 55.5 % (16.0-70.0); PLATELET COUNT 386 TH/MM3 (150-450); POTASSIUM 4.3 MEQ/L (3.5-5.1); RED BLOOD COUNT 2.94 MIL/MM3 (4.50-5.90); RED CELL DISTRIBUTION WIDTH 17.4 % (11.6-17.2); SODIUM (NA) 145 MEQ/L (136-145); WHITE BLOOD COUNT 8.6 TH/MM3 (4.0-11.0)
[2016-10-10 07:25] LABS: ANION GAP 9 MEQ/L (5-15); BICARBONATE 20.8 MEQ/L (21.0-32.0); BLOOD UREA NITROGEN 15 MG/DL (7-18)
[2016-10-10 07:28] LABS: ALT (GPT) 16 U/L (12-78); AST (GOT) 10 U/L (15-37); GLOMERULAR FILTRATION RATE 101 ML/MIN (>89)
[2016-10-10 07:31] LABS: ALKALINE PHOSPHATASE 68 U/L (45-117); TOTAL BILIRUBIN ADULT 0.3 MG/DL (0.2-1.0)
[2016-10-10 08:00] VITALS: BP 170/96; PULSE 75; RESP 18; TEMP 98; O2SAT 94; O2SAT 97
--- NOTE | 2016-10-10 08:38 | HHI.PR ---
Subjective History of Present Illness Patient have confusion off and on checked CT Brain nothing acute and metabolic work up ..noted and neurology input noted getting MRI of Brain. Review of Systems Constitutional Constitutional: Fatigue, Weakness GI/Abdomen GI/Abdomen Remarks Anterior abdominal wall wound. Integumentary Skin Remarks Anterior abdominal wall wound. Vitals/Results Intake & Output 10/09/16 10/09/16 10/10/16 15:00 23:00 07:00 Intake Total 360 ml 1089 ml Output Total 250 ml 650 ml Balance 360 ml -250 ml 439 ml Intake Oral 360 ml 240 ml IV Total 849 ml Output Urine Total 250 ml 650 ml # Voids 3 # Bowel Movements 7 1 Vital Signs Vital Signs Date Time Temp Pulse Resp B/P Pulse Ox O2 Delivery O2 Flow Rate FiO2 10/10/16 08:00 98.0 75 18 170/96 97 10/10/16 04:00 98.2 75 16 168/92 96 10/10/16 00:00 98.6 91 16 158/91 10/09/16 20:45 99 21 10/09/16 20:00 97.3 85 18 148/90 96 10/09/16 16:00 97.2 89 20 148/98 99 10/09/16 12:00 96.9 95 19 164/108 99 10/09/16 09:00 94 21 CBC/BMP: 10/10/16 0520 10/10/16 0520 Lab Results Laboratory Tests Test 10/09/16 10/09/16 10/09/16 10/09/16 11:46 16:00 19:40 23:15 Phosphorus Level 2.2 MG/DL Magnesium Level 1.8 MG/DL Ammonia 16 MCMOL/L Total Creatine Kinase 58 U/L Vitamin B12 Level 388 PG/ML Folate 10.6 NG/ML Free Thyroxine 1.45 NG/DL Thyroxine (T4) 9.6 MCG/DL Thyroid Stimulating Hormone 0.037 uIU/ML 3rd Gen Stool C. difficile Toxin (PCR) NEGATIVE Stl C. difficile Toxin PRESUMPTIVE Epiderm 027 NEGATIVE Erythrocyte Sedimentation Rate 37 mm/hr Urine Color YELLOW Urine Turbidity CLEAR Urine pH 5.5 Urine Specific [place] 1.015 Urine Protein 30 mg/dL Urine Glucose (UA) 100 mg/dL Urine Ketones NEG mg/dL Urine Occult Blood NEG Urine Nitrite NEG Urine Bilirubin NEG Urine Leukocyte Esterase NEG Urine WBC 0-2 /hpf Urine Squamous Epithelial 0-5 /hpf Cells Urine Mucus OCC /lpf Microscopic Urinalysis Comment CULT NOT INDICATED Test 10/10/16 05:20 White Blood Count 8.6 TH/MM3 Red Blood Count 2.94 MIL/MM3 Hemoglobin 8.8 GM/DL Hematocrit 26.4 % Mean Corpuscular Volume 89.9 FL Mean Corpuscular Hemoglobin 30.0 PG Mean Corpuscular Hemoglobin 33.4 % Concent Red Cell Distribution Width 17.4 % Platelet Count 386 TH/MM3 Mean Platelet Volume 8.4 FL Neutrophils (%) (Auto) 55.5 % Lymphocytes (%) (Auto) 25.3 % Monocytes (%) (Auto) 15.0 % Eosinophils (%) (Auto) 3.2 % Basophils (%) (Auto) 1.0 % Neutrophils # (Auto) 4.7 TH/MM3 Lymphocytes # (Auto) 2.2 TH/MM3 Monocytes # (Auto) 1.3 TH/MM3 Eosinophils # (Auto) 0.3 TH/MM3 Basophils # (Auto) 0.1 TH/MM3 CBC Comment DIFF FINAL Differential Comment Sodium Level 145 MEQ/L Potassium Level 4.3 MEQ/L Chloride Level 115 MEQ/L Carbon Dioxide Level 20.8 MEQ/L Anion Gap 9 MEQ/L Blood Urea Nitrogen 15 MG/DL Creatinine 0.78 MG/DL Estimat Glomerular Filtration 101 ML/MIN Rate Random Glucose 95 MG/DL Calcium Level 8.5 MG/DL Total Bilirubin 0.3 MG/DL Aspartate Amino Transf 10 U/L (AST/SGOT) Alanine Aminotransferase 16 U/L (ALT/SGPT) Alkaline Phosphatase 68 U/L Total Protein 5.6 GM/DL Albumin 2.5 GM/DL Physical Exam General General Appearance: No Acute Distress, Comfortable Eyes Eye Exam: Pupils Equal, Pupils Reactive, Sclera White, Extraocular Movement Intact Throat Throat Exam: Oral Mucosa [place] & Moist, Oral Pharynx Normal Neck Neck Exam: Neck Supple, Trachea Midline Pulmonary Resp Exam: Clear Bilaterally, Breath Sounds Equal, No Distress Cardiology CV Exam: Regular, Normal Sinus Rhythm Gastrointestinal/Abdomen GI Exam: Soft, Bowel Sounds Present GI Remarks Anterior abdominal wall wound. Integumentary Skin Exam: Warm, Dry Skin Remarks Anterior abdominal wall wound dry. Extremeties Extremities Exam: No Edema Neurologic Neuro Exam: Alert, Awake, Speech Clear, Moving All Extremities VTE Prophylaxis VTE Prophylaxis Meds: Heparin PUD Prophylasis PUD Prophylaxis: Protonix Assessment/Plan Assessment/Plan ASSESSMENT/PLAN This is a 60-year male who came to the ER diagnosed with: 1. Generalized weakness. Multifactorial. The patient getting physical therapy treatment. The patient needs to be transferred to shelter care facility, anterior abdominal wall wound. The patient is on clindamycin and doxycycline. 2. History of hypertension. Continue home medication. We will monitor blood pressure. 3. History of insomnia. We will monitor. 4. History of COPD. 5. History of smoking. Advised to quit. 6. History of gastroesophageal reflux disease. Protonix 40 mg p.o. daily. 7. History of gastric bypass surgery. 8. Cholecystectomy. 9. And left knee surgery. 10. DVT prophylaxis. Heparin 5000 units subcutaneous twice a day. 11. Gastrointestinal prophylaxis. Protonix 40 mg p.o. daily. 12. Confusion off and on checked CT Brain nothing acute and metabolic work up ..noted and neurology input noted getting MRI of Brain. Check CBC with diff CMP in AM. We are going to manage the patient on a daily basis and make recommendations on a daily basis. Discussed Condition with: Patient John Etienne MD Oct 10, 2016 08:38
[2016-10-10] MEDS: SODIUM CHLORIDE 0.9% FLUSH 10 ML FLUSH IV FLUSH SCH ×2 (09:00→21:00)
[2016-10-10] MEDS: CARVEDILOL 12.5 MG TAB PO SCH ×2 (09:47→21:10)
[2016-10-10] MEDS: DOXYCYCLINE HYCLATE 100 MG TAB PO SCH ×2 (09:47→21:10)
[2016-10-10] MEDS: LISINOPRIL 20 MG TAB PO SCH ×2 (09:47→21:10)
[2016-10-10 12:00] VITALS: BP 156/80; PULSE 77; RESP 20; TEMP 97.9; O2SAT 95
[2016-10-10 16:00] VITALS: BP 118/77; PULSE 69; RESP 17; TEMP 98; O2SAT 95
--- NOTE | 2016-10-10 17:04 | RADHPO ---
EXAM DATE/TIME: 10/10/2016 15:13 [facility] COMPARISON: No previous studies available for comparison. INDICATIONS : Weakness. MEDICAL HISTORY : Hypertension. Diabetes mellitus type 2. Cerebrovascular disease. COPD. SURGICAL HISTORY : Splenectomy. Cholecystectomy. Umbilical hernia repair. ENCOUNTER: Subsequent ACUITY: 2 day PAIN SCORE: 0/10 LOCATION: head. TECHNIQUE: Multiplanar, multisequence MRI of the brain was performed without contrast. FINDINGS: CEREBRUM: The ventricles are normal for age. No evidence of midline shift, mass lesion, hemorrhage or acute in farction. No extraaxial fluid collections are seen. The pituitary gland and suprasellar cistern are normal in configuration. WHITE MATTER: There are some scattered areas of increased T2 signal in the white matter consistent with mild microv ascular ischemic demyelinative change. No significant signal abnormalities are seen in the white renny er. POSTERIOR FOSSA: The cerebellum and brainstem are intact. The 4th ventricle is midline. The cerebellopontine angle is unremarkable. The cerebellar tonsils are normal in position. DIFFUSION IMAGING: No focal areas of restricted diffusion are seen. No evidence of acute infarction. EXTRACRANIAL: The visualized portions of the orbits and paranasal sinuses are unremarkable. CONCLUSION: 1. No findings to indicate acute cortical infarct are evident. 2. Scattered areas of increased T2 signal in the white matter consistent with mild microvascular isch emic demyelinative change. Lester Allen MD on October 10, 2016 at 17:00 Board Certified Radiologist. This report was verified electronically.
[2016-10-10 20:00] VITALS: BP_SYST 216; BP_SYST 219; BP_DIAS 108; BP_DIAS 119; PULSE 71; RESP 16; TEMP 98.2; O2SAT 97; O2SAT 98
[2016-10-10] MEDS: TEMAZEPAM 7.5 MG CAP PO PRN (21:09)
[2016-10-11] VITALS: BP 161/86; PULSE 69; RESP 18; TEMP 98.4; O2SAT 97
[2016-10-11] MEDS: oxyCODONE/ACETAMINOPHEN 10 MG/325 MG TAB PO PRN ×5 (00:51→20:10)
[2016-10-11] MEDS: SODIUM CHLOR 0.9% 1000 ML INJ 1,000 ML IV SCH ×3 (02:30→22:30)
[2016-10-11] MEDS: CLINDAMYCIN 150 MG CAP PO SCH ×3 (04:49→17:19)
[2016-10-11] MEDS: HEPARIN SODIUM - SQ 10,000 UNITS/ML VIAL SQ SCH ×2 (04:49→17:19)
[2016-10-11] MEDS: LOW DOSE INSULIN NOVOLOG SUPPLEMENTAL SCALE SQ SCH ×4 (06:23→22:54)
[2016-10-11 06:47] LABS: AUTOMATED NEUTROPHIL # 5.1 TH/MM3 (1.8-7.7); BASOPHIL # 0.1 TH/MM3 (0-0.2); EOSINOPHIL # 0.3 TH/MM3 (0-0.4); EOSINOPHIL % 3.1 % (0.0-4.0); HEMATOCRIT 26.5 % (39.0-51.0); LYMPHOCYTE # 2.1 TH/MM3 (1.0-4.8); MEAN CELL VOLUME 88.4 FL (80.0-100.0); MEAN CORPUSCULAR HEMOGLOBIN 28.9 PG (27.0-34.0); MEAN CORPUSCULAR HGB CONC 32.7 % (32.0-36.0); MONO % 14.1 % (0.0-8.0); NEUT % 58.8 % (16.0-70.0); PLATELET COUNT 400 TH/MM3 (150-450); RED BLOOD COUNT 2.99 MIL/MM3 (4.50-5.90); WHITE BLOOD COUNT 8.9 TH/MM3 (4.0-11.0)
[2016-10-11 06:52] LABS: HEMO FLAGS AUTO DIFF
[2016-10-11 06:56] LABS: CHLORIDE 115 MEQ/L (98-107); SODIUM (NA) 144 MEQ/L (136-145)
[2016-10-11 07:03] LABS: ANION GAP 9 MEQ/L (5-15); BLOOD UREA NITROGEN 14 MG/DL (7-18)
[2016-10-11 07:06] LABS: ALT (GPT) 16 U/L (12-78); AST (GOT) 10 U/L (15-37); GLOMERULAR FILTRATION RATE 111 ML/MIN (>89)
[2016-10-11 07:08] LABS: TOTAL BILIRUBIN ADULT 0.2 MG/DL (0.2-1.0)
[2016-10-11 07:09] LABS: ALKALINE PHOSPHATASE 66 U/L (45-117)
[2016-10-11 07:29] LABS: ACANTHOCYTES OCC (NORMAL); KERATOCYTES OCC (NORMAL); SCAN/DIFF AUTO DIFF CONFIRMED
[2016-10-11 08:00] VITALS: BP 180/92; PULSE 65; RESP 18; TEMP 98.8; O2SAT 98
--- NOTE | 2016-10-11 08:11 | HHI.PR ---
Subjective History of Present Illness Patient have confusion off and on checked CT Brain nothing acute and metabolic work up ..noted and neurology input noted s/p MRI of Brain... shows no stroke. Review of Systems Constitutional Constitutional: Fatigue, Weakness GI/Abdomen GI/Abdomen Remarks Anterior abdominal wall wound. Integumentary Skin Remarks Anterior abdominal wall wound. Vitals/Results Intake & Output 10/10/16 10/10/16 10/11/16 15:00 23:00 07:00 Intake Total 1020 ml 720 ml Output Total 400 ml 500 ml Balance -400 ml 520 ml 720 ml Intake Oral 620 ml 720 ml IV Total 400 ml Output Urine Total 400 ml 500 ml # Voids 0 3 # Bowel Movements 1 2 0 Vital Signs Vital Signs Date Time Temp Pulse Resp B/P Pulse Ox O2 Delivery O2 Flow Rate FiO2 10/11/16 00:00 98.4 69 18 161/86 97 10/10/16 20:00 97 21 10/10/16 20:00 98.2 71 16 216/108 98 219/119 10/10/16 18:29 18 10/10/16 16:00 98.0 69 17 118/77 95 10/10/16 12:00 97.9 77 20 156/80 95 CBC/BMP: 10/11/16 0510 10/11/16 0510 Lab Results Laboratory Tests Test 10/11/16 05:10 White Blood Count 8.9 TH/MM3 Red Blood Count 2.99 MIL/MM3 Hemoglobin 8.7 GM/DL Hematocrit 26.5 % Mean Corpuscular Volume 88.4 FL Mean Corpuscular Hemoglobin 28.9 PG Mean Corpuscular Hemoglobin 32.7 % Concent Red Cell Distribution Width 16.0 % Platelet Count 400 TH/MM3 Mean Platelet Volume 8.4 FL Neutrophils (%) (Auto) 58.8 % Lymphocytes (%) (Auto) 23.0 % Monocytes (%) (Auto) 14.1 % Eosinophils (%) (Auto) 3.1 % Basophils (%) (Auto) 1.0 % Neutrophils # (Auto) 5.1 TH/MM3 Lymphocytes # (Auto) 2.1 TH/MM3 Monocytes # (Auto) 1.3 TH/MM3 Eosinophils # (Auto) 0.3 TH/MM3 Basophils # (Auto) 0.1 TH/MM3 CBC Comment AUTO DIFF Differential Comment AUTO DIFF CONFIRMED Acanthocytes OCC Keratocytes OCC Sodium Level 144 MEQ/L Potassium Level 4.0 MEQ/L Chloride Level 115 MEQ/L Carbon Dioxide Level 20.0 MEQ/L Anion Gap 9 MEQ/L Blood Urea Nitrogen 14 MG/DL Creatinine 0.72 MG/DL Estimat Glomerular Filtration 111 ML/MIN Rate Random Glucose 124 MG/DL Calcium Level 8.4 MG/DL Total Bilirubin 0.2 MG/DL Aspartate Amino Transf 10 U/L (AST/SGOT) Alanine Aminotransferase 16 U/L (ALT/SGPT) Alkaline Phosphatase 66 U/L Total Protein 5.5 GM/DL Albumin 2.3 GM/DL Physical Exam General General Appearance: No Acute Distress, Comfortable Eyes Eye Exam: Pupils Equal, Pupils Reactive, Sclera White, Extraocular Movement Intact Throat Throat Exam: Oral Mucosa [place] & Moist, Oral Pharynx Normal Neck Neck Exam: Neck Supple, Trachea Midline Pulmonary Resp Exam: Clear Bilaterally, Breath Sounds Equal, No Distress Cardiology CV Exam: Regular, Normal Sinus Rhythm Gastrointestinal/Abdomen GI Exam: Soft, Bowel Sounds Present GI Remarks Anterior abdominal wall wound. Integumentary Skin Exam: Warm, Dry Skin Remarks Anterior abdominal wall wound dry. Extremeties Extremities Exam: No Edema Neurologic Neuro Exam: Alert, Awake, Speech Clear, Moving All Extremities VTE Prophylaxis VTE Prophylaxis Meds: Heparin PUD Prophylasis PUD Prophylaxis: Protonix Assessment/Plan Assessment/Plan ASSESSMENT/PLAN This is a 60-year male who came to the ER diagnosed with: 1. Generalized weakness. Multifactorial. The patient getting physical therapy treatment. The patient needs to be transferred to [facility] facility, anterior abdominal wall wound. The patient is on clindamycin and doxycycline. 2. History of hypertension. Continue home medication. We will monitor blood pressure. 3. History of insomnia. We will monitor. 4. History of COPD. 5. History of smoking. Advised to quit. 6. History of gastroesophageal reflux disease. Protonix 40 mg p.o. daily. 7. History of gastric bypass surgery. 8. Cholecystectomy. 9. And left knee surgery. 10. DVT prophylaxis. Heparin 5000 units subcutaneous twice a day. 11. Gastrointestinal prophylaxis. Protonix 40 mg p.o. daily. 12. Confusion off and on checked CT Brain nothing acute and metabolic work up ..noted and neurology input noted s/p MRI of Brain... shows no stroke. Check CBC with diff CMP in AM. We are going to manage the patient on a daily basis and make recommendations on a daily basis. Discussed Condition with: Patient John Etienne MD Oct 11, 2016 08:11
--- NOTE | 2016-10-11 08:13 | PQ ---
Physician Query Response Document PATIENT: JOSUE QUINTANILLA : 1955 ADMIT DATE: 10/08/2016 12:31 PM DISCH DATE: RESPONDING PROVIDER #: EAhmed QUERY TEXT: Malnutrition Severity Malnutrition is documented in the Medical Record. Please specify the severity Such as: -- Mild ? first degree -- Moderate ? second degree -- Severe ? third degree -- Severe malnutrition with marasmus -- Other, please specify The patient's Clinical Indicators include: BMI 16.8 ALB 2.6 T PROTEIN 5.6 Generalized weakness, electrolyte disturbance, weight loss, failure to thrive Query created by: Karol Gomez on 10/10/2016 11:18 AM RESPONSE TEXT: Severe protein calorie malnutration. Electronically signed by: John Etienne MD 10/11/2016 8:10 AM
[2016-10-11] MEDS: DOXYCYCLINE HYCLATE 100 MG TAB PO SCH ×2 (08:17→20:16)
[2016-10-11] MEDS: CARVEDILOL 12.5 MG TAB PO SCH ×2 (08:17→20:09)
[2016-10-11] MEDS: LISINOPRIL 20 MG TAB PO SCH ×2 (08:17→22:54)
[2016-10-11] MEDS: SODIUM CHLORIDE 0.9% FLUSH 10 ML FLUSH IV FLUSH SCH ×2 (08:17→21:00)
[2016-10-11 12:00] VITALS: BP 168/78; PULSE 89; RESP 18; TEMP 98.4; O2SAT 99
[2016-10-11] MEDS: LEVOTHYROXINE SODIUM 100 MCG TAB PO SCH (12:24)
[2016-10-11 13:34] LABS: ANA SCREEN POS (NEG)
[2016-10-11 16:00] VITALS: BP 172/80; PULSE 68; RESP 20; TEMP 98.6; O2SAT 97
[2016-10-11 20:00] VITALS: BP 210/106; PULSE 68; RESP 20; TEMP 99; O2SAT 96
[2016-10-11] MEDS: TEMAZEPAM 7.5 MG CAP PO PRN (20:08)
[2016-10-11 20:14] VITALS: O2SAT 96
[2016-10-12] VITALS (7 sets, daily range): BP systolic 138–200; BP diastolic 89–114; PULSE 65–80; RESP 17–20; TEMP 97.6–98.9; O2SAT 96–99
[2016-10-12] MEDS: CLINDAMYCIN 150 MG CAP PO SCH ×5 (00:31→23:20)
[2016-10-12] MEDS: oxyCODONE/ACETAMINOPHEN 10 MG/325 MG TAB PO PRN ×2 (00:31→05:07)
[2016-10-12] MEDS: cloNIDine HCL 0.1 MG TAB PO PRN ×2 (00:31→05:06)
[2016-10-12] MEDS: LEVOTHYROXINE SODIUM 100 MCG TAB PO SCH (05:06)
[2016-10-12] MEDS: HEPARIN SODIUM - SQ 10,000 UNITS/ML VIAL SQ SCH ×2 (05:07→17:31)
[2016-10-12] MEDS: LOW DOSE INSULIN NOVOLOG SUPPLEMENTAL SCALE SQ SCH ×4 (06:54→21:25)
[2016-10-12] MEDS: SODIUM CHLORIDE 0.9% FLUSH 10 ML FLUSH IV FLUSH SCH ×2 (07:13→20:54)
[2016-10-12 07:43] LABS: AUTOMATED NEUTROPHIL # 13.3 TH/MM3 (1.8-7.7); BASOPHIL % 0.3 % (0.0-2.0); EOSINOPHIL # 0.3 TH/MM3 (0-0.4); EOSINOPHIL % 2.1 % (0.0-4.0); HEMATOCRIT 31.8 % (39.0-51.0); HEMO FLAGS DIFF FINAL; LYMPH % 9.7 % (9.0-44.0); LYMPHOCYTE # 1.6 TH/MM3 (1.0-4.8); MEAN CELL VOLUME 89.4 FL (80.0-100.0); MEAN CORPUSCULAR HEMOGLOBIN 29.2 PG (27.0-34.0); MEAN CORPUSCULAR HGB CONC 32.6 % (32.0-36.0); MONO % 6.2 % (0.0-8.0); NEUT % 81.7 % (16.0-70.0); PLATELET COUNT 434 TH/MM3 (150-450); RED BLOOD COUNT 3.56 MIL/MM3 (4.50-5.90); RED CELL DISTRIBUTION WIDTH 16.7 % (11.6-17.2); WHITE BLOOD COUNT 16.2 TH/MM3 (4.0-11.0)
[2016-10-12 07:55] LABS: CHLORIDE 116 MEQ/L (98-107); SODIUM (NA) 145 MEQ/L (136-145)
[2016-10-12 08:01] LABS: ANION GAP 9 MEQ/L (5-15); BICARBONATE 20.1 MEQ/L (21.0-32.0); BLOOD UREA NITROGEN 18 MG/DL (7-18)
[2016-10-12 08:04] LABS: ALT (GPT) 13 U/L (12-78); AST (GOT) 9 U/L (15-37); GLOMERULAR FILTRATION RATE 109 ML/MIN (>89)
[2016-10-12 08:05] LABS: TOTAL BILIRUBIN ADULT 0.2 MG/DL (0.2-1.0)
[2016-10-12 08:07] LABS: ALKALINE PHOSPHATASE 67 U/L (45-117)
--- NOTE | 2016-10-12 08:13 | HHI.PR ---
Subjective History of Present Illness Patient have confusion off and on checked CT Brain nothing acute and metabolic work up ..noted and neurology input noted s/p MRI of Brain... shows no stroke. ok to [place] home with [facility]. He can not afford to go to [facility] financially. d/w RN Ewa. Review of Systems Constitutional Constitutional: Fatigue, Weakness GI/Abdomen GI/Abdomen Remarks Anterior abdominal wall wound. Integumentary Skin Remarks Anterior abdominal wall wound. Vitals/Results Intake & Output 10/11/16 10/11/16 10/12/16 15:00 23:00 07:00 Intake Total 725 ml 60 ml Output Total 975 ml 300 ml Balance -250 ml -240 ml Intake Oral 725 ml 60 ml Output Urine Total 975 ml 300 ml # Voids 1 # Bowel Movements 0 0 Vital Signs Vital Signs Date Time Temp Pulse Resp B/P Pulse Ox O2 Delivery O2 Flow Rate FiO2 10/12/16 08:00 98.9 73 17 153/94 96 10/12/16 04:00 98.4 65 20 182/103 96 Manual Cuff/Auscultation 10/12/16 00:00 98.6 80 20 180/106 97 10/11/16 20:14 96 21 10/11/16 20:00 99.0 68 20 210/106 96 Automatic Cuff 10/11/16 16:00 98.6 68 20 172/80 97 10/11/16 12:00 98.4 89 18 168/78 99 CBC/BMP: 10/12/16 0725 10/12/16 0725 Lab Results Laboratory Tests Test 10/12/16 07:25 White Blood Count 16.2 TH/MM3 Red Blood Count 3.56 MIL/MM3 Hemoglobin 10.4 GM/DL Hematocrit 31.8 % Mean Corpuscular Volume 89.4 FL Mean Corpuscular Hemoglobin 29.2 PG Mean Corpuscular Hemoglobin 32.6 % Concent Red Cell Distribution Width 16.7 % Platelet Count 434 TH/MM3 Mean Platelet Volume 7.9 FL Neutrophils (%) (Auto) 81.7 % Lymphocytes (%) (Auto) 9.7 % Monocytes (%) (Auto) 6.2 % Eosinophils (%) (Auto) 2.1 % Basophils (%) (Auto) 0.3 % Neutrophils # (Auto) 13.3 TH/MM3 Lymphocytes # (Auto) 1.6 TH/MM3 Monocytes # (Auto) 1.0 TH/MM3 Eosinophils # (Auto) 0.3 TH/MM3 Basophils # (Auto) 0.0 TH/MM3 CBC Comment DIFF FINAL Differential Comment Sodium Level 145 MEQ/L Potassium Level 4.0 MEQ/L Chloride Level 116 MEQ/L Carbon Dioxide Level 20.1 MEQ/L Anion Gap 9 MEQ/L Blood Urea Nitrogen 18 MG/DL Creatinine 0.73 MG/DL Estimat Glomerular Filtration 109 ML/MIN Rate Random Glucose 159 MG/DL Calcium Level 8.2 MG/DL Total Bilirubin 0.2 MG/DL Aspartate Amino Transf 9 U/L (AST/SGOT) Alanine Aminotransferase 13 U/L (ALT/SGPT) Alkaline Phosphatase 67 U/L Total Protein 5.3 GM/DL Albumin 2.1 GM/DL Physical Exam General General Appearance: No Acute Distress, Comfortable Eyes Eye Exam: Pupils Equal, Pupils Reactive, Sclera White, Extraocular Movement Intact Throat Throat Exam: Oral Mucosa [place] & Moist, Oral Pharynx Normal Neck Neck Exam: Neck Supple, Trachea Midline Pulmonary Resp Exam: Clear Bilaterally, Breath Sounds Equal, No Distress Cardiology CV Exam: Regular, Normal Sinus Rhythm Gastrointestinal/Abdomen GI Exam: Soft, Bowel Sounds Present GI Remarks Anterior abdominal wall wound. Integumentary Skin Exam: Warm, Dry Skin Remarks Anterior abdominal wall wound dry. Extremeties Extremities Exam: No Edema Neurologic Neuro Exam: Alert, Awake, Speech Clear, Moving All Extremities VTE Prophylaxis VTE Prophylaxis Meds: Heparin PUD Prophylasis PUD Prophylaxis: Protonix Assessment/Plan Assessment/Plan ASSESSMENT/PLAN This is a 60-year male who came to the ER diagnosed with: 1. Generalized weakness. Multifactorial. The patient getting physical therapy treatment. anterior abdominal wall wound. The patient is on clindamycin and doxycycline. 2. History of hypertension. Continue home medication. We will monitor blood pressure. 3. History of insomnia. We will monitor. 4. History of COPD. 5. History of smoking. Advised to quit. 6. History of gastroesophageal reflux disease. Protonix 40 mg p.o. daily. 7. History of gastric bypass surgery. 8. Cholecystectomy. 9. And left knee surgery. 10. DVT prophylaxis. Heparin 5000 units subcutaneous twice a day. 11. Gastrointestinal prophylaxis. Protonix 40 mg p.o. daily. 12. Confusion off and on checked CT Brain nothing acute and metabolic work up ..noted and neurology input noted s/p MRI of Brain... shows no stroke. ok to dc home with [facility]. He can not afford to go to [facility] financially. f/u with PCP 1 Week. Discussed Condition with: Patient John Etienne MD Oct 12, 2016 08:13
[2016-10-12] MEDS: SODIUM CHLOR 0.9% 1000 ML INJ 1,000 ML IV SCH ×2 (08:30→17:51)
[2016-10-12] MEDS ORDERED: DOXY100T PO (08:31)
[2016-10-12] MEDS ORDERED: LEVO.1 PO (08:31)
--- NOTE | 2016-10-12 08:32 | HHI.FF ---
Face to Face Verification Diagnosis: (1) Chronic respiratory failure (2) Low back pain (3) Shoulder pain (4) Near syncope (5) Hypokalemia (6) Closed head injury (7) Head injury, closed, without LOC Physical Therapy Order: Evaluate and Treat, Improve ambulation, Strength and gait training Occupational Therapy Order: Evaluate and Treat, Gross motor coordination Home Health Nursing Order: Medical education Medication education-adverse effect Home Health Aide Order: To Assist In: Bathing and personal care, vein pumper and meal prep I have seen patient Carlito Baltazar on 10/12/16. My clinical findings support the need for the requested home health care services because: Ltd mobility - disease progression Limited ability to care for self High risk of falls I certify that my clinical findings support that this patient is homebound because: Impaired cognitive ability/safety Unsteady gait/balance Unsafe to leave home unassisted Unable to use public transportation John Etienne MD Oct 12, 2016 08:32
[2016-10-12] MEDS: LISINOPRIL 20 MG TAB PO SCH ×2 (09:20→20:54)
[2016-10-12] MEDS: DOXYCYCLINE HYCLATE 100 MG TAB PO SCH (09:20)
[2016-10-12] MEDS: CARVEDILOL 12.5 MG TAB PO SCH ×2 (09:21→20:53)
[2016-10-12] MEDS: DOXYCYCLINE HYCLATE 100 MG CAP PO SCH (21:54)
[2016-10-12] MEDS: TEMAZEPAM 7.5 MG CAP PO PRN (23:20)
[2016-10-13] MEDS: SODIUM CHLOR 0.9% 1000 ML INJ 1,000 ML IV SCH ×2 (03:48→14:30)
[2016-10-13] MEDS: oxyCODONE/ACETAMINOPHEN 10 MG/325 MG TAB PO PRN ×3 (03:52→22:04)
[2016-10-13] MEDS: CLINDAMYCIN 150 MG CAP PO SCH ×4 (05:57→22:06)
[2016-10-13] MEDS: HEPARIN SODIUM - SQ 10,000 UNITS/ML VIAL SQ SCH ×2 (05:57→16:56)
[2016-10-13] MEDS: LEVOTHYROXINE SODIUM 100 MCG TAB PO SCH (05:57)
[2016-10-13 06:30] VITALS: BP 170/80
[2016-10-13] MEDS: LOW DOSE INSULIN NOVOLOG SUPPLEMENTAL SCALE SQ SCH ×4 (06:33→20:30)
[2016-10-13 06:37] LABS: AUTOMATED NEUTROPHIL # 8.5 TH/MM3 (1.8-7.7); BASOPHIL # 0.1 TH/MM3 (0-0.2); BASOPHIL % 1.3 % (0.0-2.0); EOSINOPHIL # 0.2 TH/MM3 (0-0.4); EOSINOPHIL % 1.9 % (0.0-4.0); HEMATOCRIT 28.4 % (39.0-51.0); HEMO FLAGS DIFF FINAL; LYMPH % 14.4 % (9.0-44.0); LYMPHOCYTE # 1.7 TH/MM3 (1.0-4.8); MEAN CORPUSCULAR HEMOGLOBIN 28.9 PG (27.0-34.0); MEAN CORPUSCULAR HGB CONC 33.3 % (32.0-36.0); MONO % 8.9 % (0.0-8.0); NEUT % 73.5 % (16.0-70.0); PLATELET COUNT 420 TH/MM3 (150-450); RED BLOOD COUNT 3.26 MIL/MM3 (4.50-5.90); RED CELL DISTRIBUTION WIDTH 16.2 % (11.6-17.2); WHITE BLOOD COUNT 11.5 TH/MM3 (4.0-11.0)
[2016-10-13 06:47] LABS: CHLORIDE 111 MEQ/L (98-107); POTASSIUM 3.8 MEQ/L (3.5-5.1); SODIUM (NA) 142 MEQ/L (136-145)
[2016-10-13 06:51] LABS: ANION GAP 9 MEQ/L (5-15); BICARBONATE 21.7 MEQ/L (21.0-32.0); BLOOD UREA NITROGEN 17 MG/DL (7-18)
[2016-10-13 06:54] LABS: ALT (GPT) 15 U/L (12-78); AST (GOT) 13 U/L (15-37); GLOMERULAR FILTRATION RATE 127 ML/MIN (>89)
[2016-10-13 06:56] LABS: TOTAL BILIRUBIN ADULT 0.3 MG/DL (0.2-1.0)
[2016-10-13 06:57] LABS: ALKALINE PHOSPHATASE 64 U/L (45-117)
[2016-10-13 08:00] VITALS: BP 142/72; PULSE 87; RESP 19; TEMP 97.7; O2SAT 95
--- NOTE | 2016-10-13 08:05 | HHI.PR ---
Subjective History of Present Illness Patient have confusion off and on checked CT Brain nothing acute and metabolic work up ..noted and neurology input noted s/p MRI of Brain... shows no stroke. . DCF Involved and need to stay in hospital untill DCF find solution for discharge placement. d/w case making machine operator RN [facility]wa. Review of Systems Constitutional Constitutional: Fatigue, Weakness GI/Abdomen GI/Abdomen Remarks Anterior abdominal wall wound. Integumentary Skin Remarks Anterior abdominal wall wound. Vitals/Results Vital Signs Vital Signs Date Time Temp Pulse Resp B/P Pulse Ox O2 Delivery O2 Flow Rate FiO2 10/13/16 06:30 170/80 10/12/16 20:00 97.6 76 20 199/114 98 200/100 10/12/16 16:00 98.7 72 18 165/89 99 10/12/16 12:00 98.8 72 19 138/89 99 CBC/BMP: 10/13/16 0622 10/13/16 0622 Lab Results Laboratory Tests Test 10/13/16 06:22 White Blood Count 11.5 TH/MM3 Red Blood Count 3.26 MIL/MM3 Hemoglobin 9.4 GM/DL Hematocrit 28.4 % Mean Corpuscular Volume 87.0 FL Mean Corpuscular Hemoglobin 28.9 PG Mean Corpuscular Hemoglobin 33.3 % Concent Red Cell Distribution Width 16.2 % Platelet Count 420 TH/MM3 Mean Platelet Volume 7.9 FL Neutrophils (%) (Auto) 73.5 % Lymphocytes (%) (Auto) 14.4 % Monocytes (%) (Auto) 8.9 % Eosinophils (%) (Auto) 1.9 % Basophils (%) (Auto) 1.3 % Neutrophils # (Auto) 8.5 TH/MM3 Lymphocytes # (Auto) 1.7 TH/MM3 Monocytes # (Auto) 1.0 TH/MM3 Eosinophils # (Auto) 0.2 TH/MM3 Basophils # (Auto) 0.1 TH/MM3 CBC Comment DIFF FINAL Differential Comment Sodium Level 142 MEQ/L Potassium Level 3.8 MEQ/L Chloride Level 111 MEQ/L Carbon Dioxide Level 21.7 MEQ/L Anion Gap 9 MEQ/L Blood Urea Nitrogen 17 MG/DL Creatinine 0.64 MG/DL Estimat Glomerular Filtration 127 ML/MIN Rate Random Glucose 140 MG/DL Calcium Level 8.4 MG/DL Total Bilirubin 0.3 MG/DL Aspartate Amino Transf 13 U/L (AST/SGOT) Alanine Aminotransferase 15 U/L (ALT/SGPT) Alkaline Phosphatase 64 U/L Total Protein 5.2 GM/DL Albumin 2.2 GM/DL Physical Exam General General Appearance: No Acute Distress, Comfortable Eyes Eye Exam: Pupils Equal, Pupils Reactive, Sclera White, Extraocular Movement Intact Throat Throat Exam: Oral Mucosa [place] & Moist, Oral Pharynx Normal Neck Neck Exam: Neck Supple, Trachea Midline Pulmonary Resp Exam: Clear Bilaterally, Breath Sounds Equal, No Distress Cardiology CV Exam: Regular, Normal Sinus Rhythm Gastrointestinal/Abdomen GI Exam: Soft, Bowel Sounds Present GI Remarks Anterior abdominal wall wound. Integumentary Skin Exam: Warm, Dry Skin Remarks Anterior abdominal wall wound dry. Extremeties Extremities Exam: No Edema Neurologic Neuro Exam: Alert, Awake, Speech Clear, Moving All Extremities VTE Prophylaxis VTE Prophylaxis Meds: Heparin PUD Prophylasis PUD Prophylaxis: Protonix Assessment/Plan Assessment/Plan ASSESSMENT/PLAN This is a 60-year male who came to the ER diagnosed with: 1. Generalized weakness. Multifactorial. The patient getting physical therapy treatment. anterior abdominal wall wound. The patient is on clindamycin and doxycycline. 2. History of hypertension. Continue home medication. We will monitor blood pressure. 3. History of insomnia. We will monitor. 4. History of COPD. 5. History of smoking. Advised to quit. 6. History of gastroesophageal reflux disease. Protonix 40 mg p.o. daily. 7. History of gastric bypass surgery. 8. Cholecystectomy. 9. And left knee surgery. 10. DVT prophylaxis. Heparin 5000 units subcutaneous twice a day. 11. Gastrointestinal prophylaxis. Protonix 40 mg p.o. daily. 12. Confusion off and on checked CT Brain nothing acute and metabolic work up ..noted and neurology input noted s/p MRI of Brain... shows no stroke. DCF Involved and need to stay in hospital untill DCF find solution for discharge placement. d/w case making machine operator ANDREA Mcneil. Discussed Condition with: Patient John Etienne MD Oct 13, 2016 08:05
[2016-10-13] MEDS: SODIUM CHLORIDE 0.9% FLUSH 10 ML FLUSH IV FLUSH SCH ×2 (09:00→20:30)
[2016-10-13] MEDS ORDERED: DOXYCYCLINE HYCLATE 100 MG CAP PO SCH (09:00)
[2016-10-13] MEDS: CARVEDILOL 12.5 MG TAB PO SCH ×2 (09:33→20:28)
[2016-10-13] MEDS: LISINOPRIL 20 MG TAB PO SCH ×2 (09:33→20:28)
[2016-10-13] MEDS: DOXYCYCLINE HYCLATE 100 MG CAP PO SCH ×2 (09:33→20:28)
[2016-10-13 13:37] LABS: ANA TITER QUANT 1:40 (NEG)
[2016-10-13 20:00] VITALS: BP 198/96; PULSE 69; RESP 24; TEMP 98.6; O2SAT 97
[2016-10-13] MEDS: TEMAZEPAM 7.5 MG CAP PO PRN (22:03)
[2016-10-14] MEDS: SODIUM CHLOR 0.9% 1000 ML INJ 1,000 ML IV SCH (00:30)
[2016-10-14 00:38] VITALS: BP 176/80
[2016-10-14] MEDS: LEVOTHYROXINE SODIUM 100 MCG TAB PO SCH (05:48)
[2016-10-14] MEDS: CLINDAMYCIN 150 MG CAP PO SCH ×4 (05:48→22:46)
[2016-10-14] MEDS: HEPARIN SODIUM - SQ 10,000 UNITS/ML VIAL SQ SCH ×2 (05:48→17:18)
[2016-10-14] MEDS: LOW DOSE INSULIN NOVOLOG SUPPLEMENTAL SCALE SQ SCH ×4 (06:25→20:56)
[2016-10-14 08:00] VITALS: BP_SYST 160; BP_SYST 200; BP_DIAS 109; BP_DIAS 90; PULSE 78; RESP 18; TEMP 97.1; O2SAT 95
[2016-10-14] MEDS: SODIUM CHLORIDE 0.9% FLUSH 10 ML FLUSH IV FLUSH SCH (09:00)
[2016-10-14] MEDS: DOXYCYCLINE HYCLATE 100 MG CAP PO SCH ×2 (09:49→20:46)
[2016-10-14] MEDS: CARVEDILOL 12.5 MG TAB PO SCH ×2 (09:50→20:45)
[2016-10-14] MEDS: oxyCODONE/ACETAMINOPHEN 10 MG/325 MG TAB PO PRN ×3 (09:50→19:46)
[2016-10-14] MEDS: LISINOPRIL 20 MG TAB PO SCH ×2 (09:50→20:45)
--- NOTE | 2016-10-14 14:15 | HHI.PR ---
Subjective History of Present Illness Patient have confusion off and on checked CT Brain nothing acute and metabolic work up ..noted and neurology input noted s/p MRI of Brain... shows no stroke. . DCF Involved and need to stay in hospital untill DCF find solution for discharge placement. Review of Systems Constitutional Constitutional: Fatigue, Weakness GI/Abdomen GI/Abdomen Remarks Anterior abdominal wall wound. Integumentary Skin Remarks Anterior abdominal wall wound. Vitals/Results Intake & Output 10/13/16 10/13/16 10/14/16 15:00 23:00 07:00 Intake Total 360 ml 480 ml 240 ml Output Total 550 ml 300 ml 200 ml Balance -190 ml 180 ml 40 ml Intake Oral 360 ml 480 ml 240 ml Output Urine Total 550 ml 300 ml 200 ml # Bowel Movements 1 0 0 Vital Signs Vital Signs Date Time Temp Pulse Resp B/P Pulse Ox O2 Delivery O2 Flow Rate FiO2 10/14/16 10:50 18 10/14/16 08:00 97.1 78 18 200/109 95 160/90 10/14/16 00:38 176/80 10/13/16 20:00 98.6 69 24 198/96 97 CBC/BMP: 10/13/16 0622 10/13/16 0622 Physical Exam General General Appearance: No Acute Distress, Comfortable Eyes Eye Exam: Pupils Equal, Pupils Reactive, Sclera White, Extraocular Movement Intact Throat Throat Exam: Oral Mucosa [place] & Moist, Oral Pharynx Normal Neck Neck Exam: Neck Supple, Trachea Midline Pulmonary Resp Exam: Clear Bilaterally, Breath Sounds Equal, No Distress Cardiology CV Exam: Regular, Normal Sinus Rhythm Gastrointestinal/Abdomen GI Exam: Soft, Bowel Sounds Present GI Remarks Anterior abdominal wall wound. Integumentary Skin Exam: Warm, Dry Skin Remarks Anterior abdominal wall wound dry. Extremeties Extremities Exam: No Edema Neurologic Neuro Exam: Alert, Awake, Speech Clear, Moving All Extremities VTE Prophylaxis VTE Prophylaxis Meds: Heparin PUD Prophylasis PUD Prophylaxis: Protonix Assessment/Plan Assessment/Plan ASSESSMENT/PLAN This is a 60-year male who came to the ER diagnosed with: 1. Generalized weakness. Multifactorial. The patient getting physical therapy treatment. anterior abdominal wall wound. The patient is on clindamycin and doxycycline. 2. History of hypertension. Continue home medication. We will monitor blood pressure. 3. History of insomnia. We will monitor. 4. History of COPD. 5. History of smoking. Advised to quit. 6. History of gastroesophageal reflux disease. Protonix 40 mg p.o. daily. 7. History of gastric bypass surgery. 8. Cholecystectomy. 9. And left knee surgery. 10. DVT prophylaxis. Heparin 5000 units subcutaneous twice a day. 11. Gastrointestinal prophylaxis. Protonix 40 mg p.o. daily. 12. Confusion off and on checked CT Brain nothing acute and metabolic work up ..noted and neurology input noted s/p MRI of Brain... shows no stroke. DCF Involved and need to stay in hospital until DCF find solution for discharge placement. Discussed Condition with: Patient John Etienne MD Oct 14, 2016 14:15
[2016-10-14 15:00] VITALS: BP 162/98; PULSE 69; RESP 18; O2SAT 99
[2016-10-14] MEDS: cloNIDine HCL 0.1 MG TAB PO PRN (15:10)
[2016-10-14 20:00] VITALS: BP 189/100; PULSE 69; RESP 20; TEMP 98.1; O2SAT 97
[2016-10-14] MEDS: TEMAZEPAM 7.5 MG CAP PO PRN (20:55)
[2016-10-15] VITALS (11 sets, daily range): BP systolic 62–190; BP diastolic 22–98; PULSE 61–101; RESP 18–19; TEMP 98–98.3; O2SAT 96–100
[2016-10-15] MEDS: CLINDAMYCIN 150 MG CAP PO SCH ×4 (05:50→23:00)
[2016-10-15] MEDS: HEPARIN SODIUM - SQ 10,000 UNITS/ML VIAL SQ SCH ×2 (05:50→17:18)
[2016-10-15] MEDS: LEVOTHYROXINE SODIUM 100 MCG TAB PO SCH (05:50)
[2016-10-15] MEDS: LOW DOSE INSULIN NOVOLOG SUPPLEMENTAL SCALE SQ SCH ×4 (06:30→20:01)
[2016-10-15] MEDS: CARVEDILOL 12.5 MG TAB PO SCH (08:36)
[2016-10-15] MEDS: LISINOPRIL 20 MG TAB PO SCH ×2 (08:36→20:00)
[2016-10-15] MEDS: DOXYCYCLINE HYCLATE 100 MG CAP PO SCH ×2 (08:36→20:00)
[2016-10-15] MEDS: oxyCODONE/ACETAMINOPHEN 10 MG/325 MG TAB PO PRN ×3 (08:37→19:59)
--- NOTE | 2016-10-15 11:23 | HHI.PR ---
Subjective Interval History awake alert and oriented BP high no other complaints awaiting placement Review of Systems Constitutional Constitutional: Fatigue, Weakness Vitals/Results Intake & Output 10/14/16 10/14/16 10/15/16 15:00 23:00 07:00 Intake Total 600 ml 240 ml 240 ml Output Total 250 ml 200 ml 400 ml Balance 350 ml 40 ml -160 ml Intake Oral 600 ml 240 ml 240 ml Output Urine Total 250 ml 200 ml 400 ml # Voids 2 # Bowel Movements 1 Vital Signs Vital Signs Date Time Temp Pulse Resp B/P Pulse Ox O2 Delivery O2 Flow Rate FiO2 10/15/16 09:37 18 10/15/16 08:00 98.0 61 18 190/98 96 162/86 10/14/16 20:00 98.1 69 20 189/100 97 10/14/16 15:00 69 18 162/98 99 CBC/BMP: 10/13/16 0622 10/13/16 0622 Physical Exam General General Appearance: No Acute Distress, Comfortable Eyes Eye Exam: Pupils Equal, Pupils Reactive, Sclera White, Extraocular Movement Intact Throat Throat Exam: Oral Mucosa [place] & Moist, Oral Pharynx Normal Neck Neck Exam: Neck Supple, Trachea Midline Pulmonary Resp Exam: Clear Bilaterally, Breath Sounds Equal, No Distress Cardiology CV Exam: Regular, Normal Sinus Rhythm Gastrointestinal/Abdomen GI Exam: Soft, Bowel Sounds Present Integumentary Skin Exam: Warm, Dry Extremeties Extremities Exam: No Edema Neurologic Neuro Exam: Alert, Awake, Speech Clear, Moving All Extremities VTE Prophylaxis VTE Prophylaxis Meds: Heparin PUD Prophylasis PUD Prophylaxis: Protonix Assessment/Plan Assessment/Plan ASSESSMENT/PLAN This is a 60-year male who came to the ER diagnosed with: 1. Generalized weakness. Multifactorial. The patient getting physical therapy treatment. anterior abdominal wall wound. The patient is on clindamycin and doxycycline. 2. History of hypertension. Continue home medication. We will monitor blood pressure. increase Coreg and Lisinopril 3. History of insomnia. We will monitor. 4. History of COPD. 5. History of smoking. Advised to quit. 6. History of gastroesophageal reflux disease. Protonix 40 mg p.o. daily. 7. History of gastric bypass surgery. 8. Cholecystectomy. 9. And left knee surgery. 10. DVT prophylaxis. Heparin 5000 units subcutaneous twice a day. 11. Gastrointestinal prophylaxis. Protonix 40 mg p.o. daily. 12. Confusion off and on checked CT Brain nothing acute and metabolic work up ..noted and neurology input noted s/p MRI of Brain... shows no stroke. DCF Involved and need to stay in hospital until DCF find solution for discharge placement. Mary Anne Martinez MD Oct 15, 2016 11:23
[2016-10-15] MEDS ORDERED: CARVEDILOL 12.5 MG TAB PO SCH (21:00)
[2016-10-16] VITALS (11 sets, daily range): BP systolic 76–146; BP diastolic 58–101; PULSE 72–117; RESP 18–20; TEMP 96.3–99; O2SAT 96–100
[2016-10-16] MEDS ORDERED: SODIUM CHLORID 0.9% IV ONE (00:15)
[2016-10-16] MEDS: SODIUM CHLOR 0.9% 1000 ML INJ 1,000 ML IV SCH ×3 (00:15→20:15)
[2016-10-16] MEDS: oxyCODONE/ACETAMINOPHEN 10 MG/325 MG TAB PO PRN ×3 (03:29→18:09)
[2016-10-16] MEDS: LEVOTHYROXINE SODIUM 100 MCG TAB PO SCH (05:23)
[2016-10-16] MEDS: HEPARIN SODIUM - SQ 10,000 UNITS/ML VIAL SQ SCH ×2 (05:23→05:29)
[2016-10-16 06:17] LABS: AUTOMATED NEUTROPHIL # 11.9 TH/MM3 (1.8-7.7); BASOPHIL # 0.2 TH/MM3 (0-0.2); BASOPHIL % 1.2 % (0.0-2.0); EOSINOPHIL # 0.1 TH/MM3 (0-0.4); EOSINOPHIL % 0.4 % (0.0-4.0); LYMPH % 16.7 % (9.0-44.0); LYMPHOCYTE # 2.7 TH/MM3 (1.0-4.8); MEAN CELL VOLUME 89.1 FL (80.0-100.0); MEAN CORPUSCULAR HEMOGLOBIN 28.6 PG (27.0-34.0); MONO % 7.2 % (0.0-8.0); NEUT % 74.5 % (16.0-70.0); PLATELET COUNT 319 TH/MM3 (150-450); RED BLOOD COUNT 2.27 MIL/MM3 (4.50-5.90); RED CELL DISTRIBUTION WIDTH 16.5 % (11.6-17.2); WHITE BLOOD COUNT 16.1 TH/MM3 (4.0-11.0)
[2016-10-16 06:18] LABS: HEMO FLAGS DIFF FINAL
[2016-10-16 06:22] LABS: HEMATOCRIT 20.2 % (39.0-51.0)
[2016-10-16] MEDS: LOW DOSE INSULIN NOVOLOG SUPPLEMENTAL SCALE SQ SCH ×4 (07:12→20:26)
[2016-10-16 07:17] LABS: MEAN CELL VOLUME 89.8 FL (80.0-100.0); MEAN CORPUSCULAR HEMOGLOBIN 28.8 PG (27.0-34.0); MEAN CORPUSCULAR HGB CONC 32.1 % (32.0-36.0); PLATELET COUNT 257 TH/MM3 (150-450); RED CELL DISTRIBUTION WIDTH 17.2 % (11.6-17.2); WHITE BLOOD COUNT 16.1 TH/MM3 (4.0-11.0)
[2016-10-16 07:18] LABS: HEMO FLAGS AUTO DIFF
[2016-10-16 07:22] LABS: HEMATOCRIT 20.7 % (39.0-51.0)
[2016-10-16 07:23] LABS: BICARBONATE 24.9 MEQ/L (21.0-32.0); MAGNESIUM 1.6 MG/DL (1.5-2.5); POTASSIUM 4.9 MEQ/L (3.5-5.1)
[2016-10-16 08:00] LABS: BANDS 1 % (0-6); NEUTROPHIL # MANUAL DIFF 11.4 TH/MM3 (1.8-7.7); POLYS (SEG NEUTROPHILS) 70 % (16-70); WBC DIFF SAMPLE 100
[2016-10-16 08:01] LABS: ACANTHOCYTES 1+ (NORMAL); KERATOCYTES OCC (NORMAL); OVALOCYTES 1+ (NORMAL); PLATELET ESTIMATE SMEAR NORMAL (NORMAL); PLATELET MORPHOLOGY NORMAL (NORMAL); SCAN/DIFF FINAL DIFF MANUAL; TARGET CELLS 1+ (NORMAL)
--- NOTE | 2016-10-16 08:19 | HHI.PR ---
Subjective History of Present Illness Patient have low Hgb 6.6 Give 2 units PRBC Transfusion and check Fecal occult blood test discontinue heparin start ADA 1800 calories diet, no obvious sign of bleeding.. have confusion off and on checked CT Brain nothing acute and metabolic work up ..noted and neurology input noted s/p MRI of Brain... shows no stroke. . Elder protective services Involved and need to stay in hospital until, Elder protective services find solution for discharge placement. Review of Systems Constitutional Constitutional: Fatigue, Weakness GI/Abdomen GI/Abdomen Remarks Anterior abdominal wall wound. Integumentary Skin Remarks Anterior abdominal wall wound. Vitals/Results Intake & Output 10/15/16 10/15/16 10/16/16 15:00 23:00 07:00 Intake Total 720 ml 360 ml 120 ml Output Total 500 ml Balance 720 ml -140 ml 120 ml Intake Oral 720 ml 360 ml 120 ml Output Urine Total 500 ml # Voids 3 1 # Bowel Movements 1 Vital Signs Vital Signs Date Time Temp Pulse Resp B/P Pulse Ox O2 Delivery O2 Flow Rate FiO2 10/16/16 04:29 13 10/16/16 02:00 96.3 82 20 146/101 96 10/16/16 01:00 74 115/82 10/16/16 00:00 72 112/72 10/15/16 23:00 74 101/68 10/15/16 22:30 73 93/67 10/15/16 22:15 73 92/67 10/15/16 22:00 74 91/64 10/15/16 21:50 72 81/60 10/15/16 21:45 72 68/22 10/15/16 21:15 64/48 10/15/16 21:00 64/49 62/41 10/15/16 20:00 98.3 101 19 123/98 100 10/15/16 14:18 64 18 148/90 CBC/BMP: 10/16/16 0705 10/16/16 0608 Lab Results Laboratory Tests Test 10/16/16 10/16/16 06:08 07:05 White Blood Count 16.1 TH/MM3 16.1 TH/MM3 Red Blood Count 2.27 MIL/MM3 2.30 MIL/MM3 Hemoglobin 6.5 GM/DL 6.6 GM/DL Hematocrit 20.2 % 20.7 % Mean Corpuscular Volume 89.1 FL 89.8 FL Mean Corpuscular Hemoglobin 28.6 PG 28.8 PG Mean Corpuscular Hemoglobin 32.0 % 32.1 % Concent Red Cell Distribution Width 16.5 % 17.2 % Platelet Count 319 TH/MM3 257 TH/MM3 Mean Platelet Volume 7.8 FL 8.3 FL Neutrophils (%) (Auto) 74.5 % % Lymphocytes (%) (Auto) 16.7 % % Monocytes (%) (Auto) 7.2 % % Eosinophils (%) (Auto) 0.4 % % Basophils (%) (Auto) 1.2 % % Neutrophils # (Auto) 11.9 TH/MM3 TH/MM3 Lymphocytes # (Auto) 2.7 TH/MM3 TH/MM3 Monocytes # (Auto) 1.2 TH/MM3 TH/MM3 Eosinophils # (Auto) 0.1 TH/MM3 TH/MM3 Basophils # (Auto) 0.2 TH/MM3 TH/MM3 CBC Comment DIFF FINAL AUTO DIFF Differential Comment FINAL DIFF MANUAL Sodium Level 141 MEQ/L Potassium Level 4.9 MEQ/L Chloride Level 110 MEQ/L Carbon Dioxide Level 24.9 MEQ/L Anion Gap 6 MEQ/L Blood Urea Nitrogen 31 MG/DL Creatinine 0.95 MG/DL Estimat Glomerular Filtration 81 ML/MIN Rate Random Glucose 193 MG/DL Calcium Level 7.6 MG/DL Magnesium Level 1.6 MG/DL Differential Total Cells 100 Counted Neutrophils % (Manual) 70 % Band Neutrophils % 1 % Lymphocytes % 21 % Monocytes % 8 % Neutrophils # (Manual) 11.4 TH/MM3 Platelet Estimate NORMAL Platelet Morphology Comment NORMAL Target Cells 1+ Ovalocytes 1+ Acanthocytes 1+ Keratocytes OCC Physical Exam General General Appearance: No Acute Distress, Comfortable Eyes Eye Exam: Pupils Equal, Pupils Reactive, Sclera White, Extraocular Movement Intact Throat Throat Exam: Oral Mucosa [place] & Moist, Oral Pharynx Normal Neck Neck Exam: Neck Supple, Trachea Midline Pulmonary Resp Exam: Clear Bilaterally, Breath Sounds Equal, No Distress Cardiology CV Exam: Regular, Normal Sinus Rhythm Gastrointestinal/Abdomen GI Exam: Soft, Bowel Sounds Present GI Remarks Anterior abdominal wall wound. Integumentary Skin Exam: Warm, Dry Skin Remarks Anterior abdominal wall wound dry. Extremeties Extremities Exam: No Edema Neurologic Neuro Exam: Alert, Awake, Speech Clear, Moving All Extremities VTE Prophylaxis VTE Prophylaxis Meds: Heparin PUD Prophylasis PUD Prophylaxis: Protonix Assessment/Plan Assessment/Plan ASSESSMENT/PLAN This is a 60-year male who came to the ER diagnosed with: 1. Generalized weakness. Multifactorial. The patient getting physical therapy treatment. anterior abdominal wall wound. The patient is on clindamycin and doxycycline. 2. History of hypertension. Continue home medication. We will monitor blood pressure. increase Coreg and Lisinopril 3. History of insomnia. We will monitor. 4. History of COPD. 5. History of smoking. Advised to quit. 6. History of gastroesophageal reflux disease. Protonix 40 mg p.o. daily. 7. History of gastric bypass surgery. 8. Cholecystectomy. 9. And left knee surgery. 10. DVT prophylaxis. Heparin 5000 units subcutaneous twice a day. 11. Gastrointestinal prophylaxis. Protonix 40 mg p.o. daily. 12. Confusion off and on checked CT Brain nothing acute and metabolic work up ..noted and neurology input noted s/p MRI of Brain... shows no stroke. 13. low Hgb 6.6 Give 2 units PRBC Transfusion and check Fecal occult blood test discontinue heparin , no obvious sign of bleeding. Elder protective services Involved and need to stay in hospital until Elder protective services find solution for discharge placement. Discussed Condition with: Patient John Etienne MD Oct 16, 2016 08:19
[2016-10-16] MEDS: DOXYCYCLINE HYCLATE 100 MG CAP PO SCH ×2 (09:00→20:26)
[2016-10-16] MEDS: LISINOPRIL 20 MG TAB PO SCH (09:00)
[2016-10-16] MEDS: CARVEDILOL 12.5 MG TAB PO SCH ×2 (09:00→21:00)
[2016-10-16] MEDS: CLINDAMYCIN 150 MG CAP PO SCH ×3 (11:26→20:26)
[2016-10-16 19:49] LABS: AUTOMATED NEUTROPHIL # 10.8 TH/MM3 (1.8-7.7); BASOPHIL # 0.1 TH/MM3 (0-0.2); BASOPHIL % 0.5 % (0.0-2.0); EOSINOPHIL % 0.3 % (0.0-4.0); HEMATOCRIT 26.1 % (39.0-51.0); HEMO FLAGS DIFF FINAL; LYMPH % 17.6 % (9.0-44.0); LYMPHOCYTE # 2.7 TH/MM3 (1.0-4.8); MEAN CELL VOLUME 86.9 FL (80.0-100.0); MEAN CORPUSCULAR HEMOGLOBIN 29.6 PG (27.0-34.0); MONO % 9.8 % (0.0-8.0); NEUT % 71.8 % (16.0-70.0); PLATELET COUNT 189 TH/MM3 (150-450); RED BLOOD COUNT 3.01 MIL/MM3 (4.50-5.90); RED CELL DISTRIBUTION WIDTH 15.8 % (11.6-17.2); WHITE BLOOD COUNT 15.1 TH/MM3 (4.0-11.0)
[2016-10-16] MEDS ORDERED: CARVEDILOL 12.5 MG TAB PO SCH (21:00)
[2016-10-16] MEDS ORDERED: SODIUM CHLOR 0.9% 1000 ML INJ 1,000 ML IV ONE (21:15)
[2016-10-16] MEDS: TEMAZEPAM 7.5 MG CAP PO PRN (22:00)
[2016-10-16] MEDS ORDERED: LISINOPRIL 20 MG TAB PO SCH (22:00)
[2016-10-16 22:49] LABS: HEMATOCRIT 21.5 % (39.0-51.0); REVIEW FLAG FINAL
[2016-10-17] VITALS (24 sets, daily range): BP systolic 95–159; BP diastolic 39–94; PULSE 76–112; RESP 12–22; TEMP 94–99; O2SAT 89–100
[2016-10-17] MEDS: MAGNESIUM SULFAT 1 GM PREMIX 100 ML x2 bags IV SCH ×2 (00:14→06:19)
[2016-10-17] MEDS: oxyCODONE/ACETAMINOPHEN 10 MG/325 MG TAB PO PRN ×2 (01:15→06:17)
[2016-10-17] MEDS: CLINDAMYCIN 150 MG CAP PO SCH ×2 (02:27→08:00)
[2016-10-17] MEDS ORDERED: MAGNESIUM SULFATE 1 GM PREMIX 100 ML IV PRN (02:45)
[2016-10-17] MEDS: SODIUM CHLOR 0.9% 1000 ML INJ 1,000 ML IV SCH (02:55)
[2016-10-17] MEDS: LEVOTHYROXINE SODIUM 100 MCG TAB PO SCH (05:57)
[2016-10-17] MEDS: LOW DOSE INSULIN NOVOLOG SUPPLEMENTAL SCALE SQ SCH ×4 (07:00→21:00)
[2016-10-17] MEDS ORDERED: SODIUM CHLOR 0.9% 1000 ML INJ 1,000 ML IV ONE (08:30)
--- NOTE | 2016-10-17 08:30 | HHI.PR ---
Subjective History of Present Illness Patient have fresh bleed per rectum d/w RN Adrianna and Anisha GI Consulted getting Endoscopy soon low Hgb was 6.6 s/p 2 units PRBC Transfusion . Patient have Hypoxia and undetectable BP Consulted critical care transferred to [facility] ICU. have confusion off and on Review of Systems Constitutional Constitutional: Fatigue, Weakness GI/Abdomen GI/Abdomen Remarks Anterior abdominal wall wound. Integumentary Skin Remarks Anterior abdominal wall wound. Vitals/Results Intake & Output 10/16/16 10/16/16 10/17/16 15:00 23:00 07:00 Intake Total 575 ml 600 ml 1463 ml Output Total 500 ml Balance 575 ml 100 ml 1463 ml Intake Oral 575 ml 600 ml 80 ml IV Total 750 ml Packed Cells 633 ml Output Urine Total 500 ml # Voids 2 0 # Bowel Movements 0 1 0 Vital Signs Vital Signs Date Time Temp Pulse Resp B/P Pulse Ox O2 Delivery O2 Flow Rate FiO2 10/17/16 06:00 96.2 100 20 95/73 100 10/17/16 03:45 97.5 80 16 105/75 97 10/17/16 03:30 96.7 76 16 109/73 97 10/17/16 01:57 97.5 85 18 105/80 99 10/17/16 01:45 97.7 83 16 107/77 99 10/16/16 23:15 92 10/16/16 20:00 98.2 107 20 76/58 99 80/62 10/16/16 16:00 98.0 84 18 104/82 99 10/16/16 14:28 99.0 85 20 131/87 10/16/16 12:52 20 10/16/16 12:00 98.6 104 18 98/80 97 10/16/16 11:46 98.7 117 20 98/80 CBC/BMP: 10/16/16 2240 10/16/16 0608 Lab Results Laboratory Tests Test 10/16/16 10/16/16 10/16/16 19:45 22:33 22:40 White Blood Count 15.1 TH/MM3 Red Blood Count 3.01 MIL/MM3 Hemoglobin 8.9 GM/DL 7.4 GM/DL Hematocrit 26.1 % 21.5 % Mean Corpuscular Volume 86.9 FL Mean Corpuscular Hemoglobin 29.6 PG Mean Corpuscular Hemoglobin 34.0 % Concent Red Cell Distribution Width 15.8 % Platelet Count 189 TH/MM3 Mean Platelet Volume 7.7 FL Neutrophils (%) (Auto) 71.8 % Lymphocytes (%) (Auto) 17.6 % Monocytes (%) (Auto) 9.8 % Eosinophils (%) (Auto) 0.3 % Basophils (%) (Auto) 0.5 % Neutrophils # (Auto) 10.8 TH/MM3 Lymphocytes # (Auto) 2.7 TH/MM3 Monocytes # (Auto) 1.5 TH/MM3 Eosinophils # (Auto) 0.0 TH/MM3 Basophils # (Auto) 0.1 TH/MM3 CBC Comment DIFF FINAL Differential Comment Blood Type O POSITIVE Crossmatch Leukocyte-Reduced Red Blood Cells Blood Bank Comment Physical Exam General General Appearance: No Acute Distress, Comfortable Eyes Eye Exam: Pupils Equal, Pupils Reactive, Sclera White, Extraocular Movement Intact Throat Throat Exam: Oral Mucosa [place] & Moist, Oral Pharynx Normal Neck Neck Exam: Neck Supple, Trachea Midline Pulmonary Resp Exam: Clear Bilaterally, Breath Sounds Equal, No Distress Cardiology CV Exam: Regular, Normal Sinus Rhythm Gastrointestinal/Abdomen GI Exam: Soft, Bowel Sounds Present GI Remarks Anterior abdominal wall wound. Integumentary Skin Exam: Warm, Dry Skin Remarks Anterior abdominal wall wound dry. Extremeties Extremities Exam: No Edema Neurologic Neuro Exam: Alert, Awake, Speech Clear, Moving All Extremities PUD Prophylasis PUD Prophylaxis: Protonix Assessment/Plan Assessment/Plan ASSESSMENT/PLAN This is a 60-year male who came to the ER diagnosed with: 1. Generalized weakness. Multifactorial. The patient getting physical therapy treatment. anterior abdominal wall wound. The patient is on clindamycin and doxycycline. 2. History of hypertension. Continue home medication. We will monitor blood pressure. increase Coreg and Lisinopril 3. History of insomnia. We will monitor. 4. History of COPD. 5. History of smoking. Advised to quit. 6. History of gastroesophageal reflux disease. Protonix 40 mg p.o. daily. 7. History of gastric bypass surgery. 8. Cholecystectomy. 9. And left knee surgery. 10. DVT prophylaxis. Heparin 5000 units subcutaneous twice a day. 11. Gastrointestinal prophylaxis. Protonix 40 mg p.o. daily. 12. Confusion off and on checked CT Brain nothing acute and metabolic work up ..noted and neurology input noted s/p MRI of Brain... shows no stroke. 13. low Hgb 6.6 S/P 2 units PRBC Transfusion discontinue heparin on . 14. Fresh bleed per rectum GI Consulted getting Endoscopy soon low Hgb was 6.6 s/p 2 units PRBC Transfusion 15. Hypoxia and undetectable BP Consulted critical care. transferred to [facility] ICU. Elder protective services Involved and need to stay in hospital until Elder protective services find solution for discharge placement. Discussed Condition with: Patient John Etienne MD Oct 17, 2016 08:30 John Etienne MD Oct 17, 2016 08:30
[2016-10-17 08:38] LABS: AUTOMATED NEUTROPHIL # 11.1 TH/MM3 (1.8-7.7); BASOPHIL # 0.1 TH/MM3 (0-0.2); BASOPHIL % 0.4 % (0.0-2.0); EOSINOPHIL # 0.1 TH/MM3 (0-0.4); EOSINOPHIL % 0.4 % (0.0-4.0); LYMPH % 12.7 % (9.0-44.0); LYMPHOCYTE # 1.8 TH/MM3 (1.0-4.8); MEAN CELL VOLUME 90.3 FL (80.0-100.0); MEAN CORPUSCULAR HEMOGLOBIN 30.6 PG (27.0-34.0); MEAN CORPUSCULAR HGB CONC 33.9 % (32.0-36.0); MONO % 5.4 % (0.0-8.0); NEUT % 81.1 % (16.0-70.0); PLATELET COUNT 122 TH/MM3 (150-450); RED BLOOD COUNT 2.55 MIL/MM3 (4.50-5.90); RED CELL DISTRIBUTION WIDTH 15.4 % (11.6-17.2); WHITE BLOOD COUNT 13.8 TH/MM3 (4.0-11.0)
[2016-10-17 08:40] LABS: HEMO FLAGS AUTO DIFF
[2016-10-17] MEDS: DOXYCYCLINE HYCLATE 100 MG CAP PO SCH ×2 (09:00→21:00)
[2016-10-17] MEDS ORDERED: PANTOPRAZOLE SODIUM 40 MG VIAL IV PUSH SCH (09:00)
[2016-10-17] MEDS: PANTOPRAZOLE SODIUM 40 MG VIAL IV PUSH SCH ×2 (09:00→21:00)
[2016-10-17 09:01] LABS: BICARBONATE 18.7 MEQ/L (21.0-32.0); MAGNESIUM 2.4 MG/DL (1.5-2.5); POTASSIUM 6.7 MEQ/L (3.5-5.1); TOTAL BILIRUBIN ADULT 0.4 MG/DL (0.2-1.0)
[2016-10-17 09:05] LABS: SCAN/DIFF AUTO DIFF CONFIRMED
[2016-10-17] MEDS ORDERED: PANTOPRAZOLE 80 MG/100 ML NS IV SCH ×2 (10:00)
[2016-10-17 10:16] LABS: BLOOD GAS BASE EXCESS -18.7 mmol/L (-2-2); BLOOD GAS CARBOXYHEMOGLOBIN 0.8 % (0-4); BLOOD GAS HCO3 8 mmol/L (22-26); BLOOD GAS METHEMOGLOBIN 1.1 % (0-2); BLOOD GAS O2 HGB SATURATION 98 % (90-100); BLOOD GAS OXYGEN CONTENT 9.4 Vol % (12.0-20.0); BLOOD GAS PCO2 23 mmHg (38-42); BLOOD GAS PO2 300 mmHg (61-120); BLOOD GAS TOTAL HGB 6.2 G/DL (12.0-16.0)
[2016-10-17 10:18] LABS: CRITICAL VALUE YES; DRAW SITE LT FEMORAL; LITER FLOW 14 L/M; NUMBER OF ARTERIAL PUNCTURES 1; OXYGEN DEVICE NRB; STAT YES
[2016-10-17] MEDS ORDERED: CALCIUM GLUCONATE INJ 1 GM in SODIUM CHLORIDE 0.9% INJ 100 ML IV ONE (10:30)
[2016-10-17] MEDS ORDERED: SODIUM POLYSTYRENE SULFONATE SUSP 15 GM/60 ML CUP RECTAL ONE (10:30)
[2016-10-17] MEDS ORDERED: INSULIN HUMAN REGULAR 1,000 UNITS/10 ML VIAL IV PUSH ONE (11:00)
[2016-10-17] MEDS ORDERED: SODIUM BICARBONATE 8.4% INJ 50 MEQ/50 ML SYR IV PUSH ONE (11:00)
[2016-10-17] MEDS ORDERED: LIDOCAINE 2% JELLY 5 ML TUBE TOPICAL ONE (11:15)
[2016-10-17] MEDS ORDERED: SODIUM CHLOR 0.9% 250 ML INJ 250 ML IV ONE ×6 (11:15→21:45)
[2016-10-17] MEDS ORDERED: DEXTROSE 50% IN WATER 50 ML SYRINGE IV ONE (11:30)
[2016-10-17] MEDS ORDERED: MAGNESIUM SULFATE INJ 2 GM in SODIUM CHLORIDE 0.9% INJ 96 ML IV PRN (11:30)
[2016-10-17] MEDS ORDERED: RESP: ALBUTEROL 2.5 MG/IPRATROPIUM 0.5 MG NEB (PRN) NEB (11:30)
[2016-10-17] MEDS ORDERED: POTASSIUM PHOSPHATE INJ 30 MMOL in SODIUM CHLOR 0.9% 250 ML INJ 250 ML IV PRN (11:30)
[2016-10-17] MEDS ORDERED: MAGNESIUM SULFATE INJ 4 GM in SODIUM CHLORIDE 0.9% INJ 92 ML IV PRN (11:30)
[2016-10-17] MEDS ORDERED: POTASSIUM PHOSPHATE MONOBASIC 500 MG TAB PO PRN (11:30)
[2016-10-17] MEDS ORDERED: POTASSIUM CHLOR 40 MEQ PREMIX 100 ML IV PRN ×2 (11:30)
[2016-10-17] MEDS ORDERED: MAGNESIUM OXIDE 400 MG TAB PO PRN (11:30)
[2016-10-17] MEDS ORDERED: POTASSIUM CHLOR 20 MEQ PREMIX 100 ML IV PRN ×2 (11:30)
[2016-10-17] MEDS ORDERED: POTASSIUM PHOSPHATE MONOBASIC 500 MG TAB PO/TUBE PRN (11:30)
[2016-10-17] MEDS ORDERED: SODIUM PHOSPHATE INJ 30 MMOL in SODIUM CHLOR 0.9% 250 ML INJ 240 ML IV PRN (11:30)
[2016-10-17] MEDS ORDERED: LACTATED RINGER'S 1000 ML INJ 1,000 ML IV SCH (11:30)
--- NOTE | 2016-10-17 11:36 | EC ---
Study Study Date:10/17/2016 STUDY CONCLUSIONS SUMMARY - Left ventricle: The cavity size was normal. Wall thickness was normal. Systolic function was normal. The estimated ejection fraction was in the range of 60% to 65%. Wall motion was normal; there were no regional wall motion abnormalities. - Aortic valve: Valve area: 2.45cm^2(VTI). Valve area: 2.48cm^2 (Vmax). - Pericardium, extracardiac: A small to moderate pericardial effusion (about 2cm depth)was identified anterior to the heart and at the apex. The fluid exhibited a fibrinous appearance. There was no evidence of hemodynamic compromise. If LV function is below 40, please consider prescribing an ACEI or ARB or document rationale for non-use. PROCEDURE DATA STUDY STATUS: Elective. Procedure: Transthoracic echocardiography. Image quality was good. Scanning was performed from the parasternal, apical, and subcostal acoustic windows. Study completion: The patient tolerated the procedure well. Transthoracic echocardiography. M-mode, complete 2D, complete spectral Doppler, and color Doppler. Height: Height: 71in. Weight: Weight: 123.7lb. Body mass index: BMI: 17.3kg/m^2. Body surface area: BSA: 1.72m^2. Patient status: Inpatient. CARDIAC ANATOMY LEFT VENTRICLE: The cavity size was normal. Wall thickness was normal. Systolic function was normal. The estimated ejection fraction was in the range of 60% to 65%. Wall motion was normal; there were no regional wall motion abnormalities. AORTIC VALVE: Trileaflet; normal thickness leaflets. Doppler: Transvalvular velocity was within the normal range. There was no stenosis. No regurgitation. Valve area: 2.45cm^2(VTI). Indexed valve area: 1.42cm^2/m^2 (VTI). Valve area: 2.48cm^2 (Vmax). Indexed valve area: 1.44cm^2/m^2 (Vmax). Mean gradient: 2mm Hg (S). AORTA: Aortic root: The aortic root was normal in size. MITRAL VALVE: Structurally normal valve. Doppler: Transvalvular velocity was within the normal range. There was no evidence for stenosis. No regurgitation. LEFT ATRIUM: The atrium was normal in size. RIGHT VENTRICLE: The cavity size was normal. Wall thickness was normal. PULMONIC VALVE: Doppler: Transvalvular velocity was within the normal range. There was no evidence for stenosis. No regurgitation. TRICUSPID VALVE: Structurally normal valve. Doppler: Transvalvular velocity was within the normal range. Trace regurgitation. PULMONARY ARTERY: The main pulmonary artery was normal-sized. Systolic pressure was within the normal range. RIGHT ATRIUM: The atrium was normal in size. PERICARDIUM: A small to moderate pericardial effusion (about 2cm depth)was identified anterior to the heart and at the apex. The fluid exhibited a fibrinous appearance. There was no evidence of hemodynamic compromise. SYSTEMIC VEINS: Inferior vena cava: The vessel was normal in size. Patient weight: 123.7lb _Ejection fraction:_ 65-75% _Fractional shortening:_ 32% up to 5Kg 5-11.5Kg 11.6-22.9Kg 23-45Kg 45-57Kg Aortic Root 7-13 <17 13-22 17-27 17-27 LA diam 6-13 <23 24-38 33-47 37-40 RVID 10-17 7-15 7-15 7-18 8-17 LVIDd 12-22 <32 24-38 33-47 37-40 LVPW 2-4 3-6 5-7 6-8 7-8 IVS 2-4 3-6 5-7 6-8 7-8 BASIC MEASUREMENTS ADULT NORMAL Left ventricle LV internal dimension, ED, chordal *31.2 mm 43-52 level, PLAX LV internal dimension, ES, chordal *21.2 mm 23-38 level, PLAX Fractional shortening, chordal level, 32 % >29 PLAX LV posterior wall thickness, ED 10.5 mm IVS/LVPW ratio, ED 1 <1.3 Ventricular septum Septal thickness, ED 10.5 mm Aortic valve Leaflet separation 22 mm 15-26 Aorta Root diameter, ED 30 mm Left atrium Anterior-posterior dimension 21 mm Anterior-posterior dimension index 1.22 cm/m^2 <2.2 BASIC MEASUREMENTS ADULT NORMAL Aortic valve Leaflet separation 22 mm 15-26 DOPPLER MEASUREMENTS ADULT NORMAL Aortic valve Peak velocity, S 81 cm/s Mean velocity, S 57.3 cm/s VTI, S 13.6 cm Mean gradient, S 2 mm Hg Valve area, VTI 2.45 cm^2 Valve area index, VTI 1.42 cm^2/m^2 Valve area, Vmax 2.48 cm^2 Valve area index, Vmax 1.44 cm^2/m^2 Tricuspid valve Regurgitant peak velocity 261 cm/s Peak RV-RA gradient, S 27 mm Hg Maximal regurgitant velocity 261 cm/s LEGEND: Mean values are shown as u=mean value. Asterisk (*) reeves values outside specified normal range. Prepared and signed by Isai Adamson [id number]
[2016-10-17] MEDS ORDERED: SODIUM BICARBONATE 8.4% SOLN 50 MEQ/50 ML VIAL IV ONE (11:45)
[2016-10-17 11:48] LABS: BASOPHIL # 0.1 TH/MM3 (0-0.2); BASOPHIL % 0.3 % (0.0-2.0); EOSINOPHIL % 0.1 % (0.0-4.0); HEMATOCRIT 27.2 % (39.0-51.0); LYMPH % 6.9 % (9.0-44.0); LYMPHOCYTE # 1.5 TH/MM3 (1.0-4.8); MEAN CELL VOLUME 89.5 FL (80.0-100.0); MEAN CORPUSCULAR HEMOGLOBIN 30.2 PG (27.0-34.0); MEAN CORPUSCULAR HGB CONC 33.8 % (32.0-36.0); MONO % 3.2 % (0.0-8.0); NEUT % 89.5 % (16.0-70.0); PLATELET COUNT 116 TH/MM3 (150-450); RED BLOOD COUNT 3.04 MIL/MM3 (4.50-5.90); RED CELL DISTRIBUTION WIDTH 14.4 % (11.6-17.2); WHITE BLOOD COUNT 21.3 TH/MM3 (4.0-11.0)
[2016-10-17 11:51] LABS: HEMO FLAGS DIFF FINAL
--- NOTE | 2016-10-17 11:55 | RADHPO ---
EXAM DATE/TIME: 10/17/2016 11:47 [facility] COMPARISON: CHEST SINGLE AP, October 08, 2016, 1:08. INDICATIONS : Low O2 saturation. MEDICAL HISTORY : Hypercholesterolemia. Emphysema. Gastroesophageal reflux disease. Hypertension. Diabetes mellitus type 2. Cerebrovascular disease. COPD.Sleep apnea. Thyroid disease. SURGICAL HISTORY : Splenectomy. Cholecystectomy. Umbilical hernia repair.Gastric bypass. Left knee. Right shoulder. Righ t hip/ ENCOUNTER: Subsequent ACUITY: 2 weeks PAIN SCORE: 0/10 LOCATION: chest FINDINGS: A single view of the chest demonstrates the lungs to be symmetrically aerated without evidence of mas s, infiltrate or effusion. The cardiomediastinal contours are unremarkable. Osseous structures are intact. CONCLUSION: No acute disease. Jarod Garza MD on October 17, 2016 at 11:53 Board Certified Radiologist. This report was verified electronically.
[2016-10-17 12:10] LABS: APTT (PATIENT) 28.9 SEC (24.3-30.1); INTERNATIONAL NORMALIZED RATIO 1.3 RATIO; PROTHROMBIN TIME - PATIENT 14.1 SEC (9.8-11.6)
[2016-10-17 12:51] LABS: BICARBONATE 13.7 MEQ/L (21.0-32.0); TOTAL BILIRUBIN ADULT 0.4 MG/DL (0.2-1.0)
[2016-10-17 12:57] LABS: POTASSIUM 7.3 MEQ/L (3.5-5.1)
[2016-10-17] MEDS ORDERED: SODIUM BICARBONATE 8.4% INJ 100 MEQ in WATER STERILE FOR INJ 850 ML IV SCH (13:00)
--- NOTE | 2016-10-17 13:54 | PD.CONS ---
[facility] Service Critical Care Medicine Consult Requested By Dr. Etienne Reason for Consult GI bleed Primary Care Physician Chad Etienne MD History of Present Illness This is a 60yM with very complicated past medical history with multiple hospital admissions in the past. In brief, he has a history of gastric bypass and a chronic poorly healing abdominal wound, as well as chronic malnutrition, DM, htn, COPD. He presented to the [facility] ED with complaints of fatigue. He was admitted to the hospital. His hospital course has been complicated by hypotension, acute kidney injury. Today, he started having large volume melanotic stools with associated tachycardia and hypotension. I was consulted when the patient required transfer to the ICU. He had a K > 6, serum bicarb of 8 , BE -18, ABG 7.1/23/300, lactate 9.0, active melena with hemodynamic instability. [facility] the patient large volume blood product resuscitation and emergent transfer to the [facility] for emergent GI scope. I also discussed the case with GI who was ready and available when the patient arrived. The patient arrived in the [facility] PACU and I immediately went to evaluate him. Despite therapy with D50/insulin/bicarb /calcium, his K vita from 6 to 7.2. He remained tachycardic and hypotensive. Decision by myself in conjunction with the anesthesia team was to postpone emergent EGD until the patient could be medically stabilized. Taken to ICU. Dialysis catheter placed (see separate procedure note for details), arterial line placed, given 7 units prbc, 4 ffp. emergent IHD. Of note, patient does have a history of a prior high grade necrotic gastric ulcer on last EGD, but was lost to follow-up for repeat EGD. Review of Systems ROS Limitations: Clinical Condition Constitutional: COMPLAINS OF: Fatigue Respiratory: DENIES: Sputum production, Shortness of breath Cardiovascular: DENIES: Chest pain, Syncope, Dyspnea on Exertion Gastrointestinal: COMPLAINS OF: Bloody stools, Diarrhea, DENIES: Abdominal pain, Nausea, Vomiting Past Family Social History Allergies: Coded Allergies: No Known Allergies (Unverified , 10/08/16) Past Medical History PUD with persistent gastric ulceration Hypertension COPD Diabetes Chronic back pain Hypothyroidism. Peripheral edema Anemia PVD Tobacco abuse Chronic narcotic use Past Surgical History Gastric bypass Partial pancreatectomy and splenectomy Multiple surgeries related to gastric bypass. Cholecystectomy EGD/Colonoscopy Reported Medications patient unable to provide full home medication list due to his clinical condition. Active Ordered Medications See MAR Family History unable to obtain and unlikely contributory to his acute medical illness. Social History +tob, - etoh. Physical Exam Vital Signs Vital Signs Date Time Temp Pulse Resp B/P Pulse Ox O2 Delivery O2 Flow Rate FiO2 10/17/16 10:21 100 Non-Rebreather 14.00 10/17/16 09:51 94.0 10/17/16 06:00 96.2 100 20 95/73 100 10/17/16 03:45 97.5 80 16 105/75 97 10/17/16 03:30 96.7 76 16 109/73 97 10/17/16 01:57 97.5 85 18 105/80 99 10/17/16 01:45 97.7 83 16 107/77 99 10/16/16 23:15 92 10/16/16 20:00 98.2 107 20 76/58 99 80/62 10/16/16 16:00 98.0 84 18 104/82 99 10/16/16 14:28 99.0 85 20 131/87 Physical Exam gen: pale, critically ill appearing middle aged male, appears much older than stated age, moderate distress. heent: palor. ncat. perrl. sclerae pale. mucous membranes dry. neck: no jvd. trachea midline. chest: clear to auscultation. mildly tachypneic cv: tachycardic rate, regular rhythm. no appreciable murmurs. hypotensive. 80s/ 40s on my exam. abd: soft, nontender, nondistended. no guarding. open nonhealing abdominal wound without bettina purulence. extr: distal pulses 1+. 1+ peripheral edema neuro: RASS 0. follows commands. Laboratory Laboratory Tests Test 10/16/16 10/16/16 10/16/16 10/17/16 19:45 22:33 22:40 08:20 White Blood Count 15.1 13.8 Red Blood Count 3.01 2.55 Hemoglobin 8.9 7.4 7.8 Hematocrit 26.1 21.5 23.0 Mean Corpuscular Volume 86.9 90.3 Mean Corpuscular Hemoglobin 29.6 30.6 Mean Corpuscular Hemoglobin 34.0 33.9 Concent Red Cell Distribution Width 15.8 15.4 Platelet Count 189 122 Mean Platelet Volume 7.7 8.9 Neutrophils (%) (Auto) 71.8 81.1 Lymphocytes (%) (Auto) 17.6 12.7 Monocytes (%) (Auto) 9.8 5.4 Eosinophils (%) (Auto) 0.3 0.4 Basophils (%) (Auto) 0.5 0.4 Neutrophils # (Auto) 10.8 11.1 Lymphocytes # (Auto) 2.7 1.8 Monocytes # (Auto) 1.5 0.7 Eosinophils # (Auto) 0.0 0.1 Basophils # (Auto) 0.1 0.1 CBC Comment DIFF FINAL AUTO DIFF Differential Comment AUTO DIFF CONFIRMED Blood Type O POSITIVE Crossmatch Leukocyte-Reduced Leukocyte-Reduced Red Blood Red Blood Cells Cells Blood Bank Comment Sodium Level 141 Potassium Level 6.7 Chloride Level 111 Carbon Dioxide Level 18.7 Anion Gap 11 Blood Urea Nitrogen 59 Creatinine 1.70 Estimat Glomerular Filtration 41 Rate Random Glucose 393 Calcium Level 6.9 Protein Corrected Calcium 9.0 Magnesium Level 2.4 Total Bilirubin 0.4 Aspartate Amino Transf 6 (AST/SGOT) Alanine Aminotransferase 12 (ALT/SGPT) Alkaline Phosphatase 43 Total Protein 3.4 Albumin 1.5 Test 10/17/16 10/17/16 10/17/16 10/17/16 09:44 10:00 11:13 11:14 Blood Type O POSITIVE O POSITIVE Crossmatch Leukocyte-Reduced Leukocyte-Reduced Red Blood Red Blood Cells Cells Blood Bank Comment Blood Gas Puncture Site LT FEMORAL Blood Gas Patient Temperature 37.0 Blood Gas HCO3 8 Blood Gas Base Excess -18.7 Blood Gas Oxygen Saturation 98 Arterial Blood pH 7.17 Arterial Blood Partial 23 Pressure CO2 Arterial Blood Partial 300 Pressure O2 Arterial Blood Oxygen Content 9.4 Arterial Blood 0.8 Carboxyhemoglobin Arterial Blood Methemoglobin 1.1 Blood Gas Hemoglobin 6.2 Oxygen Delivery Device NRB Blood Gas Liter Flow 14 Test 10/17/16 10/17/16 11:30 12:07 White Blood Count 21.3 Red Blood Count 3.04 Hemoglobin 9.2 Hematocrit 27.2 Mean Corpuscular Volume 89.5 Mean Corpuscular Hemoglobin 30.2 Mean Corpuscular Hemoglobin 33.8 Concent Red Cell Distribution Width 14.4 Platelet Count 116 Mean Platelet Volume 8.6 Neutrophils (%) (Auto) 89.5 Lymphocytes (%) (Auto) 6.9 Monocytes (%) (Auto) 3.2 Eosinophils (%) (Auto) 0.1 Basophils (%) (Auto) 0.3 Neutrophils # (Auto) 19.0 Lymphocytes # (Auto) 1.5 Monocytes # (Auto) 0.7 Eosinophils # (Auto) 0.0 Basophils # (Auto) 0.1 CBC Comment DIFF FINAL Differential Comment Prothrombin Time 14.1 Prothromb Time International 1.3 Ratio Activated Partial 28.9 Thromboplast Time Fibrinogen 116 Sodium Level 143 Potassium Level 7.3 Chloride Level 113 Carbon Dioxide Level 13.7 Anion Gap 16 Blood Urea Nitrogen 56 Creatinine 1.90 Estimat Glomerular Filtration 36 Rate Random Glucose 341 Calcium Level 7.0 Protein Corrected Calcium 9.0 Phosphorus Level 6.8 Total Bilirubin 0.4 Aspartate Amino Transf 151 (AST/SGOT) Alanine Aminotransferase 100 (ALT/SGPT) Alkaline Phosphatase 54 Total Protein 3.7 Albumin 1.7 Lactic Acid Level 9.0 Date/Time Procedure Status Source Growth 10/16/16 02:15 Stool Occult Blood (EDILBERTO) - Final Complete Stool Stool HEMOCCULT POSITIVE Result Diagram: 10/17/16 1130 10/17/16 1130 Imaging Last Impressions Chest X-Ray 10/17/16 0000 Signed Impressions: Service Date/Time: Monday, October 17, 2016 15:29 - CONCLUSION: 1. Right IJ central line distal tip in the right atrium. No pneumothorax is visualized. 2. Mild atelectasis versus consolidation at the right lung base. Levar Aguayo MD Brain MRI 10/10/16 0000 Signed Impressions: Service Date/Time: Monday, October 10, 2016 15:13 - CONCLUSION: 1. No findings to indicate acute cortical infarct are evident. 2. Scattered areas of increased T2 signal in the white matter consistent with mild microvascular ischemic demyelinative change. Lester Allen MD Head CT 10/09/16 0000 Signed Impressions: Service Date/Time: Sunday, October 09, 2016 09:03 - CONCLUSION: Negative for acute process. Jeferson Allen MD FACR Assessment and Plan Assessment and Plan Assessment: 60yM with active GI bleed, hemorrhagic shock, associated multiorgan system failure, acute kidney injury, life-threatening hyperkalemia, anemia of acute blood loss, coagulopathy secondary to consumption and hemorrhage, lactic acidosis, shock liver. He is very critically ill at this time. We will pursue emergent IHD combined with ongoing massive blood product administration to reverse his hemorrhagic shock. GI is consulted and has evaluated the patient. Plan is for EGD once stabilized medically. Plan by systems: Neuro: -- RASS goal 0. -- avoid long-acting sedatives. Respiratory: Atelectasis COPD -- nebs -- wean o2 for goal spo2 > 90% CV: Hemorrhagic Shock -- ongoing blood product resuscitation Renal: Acute Kidney Injury -- emergent IHD for life-threatening hyperkalemia in the setting of ongoing large volume blood product administration -- mcbride for strict i/os FEN/GI: Life-threatening hyperkalemia Hyperphosphatemia Intravascular volume depletion acute protein calorie malnutrition- moderate Active GI bleed Lactic Acidosis Severe anion-gap metabolic acidosis Shock Liver -- emergent IHD as above. unable to give Kayexalate or phos-lo given active GI bleed. -- NPO. -- GI consulted: Tika. -- plan for urgent EGD when stabilized. -- trend lactates -- daily CMP Heme/ID: Anemia secondary to acute blood loss Coagulopathy secondary to acute blood loss and consumption Non-healing abdominal wall wound -- active ongoing blood product administration -- patient is on clindamycin and doxycycline for his abdominal wound infection per the hospitalist team. I will defer to them in this acute setting, as I do not think his hemodynamic instability is secondary to sepsis, but hemorrhagic shock. Endo: Diabetes Hyperglycemia of critical illness -- SSI, med, q6h Prophylaxis: -- scd's -- hold pharmacologic DVT prophylaxis given active upper GI bleed -- iv bid ppi. Dispo: admit to the ICU. very critically ill at this time. This patient remains critically ill with multiple organ systems which are currently life-threatening. I have spent in excess of 111 minutes discontinuously in the care and management of this patient. This time is exclusive of procedures and includes but is not limited to time spent in evaluation of the patient, review of the medical record, discussion with the patient, consultants, nurses, respiratory therapy. Code Status Full Code Kobe Nicholas MD Oct 17, 2016 13:54
[2016-10-17 14:11] LABS: LACTIC ACID GHOST NOT REPORTABLE
[2016-10-17 14:45] LABS: APTT (PATIENT) 29.1 SEC (24.3-30.1); INTERNATIONAL NORMALIZED RATIO 1.3 RATIO; PROTHROMBIN TIME - PATIENT 14.4 SEC (9.8-11.6)
[2016-10-17 14:49] LABS: BICARBONATE 19.3 MEQ/L (21.0-32.0); INDIRECT BILIRUBIN 0.3 MG/DL (0.0-0.8); MAGNESIUM 2.3 MG/DL (1.5-2.5); POTASSIUM 5.1 MEQ/L (3.5-5.1); TOTAL BILIRUBIN ADULT 0.4 MG/DL (0.2-1.0)
[2016-10-17 15:06] LABS: CALCIUM-PROTEIN CORRECTED 9.1 MG/DL (8.5-10.1)
--- NOTE | 2016-10-17 16:14 | RADRPT ---
EXAM DATE/TIME: 10/17/2016 15:29 [place] COMPARISON: CHEST SINGLE AP, October 17, 2016, 11:47. INDICATIONS : Line placement. MEDICAL HISTORY : None. SURGICAL HISTORY : None. ENCOUNTER: Initial ACUITY: 1 day PAIN SCORE: Non-responsive. LOCATION: Bilateral chest FINDINGS: Portable AP view of the chest demonstrates a normal-sized cardiac silhouette. Right IJ central line h as been placed and the distal tip is in the right atrium. No pneumothorax is visualized. There may be mild atelectasis versus consolidation at the right lung base. No pleural effusion is seen. CONCLUSION: 1. Right IJ central line distal tip in the right atrium. No pneumothorax is visualized. 2. Mild atelectasis versus consolidation at the right lung base. Levar Aguayo MD on October 17, 2016 at 16:11 Board Certified Radiologist. This report was verified electronically.
--- NOTE | 2016-10-17 16:27 | PD.CONS ---
HPI Service Nephrology Consult Requested By Reason for Consult JUSTINE, hyperkalemia Primary Care Physician Chad Etienne MD History of Present Illness Mr. Baltazar was admitted to [facility] on the when he had normal renal function, and hemoglobin around 10. He was admitted because of recurrent falls, and progressive weakness. Apparently EMS had been called to his house 7 times in the past 1 month. He was seen by neurology for weakness. On the of this month, he developed hypotension with SBP in 60s. He developed severe anemia noted on the . He has received more than 8 units of PRBC, and appears to be actively bleeding from the GI tract. His serum potassium was 6.7 this morning, when repeated, it was 7.3. Patient became severely acidemic. He remained hypotensive. Patient was transferred to the [facility]. A decision was made to initiate dialysis. Patient has had a Vascath placed. Repeat potassium is 5.1. He appears to be non oliguric, but continues to receive fluids in the form of PRBC. Review of Systems Constitutional: COMPLAINS OF: Fatigue, Weight loss Cardiovascular: DENIES: Chest pain, Palpitations Gastrointestinal: COMPLAINS OF: Bloody stools, DENIES: Abdominal pain Genitourinary: DENIES: Urinary frequency Neurologic: DENIES: Localized weakness, Paresthesias Past Family Social History Allergies: Coded Allergies: No Known Allergies (Unverified , 10/08/16) Past Medical History Hypertension COPD Hypertension Type 2 diabetes. Tobacco abuse Hypothyroidism. Past Surgical History cholecystectomy Gastric bypass surgery Left knee surgery. Reported Medications Lisinopril 20 Mg Tab 20 Mg PO DAILY Cleocin (Clindamycin HCl) 150 Mg Cap 300 Mg PO Q6H Coreg (Carvedilol) 3.125 Mg Tab 3.125 Mg PO Q12HR Metoprolol Tartrate 25 Mg Tab 25 Mg PO BID Reported Percocet (Oxycodone-Acetaminophen) 10-325 mg Tab 1 Tab PO Q4H PRN Temazepam 7.5 Mg Cap 7.5 Mg PO HS PRN Active Ordered Medications Current Medications Medications (Trade) Dose Ordered Sig/Eric Route Start Time Stop Time Status Last Admin (Tylenol) 650 mg Q4H PRN PO 10/08/16 04:30 (Zofran Inj) 4 mg Q6H PRN IVP 10/08/16 04:30 10/17/16 05:57 (Narcan Inj) 0.4 mg UNSCH PRN IV 10/08/16 04:30 (Percocet 10-325 Mg) 1 tab Q4H PRN PO 10/08/16 04:45 10/17/16 06:17 (D50w (Vial) Inj) 25 ml UNSCH PRN IV PUSH 10/09/16 22:30 (Glucagon Inj) 1 mg UNSCH PRN OTHER 10/09/16 22:30 (Synthroid) 100 mcg DAILY@0600 PO 10/11/16 11:15 10/17/16 05:57 (Vibramycin) 100 mg Q12HR PO 10/12/16 22:00 10/16/16 20:26 (Cleocin) 300 mg Q6H PO 10/16/16 08:00 10/17/16 02:27 Pantoprazole Sodium 40 mg 40 mg Q12HR IV PUSH 10/17/16 09:00 10/17/16 09:00 Pantoprazole Sodium 80 mg/ Sodium Chloride 100 ml @ 10 mls/hr Q10H IV 10/17/16 10:00 10/17/16 10:34 Sodium Chloride 250 ml @ 15 mls/hr ONCE ONCE IV 10/17/16 11:15 10/18/16 03:54 10/17/16 11:15 Potassium Chloride 100 ml @ 50 mls/hr Q2H PRN IV 10/17/16 11:30 Potassium Chloride 100 ml @ 50 mls/hr Q2H PRN IV 10/17/16 11:30 Potassium Chloride 100 ml @ 25 mls/hr UNSCH PRN IV 10/17/16 11:30 Potassium Chloride 100 ml @ 50 mls/hr Q2H PRN IV 10/17/16 11:30 (Magnesium Sulfate Inj/NS Inj) 100 ml @ 50 mls/hr UNSCH PRN IV 10/17/16 11:30 Magnesium Oxide 800 mg 800 mg UNSCH PRN PO 10/17/16 11:30 (Magnesium Sulfate Inj/NS Inj) 100 ml @ 50 mls/hr UNSCH PRN IV 10/17/16 11:30 Potassium Phosphate 2000 mg 2,000 mg Q4H PRN PO 10/17/16 11:30 (Sodium Phosphate Inj/NS 250 ml Inj) 250 ml @ 42 mls/hr UNSCH PRN IV 10/17/16 11:30 Potassium Phosphate 2000 mg 2,000 mg UNSCH PRN PO/TUBE 10/17/16 11:30 Potassium Phosphate 30 mmol/ Sodium Chloride 260 ml @ 42 mls/hr UNSCH PRN IV 10/17/16 11:30 Sodium Bicarbonate 100 meq/Sterile Water 950 ml @ 150 mls/hr Q6H20M IV 10/17/16 13:00 Sodium Chloride 250 ml @ 15 mls/hr ONCE ONCE IV 10/17/16 14:00 10/18/16 06:39 (NS 250 ml Inj) 250 ml @ 15 mls/hr ONCE ONCE IV 10/17/16 14:15 10/18/16 06:54 Family History reviewed, non contributory Social History Lives with his mother in [place]. Denies ETOH. Smokes 2 ppd, has been smoking for 45 years. Physical Exam Vital Signs Vital Signs Date Time Temp Pulse Resp B/P Pulse Ox O2 Delivery O2 Flow Rate FiO2 10/17/16 13:14 96.9 118 17 106/65 100 10/17/16 13:13 100 Non-Rebreather 15 10/17/16 12:40 111 18 136/94 95 10/17/16 12:30 108 14 98/63 96 10/17/16 12:01 112 15 98/63 95 10/17/16 12:00 97.7 112 14 98/63 96 10/17/16 12:00 98.1 110 16 118/55 98 10/17/16 12:00 112 10/17/16 11:00 108 22 95/58 89 10/17/16 11:00 108 10/17/16 10:30 95.5 100 16 95/59 98 10/17/16 10:21 100 Non-Rebreather 14.00 10/17/16 10:15 98.1 100 12 159/70 100 10/17/16 10:08 98 12 159/70 100 10/17/16 10:00 98 10/17/16 09:54 96 14 132/39 10/17/16 09:51 94.0 10/17/16 08:58 104 10/17/16 06:00 96.2 100 20 95/73 100 10/17/16 03:45 97.5 80 16 105/75 97 10/17/16 03:30 96.7 76 16 109/73 97 10/17/16 01:57 97.5 85 18 105/80 99 10/17/16 01:45 97.7 83 16 107/77 99 10/16/16 23:15 92 10/16/16 20:00 98.2 107 20 76/58 99 80/62 Physical Exam GENERAL: frail, weak appearing, chronically ill. SKIN: Warm and dry. HEAD: Normocephalic. EYES: No scleral icterus. No injection or drainage. NECK: Supple, trachea midline. No JVD or lymphadenopathy. CARDIOVASCULAR: Regular rate and rhythm without murmurs, gallops, or rubs. RESPIRATORY: diminished breath sounds bilaterally. GASTROINTESTINAL: Abdomen soft, non-tender, nondistended. Midline scar, he has 2 areas of ulcerations, or nonhealing wounds. MUSCULOSKELETAL: No cyanosis, or edema. BACK: Nontender without obvious deformity. No CVA tenderness. Laboratory Laboratory Tests Test 10/16/16 10/16/16 10/16/16 10/17/16 19:45 22:33 22:40 08:20 White Blood Count 15.1 13.8 Red Blood Count 3.01 2.55 Hemoglobin 8.9 7.4 7.8 Hematocrit 26.1 21.5 23.0 Mean Corpuscular Volume 86.9 90.3 Mean Corpuscular Hemoglobin 29.6 30.6 Mean Corpuscular Hemoglobin 34.0 33.9 Concent Red Cell Distribution Width 15.8 15.4 Platelet Count 189 122 Mean Platelet Volume 7.7 8.9 Neutrophils (%) (Auto) 71.8 81.1 Lymphocytes (%) (Auto) 17.6 12.7 Monocytes (%) (Auto) 9.8 5.4 Eosinophils (%) (Auto) 0.3 0.4 Basophils (%) (Auto) 0.5 0.4 Neutrophils # (Auto) 10.8 11.1 Lymphocytes # (Auto) 2.7 1.8 Monocytes # (Auto) 1.5 0.7 Eosinophils # (Auto) 0.0 0.1 Basophils # (Auto) 0.1 0.1 CBC Comment DIFF FINAL AUTO DIFF Differential Comment AUTO DIFF CONFIRMED Blood Type O POSITIVE Crossmatch Leukocyte-Reduced Leukocyte-Reduced Red Blood Red Blood Cells Cells Blood Bank Comment Sodium Level 141 Potassium Level 6.7 Chloride Level 111 Carbon Dioxide Level 18.7 Anion Gap 11 Blood Urea Nitrogen 59 Creatinine 1.70 Estimat Glomerular Filtration 41 Rate Random Glucose 393 Calcium Level 6.9 Protein Corrected Calcium 9.0 Magnesium Level 2.4 Total Bilirubin 0.4 Aspartate Amino Transf 6 (AST/SGOT) Alanine Aminotransferase 12 (ALT/SGPT) Alkaline Phosphatase 43 Total Protein 3.4 Albumin 1.5 Test 10/17/16 10/17/16 10/17/16 10/17/16 09:44 10:00 11:13 11:14 Blood Type O POSITIVE O POSITIVE Crossmatch Leukocyte-Reduced Leukocyte-Reduced Red Blood Red Blood Cells Cells Blood Bank Comment Blood Gas Puncture Site LT FEMORAL Blood Gas Patient Temperature 37.0 Blood Gas HCO3 8 Blood Gas Base Excess -18.7 Blood Gas Oxygen Saturation 98 Arterial Blood pH 7.17 Arterial Blood Partial 23 Pressure CO2 Arterial Blood Partial 300 Pressure O2 Arterial Blood Oxygen Content 9.4 Arterial Blood 0.8 Carboxyhemoglobin Arterial Blood Methemoglobin 1.1 Blood Gas Hemoglobin 6.2 Oxygen Delivery Device NRB Blood Gas Liter Flow 14 Test 10/17/16 10/17/16 10/17/16 10/17/16 11:30 12:01 12:07 13:50 White Blood Count 21.3 Red Blood Count 3.04 Hemoglobin 9.2 Hematocrit 27.2 Mean Corpuscular Volume 89.5 Mean Corpuscular Hemoglobin 30.2 Mean Corpuscular Hemoglobin 33.8 Concent Red Cell Distribution Width 14.4 Platelet Count 116 Mean Platelet Volume 8.6 Neutrophils (%) (Auto) 89.5 Lymphocytes (%) (Auto) 6.9 Monocytes (%) (Auto) 3.2 Eosinophils (%) (Auto) 0.1 Basophils (%) (Auto) 0.3 Neutrophils # (Auto) 19.0 Lymphocytes # (Auto) 1.5 Monocytes # (Auto) 0.7 Eosinophils # (Auto) 0.0 Basophils # (Auto) 0.1 CBC Comment DIFF FINAL Differential Comment Prothrombin Time 14.1 Prothromb Time International 1.3 Ratio Activated Partial 28.9 Thromboplast Time Fibrinogen 116 Sodium Level 143 147 Potassium Level 7.3 5.1 Chloride Level 113 114 Carbon Dioxide Level 13.7 19.3 Anion Gap 16 14 Blood Urea Nitrogen 56 54 Creatinine 1.90 1.91 Estimat Glomerular Filtration 36 36 Rate Random Glucose 341 258 Calcium Level 7.0 7.3 Protein Corrected Calcium 9.0 9.1 Phosphorus Level 6.8 6.1 Total Bilirubin 0.4 0.4 Aspartate Amino Transf 151 181 (AST/SGOT) Alanine Aminotransferase 100 137 (ALT/SGPT) Alkaline Phosphatase 54 49 Total Protein 3.7 4.0 Albumin 1.7 2.0 Urine Random Creatinine 41.6 Urine Random Sodium 71 Lactic Acid Level 9.0 Magnesium Level 2.3 Direct Bilirubin 0.1 Indirect Bilirubin 0.3 Test 10/17/16 14:14 Prothrombin Time 14.4 Prothromb Time International 1.3 Ratio Activated Partial 29.1 Thromboplast Time Date/Time Procedure Status Source Growth 10/16/16 02:15 Stool Occult Blood (EDILBERTO) - Final Complete Stool Stool HEMOCCULT POSITIVE Result Diagram: 10/17/16 1130 10/17/16 1350 Assessment and Plan Problem List: (1) JUSTINE (acute kidney injury) Plan: could be due to renal hypoperfusion resulting from hypotension and acute blood loss, hemorrhagic shock. Continue hemodynamic support. Dialysis because of hyperkalemia and acidosis, but may not need continued dialysis support. No fluid removal with dialysis today. (2) Hyperkalemia Plan: Improved. Due to reduction in GFR, acidosis and large volume blood transfusion. Dialysis, monitor. Avoid lactated Ringer's (3) Acidosis Plan: due to lactic acidosis. Lactic acidosis is due to hypoperfusion. Consider bowel ischemia. Monitor. No need for bicarbonate drip at this point as he will be on dialysis. (4) Tobacco abuse Plan: Cessation was advised. (5) Acute blood loss anemia Plan: GI evaluation. He is to have EGD and colonoscopy. Blood transfusion. Assessment and Plan Thanks for the consult. I will follow. Reginaldo De La Garza MD Oct 17, 2016 16:27
[2016-10-17] MEDS ORDERED: PEG (High)/E-LYTE SOLN 4000 ML BTL PO ONE (16:30)
--- NOTE | 2016-10-17 16:59 | PD.CONS ---
HPI History of Present Illness This is a 60 year old male who was transferred from [facility] for hematochezia/ rectal bleeding. He has a hx of gastric bypass and in 2014, found to have a very large ulcer on his taking over the entire and anastomosis. Biopsy was done. Malignancy cannot rule out, multiple ulcers in the duodenum, biopsy was done, and the colon there was some stool but no abnormality was seen. Pathology revealed small bowel with intestinal eyes glandular mucosa with marketed acute inflammation and features of ulceration, stomach biopsy with intestinal eyes glandular mucosa with active chronic inflammation and features of ulceration. No Helicobacter pylori-like organisms are present. He did not follow up as outpatient at that time. He was then seen in June of 2016 for anemia, but refused GI workup at that time. He then presented to the ER last month after a fall and was found to have severe anemia and reported a 20-30 lb weight loss. He was evaluated with EGD/Colonoscopy (09/13/16)-----> Esophagus normal, stomach large ulcerated area in the anastomotic area could be a malignancy, biopsy was done, duodenal normal, normal anatomy for partial gastrectomy. The colon was suboptimal prep. No large lesion seen. Pathology benign focally ulcerated and necrotic gastric and intestinal mucosal tissue and exudate containing numerous bacteria and fungal hyphal and pseudohyphae forms suggestive of danielle species as demonstrated by the elizabeth stain. The presence of fungi and bacteria within the necrotic tissue may represent that of saprophytic involvement and does not necessarily implicate an infectious etiology of the ulceration and necrosis. He was treated with flagyl, diflucan, and PPI. The plan was for repeat EGD in 2 weeks, but he has not followed up in the office. He was in the ICU at [facility] being treated for generalized weakness, intermittent confusion, anemia. He started having hematochezia, passing large amounts of red blood from his rectum and was transferred here for GI Bleeding. On arrival to the ICU here, a Vascath was placed and he was started on HD for hyperkalemia, JUSTINE. Since he has been here, he has passed a large amount of maroon blood filling the bedpan and remains hypertensive despite blood transfusions/boluses. He denies any nausea, vomiting , abdominal pain. He states that he has not had GI bleeding at home. He denies the use of NSAIDs at home. He denies the use of ETOH. Of note, he is a poor historian. PFSH Past Medical History PUD with persistent gastric ulceration Hypertension COPD Diabetes Chronic back pain Hypothyroidism. Peripheral edema Anemia PVD Tobacco abuse Chronic narcotic use Past Surgical History Gastric bypass Partial pancreatectomy and splenectomy Multiple surgeries related to gastric bypass. Cholecystectomy EGD/Colonoscopy Coded Allergies: No Known Allergies (Unverified , 10/08/16) Medications Allergies Coded Allergies Type Severity Reaction Last Updated Verified No Known Allergies 10/08/16 No Active Scripts Medications Dose Route/Sig Days Date Category Synthroid (Levothyroxine Sodium) 100 Mcg Tab 100 Mcg PO DAILY@0600 10/12/16 Rx Doxycycline Hyclate 100 Mg Tab 100 Mg PO Q12HR 10/12/16 Rx Percocet (Oxycodone-Acetaminophen) 10-325 mg Tab 1 Tab PO Q4H PRN 10/08/16 Reported Temazepam 7.5 Mg Cap 7.5 Mg PO HS PRN 10/08/16 Reported Lisinopril 20 Mg Tab 20 Mg PO DAILY 10/03/16 Rx Cleocin (Clindamycin HCl) 150 Mg Cap 300 Mg PO Q6H 10/03/16 Rx Coreg (Carvedilol) 3.125 Mg Tab 3.125 Mg PO Q12HR 10/03/16 Rx Metoprolol Tartrate 25 Mg Tab 25 Mg PO BID 08/30/16 Rx Family History Denies family hx of esophageal, gastric, or colorectal cancer. Social History 2 PPD he reports x 45 years. No ETOH or illicit drug use. Review of Systems Constitutional: COMPLAINS OF: Fatigue, Weight loss, Change in appetite, DENIES : Fever, Chills Cardiovascular: DENIES: Chest pain Gastrointestinal: COMPLAINS OF: Bloody stools, Diarrhea, DENIES: Abdominal pain, Black stools, Constipation, Nausea, Vomiting, Swelling of Abdomen Neurologic: DENIES: Headache Psychiatric: COMPLAINS OF: Confusion ROS poor historian GI Exam Vitals I&O Vital Signs Date Time Temp Pulse Resp B/P Pulse Ox O2 Delivery O2 Flow Rate FiO2 10/17/16 13:14 96.9 118 17 106/65 100 10/17/16 13:13 100 Non-Rebreather 15 10/17/16 12:40 111 18 136/94 95 10/17/16 12:30 108 14 98/63 96 10/17/16 12:01 112 15 98/63 95 10/17/16 12:00 97.7 112 14 98/63 96 10/17/16 12:00 98.1 110 16 118/55 98 10/17/16 12:00 112 10/17/16 11:00 108 22 95/58 89 10/17/16 11:00 108 10/17/16 10:30 95.5 100 16 95/59 98 10/17/16 10:21 100 Non-Rebreather 14.00 10/17/16 10:15 98.1 100 12 159/70 100 10/17/16 10:08 98 12 159/70 100 10/17/16 10:00 98 10/17/16 09:54 96 14 132/39 10/17/16 09:51 94.0 10/17/16 08:58 104 10/17/16 06:00 96.2 100 20 95/73 100 10/17/16 03:45 97.5 80 16 105/75 97 10/17/16 03:30 96.7 76 16 109/73 97 10/17/16 01:57 97.5 85 18 105/80 99 10/17/16 01:45 97.7 83 16 107/77 99 10/16/16 23:15 92 10/16/16 20:00 98.2 107 20 76/58 99 80/62 I/O 10/16/16 10/16/16 10/16/16 10/17/16 10/17/16 10/17/16 07:00 15:00 23:00 07:00 15:00 23:00 Intake Total 120 ml 575 ml 600 ml 1463 ml Output Total 500 ml Balance 120 ml 575 ml 100 ml 1463 ml Intake Oral 120 ml 575 ml 600 ml 80 ml IV Total 750 ml Packed Cells 633 ml Output Urine Total 500 ml # Voids 1 2 0 # Bowel Movements 0 1 0 Imaging Last Impressions Chest X-Ray 10/17/16 0000 Signed Impressions: Service Date/Time: Monday, October 17, 2016 15:29 - CONCLUSION: 1. Right IJ central line distal tip in the right atrium. No pneumothorax is visualized. 2. Mild atelectasis versus consolidation at the right lung base. Levar Aguayo MD Brain MRI 10/10/16 0000 Signed Impressions: Service Date/Time: Monday, October 10, 2016 15:13 - CONCLUSION: 1. No findings to indicate acute cortical infarct are evident. 2. Scattered areas of increased T2 signal in the white matter consistent with mild microvascular ischemic demyelinative change. Lester Allen MD Head CT 10/09/16 0000 Signed Impressions: Service Date/Time: Sunday, October 09, 2016 09:03 - CONCLUSION: Negative for acute process. Jeferson Allen MD FACR Laboratory Test 10/16/16 10/16/16 10/16/16 10/17/16 19:45 22:33 22:40 08:20 White Blood Count 15.1 TH/MM3 13.8 TH/MM3 Red Blood Count 3.01 MIL/MM3 2.55 MIL/MM3 Hemoglobin 8.9 GM/DL 7.4 GM/DL 7.8 GM/DL Hematocrit 26.1 % 21.5 % 23.0 % Mean Corpuscular Volume 86.9 FL 90.3 FL Mean Corpuscular Hemoglobin 29.6 PG 30.6 PG Mean Corpuscular Hemoglobin 34.0 % 33.9 % Concent Red Cell Distribution Width 15.8 % 15.4 % Platelet Count 189 TH/MM3 122 TH/MM3 Mean Platelet Volume 7.7 FL 8.9 FL Neutrophils (%) (Auto) 71.8 % 81.1 % Lymphocytes (%) (Auto) 17.6 % 12.7 % Monocytes (%) (Auto) 9.8 % 5.4 % Eosinophils (%) (Auto) 0.3 % 0.4 % Basophils (%) (Auto) 0.5 % 0.4 % Neutrophils # (Auto) 10.8 TH/MM3 11.1 TH/MM3 Lymphocytes # (Auto) 2.7 TH/MM3 1.8 TH/MM3 Monocytes # (Auto) 1.5 TH/MM3 0.7 TH/MM3 Eosinophils # (Auto) 0.0 TH/MM3 0.1 TH/MM3 Basophils # (Auto) 0.1 TH/MM3 0.1 TH/MM3 CBC Comment DIFF FINAL AUTO DIFF Differential Comment AUTO DIFF CONFIRMED Blood Type O POSITIVE Crossmatch Leukocyte-Reduced Leukocyte-Reduced Red Blood Red Blood Cells Cells Blood Bank Comment Sodium Level 141 MEQ/L Potassium Level 6.7 MEQ/L Chloride Level 111 MEQ/L Carbon Dioxide Level 18.7 MEQ/L Anion Gap 11 MEQ/L Blood Urea Nitrogen 59 MG/DL Creatinine 1.70 MG/DL Estimat Glomerular Filtration 41 ML/MIN Rate Random Glucose 393 MG/DL Calcium Level 6.9 MG/DL Protein Corrected Calcium 9.0 MG/DL Magnesium Level 2.4 MG/DL Total Bilirubin 0.4 MG/DL Aspartate Amino Transf 6 U/L (AST/SGOT) Alanine Aminotransferase 12 U/L (ALT/SGPT) Alkaline Phosphatase 43 U/L Total Protein 3.4 GM/DL Albumin 1.5 GM/DL Test 10/17/16 10/17/16 10/17/16 10/17/16 09:44 10:00 11:13 11:14 Blood Type O POSITIVE O POSITIVE Crossmatch Leukocyte-Reduced Leukocyte-Reduced Red Blood Red Blood Cells Cells Blood Bank Comment Blood Gas Puncture Site LT FEMORAL Blood Gas Patient Temperature 37.0 Blood Gas HCO3 8 mmol/L Blood Gas Base Excess -18.7 mmol/L Blood Gas Oxygen Saturation 98 % Arterial Blood pH 7.17 Arterial Blood Partial 23 mmHg Pressure CO2 Arterial Blood Partial 300 mmHg Pressure O2 Arterial Blood Oxygen Content 9.4 Vol % Arterial Blood 0.8 % Carboxyhemoglobin Arterial Blood Methemoglobin 1.1 % Blood Gas Hemoglobin 6.2 G/DL Oxygen Delivery Device NRB Blood Gas Liter Flow 14 L/M Test 10/17/16 10/17/16 10/17/16 10/17/16 11:30 12:01 12:07 13:50 White Blood Count 21.3 TH/MM3 Red Blood Count 3.04 MIL/MM3 Hemoglobin 9.2 GM/DL Hematocrit 27.2 % Mean Corpuscular Volume 89.5 FL Mean Corpuscular Hemoglobin 30.2 PG Mean Corpuscular Hemoglobin 33.8 % Concent Red Cell Distribution Width 14.4 % Platelet Count 116 TH/MM3 Mean Platelet Volume 8.6 FL Neutrophils (%) (Auto) 89.5 % Lymphocytes (%) (Auto) 6.9 % Monocytes (%) (Auto) 3.2 % Eosinophils (%) (Auto) 0.1 % Basophils (%) (Auto) 0.3 % Neutrophils # (Auto) 19.0 TH/MM3 Lymphocytes # (Auto) 1.5 TH/MM3 Monocytes # (Auto) 0.7 TH/MM3 Eosinophils # (Auto) 0.0 TH/MM3 Basophils # (Auto) 0.1 TH/MM3 CBC Comment DIFF FINAL Differential Comment Prothrombin Time 14.1 SEC Prothromb Time International 1.3 RATIO Ratio Activated Partial 28.9 SEC Thromboplast Time Fibrinogen 116 mg/dL Sodium Level 143 MEQ/L 147 MEQ/L Potassium Level 7.3 MEQ/L 5.1 MEQ/L Chloride Level 113 MEQ/L 114 MEQ/L Carbon Dioxide Level 13.7 MEQ/L 19.3 MEQ/L Anion Gap 16 MEQ/L 14 MEQ/L Blood Urea Nitrogen 56 MG/DL 54 MG/DL Creatinine 1.90 MG/DL 1.91 MG/DL Estimat Glomerular Filtration 36 ML/MIN 36 ML/MIN Rate Random Glucose 341 MG/DL 258 MG/DL Calcium Level 7.0 MG/DL 7.3 MG/DL Protein Corrected Calcium 9.0 MG/DL 9.1 MG/DL Phosphorus Level 6.8 MG/DL 6.1 MG/DL Total Bilirubin 0.4 MG/DL 0.4 MG/DL Aspartate Amino Transf 151 U/L 181 U/L (AST/SGOT) Alanine Aminotransferase 100 U/L 137 U/L (ALT/SGPT) Alkaline Phosphatase 54 U/L 49 U/L Total Protein 3.7 GM/DL 4.0 GM/DL Albumin 1.7 GM/DL 2.0 GM/DL Urine Random Creatinine 41.6 MG/DL Urine Random Sodium 71 MEQ/L Lactic Acid Level 9.0 mmol/L Magnesium Level 2.3 MG/DL Direct Bilirubin 0.1 MG/DL Indirect Bilirubin 0.3 MG/DL Test 10/17/16 10/17/16 14:14 14:57 Prothrombin Time 14.4 SEC Prothromb Time International 1.3 RATIO Ratio Activated Partial 29.1 SEC Thromboplast Time Lactic Acid Level 2.9 mmol/L Date/Time Procedure Status Source Growth 10/16/16 02:15 Stool Occult Blood (EDILBERTO) - Final Complete Stool Stool HEMOCCULT POSITIVE Physical Examination HEENT: Normocephalic; atraumatic; no jaundice. CHEST: CTA CARDIAC: ST, hypotensive ABDOMEN: Soft, nondistended, nontender; no hepatosplenomegaly; bowel sounds are present in all four quadrants. Large bloody stool- bedpan filled with dark maroon blood EXTREMITIES: No clubbing, cyanosis, or edema. SKIN: Normal; no rash; no jaundice. SENIOR ASSISTANT MANAGER: Lethargic, poor historian Assessment and Plan Plan ASSESSMENT: - GIB, Rectal bleeding. Multiple episodes of passing dark maroon blood- filling bed swain with hypotension and JUSTINE. Tx to ICU at [facility] for endoscopic evaluation. He has hx of large gastric ulcer taking over the entire anastomosis and multiple duodenal ulcers. He did not FU for repeat EGD at that time. He was seen in June of 2016 for anemia and refused GI workup at that time. He was then seen last month and found to have severe anemia and reported a 20-30 lb weight loss. S/P EGD/Colonoscopy (09/13/16)-----> Esophagus normal, stomach large ulcerated area in the anastomotic area could be a malignancy, biopsy was done, duodenal normal, normal anatomy for partial gastrectomy. The colon was suboptimal prep. No large lesion seen. Pathology benign focally ulcerated and necrotic gastric and intestinal mucosal tissue and exudate containing numerous bacteria and fungal hyphal and pseudohyphae forms suggestive of danielle species as demonstrated by the elziabeth stain. The presence of fungi and bacteria within the necrotic tissue may represent that of saprophytic involvement and does not necessarily implicate an infectious etiology of the ulceration and necrosis. He was treated with flagyl, diflucan, and PPI. The plan was for repeat EGD in 2 weeks, but he has not followed up in the office. He is now hospitalized for generalized weakness, intermittent confusion, anemia and started having hematochezia, passing large amounts of red blood from his rectum and was transferred here for GI Bleeding. Since he has been here, he has passed a large amount of maroon blood filling the bedpan and remains hypertensive despite blood transfusions/boluses. S/P 7 units of PRBC. 4 units FFP. NPO. Plan is for EGD once hyperkalemia corrected. - Severe anemia secondary to acute blood loss. S/P 7 units of PRBC. 4 units FFP. - JUSTINE, Severe Hyperkalemia. S/P Vascath. Getting HD. Renal following. - Leukcytosis. WBC 21.3. - Generalized weakness, intermittent confusion, hx of htn, COPD, per primary PLAN: - Plan for EGD today - Obtain consents - NPO - Protonix Gtt - Monitor HH - Transfuse as necessary - Stat BMP and H/H after HD - Possible Colonoscopy in am depending on results of EGD - Supportive care - Further recommendations to follow based on results of above - Pt seen and examined by Dr. Villela and myself and this note is written on his behalf Iman Thompson Oct 17, 2016 16:59
[2016-10-17 17:10] LABS: BLOOD GAS BASE EXCESS -7.2 mmol/L (-2-2); BLOOD GAS CARBOXYHEMOGLOBIN 1.5 % (0-4); BLOOD GAS HCO3 17 mmol/L (22-26); BLOOD GAS METHEMOGLOBIN 1.3 % (0-2); BLOOD GAS O2 HGB SATURATION 93 % (90-100); BLOOD GAS OXYGEN CONTENT 12.2 Vol % (12.0-20.0); BLOOD GAS PCO2 29 mmHg (38-42); BLOOD GAS PO2 75 mmHg (61-120); BLOOD GAS TOTAL HGB 9.3 G/DL (12.0-16.0); CRITICAL VALUE NO; LITER FLOW 6 L/M; OXYGEN DEVICE NASAL CANNULA; TEMP CORR TO 98.6
[2016-10-17 17:11] LABS: DRAW SITE ART LINE; NUMBER OF ARTERIAL PUNCTURES 0; STAT YES; ULNAR PULSE PRESENT
--- NOTE | 2016-10-17 17:17 | MD ---
cc: JOHN SAGE MD ADMISSION DATE: 10/08/2016 DISCHARGE DATE: [place] Visit Search.Discharge Date DATE OF ADMISSION 10/08/2016 Okay to discharge the patient home with home health care. The patient cannot afford to go to the [facility] because of he has to get 20% of the total cost. CONDITION AT TIME OF DISCHARGE: Condition at the time of discharge is satisfactory activity as tolerated. Diet cardiac diet. ALLERGIES NO KNOWN DRUG ALLERGIES DISCHARGE MEDICATIONS: Doxycycline 100 mg p.o. b.i.d. Levothyroxine 100 mcg p.o. daily. Carvedilol 3.125 mg p.o. q. 12. Clindamycin 300 mg p.o. q. 6-hour. Lisinopril 20 mg daily. Metoprolol 25 mg p.o. b.i.d. Oxycodone. Percocet 10/325 p.o. q. 4-hour. Temazepam 7.5 mg q.h.s. p.r.n. insomnia. The patient advised to follow with PCP 1 week. ADMISSION DIAGNOSIS Generalized weakness discharged and generalized weakness improved. His anterior abdominal wall wound infection. The patient is on clindamycin and doxycycline, continue that. History of hypertension. History of insomnia. History of chronic obstructive pulmonary disease. History of smoking. The patient was advised to quit. History of gastroesophageal reflux disease. History of gastric bypass surgery. Confusion off and on CT brain was checked and shows nothing acute. MRA of the brain was checked nothing acute. Neurology has seen the patient. The patient remained stable. No acute event happened. The patient discharged in satisfactory condition. The patient had anemia with a hemoglobin of 10.4. The patient discharged in satisfactory condition. The patient on potassium was 5.3 at the time of admission which resolved. The patient also had renal insufficiency with a creatinine of 1.40 which resolved. C diff toxin antigen was negative. RPR was nonreactive. The patients TSH was 0.037. The patients folate level was 10.6. The patients B12 level was 388. The patient started on B12 tablets. The patients troponin-I less than 0.02, ammonia level was normal 16. Further details in the medical record. John Sage MD EA/yung /11:34 AM /5:08 PM
[2016-10-17 19:48] LABS: REVIEW FLAG FINAL
[2016-10-17 19:51] LABS: HEMATOCRIT 20.2 % (39.0-51.0)
[2016-10-17 20:22] LABS: CALCIUM-PROTEIN CORRECTED 8.7 MG/DL (8.5-10.1)
[2016-10-17 20:29] LABS: HEMATOCRIT 21.9 % (39.0-51.0)
[2016-10-17 20:30] LABS: REVIEW FLAG FINAL
[2016-10-17] MEDS ORDERED: ROCURONIUM INJ 50 MG/5 ML VIAL IV ONE (20:45)
[2016-10-17] MEDS ORDERED: fentaNYL CITRATE 250 MCG/5 ML AMP IV PUSH ONE (20:45)
[2016-10-17] MEDS ORDERED: ETOMIDATE 20 MG/10 ML VIAL IV PUSH ONE (20:45)
[2016-10-17] MEDS ORDERED: SUCCINYLCHOLINE CHLORIDE 200 MG/10 ML VIAL ONE (20:46)
[2016-10-17] MEDS ORDERED: MIDAZOLAM HCL 5 MG/ML VIAL (1 ML) ONE ×2 (20:49→21:55)
[2016-10-17] MEDS ORDERED: CHLORHEXIDINE GLUCONATE 2 % 1 PACK (2 CLOTHS)(extra cloths) TOPICAL PRN (21:00)
--- NOTE | 2016-10-17 21:11 | PD.PROCEDR ---
Procedure Note Procedure PROCEDURE NOTE PROCEDURE: Endotracheal intubation INDICATION: Procedural sedation for EGD. DETAILS OF PROCEDURE: The patient was placed in optimal position and preoxygenated with 100% FiO2 via [id number]. Oximeter oxygen saturation of 98% was obtained prior to direct laryngoscopy. The patient was administered etomidate 20 mill grams IV for sedation and rocuronium 50 mg IV. Direct laryngoscopy was performed with a 3 Howell laryngoscope blade and a grade 1 Cormack-Lehane view was obtained. On single attempt a size 8 endotracheal tube was visualized passing through the cords. Correct placement was confirmed with colorimetric CO2 detector. Breath sounds were equal bilaterally. No sounds auscultated over the stomach. The endotracheal tube was secured with a commercial tube garza at a depth of 23 cm at the lips. The patient was connected to the ventilator. The patient tolerated the procedure well without any apparent complication. Oxygen saturations were maintained greater than 97% at all times. Renetta Gonzales MD Oct 17, 2016 21:11
[2016-10-17] MEDS ORDERED: EPINEPHrine HCL (1:10,000) 1 MG/10 ML SYRINGE OTHER ONE (21:15)
--- NOTE | 2016-10-17 21:34 | PD.PROCEDR ---
Procedure Note Procedure Central Line Procedure Note Right IJ 14 Slovak 20 cm dialysis catheter Diagnosis: Active upper GI bleed Indications: Life-threatening hyperkalemia despite conservative measures Consent: Consent is deemed emergent or medically necessary. I verbally consented the patient for the procedure, including the risks of bleeding, infection, pneumothorax, and injury to surrounding structures. I also instructed the patient that given his renal failure and life-threatening hyperkalemia, failure to proceed with emergent dialysis may likely be life ending. Anesthesia: 1% lidocaine locally Description of the Procedure: The patient was placed in the supine, mild- Trendelenburg position. The area was prepped and draped sterilely. A 19g needle was inserted under negative pressure aspiration and dark venous blood was obtained. A guidewire was inserted easily without resistance. A small incision was made using a #11 blade. Using a modified Seldinger technique, serial dilators and a 14 Slovak, 20 cm catheter were advanced over the guidewire without resistance. All ports were aspirated and flushed, and had brisk blood return. The line was secured at the skin using 2-0 silk interrupted sutures. A Biopatch and Transparent sterile dressing were applied. There were no immediate complications noted. There was minimal EBL. The patient tolerated the procedure well. Ultrasound Guidance: Ultrasound guidance was used to identify the right internal jugular vein. The vascular anatomy of the right anterior neck was normal. The vessel was cannulated under direct, real-time ultrasound visualization. After placement of the guidewire, confirmation of the guidewire in the lumen of the vessel was made using ultrasound visualization, before dilation of the tract. A Chest x-ray has been ordered. I personally performed the procedure. Kobe Nicholas MD Oct 17, 2016 21:34
[2016-10-17] MEDS ORDERED: PHENYLEPHRINE INJ 160 MG in DEXTROSE 5% IN WATE 500 ML INJ 484 ML IV SCH ×2 (21:45)
[2016-10-17] MEDS ORDERED: TERBUTALINE INJ 1 MG/ML AMP SQ PRN (21:45)
[2016-10-17] MEDS ORDERED: CALCIUM CHLORIDE 10% SOLN 1 GRAM/10 ML SYR ONE (21:53)
--- NOTE | 2016-10-17 22:30 | HHI.CCPN ---
Subjective Remarks/Hospital Course Consult by Dr. Nicholas: This is a 60yM with very complicated past medical history with multiple hospital admissions in the past. In brief, he has a history of gastric bypass and a chronic poorly healing abdominal wound, as well as chronic malnutrition, DM, htn, COPD. He presented to the [facility] ED with complaints of fatigue. He was admitted to the hospital. His hospital course has been complicated by hypotension, acute kidney injury. Today, he started having large volume melanotic stools with associated tachycardia and hypotension. I was consulted when the patient required transfer to the ICU. He had a K > 6, serum bicarb of 8 , BE -18, ABG 7.1/23/300, lactate 9.0, active melena with hemodynamic instability. I recommended that the [facility] hospital[facility] team give the patient large volume blood product resuscitation and emergent transfer to the [facility] for emergent GI scope. I also discussed the case with GI who was ready and available when the patient arrived. The patient arrived in the [facility] PACU and I immediately went to evaluate him. Despite therapy with D50/insulin/bicarb /calcium, his K viat from 6 to 7.2. He remained tachycardic and hypotensive. Decision by myself in conjunction with the anesthesia team was to postpone emergent EGD until the patient could be medically stabilized. Taken to ICU. Dialysis catheter placed (see separate procedure note for details), arterial line placed, given 7 units prbc, 4 ffp. emergent IHD. Of note, patient does have a history of a prior high grade necrotic gastric ulcer on last EGD, but was lost to follow-up for repeat EGD. Subjective: 10/17/16 Patient with ongoing GI bleeding and in need of urgent endoscopy. Dr. Villela discussed with OR and was told they were not able to take his case due to multiple other emergent cases. He requested [facility] assist with intubation for urgent EGD. Patient was intubated and sedated with propofol drip, fentanyl 100 mcg IV, Versed 5 mg IV. Patient was hemodynamically stable post-intubation. Dr. Villela performed endocopy and evacuated clots from stomach and then noted a large deep gastric ulcer with active hemorrhage that was not amenable to endoscopic intervention. He consulted invasive radiology and discussed with Dr. Mullins who stated that patient was not a candidate for embolization due to h/ o gastric bypass. Dr. Villela then called general surgeon. Patient was meanwhile undergoing tranfusion per massive transfusion protocol. He received 6 units PRBC, 1 unit FFP, 1 unit plt, per [place] rapid infuser via Vascath, Calcium chloride 1 gram IV. On phenylephrine drip. I called and spoke with his , Delaney Gonzalez. She states he has a living will and that she is his healthcare surrogate. She was updated that he is in critical condition with active hemorrhage and high risk of . Discussed that his only hope for survival was for massive transfusion with possible gastrectomy. She states that patient would desire DNR status at this time and states that he "would not want to go through with a surgery like that". She states that if surgeon were to offer option of surgery, that she would not want to proceed with surgery because "that is not what he would want". I discussed that , without surgery, he will certainly tonight. She states that she understands and that she wants to ensure that he is comfortable. She asked if he was suffering. Discussed that he is sedated and hypotensive and likely unaware. She requests that he receive sedation if needed to ensure his comfort. Patient has been in [place] caring for his mother over the last few months while his has been in [place]. His mother has dementia. I asked if his wanted me to call patient's mother and she said "No, it is best if I call and tell her". Objective Vital Signs Date Time Temp Pulse Resp B/P Pulse Ox O2 Delivery O2 Flow Rate FiO2 10/17/16 18:00 102 10/17/16 16:00 99.0 15 110/57 96 10/17/16 13:13 Non-Rebreather 15 Intake and Output 10/16/16 10/16/16 10/17/16 08:00 16:00 00:00 Intake Total 120 ml 575 ml 600 ml Output Total 500 ml Balance 120 ml 575 ml 100 ml Result Diagram: 10/17/16201810/17/161929 Other Results Microbiology Date/Time Procedure Status Source Growth 10/16/16 02:15 Stool Occult Blood (EDILBERTO) - Final Complete Stool Stool HEMOCCULT POSITIVE Laboratory Tests Test 10/17/16 10/17/16 10:00 15:30 Blood Gas Puncture Site LT FEMORAL ART LINE Blood Gas Patient Temperature 37.0 98.6 Blood Gas HCO3 8 mmol/L 17 mmol/L (22-26) (22-26) Blood Gas Base Excess -18.7 mmol/L -7.2 mmol/L (-2-2) (-2-2) Blood Gas Oxygen Saturation 98 % (90-100) 93 % (90-100) Arterial Blood pH 7.17 7.39 (7.380-7.420) (7.380-7.420) Arterial Blood Partial 23 mmHg (38-42) 29 mmHg (38-42) Pressure CO2 Arterial Blood Partial 300 mmHg 75 mmHg Pressure O2 (61-120) (61-120) Arterial Blood Oxygen Content 9.4 Vol % 12.2 Vol % (12.0-20.0) (12.0-20.0) Arterial Blood 0.8 % (0-4) 1.5 % (0-4) Carboxyhemoglobin Arterial Blood Methemoglobin 1.1 % (0-2) 1.3 % (0-2) Blood Gas Hemoglobin 6.2 G/DL 9.3 G/DL (12.0-16.0) (12.0-16.0) Oxygen Delivery Device NRB NASAL CANNULA Blood Gas Liter Flow 14 L/M 6 L/M Imaging Last Impressions Chest X-Ray 10/17/16 0000 Signed Impressions: Service Date/Time: Monday, October 17, 2016 15:29 - CONCLUSION: 1. Right IJ central line distal tip in the right atrium. No pneumothorax is visualized. 2. Mild atelectasis versus consolidation at the right lung base. Levar Aguayo MD Brain MRI 10/10/16 0000 Signed Impressions: Service Date/Time: Monday, October 10, 2016 15:13 - CONCLUSION: 1. No findings to indicate acute cortical infarct are evident. 2. Scattered areas of increased T2 signal in the white matter consistent with mild microvascular ischemic demyelinative change. Lester Allen MD Head CT 10/09/16 0000 Signed Impressions: Service Date/Time: Sunday, October 09, 2016 09:03 - CONCLUSION: Negative for acute process. Jeferson Allen MD FACR Objective Remarks gen: pale, critically ill appearing middle aged male, appears much older than stated age. heent: palor. ncat. perrl. sclerae pale. mucous membranes dry. Blood emanating from oropharynx neck: no jvd. trachea midline. chest: clear to auscultation. orotracheally intubated. cv: tachycardic rate, regular rhythm. no appreciable murmurs. abd: soft, nontender, nondistended. no guarding. open nonhealing abdominal wound without bettina purulence. extr: distal pulses 1+. 1+ peripheral edema neuro: sedated, unresponsive. VASC: R IJ Vascath in place with some oozing. A/P Assessment and Plan Assessment: 60yM with active GI bleed, hemorrhagic shock, associated multiorgan system failure, acute kidney injury, life-threatening hyperkalemia, anemia of acute blood loss, coagulopathy secondary to consumption and hemorrhage, lactic acidosis, shock liver. He is very critically ill at this time. Atelectasis COPD Respiratory failure Hemorrhagic Shock --Massive transfusion protocol Acute Kidney Injury Life-threatening hyperkalemia (resolved) Hyperphosphatemia Intravascular volume depletion acute protein calorie malnutrition- moderate Active upper GI bleed secondary to large gastric ulcer. Lactic Acidosis Shock Liver Anemia secondary to acute blood loss Coagulopathy secondary to acute blood loss and consumption Non-healing abdominal wall wound Diabetes Hyperglycemia of critical illness Patient critically ill with massive blood loss and hemorrhagic shock. Massive transfusion protocol initiated. Not amenable to endoscopic intervention. Not candidate for embolization per Dr. Mullins. states that he would not want to undergo morbidity of gastrectomy. She states that he would want comfort measures and DNR. She states she is aware of that without intervention he will tonight. This conversation was witnessed by Fatuma Robles RN who also confirmed with that she desires comfort measures. Massive transfusion discontinued. Patient remains sedated on propofol. Given additional Versed 5 mg IV and fentanyl 100 g IV to ensure comfort. He at 04:52. Asystole in 2 leads, flat line on art line, no heart sounds or spontaneous respirations. Pupils fixed and dilated. CCT 120 minutes exclusive of separately billable procedures. Time spent at bedside providing informed consent for intubation and sedation, actively assisting with resuscitation during endoscopy, massive transfusion, coordination of care with consultants, discussion with bedside nurses, blood bank, and updating patients . Renetta Gonzales MD Oct 17, 2016 22:29
[2016-10-18] VITALS: BP 138/65; PULSE 70
[2016-10-18 02:00] VITALS: PULSE 98
[2016-10-18 02:01] VITALS: O2SAT 100
[2016-10-18 04:00] VITALS: BP 19/14; PULSE 92
[2016-10-18] MEDS ORDERED: CHLORHEXIDINE GLUCONATE 2 % 1 PACK (2 CLOTHS)(taper/protocol) TOPICAL SCH (04:00)
[2016-10-18] MEDS: PROPOFOL 1000 MG/100 ML INJ 100 ML IV SCH (04:08)
[2016-10-18 04:41] VITALS: O2SAT 0
--- NOTE | 2016-10-18 07:14 | MR ---
cc: OSIEL VILLELA M.D. DATE 10/17/2016 DATE OF 1955 PROCEDURE Upper gastrointestinal endoscopy with bleeding control. ENDOSCOPIST Dr. Villela MEDICATIONS Propofol with anesthesia. INSTRUMENT Pentax upper scope INDICATION This s a 60-year-old gentleman who came with severe GI bleed, drop in his hemoglobin rapidly. Patient known to have an ulcer in the anastomotic area from previous endoscopy two weeks ago. PROCEDURE After informing the patient of procedure and complication, consent was signed. The patient was intubated to protect his airway. The scope was placed in the mouth, advanced under video guidance. There was a significant amount of blood. I was able to identify a very large ulcer at the anastomosis with blood coming out most likely arterial bleed. I tried to cauterize the area and I injected it with 10 cc of epinephrine. There was a significant amount of blood coming out and not able to control the bleed with more blood coming out than the ability to suction it. My field of view was completely obscured with blood. RECOMMENDATIONS I will ask interventional radiology to evaluate the patient for a possible embolization and we will ask for surgical consult. Meanwhile, we will continue supportive care. Keep the patient intubated and packed RBC and blood products as needed. addendum: i talk to IR and they felt that patient would not be candidate for IR because his previous surgery, also I talked to DR Sprague, he was on his way to the hospital but then we Dr. Grewal got hold of his and after discussion with her, Ms. Baltazar want comfort care only as these are his wishes. MD ARETHA Tierney/MALIKA /9:38 PM /7:05 AM LILLY
--- NOTE | 2016-10-18 08:31 | DEATH SUM ---
Summary Demographics Date Pronounced : Oct 18, 2016 Time Of : 451 Pronounced By: DR RODAS Preliminary Cause of : Multi Organ Failure (Hemorrhagic shock with multiorgan failure due to Bleeding peptic ulcer) Renetta Rodas MD Oct 18, 2016 08:31
--- NOTE | 2016-10-18 08:37 | HHI.DS ---
Summary Note Date of : Oct 18, 2016 Time Of : 451 Admission Date Oct 08, 2016 at 12:31 Admitting Diagnosis generalized weakness/ failure to thrive; renal insufficiency Diagnosis at Time of : (1) Hemorrhagic shock Diagnosis: Principal (2) JUSTINE (acute kidney injury) ICD Code: N17.9 Diagnosis: Principal (3) Tobacco abuse ICD Code: Z72.0 Diagnosis: Secondary (4) Acute blood loss anemia ICD Code: D62 Diagnosis: Principal (5) Hyperkalemia ICD Code: E87.5 Diagnosis: Secondary (6) Ischemic hepatitis ICD Code: K75.9 Diagnosis: Secondary (7) Ulcer, gastric, acute ICD Code: K25.3 (8) COPD (chronic obstructive pulmonary disease) ICD Code: J44.9 (9) Hyperlipidemia ICD Code: E78.5 Diagnosis: Secondary (10) GERD (gastroesophageal reflux disease) ICD Code: K21.9 Diagnosis: Secondary (11) Respiratory failure, acute ICD Code: J96.00 Procedures Right IJ Vas-Cath 10/17/16 (Dr. Nicholas) Intubation 10/17/16 (Dr. Gonzales) Endoscopy 10/17/16 Dr. Villela) CBC/BMP: 10/17/16 2019 10/17/16 1930 Significant Findings Laboratory Tests Test 10/16/16 10/16/16 10/16/16 10/16/16 06:08 07:05 19:45 22:40 White Blood Count 16.1 TH/MM3 16.1 TH/MM3 15.1 TH/MM3 (4.0-11.0) (4.0-11.0) (4.0-11.0) Red Blood Count 2.27 MIL/MM3 2.30 MIL/MM3 3.01 MIL/MM3 (4.50-5.90) (4.50-5.90) (4.50-5.90) Hemoglobin 6.5 GM/DL 6.6 GM/DL 8.9 GM/DL 7.4 GM/DL (13.0-17.0) (13.0-17.0) (13.0-17.0) (13.0-17.0) Hematocrit 20.2 % 20.7 % 26.1 % 21.5 % (39.0-51.0) (39.0-51.0) (39.0-51.0) (39.0-51.0) Neutrophils (%) (Auto) 74.5 % 71.8 % (16.0-70.0) (16.0-70.0) Neutrophils # (Auto) 11.9 TH/MM3 10.8 TH/MM3 (1.8-7.7) (1.8-7.7) Monocytes # (Auto) 1.2 TH/MM3 1.5 TH/MM3 (0-0.9) (0-0.9) Chloride Level 110 MEQ/L (98-107) Blood Urea Nitrogen 31 MG/DL (7-18) Estimat Glomerular Filtration 81 ML/MIN (>89) Rate Random Glucose 193 MG/DL (74-106) Calcium Level 7.6 MG/DL (8.5-10.1) Neutrophils # (Manual) 11.4 TH/MM3 (1.8-7.7) Target Cells 1+ (NORMAL) Ovalocytes 1+ (NORMAL) Acanthocytes 1+ (NORMAL) Monocytes (%) (Auto) 9.8 % (0.0-8.0) Test 10/17/16 10/17/16 10/17/16 10/17/16 08:20 10:00 11:30 12:07 White Blood Count 13.8 TH/MM3 21.3 TH/MM3 (4.0-11.0) (4.0-11.0) Red Blood Count 2.55 MIL/MM3 3.04 MIL/MM3 (4.50-5.90) (4.50-5.90) Hemoglobin 7.8 GM/DL 9.2 GM/DL (13.0-17.0) (13.0-17.0) Hematocrit 23.0 % 27.2 % (39.0-51.0) (39.0-51.0) Platelet Count 122 TH/MM3 116 TH/MM3 (150-450) (150-450) Neutrophils (%) (Auto) 81.1 % 89.5 % (16.0-70.0) (16.0-70.0) Neutrophils # (Auto) 11.1 TH/MM3 19.0 TH/MM3 (1.8-7.7) (1.8-7.7) Potassium Level 6.7 MEQ/L 7.3 MEQ/L (3.5-5.1) (3.5-5.1) Chloride Level 111 MEQ/L 113 MEQ/L (98-107) (98-107) Carbon Dioxide Level 18.7 MEQ/L 13.7 MEQ/L (21.0-32.0) (21.0-32.0) Blood Urea Nitrogen 59 MG/DL (7-18) 56 MG/DL (7-18) Creatinine 1.70 MG/DL 1.90 MG/DL (0.60-1.30) (0.60-1.30) Estimat Glomerular Filtration 41 ML/MIN (>89) 36 ML/MIN (>89) Rate Random Glucose 393 MG/DL 341 MG/DL (74-106) (74-106) Calcium Level 6.9 MG/DL 7.0 MG/DL (8.5-10.1) (8.5-10.1) Aspartate Amino Transf 6 U/L (15-37) 151 U/L (15-37) (AST/SGOT) Alkaline Phosphatase 43 U/L (45-117) Total Protein 3.4 GM/DL 3.7 GM/DL (6.4-8.2) (6.4-8.2) Albumin 1.5 GM/DL 1.7 GM/DL (3.4-5.0) (3.4-5.0) Blood Gas HCO3 8 mmol/L (22-26) Blood Gas Base Excess -18.7 mmol/L (-2-2) Arterial Blood pH 7.17 (7.380-7.420) Arterial Blood Partial 23 mmHg (38-42) Pressure CO2 Arterial Blood Partial 300 mmHg Pressure O2 (61-120) Arterial Blood Oxygen Content 9.4 Vol % (12.0-20.0) Blood Gas Hemoglobin 6.2 G/DL (12.0-16.0) Lymphocytes (%) (Auto) 6.9 % (9.0-44.0) Prothrombin Time 14.1 SEC (9.8-11.6) Fibrinogen 116 mg/dL (181-393) Anion Gap 16 MEQ/L (5-15) Phosphorus Level 6.8 MG/DL (2.5-4.9) Alanine Aminotransferase 100 U/L (12-78) (ALT/SGPT) Lactic Acid Level 9.0 mmol/L (0.4-2.0) Test 10/17/16 10/17/16 10/17/16 10/17/16 13:50 14:14 14:57 15:30 Sodium Level 147 MEQ/L (136-145) Chloride Level 114 MEQ/L (98-107) Carbon Dioxide Level 19.3 MEQ/L (21.0-32.0) Blood Urea Nitrogen 54 MG/DL (7-18) Creatinine 1.91 MG/DL (0.60-1.30) Estimat Glomerular Filtration 36 ML/MIN (>89) Rate Random Glucose 258 MG/DL (74-106) Calcium Level 7.3 MG/DL (8.5-10.1) Phosphorus Level 6.1 MG/DL (2.5-4.9) Aspartate Amino Transf 181 U/L (15-37) (AST/SGOT) Alanine Aminotransferase 137 U/L (12-78) (ALT/SGPT) Total Protein 4.0 GM/DL (6.4-8.2) Albumin 2.0 GM/DL (3.4-5.0) Prothrombin Time 14.4 SEC (9.8-11.6) Lactic Acid Level 2.9 mmol/L (0.4-2.0) Blood Gas HCO3 17 mmol/L (22-26) Blood Gas Base Excess -7.2 mmol/L (-2-2) Arterial Blood Partial 29 mmHg (38-42) Pressure CO2 Blood Gas Hemoglobin 9.3 G/DL (12.0-16.0) Test 10/17/16 10/17/16 19:30 20:19 Hemoglobin 7.1 GM/DL 7.5 GM/DL (13.0-17.0) (13.0-17.0) Hematocrit 20.2 % 21.9 % (39.0-51.0) (39.0-51.0) Potassium Level 3.0 MEQ/L (3.5-5.1) Blood Urea Nitrogen 22 MG/DL (7-18) Random Glucose 135 MG/DL (74-106) Calcium Level 7.2 MG/DL (8.5-10.1) Total Protein 4.5 GM/DL (6.4-8.2) Imaging Last Impressions Chest X-Ray 10/17/16 0000 Signed Impressions: Service Date/Time: Monday, October 17, 2016 15:29 - CONCLUSION: 1. Right IJ central line distal tip in the right atrium. No pneumothorax is visualized. 2. Mild atelectasis versus consolidation at the right lung base. Levar Aguayo MD Brain MRI 10/10/16 0000 Signed Impressions: Service Date/Time: Monday, October 10, 2016 15:13 - CONCLUSION: 1. No findings to indicate acute cortical infarct are evident. 2. Scattered areas of increased T2 signal in the white matter consistent with mild microvascular ischemic demyelinative change. Lester Allen MD Head CT 10/09/16 0000 Signed Impressions: Service Date/Time: Sunday, October 09, 2016 09:03 - CONCLUSION: Negative for acute process. Jeferson Allen MD [facility] Hospital Course Subjective: 10/17/16 Patient with ongoing GI bleeding and in need of urgent endoscopy. Dr. Villela discussed with OR and was told they were not able to take his case due to multiple other emergent cases. He requested [facility] assist with intubation for urgent EGD. Patient was intubated and sedated with propofol drip, fentanyl 100 mcg IV, Versed 5 mg IV. Patient was hemodynamically stable post-intubation. Dr. Villela performed endocopy and evacuated clots from stomach and then noted a large deep gastric ulcer with active hemorrhage that was not amenable to endoscopic intervention. He consulted invasive radiology and discussed with Dr. Mullins who stated that patient was not a candidate for embolization due to h/ o gastric bypass. Dr. Villela then called general surgeon. Patient was meanwhile undergoing tranfusion per massive transfusion protocol. He received 6 units PRBC, 1 unit FFP, 1 unit plt, per [place] rapid infuser via Vascath, Calcium chloride 1 gram IV. On phenylephrine drip. I called and spoke with his , Delaney Gonzalez. She states he has a living will and that she is his healthcare surrogate. She was updated that he is in critical condition with active hemorrhage and high risk of . Discussed that his only hope for survival was for massive transfusion with possible gastrectomy. She states that patient would desire DNR status at this time and states that he "would not want to go through with a surgery like that". She states that if surgeon were to offer option of surgery, that she would not want to proceed with surgery because "that is not what he would want". I discussed that , without surgery, he will certainly tonight. She states that she understands and that she wants to ensure that he is comfortable. She asked if he was suffering. Discussed that he is sedated and hypotensive and likely unaware. She requests that he receive sedation if needed to ensure his comfort. Patient has been in [place] caring for his mother over the last few months while his has been in [place]. His mother has dementia. I asked if his wanted me to call patient's mother and she said "No, it is best if I call and tell her". Patient critically ill with massive blood loss and hemorrhagic shock. Massive transfusion protocol initiated. Not amenable to endoscopic intervention. Not candidate for embolization per Dr. Mullins. states that he would not want to undergo morbidity of gastrectomy. She states that he would want comfort measures and DNR. She states she is aware of that without intervention he will tonight. This conversation was witnessed by Fatuma Robles RN who also confirmed with that she desires comfort measures. Massive transfusion discontinued. Patient remains sedated on propofol. Given additional Versed 5 mg IV and fentanyl 100 g IV to ensure comfort. He at 04:52. Asystole in 2 leads, flat line on art line, no heart sounds or spontaneous respirations. Pupils fixed and dilated. Renetta Gonzales MD Oct 18, 2016 08:37
--- NOTE | 2016-10-18 12:09 | EKG ---
Date Performed: 10/17/2016 Time Performed: 10:47:24 PTAGE: 60 years EKG: Sinus tachycardia. Left axis deviation RBBB with left anterior fascicular block Inferior in farct - age undetermined Generalized low QRS voltages Abnormal ECG PREVIOUS TRACING : 10/08/2016 00.04 DOCTOR: Jarvis Ayala Interpretating Date/Time 10/18/2016 12:03:14
== END 2016-10-18 04:52 | disposition expired | DRG 377 ==
LOC: PHED 23:55 → PHEDA 10-08 04:27 → PH3A 10-08 08:10 → OBSVTOIN 10-08 12:31 → PH5A 10-12 18:00 → PH3B 10-16 07:55 → PHICU 10-17 08:31 → HPAC 10-17 13:26 → HIMN 10-17 14:30
PROVIDERS: ADMIT Family Medicine; ATTEND Family Medicine
PROC: 5A1935Z Respiratory Ventilation, Less than 24 Consecutive Hours (ICD-10-PCS; 2016-10-17)
PROC: 05HM33Z Insertion of Infusion Device into Right Internal Jugular Vein, Percutaneous Approach (ICD-10-PCS; 2016-10-17)
PROC: B543ZZA Ultrasonography of Right Jugular Veins, Guidance (ICD-10-PCS; 2016-10-17)
PROC: 3E0G8GC Introduction of Other Therapeutic Substance into Upper GI, Via Natural or Artificial Opening Endoscopic (ICD-10-PCS; 2016-10-17)
PROC: 0DJ08ZZ Inspection of Upper Intestinal Tract, Via Natural or Artificial Opening Endoscopic (ICD-10-PCS; 2016-10-17)
PROC: 30253K1 (ICD-10-PCS; 2016-10-17)
PROC: 30253N1 (ICD-10-PCS; 2016-10-17)
PROC: 30253R1 (ICD-10-PCS; 2016-10-17)
PROC: 0BH17EZ Insertion of Endotracheal Airway into Trachea, Via Natural or Artificial Opening (ICD-10-PCS; principal; 2016-10-17 20:45)
DX: K25.4 Chronic or unspecified gastric ulcer with hemorrhage (principal); D65 Disseminated intravascular coagulation [defibrination syndrome]; J96.00 Acute respiratory failure, unspecified whether with hypoxia or hypercapnia; K72.00 Acute and subacute hepatic failure without coma; N17.9 Acute kidney failure, unspecified; E44.0 Moderate protein-calorie malnutrition; D62 Acute posthemorrhagic anemia; E87.2 Acidosis; J98.11 Atelectasis; R57.8 Other shock; E87.5 Hyperkalemia; E86.9 Volume depletion, unspecified; E03.9 Hypothyroidism, unspecified; E78.5 Hyperlipidemia, unspecified; E83.39 Other disorders of phosphorus metabolism; E11.9 Type 2 diabetes mellitus without complications; G89.29 Other chronic pain; I10 Essential (primary) hypertension; J44.9 Chronic obstructive pulmonary disease, unspecified; I46.9 Cardiac arrest, cause unspecified; K21.9 Gastro-esophageal reflux disease without esophagitis; M19.90 Unspecified osteoarthritis, unspecified site; R29.6 Repeated falls; R62.7 Adult failure to thrive; Z51.5 Encounter for palliative care; Z66 Do not resuscitate; Z79.891 Long term (current) use of opiate analgesic; Z86.73 Personal history of transient ischemic attack (TIA), and cerebral infarction without residual deficits; Z90.49 Acquired absence of other specified parts of digestive tract; Z90.81 Acquired absence of spleen; Z98.84 Bariatric surgery status; F17.200 Nicotine dependence, unspecified, uncomplicated
CPT/HCPCS: 31500; 36430; 36556; 36600; 70450; 70551; 71010; 76937; 80048; 80053; 80076; 81001; 82140; 82272; 82550; 82570; 82607; 82746; 82805; 82948; 83605; 83735; 84100; 84132; 84155; 84300; 84425; 84436; 84439; 84443; 84484; 85007; 85014; 85018; 85025; 85027; 85384; 85610; 85652; 85730; 86038; 86039; 86592; 86850; 86900; 86901; 86920; 86927; 87493; 87641; 90935; 93005; 93306; 94002; 94003; 96360; 96374; C9113; G8987-GP; G8988-GP; J0171; J0330; J0610; J1644; J1815; J2250; J2405; J3010; J3475; J7030; J7040; J7050; P9016; P9017; P9035